=== PATIENT | female | born 1945 | race Caucasian/White ===

== ENCOUNTER → 2018-04-13 10:35 | Outpatient (CLI) | payer MEDICARE, BC, SELFPAY ==
[2018-04-13 11:51] LABS: HCT 37.6 % (36.0-46.0); Mean Corp. HGB Concentration 31.9 g/dL (32.0-36.0); Mean Corpuscular Hemoglobin 30.3 pg (27.0-33.0); Mean Corpuscular Volume 94.9 fL (80-95); Mean Platelet Volume 10.3 fL (8.0-11.0); Platelet Count 284 x1000/uL (130-400); RBC 3.96 m/cumm (4.00-5.20); RBC Distribution Width 14.4 % (11.7-14.6); White Blood Cell Count 8.17 k/cumm (4.4-10.8)
[2018-04-13 12:53] LABS: ALT 66 U/L (12-78); AST 40 U/L (15-37); Albumin 3.6 g/dL (3.4-5.0); Alkaline Phosphatase 97 U/L (46-116); BUN 18 mg/dL (7-18); Bilirubin, Total 0.3 mg/dL (0.2-1.0); CREATININE 1.15 mg/dL (0.55-1.02); Calcium 8.8 mg/dL (8.5-10.1); Chloride 102 mmol/L (98-107); Cholesterol 179 mg/dL (50-200); Estimated GFR 46.52 (mL/min/1.73m2); Glucose 138 mg/dL (70-100); HDL Cholesterol 38 mg/dL (40-60); LDL CHOLESTEROL 120 mg/dL (<100); Potassium 4.9 mmol/L (3.5-5.1); Sodium 139 mmol/L (136-145); TSH (W/Ref FT4) 6.75 uIU/mL (0.358-3.74); Total Protein 7.1 g/dL (6.4-8.2); Triglyceride 159 mg/dL (30-150)
[2018-04-13 12:54] LABS: COMMENT (LAB VIEW ONLY) 124.33 mg/dL
[2018-04-13 13:43] LABS: FREE T4 1.01 ng/dL (0.76-1.46)
[2018-04-13 14:30] LABS: Hemoglobin A1C 9.7 % (4.5-6.2)
== END ==
PROVIDERS: PCP Family Medicine; Visit Provider Family Medicine
DX: E03.9 Hypothyroidism, unspecified (principal); E11.65 Type 2 diabetes mellitus with hyperglycemia; I10 Essential (primary) hypertension
CPT/HCPCS: 36415; 80053; 80061; 83721; 85027; 82043; 82570; 83036; 84439; 84443

== ENCOUNTER → 2018-04-20 01:28 | Outpatient (CLI) | payer MEDICARE, BC, SELFPAY ==
--- NOTE | 2018-04-20 10:58 | DI.REPORT_ITS ---
SYMPTOM/DIAGNOSIS: SCREENING, BREAST CANCER SCREENING Z12.31 BILATERAL SCREENING MAMMOGRAM: Mammograms were interpreted according to the usual protocol including computer analysis with CAD system, tomosynthesis and C view imaging. Comparison is made with exams from 2011 through 2016. A pacemaker overlies the left pectoral muscle on the MLO view. The breasts are composed of scattered fibroglandular densities, breast density category B. No suspicious masses or suspicious microcalcifications are seen. There has been no significant change. IMPRESSION: Category 1-B, negative mammogram. Yearly screening mammography is recommended,. SA ASSESSMENT OF FINDINGS: Negative. Category 1. Patient will receive a letter notifying them of these results. BI-RADS category B. There are scattered areas of fibroglandular density.
== END ==
PROVIDERS: PCP Family Medicine; Visit Provider Family Medicine
DX: Z12.31 Encounter for screening mammogram for malignant neoplasm of breast (principal)
CPT/HCPCS: 77063; 77067

== ENCOUNTER 2018-07-20 10:57 | Outpatient (CLI) | payer MEDICARE, BC, SELFPAY ==
[2018-07-20 12:34] LABS: Hemoglobin A1C 7.5 % (4.5-6.2)
== END 2018-07-20 11:17 ==
PROVIDERS: PCP Family Medicine; Visit Provider Family Medicine
DX: E11.65 Type 2 diabetes mellitus with hyperglycemia (principal)
CPT/HCPCS: 36415; 83036

== ENCOUNTER 2018-10-21 09:32 | Outpatient (CLI) | payer MEDICARE, BC, SELFPAY ==
[2018-10-21 10:56] LABS: Hemoglobin A1C 7.7 % (4.5-6.2)
== END 2018-10-21 09:52 ==
PROVIDERS: PCP Family Medicine; Visit Provider Family Medicine
DX: E11.65 Type 2 diabetes mellitus with hyperglycemia (principal)
CPT/HCPCS: 36415; 83036

== ENCOUNTER 2019-02-17 08:45 | Outpatient (CLI) | payer MEDICARE, BC, SELFPAY ==
[2019-02-17 13:30] LABS: Hemoglobin A1C 7.9 % (4.5-6.2)
== END 2019-02-17 09:05 ==
PROVIDERS: PCP Family Medicine; Visit Provider Family Medicine
DX: E11.9 Type 2 diabetes mellitus without complications (principal)
CPT/HCPCS: 36415; 83036

== ENCOUNTER 2019-05-05 00:32 | Outpatient (CLI) | payer MEDICARE, BC, SELFPAY ==
--- NOTE | 2019-05-05 12:30 | DI.MAMMO_ITS ---
SYMPTOMS/DIAGNOSIS: SCREENING, Z12.31 BILATERAL SCREENING MAMMOGRAM: Mammograms were interpreted according to the usual protocol including computer analysis with CAD system, tomosynthesis and C view imaging. Comparison is made with exams from 2013 through 2018. The breasts are composed of scattered fibroglandular densities, breast density category B. A pacemaker is again noted over the left pectoral muscle. No suspicious masses or suspicious microcalcifications are seen. There has been no significant change. IMPRESSION: Category 1, negative mammogram. Yearly screening mammography is recommended. SA ASSESSMENT OF FINDINGS: Negative. Category 1. Patient will receive a letter notifying them of these results. BI-RADS category B. There are scattered areas of fibroglandular density.
[2019-05-05 12:40] LABS: Hemoglobin A1C 7.9 % (4.5-6.2)
[2019-05-05 13:03] LABS: ALT 68 U/L (14-59); AST 41 U/L (15-37); Albumin 3.7 g/dL (3.4-5.0); Alkaline Phosphatase 102 U/L (46-116); Anion Gap 5.6 mmol/L (3-11); BUN 20 mg/dL (7-18); Bilirubin, Total 0.3 mg/dL (0.2-1.0); CO2 29.4 mmol/L (21.0-32.0); CREATININE 1.11 mg/dL (0.55-1.02); Calcium 9.5 mg/dL (8.5-10.1); Calculated LDL 127 mg/dL; Chloride 102 mmol/L (98-107); Cholesterol 194 mg/dL (50-200); Estimated GFR 48.32 (mL/min/1.73m2); Glucose 125 mg/dL (70-100); HDL Cholesterol 38 mg/dL (40-60); Potassium 4.8 mmol/L (3.5-5.1); Sodium 137 mmol/L (136-145); TSH (W/Ref FT4) 4.82 uIU/mL (0.36-3.74); Total Protein 7.5 g/dL (6.4-8.2); Triglyceride 149 mg/dL (30-150)
[2019-05-05 13:24] LABS: FREE T4 1.19 ng/dL (0.76-1.46)
[2019-05-05 16:54] LABS: NT-proBNP 62 pg/mL
== END 2019-05-05 00:52 ==
PROVIDERS: Nurse Practitioner Adult Health; PCP Family Medicine; Visit Provider Family Medicine
DX: E03.9 Hypothyroidism, unspecified (principal); E11.9 Type 2 diabetes mellitus without complications; I10 Essential (primary) hypertension; I42.8 Other cardiomyopathies; E11.65 Type 2 diabetes mellitus with hyperglycemia; Z12.31 Encounter for screening mammogram for malignant neoplasm of breast
CPT/HCPCS: 77063; 77067; 80053; 80061; 83036; 83880; 84439; 84443

== ENCOUNTER 2019-08-09 07:42 | Outpatient (CLI) | payer MEDICARE, BC, SELFPAY ==
[2019-08-09 11:40] LABS: Hemoglobin A1C 8.9 % (4.5-6.2)
== END 2019-08-09 08:02 ==
PROVIDERS: PCP Family Medicine; Visit Provider Family Medicine
DX: E11.9 Type 2 diabetes mellitus without complications (principal)
CPT/HCPCS: 36415; 83036

== ENCOUNTER 2019-11-01 07:59 | Outpatient (CLI) | payer MEDICARE, BC, SELFPAY ==
[2019-11-01 10:35] LABS: Hemoglobin A1C 8.2 % (3.8-5.6)
== END 2019-11-01 08:19 ==
PROVIDERS: PCP Family Medicine; Visit Provider Family Medicine
DX: E11.9 Type 2 diabetes mellitus without complications (principal)
CPT/HCPCS: 36415; 83036

== ENCOUNTER 2020-05-23 00:56 | Outpatient (CLI) | payer MEDICARE, BC, SELFPAY ==
--- NOTE | 2020-05-23 07:30 | DI.MAMMO_ITS ---
EXAM: MG MAMMO SCREENING CLINICAL HISTORY: screening,Z12.39 TECHNIQUE: Bilateral full field digital CC and MLO mammographic images were obtained with 3D tomosyn thesis and utilizing computer aided detection (CAD). COMPARISON: Available for comparison. FINDINGS: Masses/Architectural Distortion: Stable scattered glandular nodules are seen throughout both breasts. No suspicious masses or areas of architectural distortion are identified. Microcalcifications: No suspicious pleomorphic-type are seen. Skin Thickening/Nipple Retraction: None. The patient has a pacemaker over the left pectoral muscle. IMPRESSION: 1. No significant interval change with no specific features of malignancy noted. 2. Unless there is more urgent need, screening mammography is recommended, as per [employer] guidelines. BI-RADS Category 1 - Negative Breast Density - Category B - Scattered areas of fibroglandular density A negative radiographic report should not delay biopsy if a dominant or clinically suspicious mass is present. Up to ten percent of cancers are not identified on mammography. A negative report may reinforce clinical impression. Adenosis and dense breasts may obscure an underlying neoplasm. False positive reports average 6 to 10%. Patient will receive a letter notifying them of these results.
== END 2020-05-23 01:16 ==
PROVIDERS: PCP Family Medicine; Visit Provider Family Medicine
DX: Z12.31 Encounter for screening mammogram for malignant neoplasm of breast (principal)
CPT/HCPCS: 77063; 77067

== ENCOUNTER 2020-05-23 02:34 | Outpatient (CLI) | payer MEDICARE, BC, SELFPAY ==
[2020-05-23 12:28] LABS: Hemoglobin A1C 7.1 % (<5.7)
[2020-05-23 12:51] LABS: COMMENT (LAB VIEW ONLY) 93.27 mg/dL; Microalb ug/mg Crea 6.9 ug/mg Cr
[2020-05-23 13:01] LABS: ALT 41 U/L (14-59); AST 27 U/L (15-37); Albumin 3.9 g/dL (3.4-5.0); Alkaline Phosphatase 97 U/L (46-116); BUN 20 mg/dL (7-18); Bilirubin, Total 0.4 mg/dL (0.2-1.0); CREATININE 1.04 mg/dL (0.55-1.02); Calcium 9.2 mg/dL (8.5-10.1); Chloride 103 mmol/L (98-107); Estimated GFR 51.94 (mL/min/1.73m2); Glucose 85 mg/dL (74-106); Potassium 4.3 mmol/L (3.5-5.1); Sodium 141 mmol/L (136-145); TSH (W/Ref FT4) 3.01 uIU/mL (0.36-3.74); Total Protein 7.3 g/dL (6.4-8.2)
== END 2020-05-23 02:54 ==
PROVIDERS: PCP Family Medicine; Visit Provider Family Medicine
DX: E11.9 Type 2 diabetes mellitus without complications (principal); E03.9 Hypothyroidism, unspecified; I10 Essential (primary) hypertension; G47.33 Obstructive sleep apnea (adult) (pediatric)
CPT/HCPCS: 36415; 80053; 82043; 82570; 83036; 84443

== ENCOUNTER 2021-02-28 11:31 | Emergency (ER) | payer MEDICARE, BC, SELFPAY ==
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
[2021-02-28 11:32] VITALS: BP 115/37; PULSE 84; RESP 18; TEMP 36; O2SAT 94
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
[2021-02-28 13:17] VITALS: BP 124/44; PULSE 82; RESP 16; TEMP 36.7; O2SAT 94
== END 2021-02-28 14:03 | disposition home or self-care (01) ==
LOC: ER 14:01
PROVIDERS: Emergency Provider Registered Nurse Emergency; PCP Family Medicine
DX: S29.011A Strain of muscle and tendon of front wall of thorax, initial encounter (principal); V89.2XXA Person injured in unspecified motor-vehicle accident, traffic, initial encounter
CPT/HCPCS: 73562; 99284; 71046; 71100; 99283

== ENCOUNTER 2021-04-17 03:32 | Outpatient (CLI) | payer MEDICARE, BC, SELFPAY ==
[2021-04-17 11:28] LABS: COMMENT (LAB VIEW ONLY) 63.68 mg/dL; Microalb ug/mg Crea 8.6 ug/mg Cr
[2021-04-17 11:38] LABS: Hemoglobin A1C 7.4 % (<5.7)
[2021-04-17 11:54] LABS: TSH (W/Ref FT4) 7.15 uIU/mL (0.36-3.74)
[2021-04-17 12:10] LABS: FREE T4 1.13 ng/dL (0.76-1.46)
== END 2021-04-17 03:33 | disposition home or self-care (01) ==
LOC: LBO 03:32
PROVIDERS: PCP Family Medicine; Visit Provider Family Medicine
DX: E11.9 Type 2 diabetes mellitus without complications (principal); E03.9 Hypothyroidism, unspecified
CPT/HCPCS: 36415; 82043; 82570; 83036; 84439; 84443

== ENCOUNTER 2021-07-12 01:24 | Outpatient (CLI) | payer MEDICARE, BC, SELFPAY ==
--- NOTE | 2021-07-12 07:00 | DI.US_ITS ---
Exam(s) US LOWER EXTREMITY VENOUS LT EXAM: US LOWER EXTREMITY VENOUS LT CLINICAL HISTORY: new edema and pain left leg, remote DVT hx, ? DVT,R60.0. TECHNIQUE: Lower extremity venous ultrasound performed using grayscale, color-flow, and spectral Do ppler analysis. COMPARISON: No exams were available for comparison FINDINGS: The common femoral vein shows echogenic non occlusive thrombus measuring 2 cm in length. Which is li matias old. The femoral and popliteal veins demonstrate normal compressibility, augmentation, and colo r Doppler. The posterior tibial veins are patent. No saphenous vein thrombosis or other superficial venous thrombosis is seen. No hematoma or Avila's cyst is seen. 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 DATA REPOSITORY:
--- NOTE | 2021-07-12 07:00 | DI.RAD_ITS ---
Exam(s) XR KNEE LT 3V AP,LAT,UZIEL EXAM: XR KNEE LT 3V AP,LAT,UZIEL CLINICAL HISTORY: new pain, no trauma, pos. efusion, ?OA signs,M25.562. TECHNIQUE: 2D digital imaging was performed. COMPARISON: No exams were available for comparison FINDINGS: BONES: No acute fracture is present. No bony destructive lesion is seen. JOINTS: The knee is normally aligned. No joint effusion is seen. Joint spaces are well maintained. M inimal periarticular spurring. SOFT TISSUE: Normal. IMPRESSION: Minimal degenerative changes. DATA REPOSITORY: RADIATION DOSE DELIVERED:
== END 2021-07-12 01:44 ==
PROVIDERS: PCP Family Medicine; Visit Provider Family Medicine
DX: M25.562 Pain in left knee (principal); R60.0 Localized edema; M79.662 Pain in left lower leg; I82.512 Chronic embolism and thrombosis of left femoral vein
CPT/HCPCS: 73562; 93971

== ENCOUNTER 2021-09-14 02:36 | Outpatient (CLI) | payer MEDICARE, BC, SELFPAY ==
--- NOTE | 2021-09-14 08:00 | DI.DEXA_ITS ---
Exam(s) XR DEXA BONE DENSITY W/WO LEBRON EXAM: XR DEXA BONE DENSITY W/WO LBERON CLINICAL HISTORY: osteoporosis,m81.0 TECHNIQUE: Routine DEXA evaluation of the lumbar spine, hip, or forearm. COMPARISON: No exams were available for comparison FINDINGS: Performed on a Hologic unit. Lateral image: No compression fracture evident. Lumbar Spine total T-score: 1.4 Hip total T-score:2.3 Independent reading at the level of the femoral neck yields at T-score of 1.4. Forearm total T-score: 0.7 IMPRESSION: Bone mineral density measures in the normal range. Fracture risk is low. Note: Any spine fracture indicates 5x risk for subsequent spine fracture and 2x risk for subsequent h ip fracture. World Health Organization criteria for BMD interpretation classify patients: Normal...... T- Score at or above -1.0 Osteopenic... T- Score between -1.0 and -2.5 Osteoporosis... T-Score at or below -2.5
--- NOTE | 2021-09-14 15:23 | DI.MAMMO_ITS ---
Exam(s) MAMMO SCREENING EXAM: MAMMO SCREENING CLINICAL HISTORY: screening,z12.39. TECHNIQUE: Bilateral full field digital CC and MLO mammographic images were obtained with 3D tomosyn thesis and utilizing computer aided detection (CAD). COMPARISON: Prior mammograms dating back to 2012, the most recent being May 2020. FINDINGS: Been no significant change in the appearance and distribution of the fibroglandular tissue. Benign-appearing nodules in the right breast are unchanged from prior studies There are no new spiculated masses nor malignant appearing microcalcification groups. There is no significant architectural distortion nor skin thickening-retraction. IMPRESSION: Stable benign findings. No radiographic evidence of malignancy BI-RADS Category 2 - Benign Findings Breast Density - Category B - Scattered areas of fibroglandular density Breast density Category C or D implies that the patient has dense breast tissue. Dense breast tissue can make it harder to find cancer on a mammogram. Dense breast tissue is also associated with an incr eased risk of breast cancer. This information about the result of the mammogram report was provided to the patient to raise their awareness. Use this report when you speak with the patient about their risks for breast cancer, which includes their family history. At that time, you may recommend additional screening tests (Ultrasoun d or MRI) as these tests may add significant information. A negative radiographic report should not delay biopsy if a dominant or clinically suspicious mass is present. Up to ten percent of cancers are not identified on mammography. A negative report may reinforce clinical impression. Adenosis and dense breasts may obscure an underlying neoplasm. False positive reports average 6 to 10%. Patient will receive a letter notifying them of these results.
== END 2021-09-14 02:56 ==
PROVIDERS: PCP Family Medicine; Visit Provider Family Medicine
DX: Z13.820 Encounter for screening for osteoporosis (principal); Z12.31 Encounter for screening mammogram for malignant neoplasm of breast
CPT/HCPCS: 77063; 77067; 77080

== ENCOUNTER 2022-03-18 02:32 | Outpatient (CLI) | payer MEDICARE, BC, SELFPAY ==
--- OUTSIDE RECORDS SUMMARY | 2022-03-18 02:34 | XMS_ITS | Encounter Summary ---
:1945 [place] [address] Care Team Providers Name Role Phone Nicole Pickens MD Primary Care Provider Encounter Details Date Type Department Care Team Description 05/11/2021 Laboratory Appointment Lab 3L [facility] systolic [facility] [place] [id number] Social History Tobacco Use Types Packs/Day Years Used Date Never Smoker Smokeless Tobacco: Never Used Alcohol Use Standard Drinks/Week Comments No 0 (1 standard drink = 0.6 oz pure alcoho l) Sex Assigned at Date Recorded Not on file documented as of this encounter Plan of Treatment Upcoming Encounters Date Type Specialty Care Team Description 04/16/2022 Appointment Cardiology Vivi Lorenz APRN [facility] CARDIOLOGY DEPT. [place], [place] [address] (Wo rk) 04/16/2022 Laboratory Appointment Lab 04/16/2022 Office Visit Cardiology Vivi Lorenz APRN [facility] CARDIOLOGY DEPT. [place], [place] [address] (Wo rk) documented as of this encounter Procedures Procedure Name Priority Date/Time Associated Comments Diagnosis HC VENIPUNCTURE STAT 05/11/2021 1:37 PM Chronic systolic Re sults for this EDT heart failure procedure are in the results section. BASIC METABOLIC PANEL STAT 05/11/2021 1:37 PM Chronic systo lic Results for this (NON-FASTING) EDT heart failure procedure are in the results section. documented in this encounter Results (ABNORMAL) Basic Metabolic Panel (non-fasting) (05/11/2021 1:37 PM EDT) P athologist Signature Glucose Lvl 76 65 - 199 [facility] mg/dL [facility] Comment: Diabetes: >=200 mg/dL plus symp toms BUN 17 8 - 18 mg/dL [facility] Creatinine 1.03 0.70 - 1.20 mg/dL [facility] Sodium 137 135 - 145 mmol/L [facility] Potassium 4.8 3.5 - 5.0 mmol/L [facility] Comment: Please note: ??Patients with WBC >100,00 0 may have falsely elevated Potassium levels. ??For accurate Potassium quantif ication in these patients send serum separator tube (gold top) for subsequent determinations. ??Contact the Clinical Chemistry Laboratory if there are any qu estions. Chloride 102 98 - 107 mmol/L [facility] CO2 26 22 - 31 mmol/L [facility] Anion Gap 9 5 - 15 mmol/L [facility] Calcium 9.4 8.5 - 10.5 mg/dL [facility] Estimated GFR 54 (L) >=60 mL/min/1.73 m?? [facility] Comment: This patient? s estimated glomerular filtration rate (eGFR) is between 54 mL/min/1.73 m2 (patients with less muscl e mass) and 62 mL/min/1.73 m2 (patients with more muscle mass) as determined by the CKD-EPI equation. Assessment of eGFR is not appropriate when creatinine concentrations are rapidly changing. For clinical decisions where creatinine clearance will affect therapy, a 24-hour urine creatinine clearance may b e advised. Assignment of CKD stage 1 - 5 for patien ts with an eGFR near the transition point between stages may be based on cli nical assessment of muscle mass and symptoms in addition to eGFR. Specimen Anatomical Collection Method Collection Time Receive d Time (Source) Location / / Volume Laterality Blood 05/11/2021 1:37 PM 1 1:45 EDT PM EDT Resulting Agency Comment Spec In Lab Vivi Lorenz APRN CHEMISTRY ORDERABLES Performing Organization Address City/State/[place] [address] (ABNORMAL) pro-Brain Natriuretic Peptide (05/11/2021 1:37 PM EDT) athologist Signature ProBNP 221 (H) <=124 pg/mL [facility] Specimen Anatomical Collection Method Collection Time Receive d Time (Source) Location / / Volume Laterality Blood 05/11/2021 1:37 PM 1 1:45 EDT PM EDT Resulting Agency Comment Spec In Lab Vivi Lorenz APRN CHEMISTRY ORDERABLES Performing Organization Address City/State/[place] [address] documented in this encounter Visit Diagnoses Diagnosis Chronic systolic heart failure documented in this encounter Care Teams Venetian Blind Assembler Relationship Specialty Start Date End Date Nicole Pickens MD PCP - General 08/17/[address] [place] [address] documented as of this encounter
--- OUTSIDE RECORDS SUMMARY | 2022-03-18 02:34 | XMS_ITS | Encounter Summary ---
:1945 Author Organization [facility] [place] [address] Care Team Providers Name Role Phone Nicole Pickens MD Primary Care Provider Encounter Details Date Type Department Care Team Description 05/11/2021 Office Visit Cardiology at [facility] Vivi Damon, ICD (implantable cardioverte r-defibrillator) in place; [facility] MASON APPRENTICE Cardiac resynchronization therapy defibr illator (MICROBIOLOGY LAB MANAGER-D) in place Drive [facility] [phone] CARDIOLOGY [phone] [place] [address] Social History Tobacco Use Types Packs/Day Years Used Date Never Smoker Smokeless Tobacco: Never Used Alcohol Use Standard Drinks/Week Comments No 0 (1 standard drink = 0.6 oz pure alcoho l) Sex Assigned at Date Recorded Not on file documented as of this encounter Last Filed Vital Signs Vital Sign Reading Time Taken Comments Blood Pressure 133/59 05/11/2021 1:47 PM EDT Pulse 81 05/11/2021 1:47 PM EDT Temperature - - Respiratory Rate - - Oxygen Saturation 99% 05/11/2021 1:47 PM EDT Inhaled Oxygen Concentration - - Weight 116.2 kg (256 lb 3.2 oz) 05/11/2021 1:47 PM EDT Height 165.1 cm (5' 5) 05/11/2021 1:47 PM EDT Body Mass Index 42.63 05/11/2021 1:47 PM EDT documented in this encounter Progress Notes Vivi Damon, JEREMÍAS - 05/11/2021 1:45 PM EDT Cardiac Device Interrogation Ana Victoria [id number] 05/11/21 History: 75 yo female with history of NICM, LBBB s/p Medtronic MICROBIOLOGY LAB MANAGER-D upgrade 04/26/2011 with generator changed in 11/04/2016. The original ICD was implanted 03/2005. From Dalila Woodard's note, 09/19/20: She has a history in 07/19/2011 related to LV Tip->Ring impedance of just over 1,500 ohms. LV vector was reprogrammed Ring->Coil at that encounter.?? Right ventricular lead subject to Vladimir Shaikh advisory from 2006. She follows with Tayler Lorenz with Heart Failure. She is feeling well, although has occasional lightheadedness,especially when turning over in bed. She admits to probably not enough water intake, 20-40 oz daily. Encouraged increased intake, if ok with Tayler Tamez. She plans to discuss with Tayler. Device Interrogation: Data Generator: Kleo Viva XT model number [id number] Serial #[id number] - left-sided implant 11/04/2016 Atrial electrode: [employer], CaptureFix Model # 5076-52 cm Serial # [id number] (Implanted 04/26/11) Ventricular electrode: Medtronic SprintFidelis Model# 6949-58 cm Serial #[id number] (Implanted 03/08/2005) Alerts none Diagnostics Pacing Mode: DDD 40-130 Presenting EGMs: /BV 85 bpm Underlying Rhythm: sinus rhythm 83 bpm Atrial Episodes: 1 episode 3 secs. Duration. Ventricular Episodes: 1 NSVT Oct 21, 2020, 1 sec, 176 bpm. Atrial Pacing: <0.1% Ventricular Pacin.9% MICROBIOLOGY LAB MANAGER Thoracic impedance: steady stable trend, Optivol fluid index below threshold. HR Histogram: left shifted graphs, predominate rates 70s bpm Battery and Leads Voltage: 2.95 V Status: ~2.3 years Magnet Rate: ---bpm Charge Time: 3.9 sec Impedances (ohms) Sensing (mV) Thresholds HV RA RV LV RA RV LV RA RV LV 64 RV 89 SVC [phone] 4.9 >20 --- 0.5 V @ 0.4ms 1.25 V @ 0.4 ms 1.00 V @ 0.8 ms Comments: - Pocket incision is well healed without signs or symptoms of infection - Device is functioning appropriately - Programming changes ?? Iterative changes made for testing purposes only - Follow up: every 6 months in clinic, every 3 months remotely. Vivi Damon APRN 05/11/21 Pager: [phone] documented in this encounter Plan of Treatment Upcoming Encounters Date Type Specialty Care Team Description 04/16/2022 Appointment Cardiology Vivi Lorenz APRN [facility] CARDIOLOGY DEPT. [place], [place] [address] (Wo rk) 04/16/2022 Laboratory Appointment Lab 04/16/2022 Office Visit Cardiology Vivi Lorenz APRN [facility] CARDIOLOGY DEPT. [place], [place] [address] (Wo rk) documented as of this encounter Visit Diagnoses Diagnosis ICD (implantable cardioverter-defibrilla tor) in place Cardiac resynchronization therapy defibr illator (MICROBIOLOGY LAB MANAGER-D) in place documented in this encounter Care Teams Footwear Machinery Instructor Relationship Specialty Start Date End Date Nicole Pickens MD PCP - General 08/17/[address] [place] [address] documented as of this encounter
--- OUTSIDE RECORDS SUMMARY | 2022-03-18 02:34 | XMS_ITS | Encounter Summary ---
:1945 [place] [address] Care Team Providers Name Role Phone Nicole Pickens MD Primary Care Provider Encounter Details Date Type Department Care Team Description 02/13/2022 Hospital Encounter Non-Invasive Alfonso Xie, Cardiopasquale gresham, primary; Cardiology Lab [place] URIASBB (left bundle branch block) [address] [phone] (Work) [phone] Social History Tobacco Use Types Packs/Day Years Used Date Never Smoker Smokeless Tobacco: Never Used Alcohol Use Standard Drinks/Week Comments No 0 (1 standard drink = 0.6 oz pure alcoho l) Sex Assigned at Date Recorded Not on file documented as of this encounter Medications at Time of Discharge Medication Sig Dispensed Refills Start Date End Date atorvastatin (LIPITOR) 40 Take 1 tablet by 90 tablet 3 05/02 mg Tablet mouth daily. NOVOLOG FLEXPEN U-100 10 Units 3 times 0 12/29/19 18 INSULIN Insulin Pen daily. LEVEMIR FLEXTOUCH U-100 30 Units 2 times 0 2017 INSULN Insulin Pen daily. FREESTYLE LANCETS 28 gauge 0 8 Misc VICTOZA 2-FELIBERTO 0.6 mg/0.1 mL 1.8 mg daily. 0 03/10 (18 mg/3 mL) Pen Injector BD ULTRA-FINE MICRO PEN 0 02/10/2018 NEEDLE 32 gauge x 1/4 Needle GLUCOSAMINE HCL ORAL Take 2 capsules by 0 mouth daily. carvedilol (COREG) 25 mg Take 25 mg by mouth 0 Tablet 2 times daily (with meals). metFORMIN (GLUCOPHAGE) Take by mouth. 0 1,000 mg Tablet 1000mg in AM 1500mg in PM spironolactone (ALDACTONE) Take 50 mg by mouth 0 50 mg Tablet daily. levothyroxine (SYNTHROID) Take 150 mcg by 0 150 mcg tablet mouth daily. aspirin 81 mg chewable Take 81 mg by mouth 0 tablet daily. CALCIUM CARBONATE/VITAMIN Take 2 tablets by 0 D3 (CALCIUM 600 + D,3, mouth daily. ORAL) losartan (COZAAR) 50 mg Take 50 mg by mouth 0 tablet daily. documented as of this encounter Plan of Treatment Upcoming Encounters Date Type Specialty Care Team Description 04/16/2022 Appointment Cardiology Vivi Lorenz APRN [facility] CARDIOLOGY DEPT. [place], [place] [address] (Wo rk) 04/16/2022 Laboratory Appointment Lab 04/16/2022 Office Visit Cardiology Vivi Lorenz APRN [facility] CARDIOLOGY DEPT. [place], [place] [address] (Wo rk) documented as of this encounter Procedures Procedure Name Priority Date/Time Associated Comments Diagnosis ICD INTERROGATION 3 Routine 02/14/2022 1:12 PM Cardiomyopathy, Results for this MONTH EDT primary procedure are in LBBB (left bundle the result s branch block) section. documented in this encounter Results ICD INTERROGATION 3 MONTH (02/14/2022 1:12 PM EDT) Specimen (Source) Anatomical Location Collection Method / Collectio n Time Received Time / Laterality Volume Narrative Alfonso Xie MD - 03/11/2022 12:07 PM EDT MDT PRESS OPERATOR ASSISTANT-D remote reviewed. Normal device function. Alfonso Xie MD [facility] Cardiac Electrophysiology 03/11/2022 12:06 PM Alfonso Xie MD IMPLANTABLE CARDIAC DEVICE documented in this encounter Visit Diagnoses Diagnosis Cardiomyopathy, primary Other primary cardiomyopathies LBBB (left bundle branch block) Other left bundle branch block documented in this encounter Care Teams Credit Card Interviewer Relationship Specialty Start Date End Date Nicole Pickens MD PCP - General 08/17/[address] [place] [address] documented as of this encounter
--- OUTSIDE RECORDS SUMMARY | 2022-03-18 02:34 | XMS_ITS | Encounter Summary ---
:1945 [place] [address] Care Team Providers Name Role Phone Nicole Pickens MD Primary Care Provider Encounter Details Date Type Department Care Team Description 08/14/2021 Hospital Encounter Non-Invasive Alfonso Xie, Cardiopasquale gresham, primary; Cardiology Lab [place] URIASBB (left bundle branch block) [address] [phone] (Work) [phone] Social History Tobacco Use Types Packs/Day Years [...] Description 04/16/2022 Appointment Cardiology Vivi Lorenz APRN [facility] CARDIOLOGY DEPT. [place], [place] [address] (Wo rk) 04/16/2022 Laboratory Appointment Lab 04/16/2022 Office Visit Cardiology Vivi Lorenz APRN [facility] CARDIOLOGY DEPT. [place], [place] [address] (Wo rk) documented as of this encounter Procedures Procedure Name Priority Date/Time Associated Comments Diagnosis ICD INTERROGATION 3 Routine 08/14/2021 1:10 PM Cardiomyopathy, Results for this MONTH EST primary procedure are in LBBB (left bundle the result s branch block) section. documented in this encounter Results ICD INTERROGATION 3 MONTH (08/14/2021 1:10 PM EST) Specimen (Source) Anatomical Location Collection Method / Collectio n Time Received Time / Laterality Volume Narrative Alfonso Xie MD - 08/14/2021 1:[address] MDT biventricular ICD remote reviewed. Normal device function. Alfonso Xie MD S Cardiac Electrophysiology 08/14/2021 1:41 PM Alfonso Xie MD IMPLANTABLE CARDIAC DEVICE documented in this encounter Visit Diagnoses Diagnosis Cardiomyopathy, primary Other primary cardiomyopathies LBBB (left bundle branch block) Other left bundle branch block documented in this encounter Care Teams Booster Pump Oiler Relationship Specialty Start Date End Date Nicole Pickens MD PCP - General 08/17/[address] [place] [address] documented as of this encounter
--- OUTSIDE RECORDS SUMMARY | 2022-03-18 02:34 | XMS_ITS | Encounter Summary ---
:1945 [place] [address] Care Team Providers Name Role Phone Nicole Pickens MD Primary Care Provider Encounter Details Date Type Department Care Team Description 11/13/2021 Hospital Encounter Non-Invasive Massimo Ponce Cardiopasquale gresham, Cardiology Lab [place] Olmedo MD primary [facility] CARDIOLOGY DE PT. [place] [id number] [phone] Social History Tobacco Use Types Packs/Day Years [...] Description 04/16/2022 Appointment Cardiology Vivi Lorenz APRN [facility] CARDIOLOGY DEPT. [place], [place] [address] (Wo rk) 04/16/2022 Laboratory Appointment Lab 04/16/2022 Office Visit Cardiology Vivi Lorenz APRN [facility] CARDIOLOGY DEPT. [place], [place] [address] (Wo rk) documented as of this encounter Procedures Procedure Name Priority Date/Time Associated Comments Diagnosis ICD INTERROGATION 3 Routine 11/13/2021 7:35 AM Cardiomyopathy, Results for this MONTH EDT primary procedure are i n the results section. documented in this encounter Results ICD INTERROGATION 3 MONTH (11/13/2021 7:35 AM EDT) Specimen (Source) Anatomical Location Collection Method / Collectio n Time Received Time / Laterality Volume Narrative Massimo Ponce MD - 11/13/2021 8:26 A M EDT Cardiac Device Remote Monitoring Report Summary Medtronic Carelink Device: SMOKING PIPE REPAIRER-D Model: VIVA Battery: 2.94 v, estimated longevity 2 y ears, 1 month Pacing percentage: 99% SMOKING PIPE REPAIRER paced Events: Presenting rhythm: Atrial sensed/biventr icular paced Impression Normal device function Follow Up As per schedule - in-clinic and remote MASSIMO PONCE MD 11/13/21 Massimo Ponce MD IMPLANTABLE CARDIAC DEVICE documented in this encounter Visit Diagnoses Diagnosis Cardiomyopathy, primary Other primary cardiomyopathies documented in this encounter Care Teams Hvac Lead Relationship Specialty Start Date End Date Nicole Pickens MD PCP - General 08/17/[address] [place] [address] documented as of this encounter
--- OUTSIDE RECORDS SUMMARY | 2022-03-18 02:34 | XMS_ITS | Clinical Summary ---
:1945 Author Organization [facility] [place] [address] Care Team Providers Name Role Phone Nicole Pickens MD Primary Care Provider Allergies No known active allergies Medications Medication Sig Dispensed Refills Start Date End Date Status losartan (COZAAR) 50 mg Take 50 mg by 0 Active tablet mouth daily. CALCIUM Take 2 tablets by 0 Ac tive CARBONATE/VITAMIN D3 mouth daily. (CALCIUM 600 + D,3, ORAL) levothyroxine Take 150 mcg by 0 Active (SYNTHROID) 150 mcg mouth daily. tablet aspirin 81 mg chewable Take 81 mg by 0 Active tablet mouth daily. carvedilol (COREG) 25 Take 25 mg by 0 Active mg Tablet mouth 2 times daily (with meals). metFORMIN (GLUCOPHAGE) Take by mouth. 0 Active 1,000 mg Tablet 1000mg in AM 1500mg in PM spironolactone Take 50 mg by 0 A ctive (ALDACTONE) 50 mg mouth daily. Tablet GLUCOSAMINE HCL ORAL Take 2 capsules 0 Active by mouth daily. NOVOLOG FLEXPEN U-100 10 Units 3 times 0 12/28/2017 Active INSULIN Insulin Pen daily. LEVEMIR FLEXTOUCH U-100 30 Units 2 times 0 8 Active INSULN Insulin Pen daily. FREESTYLE LANCETS 28 0 02/10/2018 Active gauge Misc VICTOZA 2-FELIBERTO 0.6 1.8 mg daily. 0 03/10/2018 Active mg/0.1 mL (18 mg/3 mL) Pen Injector BD ULTRA-FINE MICRO PEN 0 02/10/2018 Active NEEDLE 32 gauge x 1/4 Needle atorvastatin (LIPITOR) Take 1 tablet by 90 tablet 3 05/13/2019 Active 40 mg Tablet mouth daily. Active Problems Problem Noted Date Diabetes mellitus 11/04/2016 Medtronic DESIZING MACHINE BACK TENDER-D, not MRI compatible 11/04/2016 Overview: --[place] lead. Heart failure- chronic systolic dysfunction 02/04/2013 Overview: Formatting of this note is dif ferent from the original. Well compensated and euvolemic NSR with LBBB, s/p DESIZING MACHINE BACK TENDER-D 04/11/11 AHA./ACC Stage C, NYHA FTC II Heart Failure Management: Yes/No No?/Discontinued/Why Beta tone Yes MILADYS/ARB Yes Spironolactone yes AFIB? no Anticoagulated n/a Device yes DESIZING MACHINE BACK TENDER-D 04/11/11 Last Assessment & Plan: Appears well compensated and euvolemic o n appropriate medical therapy No device issues, no Optivol alert, norm al BNP and metabolic panel Obesity 02/07/2009 Overview: BMI=43 Last Assessment & Plan: Counseled LBBB (left bundle branch block) 02/07/2009 Overview: Chronic Widened QRS S/p DESIZING MACHINE BACK TENDER-D Last Assessment & Plan: S/p DESIZING MACHINE BACK TENDER, 99% SQUAD LEADER rhythm Depression 02/07/2009 History of DVT (deep vein thrombosis) 02/07/2009 Overview: a. #1 peripartum 1979, short-term antico agulation. b. #2 postop ORIF left ankle in 1997, lo ng-term anticoagulation begun. c. Unknown if prior coagulopathy work-up . 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 Severe d iffuse global HK, LV apex dyskinetic with sessile mural thrombus. 3-4+ MR. LA E. RV normal. Mildly elevated PAP (44mmHg). Echo EF= 20-25% 11/15/04 Echo EF= 25% 08/26/05 Echo EF= 40% 07/17/06 Echo EF= 30% 01/26/08 .br Echo EF= 30% 07/21/08 Echo EF= 30% 02/10 Echo EF= 50-55% 02/02/13 (s/p DESIZING MACHINE BACK TENDER) Echo EF= 60-65% 02/15/14 Last Assessment & Plan: Improved LVEF s/p Medical and Device DESIZING MACHINE BACK TENDER LV (left ventricular) mural thrombus 02/07/2009 Last Assessment & Plan: Formatting of th is note might be different from the original. stable Obstructive sleep apnea 02/07/2009 Overview: uses CPAP Last Assessment & Plan: Compliant with CPAP, symptomatic improve ment Osteoarthritis 02/07/2009 Encounters Date Type Specialty Care Team Description 02/13/2022 Hospital Encounter Cardiology Alfonso Xie MD Card iomyopathy, primary; LBBB (left bund le branch block) from Last 3 Months Immunizations Name Administration Dates Next Due Influenza Vaccine (Novel) [id number], 06/01/2009 Injectable Influenza Vaccine, Whole 05/02/2009, 06/01/2007, 09/01/2004 Pneumococcal Polyvalent 23 09/01/2005 Social History Tobacco Use Types Packs/Day Years Used Date Never Smoker Smokeless Tobacco: Never Used Alcohol Use Standard Drinks/Week Comments No 0 (1 standard drink = 0.6 oz pure alcoho l) Sex Assigned at Date Recorded Not on file Last Filed Vital Signs Vital Sign Reading Time Taken Comments Blood Pressure 133/59 05/11/2021 1:54 PM EDT Pulse 81 05/11/2021 1:54 PM EDT Temperature 36.1 ??C (97 ??F) 11/04/2016 11:45 AM EST Respiratory Rate 19 09/19/2020 10:05 AM EST Oxygen Saturation 99% 05/11/2021 1:54 PM EDT Inhaled Oxygen Concentration - - Weight 116.2 kg (256 lb 3.2 oz) 05/11/2021 1:47 PM EDT Height 165 cm (5' 4.96) 05/11/2021 1:54 PM EDT Body Mass Index 42.63 05/11/2021 1:47 PM EDT Plan of Treatment Upcoming Encounters Date Type Specialty Care Team Description 04/16/2022 Appointment Cardiology Vivi Lorenz, [facility] CARDIOLOG[facility] DEPT. [place], [place] [address] (Wo rk) 04/16/2022 Laboratory Appointment Lab 04/16/2022 Office Visit Cardiology Vivi Lorenz APRN [facility] CARDIOLOG[facility] DEPT. [place], [place] [address] (Wo rk) Health Maintenance Due Date Last Done Comments Covid-19 Vaccine (#1) 11/08/1950 DM Opthalmology Exam 1956 DM Urine Microalbumin yearly 1956 Hepatitis C Screening 1964 Tdap adult 1965 Tetanus vaccine 1965 Colonoscopy 11/08/1991 Zoster vaccine (1 of 2) 1996 Pneumoccocal Vaccine: 65+ (2 - 09/01/2006 09/01/2005 PCV) Bone Density Scan 11/08/2011 DM Hemoglobin A1c 6 month 03/19/2021 09/19/2020, 05/05/2019 Influenza (Flu) vaccine (1 of 1 - 05/02/2022 06/01/2009, , Influenza standard series) 06/01/2007, Additiona l history exists DM Creatinine yearly 05/11/2022 05/11/2021, 09/19/2020, 05/05/2019, Additional history exists Medical Devices Implanted Type Area As400 Programmer Analyst Device Shelf Model / Identifier Expiration Serial / Date Lot Mdt : Viva Xt Portfolio Mgr-D [id number] : [id number] Cardiac Medtronic [employer]. VIVA XT DESIZING MACHINE BACK TENDER-D [id number] / Implanted: 11/04/2016 (Quantity not on file) Resynchronization [id number] / Therapy - Defibrillator Explanted Type Area As400 Programmer Analyst Device Shelf Model / Identifier Expiration Serial / Date Lot Mdt : [id number] Protecta Xt Portfolio Mgr-D : [id number] Cardiac Medtr [employer] Inc. PROTECTA XT DESIZING MACHINE BACK TENDER-D [id number] / Implanted: 04/26/2011 (Quantity not on file) Resynchronization [id number] / Explanted: 11/04/2016 (Quantity not on file) Therapy - Defibrillator Description: Medtronic : [id number] Protect a XT DESIZING MACHINE BACK TENDER-D : [id number] Procedures Procedure Name Priority Date/Time Associated Comments Diagnosis ICD INTERROGATION 3 Routine 02/14/2022 1:12 PM Cardiomyopathy, Results for this MONTH EDT primary procedure are in LBBB (left bundle the result s branch block) section. from Last 3 Months Results ICD INTERROGATION 3 MONTH (02/14/2022 1:12 PM EDT) Specimen (Source) Anatomical Location Collection Method / Collectio n Time Received Time / Laterality Volume Narrative Alfonso Xie MD - 03/11/2022 12:07 PM EDT MDT DESIZING MACHINE BACK TENDER-D remote reviewed. Normal device function. Alfonso Xie MD [facility] Cardiac Electrophysiology 03/11/2022 12:06 PM Alfonso Xie MD IMPLANTABLE CARDIAC DEVICE from Last 3 Months Insurance Payer Benefit Plan / Subscriber ID Effective Phone Address T ype Group Dates MEDICARE MEDICARE PART [id number] 2016-Prese [id number] [place] [phone] [employer] BCBS [id number] 2018-Prese [address] [place] [phone] (Work) Advance Directives Documents on File Type Date Recorded Patient Bag End Sewer Explanati on Advance Directives and Living 10/30/2010 4:32 PM Will Latest Code Status on File Code Status Date Activated Date Inactivated Comments Full Code 11/04/2016 8:23 AM 11/04/2016 2:46 PM Does patient have capacity to make decision: Yes Full Code 04/27/2011 11:54 AM 11/04/2016 8:23 AM Does patient have decision making capacity? Yes, Order is based on Patients wishes. Full Code 04/26/2011 5:45 PM 04/27/2011 11:54 AM Order Status: Initial Order Does patient have decision making capacity? Yes, Order is based on Patients wishes. Care Teams Occupational Rehabilitation Aide Relationship Specialty Start Date End Date Nicole Pickens MD PCP - General 08/17/[address] [place] [address]
--- OUTSIDE RECORDS SUMMARY | 2022-03-18 02:35 | XMS_ITS | Encounter Summary ---
:1945 [place] [address] Care Team Providers Name Role Phone Nicole Pickens MD Primary Care Provider Encounter Details Date Type Department Care Team Description 03/20/2021 Hospital Encounter Non-Invasive Tiara Horn Cardiopasquale gresham, primary; Cardiology Lab Mali Cee MD LBBB (left bundle branch block) [address] [phone] (Work) [phone] Social History Tobacco Use Types Packs/Day Years [...] Description 04/16/2022 Appointment Cardiology Vivi Lorenz APRN [facility] CARDIOLOGY DEPT. [place], [place] [address] (Wo rk) 04/16/2022 Laboratory Appointment Lab 04/16/2022 Office Visit Cardiology Vivi Lorenz APRN [facility] CARDIOLOGY DEPT. [place], [place] [address] (Wo rk) documented as of this encounter Procedures Procedure Name Priority Date/Time Associated Comments Diagnosis ICD INTERROGATION 3 Routine 03/20/2021 12:36 Cardiomyopathy, R esults for this MONTH PM EDT primary procedure are in LBBB (left bundle the result s branch block) section. documented in this encounter Results ICD INTERROGATION 3 MONTH (03/20/2021 12:36 PM EDT) Specimen (Source) Anatomical Location Collection Method / Collectio n Time Received Time / Laterality Volume Narrative Tiara Horn MD - 04/02/2021 1:45 P M EDT Outpatient remote interrogation report: See full report as a linked pdf document Date of transmission: 03/20/2021 Device manager facility: [facility] Device type: [id number] 6949 lead in situ (k nown) Presenting rhythm: -BiVP AP <1% PRESIDENT/[employer]IVE EXPERIENCES 100% BiVP 100% Battery: 2.73V, 2.5 years Episodes: no tachy no AF Stable lead trends. Activity 1 hr/day Tiara Horn MD 04/02/2021 1:44 PM Tiara Horn MD IMPLANTABLE CARDIAC DEVICE documented in this encounter Visit Diagnoses Diagnosis Cardiomyopathy, primary Other primary cardiomyopathies LBBB (left bundle branch block) Other left bundle branch block documented in this encounter Care Teams Awning Finisher Relationship Specialty Start Date End Date Nicole Pickens MD PCP - General 08/17/[address] [place] [address] documented as of this encounter
--- OUTSIDE RECORDS SUMMARY | 2022-03-18 02:35 | XMS_ITS | Encounter Summary ---
:1945 Author Organization [facility] [place] [address] Care Team Providers Name Role Phone Nicole Pickens MD Primary Care Provider Encounter Details Date Type Department Care Team Description 05/06/2019 External Results Cardiology at [facility] Dora Maldonado, [place] [address] Social History Tobacco Use Types Packs/Day Years Used Date Never Smoker Smokeless Tobacco: Never Used Alcohol Use Standard Drinks/Week Comments No 0 (1 standard drink = 0.6 oz pure alcoho l) Sex Assigned at Date Recorded Not on file documented as of this encounter Plan of Treatment Upcoming Encounters Date Type Specialty Care Team Description 04/16/2022 Appointment Cardiology Vivi Lorenz APRN [facility] CARDIOLOGY DEPT. [place], [place] [address] (Wo rk) 04/16/2022 Laboratory Appointment Lab 04/16/2022 Office Visit Cardiology Vivi Lorenz APRN [facility] CARDIOLOGY DEPT. [place], [place] [address] (Wo rk) documented as of this encounter Procedures Procedure Name Priority Date/Time Associated Comments Diagnosis TSH Routine 05/05/2019 11:53 Results for this AM EDT procedure are i n the results section. T4, FREE Routine 05/05/2019 11:53 Results for this AM EDT procedure are i n the results section. PRO-BRAIN NATRIURETIC Routine 05/05/2019 11:53 Re sults for this PEPTIDE AM EDT procedure are i n the results section. HEMOGLOBIN A1C Routine 05/05/2019 11:53 Results f or this AM EDT procedure are i n the results section. LIPID PANEL (REFLEX Routine 05/05/2019 11:53 Resu lts for this DIRECT LDL) AM EDT procedure are i n the results section. COMPREHENSIVE Routine 05/05/2019 11:53 Results fo r this METABOLIC PANEL AM EDT procedure ar e in (NON-FASTING) the results section. documented in this encounter Results (ABNORMAL) Comprehensive metabolic panel (non-fasting) (05/05/2019 11:53 AM EDT) athologist Signature Glucose Lvl 125 EXTERNAL LAB BUN 20 EXTERNAL LAB Creatinine 1.11 EXTERNAL LAB Estimated GFR 48.32 EXTERNAL LAB Sodium 137 EXTERNAL LAB Potassium 4.8 EXTERNAL LAB Chloride 102 EXTERNAL LAB CO2 29 EXTERNAL LAB Calcium 9.5 EXTERNAL LAB Total Protein 7.5 EXTERNAL LAB Albumin 3.7 EXTERNAL LAB Total Bilirubin 0.3 EXTERNAL LAB Alk Phos 102 EXTERNAL LAB AST 41 EXTERNAL LAB ALT 68 EXTERNAL LAB Anion Gap 6 EXTERNAL LAB Specimen (Source) Anatomical Collection Method Collection Time Re ceived Time Location / / Volume Laterality Blood specimen 05/05/2019 11:53 (specimen) AM EDT Historical Provider CHEMISTRY ORDERABLES Performing Organization Address City/[facility]/ZIP Code Phon e Number EXTERNAL LAB (ABNORMAL) Lipid Panel (05/05/2019 11:53 AM EDT) athologist [facility] Chol, Total 194 EXTERNAL LAB Triglycerides 149 EXTERNAL LAB HDL 38 EXTERNAL LAB LDL Cholesterol 127 EXTERNAL LAB Specimen (Source) Anatomical Collection Method Collection Time Re ceived Time Location / / Volume Laterality Blood specimen 05/05/2019 11:53 (specimen) AM EDT Historical Provider CHEMISTRY ORDERABLES Performing Organization Address City/State/ZIP Code Phon e Number EXTERNAL LAB (ABNORMAL) TSH (05/05/2019 11:53 AM EDT) athologist [facility] TSH 4.82 (A) 0.36 - 3.74 EXTERNAL LAB Specimen (Source) Anatomical Collection Method Collection Time Re ceived Time Location / / Volume Laterality Blood specimen 05/05/2019 11:53 (specimen) AM EDT Historical Provider MD CHEMISTRY ORDERABLES Performing Organization Address City/State/ZIP Code Phon e Number EXTERNAL LAB T4, free (05/05/2019 11:53 AM EDT) P athologist Signature Free T4 1.19 0.76 - 1.46 EXTERNAL LAB Specimen (Source) Anatomical Collection Method Collection Time Re ceived Time Location / / Volume Laterality Blood specimen 05/05/2019 11:53 (specimen) AM EDT Historical Provider CHEMISTRY ORDERABLES Performing Organization Address City/State/ZIP Code Phon e Number EXTERNAL LAB (ABNORMAL) Hemoglobin A1c (05/05/2019 11:53 AM EDT) athologist Signature Hemoglobin A1C 7.9 (A) 4.5 - 6.2 EXTERNAL LAB Specimen (Source) Anatomical Collection Method Collection Time Re ceived Time Location / / Volume Laterality Blood specimen 05/05/2019 11:53 (specimen) AM EDT Historical Provider CHEMISTRY ORDERABLES Performing Organization Address City/State/ZIP Code Phon e Number EXTERNAL LAB pro-Brain Natriuretic Peptide (05/05/2019 11:53 AM EDT) P athologist Signature ProBNP 62 EXTERNAL LAB Specimen (Source) Anatomical Collection Method Collection Time Re ceived Time Location / / Volume Laterality Blood specimen 05/05/2019 11:53 (specimen) AM EDT Historical Provider CHEMISTRY ORDERABLES Performing Organization Address City/[facility]/ZIP Code Phon e Number EXTERNAL LAB documented in this encounter Visit Diagnoses Not on filedocumented in this encounter Care Teams Ux Ui Designer Relationship Specialty Start Date End Date Nicole Pickens MD PCP - General 08/17/[address] [place] [address] documented as of this encounter
--- OUTSIDE RECORDS SUMMARY | 2022-03-18 02:35 | XMS_ITS | Encounter Summary ---
:1945 Author Organization [facility] Address [facility] [place] [address] Care Team Providers Name Role Phone Nicole Pickens MD Primary Care Provider Encounter Details Date Type Department Care Team Description 04/02/2018 Office Visit Cardiology at [facility] Vivi Lorenz, Chronic systolic heart failu re; [facility] MICROBIOLOGICAL LABORATORY TECHNICIAN Essential hypertension; Drive [facility] Other cardiomyopathy [place], [place] CENTER [address] CARDIOLOGY DEPT. [phone] [place] [id number] Social History Tobacco Use Types Packs/Day Years Used Date Never Smoker Smokeless Tobacco: Never Used Alcohol Use Standard Drinks/Week Comments No 0 (1 standard drink = 0.6 oz pure alcoho l) Sex Assigned at Date Recorded Not on file documented as of this encounter Last Filed Vital Signs Vital Sign Reading Time Taken Comments Blood Pressure 120/70 04/02/2018 9:54 AM EDT Pulse 80 04/02/2018 9:54 AM EDT Temperature - - Respiratory Rate - - Oxygen Saturation 95% 04/02/2018 9:54 AM EDT Inhaled Oxygen Concentration - - Weight 114.3 kg (251 lb 14.4 oz) 04/02/2018 9:54 AM EDT Height 165.1 cm (5' 5) 04/02/2018 9:54 AM EDT Body Mass Index 41.92 04/02/2018 9:54 AM EDT documented in this encounter Progress Notes Vivi Lorenz, MICROBIOLOGICAL LABORATORY TECHNICIAN - 04/02/2018 10:40 AM EDT Cardiomyopathy/Heart failure Clinic Follow up Visit. ID and CC: Ana Victoria is a 72 y.o. female presenting for f/u regarding nonischemic cardiomyopathy and HF. Last visit: 05/2017 HPI: Nonischemic cardiomyopathy dxd in 2003 with LVEF as low as 18% and LBBB. LV recovery following CRTd placement in 2010. No HF hospitalizations Here for routine follow up and device check Interim events: No interim illnesses or hospitalizations. Her major trouble over the last year is related to blood sugar management. She is working with her PCP on this and has had multiple medication changes. Insulinwas recently started. She does not like to exercise. She has been walking 2 days a week for about 20minutes. She reports no activity limiting symptoms. Enjoying alf and working just a couple of days a week at [employer]. Weight is stable. Good energy. Sleeping well with CPAP. No medication issues. No CP, SOB at rest or with exertion. No orthopnea, PND, syncope.presyncope. . Patient Active Problem List Diagnosis ??? Medtronic OIL FIELD TESTER-D, not MRI compatible --[place] lead. ??? Heart failure- chronic systolic dysfunction Well compensated and euvolemic NSR with LBBB, s/p OIL FIELD TESTER-D 04/11/11 AHA./ACC Stage C, NYHA FTC II Heart Failure Management: Yes/No No?/Discontinued/Why Beta tone Yes MILADYS/ARB Yes Spironolactone yes AFIB? no Anticoagulated n/a Device yes OIL FIELD TESTER-D 04/11/11 ??? Idiopathic cardiomyopathy severe LV systolic dysfunction Echo 07/03/04 ([facility]): LVEF 18%. Severe diffuse global HK, LV apex dyskinetic with sessile mural thrombus. 3-4+ MR. LAE. RV normal. Mildly elevated PAP (44mmHg). Echo EF= 20-25% 11/15/04 Echo EF= 25% 08/26/05 Echo EF= 40% 07/17/06 Echo EF= 30% 01/26/08 .br Echo EF= 30% 07/21/08 Echo EF= 30% 02/10 Echo EF= 50-55% 02/02/13 (s/p OIL FIELD TESTER) Echo EF= 60-65% 02/15/14 ??? Diabetes mellitus ??? Obesity BMI=43 ??? Depression ??? Hypertension Well controlled ??? Obstructive sleep apnea uses CPAP ??? LBBB (left bundle branch block) Chronic Widened QRS S/p OIL FIELD TESTER-D ??? History of DVT (deep vein thrombosis) a. #1 peripartum 1979, short-term anticoagulation. b. #2 postop ORIF left ankle in 1997, long-term anticoagulation begun. c. Unknown if prior coagulopathy work-up. ??? Hypothyroidism On synthroid replacement ??? LV (left ventricular) mural thrombus ??? Osteoarthritis Current Outpatient Prescriptions Medication Sig Dispense Refill ??? NOVOLOG FLEXPEN U-100 INSULIN Insulin Pen 5 Units 3 times daily. ??? LEVEMIR FLEXTOUCH U-100 INSULN Insulin Pen 40 Units every evening. ??? FREESTYLE LANCETS 28 gauge Misc ??? VICTOZA 2-FELIBERTO 0.6 mg/0.1 mL (18 mg/3 mL) Pen Injector daily. ??? BD ULTRA-FINE MICRO PEN NEEDLE 32 gauge x 1/4 Needle ??? VENTOLIN HFA 90 mcg/actuation HFA Aerosol Inhaler as needed. ??? GLUCOSAMINE HCL ORAL Take 2 capsules by mouth daily. ??? carvedilol (COREG) 25 mg Tablet Take 25 mg by mouth 2 times daily (with meals). ??? metFORMIN (GLUCOPHAGE) 1,000 mg Tablet Take by mouth. 1000mg in AM 1500mg in PM ??? spironolactone (ALDACTONE) 50 mg Tablet Take 50 mg by mouth daily. ??? levothyroxine (SYNTHROID) 150 mcg tablet Take 150 mcg by mouth daily. ??? aspirin 81 mg chewable tablet Take 81 mg by mouth daily. ??? CALCIUM CARBONATE/VITAMIN D3 (CALCIUM 600 + D,3, ORAL) Take 2 tablets by mouth daily. ??? losartan (COZAAR) 50 mg tablet Take 50 mg by mouth daily. Allergies: Review of patient's allergies indicates no known allergies. Interval ROS: See HPI above for pertinent positives and negatives. All other ROS negative by system (including general, HEENT, pulmonary, gastrointestinal, genitourinary, musculoskeletal, endocrine, hematologic, extremity, skin, neurology, and psychiatric) with exceptions below. Physical Exam: Blood pressure 120/70, pulse 80, height 165.1 cm (5' 5), weight 114.3 kg (251 lb 14.4 oz), SpO2 95 %. Body mass index is 41.92 kg/(m^2). General: WD, WN, NAD HEENT: JVP 6-7 - alopecia Lungs: Clear to A+P Cor: RR, normal S1, S2. PMI not displaced. No murmur or gallop Abd: soft, no L/S/K enlargement or bruits Ext: Pulses preserved, no edema, cyanosis or clubbing Lab data: Recent Labs 04/02/18 0826 NA 139 K 4.8 CL 98 CO2 27 BUN 20* CREATININE 1.16 GLUCOSE 247* ProBNP Date Value Ref Range Status 04/02/2018 73 <=125 pg/mL Final 05/07/2017 64 <=125 pg/mL Final 09/18/2016 61 <=125 pg/mL Final Echo today: SUMMARY: ?? 1. Technically limited 2. Global left ventricular systolic function is mildly reduced. Ejection fraction is estimated to be 45%-50% .GLS -14.8% The quantitative left ventricular ejection fraction by biplane Todd's method is 59% which may be overestimating the EF. There are left ventricular segmental wall motion abnormalities present, as shown in the diagram below, that may be related to a bundle branch block or paced rhythm. 3. Right ventricular chamber size, wall thickness, and systolic function are within normal limits. 4. The left ventricle is moderately dilated. Left ventricular wall thickness is normal. The left atrium is normal in size. 28 ml/m2 The right atrium appears normal. 5. No significant valvulard disease. The aortic valve is probably tricuspid. There is no evidence of aortic valve stenosis. Mild (1+/4+) aortic valve regurgitation is present. There is posterior mitral annular calcification. There is mild (1+/4+) mitral regurgitation present. 6. The pericardium appears normal and there is no evidence of a pericardial effusion. A pacemaker wire is visualized in the right atrium and right ventricle. When compared to the images of the prior 02/15/14 study, global LV function appears to be slightly worse, and the septal wall motion more prominent. Assessment: 1. H/o cardiomyopathy. LVEF improved with meds and OIL FIELD TESTER - stable at 45-50% (believe that that prior 60-65% likely over estimate) 2. HFrEF. ACC/AHA stage C. NYHA FC I-II Euvolemic. Tolerating target dose carvedilol, martin - mod dose losartan. 3. Obesity - stable but needs to lose 4. 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 A review of the active management and working diagnosis(es) was conducted. 2. The patient's medication list was updated and new Rxs given as needed. No changes 3. Question were answered regarding: lab results, follow up plan 4. The following labs or other testing advised: none today 5. Heart Failure Clinic follow up scheduled for: October 2018 with device check and labs VIVI LORENZ APRN documented in this encounter Plan of Treatment Upcoming Encounters Date Type Specialty Care Team Description 04/16/2022 Appointment Cardiology Vivi Lorenz APRN [facility] [address] CARDIOLOGY DEPT. [place], [place] [address] (Wo rk) 04/16/2022 Laboratory Appointment Lab 04/16/2022 Office Visit Cardiology Vivi Lorenz APRN [facility] [address] CARDIOLOGY DEPT. [place], [place] [address] (Wo rk) documented as of this encounter Results pro-Brain Natriuretic Peptide (04/02/2018 8:26 AM EDT) P athologist Signature ProBNP 73 <=125 pg/mL [facility] Specimen Anatomical Collection Method Collection Time Receive d Time (Source) Location / / Volume Laterality Blood specimen 04/02/2018 8:26 AM 018 8:34 (specimen) EDT AM EDT Resulting Agency Comment Spec In Lab Vivi Lorenz APRN CHEMISTRY ORDERABLES Performing Organization Address City/State/[place] [address] (ABNORMAL) Basic Metabolic Panel (non-fasting) (04/02/2018 8:26 AM EDT) P athologist Signature Glucose Lvl 247 (H) 65 - 199 [facility] mg/dL [facility] Comment: Diabetes: >=200 mg/dL plus symp toms BUN 20 (H) 8 - 18 mg/dL [facility] Creatinine 1.16 0.70 - 1.20 mg/dL [facility] Sodium 139 135 - 145 mmol/L [facility] Potassium 4.8 3.5 - 5.0 mmol/L [facility] Comment: Please note: ??Patients with WBC >100,00 0 may have falsely elevated Potassium levels. ??For accurate Potassium quantif ication in these patients send serum separator tube (gold top) for subsequent determinations. ??Contact the Clinical Chemistry Laboratory if there are any qu estions. Chloride 98 98 - 107 mmol/L [facility] CO2 27 22 - 31 mmol/L [facility] Anion Gap 14 5 - 15 mmol/L [facility] Calcium 9.3 8.5 - 10.5 mg/dL [facility] Estimated GFR 47 (L) >=60 mL/min/1.73 m?? [facility] Comment: The eGFR was calculated using the CKD-EP I equation. As with all creatinine based estimates of kidney function, eGFR values calculated with the CKD-EPI equation are not accurate in patients wi th acute kidney failure, extremes of body mass or the acutely ill. [email or web address] eGFR 55 (L) >=60 mL/min/1.73 m?? [facility] Comment: The eGFR was calculated using the CKD-EP I equation. As with all creatinine based estimates of kidney function, eGFR values calculated with the CKD-EPI equation are not accurate in patients wi th acute kidney failure, extremes of body mass or the acutely ill. [email or web address] Specimen Anatomical Collection Method Collection Time Receive d Time (Source) Location / / Volume Laterality Blood specimen 04/02/2018 8:26 AM 018 8:34 (specimen) EDT AM EDT Resulting Agency Comment Spec In Lab Vivi Lorenz APRN CHEMISTRY ORDERABLES Performing Organization Address City/State/ZIP Code Phon e Number [place] [phone] [address] documented in this encounter Visit Diagnoses Diagnosis Chronic systolic heart failure Essential hypertension Unspecified essential hypertension Other cardiomyopathy documented in this encounter Care Teams Soup Person Relationship Specialty Start Date End Date Nicole Pickens MD PCP - General 08/17/[address] [place] [address] documented as of this encounter
--- OUTSIDE RECORDS SUMMARY | 2022-03-18 02:35 | XMS_ITS | Encounter Summary ---
:1945 Author Organization [facility] [place] [address] Care Team Providers Name Role Phone Nicole Pickens MD Primary Care Provider Encounter Details Date Type Department Care Team Description 10/13/2018 [place] [address] Social History Tobacco Use Types Packs/Day Years Used Date Never Smoker Smokeless Tobacco: Never Used Alcohol Use Standard Drinks/Week Comments No 0 (1 standard drink = 0.6 oz pure alcoho l) Sex Assigned at Date Recorded Not on file documented as of this encounter Plan of Treatment Upcoming Encounters Date Type Specialty Care Team Description 04/16/2022 Appointment Cardiology Vivi Lorenz APRN [facility] CARDIOLOGY DEPT. [place], [place] [address] (Luz pollard) 04/16/2022 Laboratory Appointment Lab 04/16/2022 Office Visit Cardiology Vivi Lorenz APRN [facility] CARDIOLOGY DEPT. [place], [place] [address] (Luz pollard) documented as of this encounter Procedures Procedure Name Priority Date/Time Associated Diagnosis Comme nts CARDIAC DEVICE Routine 10/13/2018 5:17 AM Results for this CHECK - REMOTE EST procedure are in the results section. documented in this encounter Results Cardiac Device Check - Remote (10/13/2018 5:17 AM EST) Component Value Ref Test Analysis Performed Pathologis t Range Method Time At Signature Date Time [id number] IDCO Interrogation Session Implantable Medtronic IDCO Pulse Generator Enrichment Director Implantable Viva XT OPERATION MANAGER-D IDCO Pulse Generator [id number] Model Implantable [id number] IDCO Pulse Generator Serial Number Type Remote IDCO Interrogation Session Implantable Cardiac IDCO Pulse Generator Resynchronization Type Therapy - Defibrillator Implantable [id number] IDCO Pulse Generator Implant Date Victor Manuel Setting DDD IDCO Mode (NBG Code) Victor Manuel Setting 40 {beats} IDCO Lower Rate Limit /min Victor Manuel Setting 130 {beats} IDCO Maximum Tracking /min Rate Victor Manuel Setting 120 {beats} IDCO Maximum Sensor /min Rate Victor Manuel Setting 100 ms IDCO DAVID Delay High Victor Manuel Setting 130 ms IDCO PAV Delay High Victor Manuel Setting 100 ms IDCO PAV Delay Low Victor Manuel Setting 70 ms IDCO DAVID Delay Low Lead Channel Bipolar IDCO Setting Sensing Polarity Lead Channel Right Atrium IDCO Setting Sensing Anode Location Lead Channel Ring IDCO Setting Sensing Anode Terminal Lead Channel Right Atrium IDCO Setting Sensing Cathode Location Lead Channel Tip IDCO Setting Sensing Cathode Terminal Lead Channel 0.3 mV IDCO Setting Sensing Sensitivity Lead Channel Bipolar IDCO Setting Sensing Polarity Lead Channel Right Ventricle IDCO Setting Sensing Anode Location Lead Channel Ring IDCO Setting Sensing Anode Terminal Lead Channel Right Ventricle IDCO Setting Sensing Cathode Location Lead Channel Tip IDCO Setting Sensing Cathode Terminal Lead Channel 0.3 mV IDCO Setting Sensing Sensitivity Ventricular BiV IDCO chambers paced during OPERATION MANAGER pacing. OPERATION MANAGER LV-RV Delay 20 ms IDCO Lead Channel Bipolar IDCO Setting Pacing Polarity Lead Channel Right Atrium IDCO Setting Pacing Anode Location Lead Channel Ring IDCO Setting Pacing Anode Terminal Lead Channel Right Atrium IDCO Setting Sensing Cathode Location Lead Channel Tip IDCO Setting Sensing Cathode Terminal Lead Channel 0.4 ms IDCO Setting Pacing Pulse Width Lead Channel 1.5 V IDCO Setting Pacing Amplitude Lead Channel Adaptive IDCO Setting Pacing Capture Mode Lead Channel Bipolar IDCO Setting Pacing Polarity Lead Channel Right Ventricle IDCO Setting Pacing Anode Location Lead Channel Ring IDCO Setting Pacing Anode Terminal Lead Channel Right Ventricle IDCO Setting Sensing Cathode Location Lead Channel Tip IDCO Setting Sensing Cathode Terminal Lead Channel 0.4 ms IDCO Setting Pacing Pulse Width Lead Channel 2.5 V IDCO Setting Pacing Amplitude Lead Channel Adaptive IDCO Setting Pacing Capture Mode Lead Channel Bipolar IDCO Setting Pacing Polarity Lead Channel Right Ventricle IDCO Setting Pacing Anode Location Lead Channel Coil IDCO Setting Pacing Anode Terminal Lead Channel Left Ventricle IDCO Setting Sensing Cathode Location Lead Channel Ring IDCO Setting Sensing Cathode Terminal Lead Channel 0.8 ms IDCO Setting Pacing Pulse Width Lead Channel 1.75 V IDCO Setting Pacing Amplitude Lead Channel Adaptive IDCO Setting Pacing Capture Mode Zone Setting AT/AF IDCO Type Category Zone Setting 350 ms IDCO Detection Interval Zone Setting VF IDCO Type Category Zone Setting 320 ms IDCO Detection Interval Zone Setting 30 {beats} IDCO Detection Beats Numerator Zone Setting 40 {beats} IDCO Detection Beats Denominator Zone Setting VT IDCO Type Category Zone Setting 240 ms IDCO Detection Interval Zone Setting 360 ms IDCO Detection Interval Zone Setting 400 ms IDCO Detection Interval Battery Date [id number] IDCO Time of Measurements Battery Status OK IDCO Battery CORRECTIONAL CORPORAL 2.727 IDCO Trigger Battery 79 mo IDCO Remaining Longevity Battery Voltage 2.97 V IDCO Capacitor Charge Reformation IDCO Type Capacitor Last [id number] IDCO Charge Date Time Capacitor Charge 3.583 s IDCO Time Capacitor Charge 18 J IDCO Energy Episode 54 IDCO Identifier Episode Type VSE IDCO Category Episode Date [id number] IDCO Time Episode Duration 6 s IDCO Episode 53 IDCO Identifier Episode Type VSE IDCO Category Episode Date [id number] IDCO Time Episode Duration 5 s IDCO Episode 52 IDCO Identifier Episode Type VSE IDCO Category Episode Date [id number] IDCO Time Episode Duration 5 s IDCO Victor Manuel Statistic [id number] IDCO Date Time Start Victor Manuel Statistic [id number] IDCO Date Time End Victor Manuel Statistic 0.03 % IDCO RA Percent Paced Victor Manuel Statistic 99.33 % IDCO RV Percent Paced OPERATION MANAGER Statistic LV 99.29 % IDCO Percent Paced Victor Manuel Statistic 0.02 % IDCO AP MUSIC CATALOGUER Percent Victor Manuel Statistic 99.95 % IDCO MUSIC CATALOGUER Percent Victor Manuel Statistic 0.01 % IDCO AP VS Percent Victor Manuel Statistic 0.02 % IDCO VS Percent OPERATION MANAGER Statistic [id number] IDCO Date Time Start OPERATION MANAGER Statistic [id number] IDCO Date Time End OPERATION MANAGER Statistic 99.29 % IDCO OPERATION MANAGER Percent Paced Atrial Tachy [id number] IDCO Statistic Date Time Start Atrial Tachy [id number] IDCO Statistic Date Time End Atrial Tachy 0 % IDCO Statistic AT/AF [place] Percent Therapy 0 IDCO Statistic Recent Shocks Delivered Therapy 0 IDCO Statistic Recent Shocks Aborted Therapy 0 IDCO Statistic Recent ATP Delivered Therapy [id number] IDCO Statistic Recent Date Time Start Therapy [id number] IDCO Statistic Recent Date Time End Therapy 0 IDCO Statistic Total Shocks Delivered Therapy 0 IDCO Statistic Total Shocks Aborted Therapy 0 IDCO Statistic Total ATP Delivered Therapy [id number] IDCO Statistic Total Date Time Start Therapy [id number] IDCO Statistic Total Date Time End Episode 0 IDCO Statistic Recent Count Episode VF IDCO Statistic Type Category Episode 0 IDCO Statistic Recent Count Episode [place] IDCO Statistic Type Category Episode 0 IDCO Statistic Recent Count Episode 0 IDCO Statistic Recent Count Episode 0 IDCO Statistic Recent Count Episode 0 IDCO Statistic Recent Count Episode AT/AF IDCO Statistic Type Category Episode 0 IDCO Statistic Recent Count Episode SVT IDCO Statistic Type Category Episode [id number] IDCO Statistic Recent Date Time Start Episode [id number] IDCO Statistic Recent Date Time End Episode [id number] IDCO Statistic Recent Date Time Start Episode [id number] IDCO Statistic Recent Date Time End Episode [id number] IDCO Statistic Recent Date Time Start Episode [id number] IDCO Statistic Recent Date Time End Episode [id number] IDCO Statistic Recent Date Time Start Episode [id number] IDCO Statistic Recent Date Time End Episode [id number] IDCO Statistic Recent Date Time Start Episode [id number] IDCO Statistic Recent Date Time End Episode [id number] IDCO Statistic Recent Date Time Start Episode [id number] IDCO Statistic Recent Date Time End Episode [id number] IDCO Statistic Recent Date Time Start Episode [id number] IDCO Statistic Recent Date Time End Episode 0 IDCO Statistic Total Count Episode VF IDCO Statistic Type Category Episode 0 IDCO Statistic Total Count Episode [place] IDCO Statistic Type Category Episode 0 IDCO Statistic Total Count Episode 0 IDCO Statistic Total Count Episode 0 IDCO Statistic Total Count Episode 0 IDCO Statistic Total Count Episode AT/AF IDCO Statistic Type Category Episode 0 IDCO Statistic Total Count Episode SVT IDCO Statistic Type Category Episode [id number] IDCO Statistic Total Date Time Start Episode [id number] IDCO Statistic Total Date Time End Episode [id number] IDCO Statistic Total Date Time Start Episode [id number] IDCO Statistic Total Date Time End Episode [id number] IDCO Statistic Total Date Time Start Episode [id number] IDCO Statistic Total Date Time End Episode [id number] IDCO Statistic Total Date Time Start Episode [id number] IDCO Statistic Total Date Time End Episode [id number] IDCO Statistic Total Date Time Start Episode [id number] IDCO Statistic Total Date Time End Episode [id number] IDCO Statistic Total Date Time Start Episode [id number] IDCO Statistic Total Date Time End Episode [id number] IDCO Statistic Total Date Time Start Episode [id number] IDCO Statistic Total Date Time End Specimen (Source) Anatomical Collection Method Collection Time Re ceived Time Location / / Volume Laterality 10/13/2018 5:17 AM EST Physician Cardiology IMPLANTABLE CARDIAC DEVICE Performing Organization Address City/State/ZIP Code Phon e Number IDCO documented in this encounter Visit Diagnoses Not on filedocumented in this encounter Care Teams Fly Finisher Relationship Specialty Start Date End Date Nicole Pickens MD PCP - General 08/17/[address] [place] [address] documented as of this encounter
--- OUTSIDE RECORDS SUMMARY | 2022-03-18 02:35 | XMS_ITS | Encounter Summary ---
:1945 Author Organization [facility] [address] Care Team Providers Name Role Phone Nicole Pickens MD Primary Care Provider Reason for Visit Reason Comments Follow-up Encounter Details Date Type Department Care Team Description 09/19/2020 Office Visit Cardiology at [facility] Vivi Lorenz, Chronic systolic heart failu re; [facility] BREAKFAST ATTENDANT Idiopathic cardiomyopathy; [facility] Essential hypertension; [place], [place] DR RG (left bundle branch block) [id number] CARDIOLOGY DEPT. [phone] [place], [place] [address] Social History Tobacco Use Types Packs/Day Years Used Date Never Smoker Smokeless Tobacco: Never Used Alcohol Use Standard Drinks/Week Comments No 0 (1 standard drink = 0.6 oz pure alcoho l) Sex Assigned at Date Recorded Not on file documented as of this encounter Last Filed Vital Signs Vital Sign Reading Time Taken Comments Blood Pressure 134/60 09/19/2020 10:05 AM EST Pulse 82 09/19/2020 10:05 AM EST Temperature - - Respiratory Rate 09/19/2020 10:05 AM EST Oxygen Saturation 98% 09/19/2020 10:05 AM EST Inhaled Oxygen Concentration - - Weight 116.1 kg (256 lb) 09/19/2020 10:05 AM EST Height 165.1 cm (5' 5) 09/19/2020 10:05 AM EST Body Mass Index 42.6 09/19/2020 10:05 AM EST documented in this encounter Progress Notes Vivi Lorenz APRN - 09/19/2020 10:40 AM EST Cardiomyopathy/Heart failure Telehealth Follow up Visit. ID and CC: Ana Victoria is a 74 y.o. female presenting for f/u regarding nonischemic cardiomyopathy and HF. Last visit: Tele health 12/2019 HPI: Nonischemic cardiomyopathy dxd in 2003 with LVEF as low as 18% and LBBB. LV recovery following CRTd placement in 2010. LVEF 45-50% in 2018. No HF hospitalizations Interim events: No interim illnesses or hospitalizations. She reports no activity limiting symptoms. Weight is stable. Good energy. Sleeping well with CPAP. No medication issues. No CP, SOB at rest or with exertion. No orthopnea, PND, syncope.presyncope. No device issues Has been isolated Patient Active Problem List Diagnosis ??? Medtronic BODY TRIMMER UPHOLSTERER-D, not MRI compatible --Neel lead. ??? Heart failure- chronic systolic dysfunction Well compensated and euvolemic NSR with LBBB, s/p BODY TRIMMER UPHOLSTERER-D 04/11/11 AHA./ACC Stage C, NYHA FTC II Heart Failure Management: Yes/No No?/Discontinued/Why Beta tone Yes MILADYS/ARB Yes Spironolactone yes AFIB? no Anticoagulated n/a Device yes BODY TRIMMER UPHOLSTERER-D 04/11/11 ??? Idiopathic cardiomyopathy severe LV systolic dysfunction Echo 07/03/04 ([facility]): LVEF 18%. Severe diffuse global HK, LV apex dyskinetic with sessile mural thrombus. 3-4+ MR. LAE. RV normal. Mildly elevated PAP (44mmHg). Echo EF= 20-25% 11/15/04 Echo EF= 25% 08/26/05 Echo EF= 40% 07/17/06 Echo EF= 30% 01/26/08 .br Echo EF= 30% 07/21/08 Echo EF= 30% 02/10 Echo EF= 50-55% 02/02/13 (s/p BODY TRIMMER UPHOLSTERER) Echo EF= 60-65% 02/15/14 ??? Diabetes mellitus ??? Obesity BMI=43 ??? Depression ??? Hypertension Well controlled ??? Obstructive sleep apnea uses CPAP ??? LBBB (left bundle branch block) Chronic Widened QRS S/p BODY TRIMMER UPHOLSTERER-D ??? History of DVT (deep vein thrombosis) a. #1 peripartum 1979, short-term anticoagulation. b. #2 postop ORIF left ankle in 1997, long-term anticoagulation begun. c. Unknown if prior coagulopathy work-up. ??? Hypothyroidism On synthroid replacement ??? LV (left ventricular) mural thrombus ??? Osteoarthritis Current Outpatient Medications Medication Sig Dispense Refill ??? atorvastatin (LIPITOR) 40 mg Tablet Take 1 tablet by mouth daily. 90 tablet 3 ??? NOVOLOG FLEXPEN U-100 INSULIN Insulin Pen 10 Units 3 times daily. ??? LEVEMIR FLEXTOUCH U-100 INSULN Insulin Pen 30 Units 2 times daily. ??? FREESTYLE LANCETS 28 gauge Misc ??? VICTOZA 2-FELIBERTO 0.6 mg/0.1 mL (18 mg/3 mL) Pen Injector 1.8 mg daily. ??? BD ULTRA-FINE MICRO PEN NEEDLE 32 gauge x 1/4 Needle ??? GLUCOSAMINE HCL ORAL Take 2 capsules [...] Take 50 mg by mouth daily. Allergies: Patient has no known allergies. Physical Exam: Blood pressure 134/60, pulse 82, resp. rate 19, height 165.1 cm (5' 5), weight 116.1 kg (256 lb), SpO2 98 %. Body mass index is 42.6 kg/m??. ?? General: WD, WN, NAD HEENT: JVP 6-7 - alopecia Lungs: Clear to A+P Cor: RR, normal S1, S2. PMI not displaced. No murmur or gallop Abd: soft, no L/S/K enlargement or bruits Ext: Pulses preserved, no edema, cyanosis or clubbing Lab data Chemistry Component Value Date/Time NA 141 09/19/2020 0829 K 5.0 09/19/2020 0829 CL 102 09/19/2020 0829 CO2 31 09/19/2020 0829 BUN 17 09/19/2020 0829 CREATININE 1.14 09/19/2020 0829 Component Value Date/Time CALCIUM 9.9 09/19/2020 0829 ALKPHOS 109 (H) 09/19/2020 0829 AST 18 09/19/2020 0829 ALT 20 09/19/2020 0829 BILITOT 0.2 09/19/2020 0829 ProBNP Date Value Ref Range Status 09/19/2020 139 (H) <=125 pg/mL Final 05/05/2019 62 Final 10/28/2018 57 <=125 pg/mL Final Lipid Panel Lab Results Component Value Date CHLPL 109 09/19/2020 HDL 39 09/19/2020 CHOLHDL 2.8 09/19/2020 TRIG 117 09/19/2020 LDLCHOL 47 09/19/2020 ICD eval today: Underlying rhythm: SR 76 bpm ?? OptiVol: under threshold ?? Histograms are well distributed. ?? Mode switch: <0.1% no episodes to review 29 sec ?? PVC's: PVC Runs 28.9 per hour and PVC Singles 5.2 ?? Pacing percentages: AP <0.1 %; RETAIL CUSTODIAL ASSOCIATE 99.2 % Bi-V 100 % VSR <0.1% VS 0.8% Echo 09/2020 SUMMARY: ?? 1. The left ventricular chamber size is normal. Basal septal hypertrophy is observed. Global left ventricular systolic function is mildly reduced. The quantitative left ventricular ejection fraction by 3-D rendering is 45%. There is diffuse hypokinesis present. There is a left ventricular septal wall motion abnormality observed, possibly due to the presence of a left bundle branch block or paced rhythm. 2. The right ventricle is mildly dilated. Right ventricular global systolic function is normal. Pulmonary artery hypertension could not be assessed due to inadequate tricuspid regurgitation jet. 3. Mild (1+/4+) aortic valve regurgitation is present. 4. See remainder of report for additional findings. Compared to the TTE performed 04/02/18, LV now measures normal in size; global LV systolic function is similar. Assessment: 1. H/o cardiomyopathy. LVEF improved with meds and BODY TRIMMER UPHOLSTERER - stable at 45-50% ( prior 60-65% likely overestimate) 2. HFrEF. ACC/AHA stage C. NYHA FC I-II Euvolemic. Tolerating target dose carvedilol, martin - mod dose losartan. Entresto not indicated with LVEF > 40% 3. Obesity - stable but needs to lose 4. AI/MR - mild-mod 5. Excessive 10-year ASCVD risk (35%) - on mod intensity statin with good response Plan: 1. A review of the active management and working diagnosis(es) was conducted. 2. The patient's medication list was updated and new Rxs given as needed. No med changes 3. Question were answered regarding: lab results, follow up plan 4. The following labs or other testing advised: none today 5. Heart Failure Clinic follow up scheduled for: 6 months with labs and device check VIVI LORNEZ APRN documented in this encounter Plan of Treatment Upcoming Encounters Date Type Specialty Care Team Description 04/16/2022 Appointment Cardiology Vivi Lorenz APRN [facility] CARDIOLOGY DEPT. [place], [place] [address] (Luz pollard) 04/16/2022 Laboratory Appointment Lab 04/16/2022 Office Visit Cardiology Vivi Lorenz APRN [facility] CARDIOLOGY DEPT. [place], [place] [address] (Luz pollard) documented as of this encounter Results (ABNORMAL) pro-Brain Natriuretic Peptide (09/19/2020 8:29 AM EST) P athologist Signature ProBNP 139 (H) <=125 pg/mL [facility] Specimen Anatomical Collection Method Collection Time Receive d Time (Source) Location / / Volume Laterality Blood specimen 09/19/2020 8:29 AM 021 8:36 (specimen) EST AM EST Resulting Agency Comment Spec In Lab Vivi Lorenz APRN CHEMISTRY ORDERABLES Performing Organization Address City/State/[place] [address] (ABNORMAL) Comprehensive metabolic panel (non-fasting) (09/19/2020 8:29 AM EST) athologist Signature Glucose Lvl 109 65 - 199 [facility] mg/dL [facility] Comment: Diabetes: >=200 mg/dL plus symp toms BUN 17 8 - 18 mg/dL [facility] Creatinine 1.14 0.70 - 1.20 mg/dL [facility] Sodium 141 135 - 145 mmol/L [facility] Potassium 5.0 3.5 - 5.0 mmol/L [facility] Comment: Please note: ??Patients with WBC >100,00 0 may have falsely elevated Potassium levels. ??For accurate Potassium quantif ication in these patients send serum separator tube (gold top) for subsequent determinations. ??Contact the Clinical Chemistry Laboratory if there are any qu estions. Chloride 102 98 - 107 mmol/L [facility] CO2 31 22 - 31 mmol/L [facility] Anion Gap 8 5 - 15 mmol/L [facility] Calcium 9.9 8.5 - 10.5 mg/dL [facility] Total Protein 7.4 6.1 - 8.0 gm/dL [facility] Albumin 4.5 3.2 - 5.2 gm/dL [facility] AST 18 0 - 30 unit/L [facility] ALT 20 0 - 30 unit/L [facility] Alk Phos 109 (H) 35 - 105 unit/L [facility] Total Bilirubin 0.2 0.2 - 1.3 mg/dL [facility] Estimated GFR 48 (L) >=60 mL/min/1.73 m?? [facility] Comment: This patient? s estimated glomerular filtration rate (eGFR) is between 48 mL/min/1.73 m2 (patients with less muscl e mass) and 55 mL/min/1.73 m2 (patients with more muscle mass) as determined by the CKD-EPI equation. Assessment of eGFR is not appropriate when creatinine concentrations are rapidly changing. For clinical decisions where creatinine clearance will affect therapy, a 24-hour urine creatinine clearance may b e advised. Assignment of CKD stage 1 ? 5 for patients with an eGFR near the transition point between stages may be based on cli nical assessment of muscle mass and symptoms in addition to eGFR. Specimen Anatomical Collection Method Collection Time Receive d Time (Source) Location / / Volume Laterality Blood specimen 09/19/2020 8:29 AM 021 8:36 (specimen) EST AM EST Resulting Agency Comment Spec In Lab Vivi Lorenz APRN CHEMISTRY ORDERABLES Performing Organization Address City/State/[place] [address] documented in this encounter Visit Diagnoses Diagnosis Chronic systolic heart failure Idiopathic cardiomyopathy Other primary cardiomyopathies Essential hypertension Unspecified essential hypertension LBBB (left bundle branch block) Other left bundle branch block documented in this encounter Care Teams Siding Coreboard Inspector Relationship Specialty Start Date End Date Nicole Pickens MD PCP - General 08/17/[address] [place] [address] documented as of this encounter
--- OUTSIDE RECORDS SUMMARY | 2022-03-18 02:35 | XMS_ITS | Encounter Summary ---
:1945 Author Organization [facility] [place] [address] Care Team Providers Name Role Phone Nicole Pickens MD Primary Care Provider Encounter Details Date Type Department Care Team Description 01/11/2020 Notes Only Cardiology [place] [facility] Alfonso Xie MD [facility] [place] [address] [place] [address] [phone] (Wo rk) Social History Tobacco Use Types Packs/Day Years Used Date Never Smoker Smokeless Tobacco: Never Used Alcohol Use Standard Drinks/Week Comments No 0 (1 standard drink = 0.6 oz pure alcoho l) Sex Assigned at Date Recorded Not on file documented as of this encounter Progress Notes Alfonso Xie MD - 01/11/2020 4:50 PM EDT MDT LOCOMOTIVE SUPERVISOR-D remote reviewed. Normal device function. documented in this encounter Plan of Treatment Upcoming Encounters Date Type Specialty Care Team Description 04/16/2022 Appointment Cardiology Vivi Lorenz APRN [facility] CARDIOLOGY DEPT. [place], [place] [address] (Wo rk) 04/16/2022 Laboratory Appointment Lab 04/16/2022 Office Visit Cardiology Vivi Lorenz, [facility] CARDIOLOGY DEPT. [place], [place] [address] (Wo rk) documented as of this encounter Visit Diagnoses Not on filedocumented in this encounter Care Teams Reshipping Clerk Relationship Specialty Start Date End Date Nicole Pickens MD PCP - General 08/17/[address] [place] [address] documented as of this encounter
--- OUTSIDE RECORDS SUMMARY | 2022-03-18 02:35 | XMS_ITS | Encounter Summary ---
:1945 [place] [address] Care Team Providers Name Role Phone Nicole Pickens MD Primary Care Provider Encounter Details Date Type Department Care Team Description 09/19/2020 Laboratory Appointment Lab [address] [place] [address] Social History Tobacco Use Types Packs/Day Years Used Date Never Smoker Smokeless Tobacco: Never Used Alcohol Use Standard Drinks/Week Comments No 0 (1 standard drink = 0.6 oz pure alcoho l) Sex Assigned at Date Recorded Not on file documented as of this encounter Plan of Treatment Upcoming Encounters Date Type Specialty Care Team Description 04/16/2022 Appointment Cardiology Vivi Lorenz APRN [facility] CARDIOLOGY DEPT. [place], [place] [address] (Wo rk) 04/16/2022 Laboratory Appointment Lab 04/16/2022 Office Visit Cardiology Vivi Lorenz APRN [facility] CARDIOLOGY DEPT. [place], [place] [address] (Wo rk) documented as of this encounter Procedures Procedure Name Priority Date/Time Associated Diagnosis Comme nts HEMOGLOBIN A1C Routine 09/19/2020 8:29 AM Results for this EST procedure are i n the results section . documented in this encounter Results (ABNORMAL) Hemoglobin A1c (09/19/2020 8:29 AM EST) Analysis Performed At Patho logist Time Signature Hemoglobin A1C 7.3 (H) 4.3 - 5.6 [facility] Comment: Reference Range: 4.3 - 5.6% 5.7 - 6.4% - Increased Risk of Developin g Diabetes Mellitus >= 6.5% - Consistent with diagnosis of D iabetes Mellitus In the absence of hyperglycemia (i.e. pl asma glucose > 200 mg/dL) or classic symptoms of hyperglycemia a repeat measu rement of HbA1c should be performed on a separate sample to confirm the diagnos is. Diagnosis and Classification of Diabetes Mellitus, Diabetes Care 2013; 36: Suppl. 1, S67-74 Est Avg Gluc See note mg/dL [facility] Comment: Estimated Average Glucose not appropriat e for patients over 70 years of age. eAG equivalents for HbA1c percentages: HbA1c(%) ?eAG(mg/dL) 6.0 ?126 6.5 ?140 7.0 ?154 7.5 ?169 8.0 ?183 8.5 ?197 9.0 ?212 9.5 ?226 10.0 ? 240 Limitations: The eAG calculation has not been validated on women, individuals below 18 years old and above 70 years old, and individuals with hemoglobinopathies. Additional resources are available on [facility] ADA website. Jose JAMESON, Kylah J, Charu R, et al. ??Tr anslating the A1C assay into estimated average glucose values. ??Diabetes Care 2008:31(8):4741-1910. Specimen Anatomical Collection Method Collection Time Receive d Time (Source) Location / / Volume Laterality Blood specimen Venous Draw / 09/19/2020 8:29 AM 2020 8:36 (specimen) Unknown EST AM EST Resulting Agency Comment Spec In Lab Nicole Pickens MD CHEMISTRY ORDERABLES Performing Organization Address City/State/[place] [address] documented in this encounter Visit Diagnoses Not on filedocumented in this encounter Care Teams Design Drafter Chief Relationship Specialty Start Date End Date Nicole Pickens MD PCP - General 08/17/[address] [place] [address] documented as of this encounter
--- OUTSIDE RECORDS SUMMARY | 2022-03-18 02:35 | XMS_ITS | Encounter Summary ---
:1945 [place] [address] Care Team Providers Name Role Phone Nicole Pickens MD Primary Care Provider Encounter Details Date Type Department Care Team Description 12/19/2020 Hospital Encounter Non-Invasive Massimo Ponce Cardiopas[facility]ale [place], Cardiology Lab Mali Olmedo MD primary [facility] CARDIOLOGY DE PT. [place] [id number] [phone] Social History Tobacco Use Types Packs/Day Years [...] Appointment Cardiology Vivi Lorenz APRN [facility] CARDIOLOGY DEPT. [place], [place] [address] (Wo rk) 04/16/2022 Laboratory Appointment Lab 04/16/2022 Office Visit Cardiology Vivi Lorenz APRN [facility] CARDIOLOGY DEPT. [place], [place] [address] (Wo rk) documented as of this encounter Procedures Procedure Name Priority Date/Time Associated Comments Diagnosis ICD INTERROGATION 3 Routine 12/19/2020 7:54 AM Cardiomyopathy, Results for this MONTH EDT primary procedure are i n the results section. documented in this encounter Results ICD INTERROGATION 3 MONTH (12/19/2020 7:54 AM EDT) Specimen (Source) Anatomical Location Collection Method / Collectio n Time Received Time / Laterality Volume Narrative Massimo Ponce MD - 12/20/2020 9:05 A M EDT Cardiac Device Remote Monitoring Report Summary Medtronic Carelink 12/20/20 Device: ASSEMBLER MOLDED FRAMES-D Model: VIVA XT ASSEMBLER MOLDED FRAMES-D Battery: 2.95 v, estimated longevity 2 y ears 8 months Pacing percentage: minimal atrial paced, 100% ventricular paced Events: The presenting rhythm is atrial sensed b i-ventricular paced Impression Normal device function Follow Up As per schedule - in-clinic and remote MASSIMO PONCE MD Massimo Ponce MD IMPLANTABLE CARDIAC DEVICE documented in this encounter Visit Diagnoses Diagnosis Cardiomyopathy, primary Other primary cardiomyopathies documented in this encounter Care Teams Business Advisor Relationship Specialty Start Date End Date Nicole Pickens MD PCP - General 08/17/[address] [place] [address] documented as of this encounter
--- OUTSIDE RECORDS SUMMARY | 2022-03-18 02:35 | XMS_ITS | Encounter Summary ---
:1945 Author Organization [facility] [place] [address] Care Team Providers Name Role Phone Nicole Pickens MD Primary Care Provider Encounter Details Date Type Department Care Team Description 04/30/2019 Orders Only Cardiology [place] [facility] Vivi Lorenz, Chronic systolic heart failu re; [facility] EMERGENCY DEPARTMENT PHYSICIAN Other cardiomyopathy [facility] [address] CARDIOLOGY DEPT. [phone] [place], [place] [address] Social History Tobacco Use Types Packs/Day Years Used Date Never Smoker Smokeless Tobacco: Never Used Alcohol Use Standard Drinks/Week Comments No 0 (1 standard drink = 0.6 oz pure alcoho l) Sex Assigned at Date Recorded Not on file documented as of this encounter Plan of Treatment Upcoming Encounters Date Type Specialty Care Team Description 04/16/2022 Appointment Cardiology Vivi Lorenz APRN [facility] CARDIOLOGY DEPT. [place], [place] [address] (Wo rk) 04/16/2022 Laboratory Appointment Lab 04/16/2022 Office Visit Cardiology Vivi Lorenz APRN [facility] CARDIOLOGY DEPT. [place], [place] [address] (Wo rk) documented as of this encounter Visit Diagnoses Diagnosis Chronic systolic heart failure Other cardiomyopathy documented in this encounter Care Teams Actuarial Trainee Relationship Specialty Start Date End Date Nicole Pickens MD PCP - General 08/17/[address] [place] [address] documented as of this encounter
--- OUTSIDE RECORDS SUMMARY | 2022-03-18 02:35 | XMS_ITS | Encounter Summary ---
:1945 Author Organization [facility] [place] [address] Care Team Providers Name Role Phone Nicole Pickens MD Primary Care Provider Encounter Details Date Type Department Care Team Description 09/19/2020 Office Visit Cardiology at [facility] Sarahi Woodard [facility] [place] [phone] Social History Tobacco Use Types Packs/Day Years Used Date Never Smoker Smokeless Tobacco: Never Used Alcohol Use Standard Drinks/Week Comments No 0 (1 standard drink = 0.6 oz pure alcoho l) Sex Assigned at Date Recorded Not on file documented as of this encounter Last Filed Vital Signs Vital Sign Reading Time Taken Comments Blood Pressure 134/60 09/19/2020 9:30 AM EST Pulse 82 09/19/2020 9:30 AM EST Temperature - - Respiratory Rate - - Oxygen Saturation 98% 09/19/2020 9:30 AM EST Inhaled Oxygen Concentration - - Weight 116.2 kg (256 lb 3.2 oz) 09/19/2020 9:30 AM EST Height 165.1 cm (5' 5) 09/19/2020 9:30 AM EST Body Mass Index 42.63 09/19/2020 9:30 AM EST documented in this encounter Progress Notes Sarahi Woodard RN - 09/19/2020 9:30 AM EST Images from the original note were not included. Clinical Electrophysiology Device Service Note Ms. Victoria is a 74 yo woman presents for a TELECOMMUNICATIONS SALES REPRESENTATIVE-D programming evaluation.She is seeing Tayler Lorenz APRN to follow.She had a generator change done 11/04/16 due to battery SKYLAR. She has been feeling well. Device implanted 03/2005 for idiopathic CM, with upgrade to TELECOMMUNICATIONS SALES REPRESENTATIVE-D on 04/26/2011. She has a history in 07/19/2011 related to LV Tip->Ring impedance of just over 1,500 ohms. LV vector was reprogrammed Ring->Coil at that encounter. Right ventricular lead subject to Vladimir Shaikh advisory from 2006. Gunstock Spray Unit Adjuster: Roly Aguilar MD Primary Care: Nicole Pickens MD DEVICE AND LEAD INFORMATION Final Parameters: Ventricular electrode: Medtronic SprintFidelis Model# 6949 58 cm Serial #[id number] (Implanted 03/08/2005) Bipolar, steroid-tipped, active-fixation IS-1, DF-1 lead Access: Axillary vein Location: Right ventricular apex R wave, ICD: 15.9 mV Pacing threshold, ICD: 1.25V at 0.8 ms Impedance, ICD: 646 ohms HVB Impedance 44 ohms SVC Impedance 52 ohms Pace the diaphragm at 10 V: No Atrial electrode: Medtronic, CaptureFix Model # 5076-52 cm Serial # [id number] Bipolar, steroid-tipped, active-fixation IS-1 lead Access: Axillary vein Location Right atrial appendage P wave, ICD: 3.0 mV Pacing threshold, ICD: 0.75 V at 0.4 ms Impedance, ICD: 437 ohms Pace the diaphragm at 10 V: No Coronary sinus electrode: Medtronic, Attain OTW Model# 4196-88cm, Serial# [id number] Bipolar passive fixation lead Access: Axillary vein Location: Coronary sinus, anterior R wave, ICD: 13.8 Pacing threshold, ICD: 0.75 0.4 ms (LV ring to RV coil) Impedance, device: 494s Pace the diaphragm/chest wall at 10 V: No Pulse generator: Pulse generator: Medtronic Viva XT model number [id number] Serial #[id number] 11/04/16 ?? TELECOMMUNICATIONS SALES REPRESENTATIVE-D Location: Subcutaneous Parameters: VF detection rate: >188 bpm VF therapy: ATP during charging, 35j x 6 FVT detection rate: Via VF 250 bpm FVT therapy: Burst(2), 35j x 5 VT detection rate: OFF VT therapy: OFF Enhancements: VT Monitor, AF/Afl, 1:1 SVT, Wavelet, Onset(monitor), TWave, Noise Victor Manuel pacing: Bi-V DDD 40/130, PAV 130 ms, DAVID 100 ms, mode switch 171 bpm, LV- >RV Adaptive TELECOMMUNICATIONS SALES REPRESENTATIVE Follow-up: Battery status: 2.95 V (HEALTH SCIENCES PROGRAM COORDINATOR: 2.73 V) Charge time: N/A Est 3.2 years to SKYLAR Sensing Integrity Counter: 0 Pace/sensing leads: Atrial: P wave: 4.6 mV Impedance: 399 ohms Threshold: 0.5 V at 0.2 ms Stable trend EGM: Clean Right Ventricular R wave: >20 mV Impedance: 779 Ohms Threshold: 1.0 V at 0.4 ms auto. Stable EGM quality: clean Left Ventricular: Threshold: 1.00 V at 0.8 ms Ring->Coil. The auto trend is stable. Impedance: 817 ohms LV ring to RV coil Shocking Leads RV: 60 Ohms stable SVC: 82 Ohms stable EGM quality: clean Wound/generator site: Healed scar to left chest Therapy Administered: none Events: 1 NSVT For 6 beats at 188 bpm Underlying rhythm: SR 76 bpm OptiVol: under threshold Histograms are well distributed. Mode switch: <0.1% no episodes to review 29 sec PVC's: PVC Runs 28.9 per hour and PVC Singles 5.2 Pacing percentages: AP <0.1 %; FILL PLANT OPERATOR 99.2 % Bi-V 100 % VSR <0.1% VS 0.8% Changes made this session: Iterative to assess device function Plan: Carelink every 3 months. RTC in 6 months. Provider: SARAHI WOODARD RN Attending: Tiara Horn MD documented in this encounter Plan of Treatment Upcoming Encounters Date Type Specialty Care Team Description 04/16/2022 Appointment Cardiology Vivi Lorenz, PHARMACY DISTRICT MANAGER [facility] CARDIOLOGY DEPT. [place], [place] [address] (Wo rk) 04/16/2022 Laboratory Appointment Lab 04/16/2022 Office Visit Cardiology Vivi Lorenz, PHARMACY DISTRICT MANAGER [facility] CARDIOLOGY DEPT. [place], [place] [address] (Wo rk) documented as of this encounter Visit Diagnoses Diagnosis Idiopathic cardiomyopathy Other primary cardiomyopathies documented in this encounter Care Teams Mark Up Designer Relationship Specialty Start Date End Date Nicole Pickens MD PCP - General 08/17/[address] [place] [address] [address] [place] [address] documented as of this encounter
--- OUTSIDE RECORDS SUMMARY | 2022-03-18 02:35 | XMS_ITS | Encounter Summary ---
:1945 Author Organization [facility] [place] [address] Care Team Providers Name Role Phone Nicole Pickens MD Primary Care Provider Encounter Details Date Type Department Care Team Description 10/18/2019 External Results Cardiology [place] [facility] [place] Pickens MD [address] [phone] [place], [place] [id number] (Wo rk) Social History Tobacco Use Types Packs/Day Years Used Date Never Smoker Smokeless Tobacco: Never Used Alcohol Use Standard Drinks/Week Comments No 0 (1 standard drink = 0.6 oz pure alcoho l) Sex Assigned at Date Recorded Not on file documented as of this encounter Plan of Treatment Upcoming Encounters Date Type Specialty Care Team Description 04/16/2022 Appointment Cardiology Vivi Lorenz APRN [facility] CARDIOLOGY DEPT. [place], [place] [address] (Wo rk) 04/16/2022 Laboratory Appointment Lab 04/16/2022 Office Visit Cardiology Vivi Lorenz APRN [facility] CARDIOLOGY DEPT. [place], [place] [address] (Wo rk) documented as of this encounter Procedures Procedure Name Priority Date/Time Associated Diagnosis Comme nts EP DEVICE SCAN Routine 10/12/2019 documented in this encounter Results Scan Doc: EP Device (10/12/2019) Narrative This result has an attachment that is no t available. Nicole Pickens MD MEDIA MGR SCAN EXT ORDR/RSLT documented in this encounter Visit Diagnoses Not on filedocumented in this encounter Care Teams Lip Cutter And Scorer Relationship Specialty Start Date End Date Nicole Pickens MD PCP - General 08/17/[address] [place] [address] documented as of this encounter
--- OUTSIDE RECORDS SUMMARY | 2022-03-18 02:35 | XMS_ITS | Encounter Summary ---
:1945 [place] [address] Care Team Providers Name Role Phone Nicole Pickens MD Primary Care Provider Encounter Details Date Type Department Care Team Description 04/02/2018 Laboratory Appointment Lab 3L [facility] systolic [facility] [place] [phone] Social History Tobacco Use Types Packs/Day Years Used Date Never Smoker Smokeless Tobacco: Never Used Alcohol Use Standard Drinks/Week Comments No 0 (1 standard drink = 0.6 oz pure alcoho l) Sex Assigned at Date Recorded Not on file documented as of this encounter Plan of Treatment Upcoming Encounters Date Type Specialty Care Team Description 04/16/2022 Appointment Cardiology Vivi Lorenz APRN [facility] CARDIOLOGY DEPT. [place], [place] [address] (Wo rk) 04/16/2022 Laboratory Appointment Lab 04/16/2022 Office Visit Cardiology Vivi Lorenz APRN [facility] CARDIOLOGY DEPT. [place], [place] [address] (Wo rk) documented as of this encounter Procedures Procedure Name Priority Date/Time Associated Comments Diagnosis PRO-BRAIN NATRIURETIC STAT 04/02/2018 8:26 AM Chronic systo lic Results for this PEPTIDE EDT heart failure procedure are in the results section. BASIC METABOLIC PANEL STAT 04/02/2018 8:26 AM Chronic systo lic Results for this (NON-FASTING) EDT heart failure procedure are in the results section. documented in this encounter Results pro-Brain Natriuretic Peptide (04/02/2018 8:26 AM EDT) P athologist Signature ProBNP 73 <=125 pg/mL [facility] Specimen Anatomical Collection Method Collection Time Receive d Time (Source) Location / / Volume Laterality Blood specimen 04/02/2018 8:26 AM 018 8:34 (specimen) EDT AM EDT Resulting Agency Comment Spec In Lab Vivi Lorenz APRN CHEMISTRY ORDERABLES Performing Organization Address City/State/[place] [address] (ABNORMAL) Basic Metabolic Panel (non-fasting) (04/02/2018 8:26 AM EDT) P athologist Signature Glucose Lvl 247 (H) 65 - 199 [facility] mg/dL [facility] Comment: Diabetes: >=200 mg/dL plus symp toms BUN 20 (H) 8 - 18 mg/dL [facility] Creatinine 1.16 0.70 - 1.20 mg/dL [facility] Sodium 139 135 - 145 mmol/L [facility] Potassium 4.8 3.5 - 5.0 mmol/L [facility] Comment: Please note: ??Patients with WBC >100,00 0 may have falsely elevated Potassium levels. ??For accurate Potassium quantif ication in these patients send serum separator tube (gold top) for subsequent determinations. ??Contact the Clinical Chemistry Laboratory if there are any qu estions. Chloride 98 98 - 107 mmol/L [facility] CO2 27 22 - 31 mmol/L [facility] Anion Gap 14 5 - 15 mmol/L [facility] Calcium 9.3 8.5 - 10.5 mg/dL [facility] Estimated GFR 47 (L) >=60 mL/min/1.73 m?? [facility] Comment: The eGFR was calculated using the CKD-EP I equation. As with all creatinine based estimates of kidney function, eGFR values calculated with the CKD-EPI equation are not accurate in patients wi th acute kidney failure, extremes of body mass or the acutely ill. [email or web address]/[facility] eGFR 55 (L) >=60 mL/min/1.73 m?? [facility] Comment: The eGFR was calculated using the CKD-EP I equation. As with all creatinine based estimates of kidney function, eGFR values calculated with the CKD-EPI equation are not accurate in patients wi th acute kidney failure, extremes of body mass or the acutely ill. [email or web address]/[facility] Specimen Anatomical Collection Method Collection Time Receive d Time (Source) Location / / Volume Laterality Blood specimen 04/02/2018 8:26 AM 018 8:34 (specimen) EDT AM EDT Resulting Agency Comment Spec In Lab Vivi Lorenz APRN CHEMISTRY ORDERABLES Performing Organization Address City/State/[place] [address] documented in this encounter Visit Diagnoses Diagnosis Chronic systolic heart failure documented in this encounter Care Teams Upset Operator Relationship Specialty Start Date End Date Nicole Pickens MD PCP - General 08/17/[address] [place] [address] documented as of this encounter
--- OUTSIDE RECORDS SUMMARY | 2022-03-18 02:35 | XMS_ITS | Encounter Summary ---
:1945 [place] [address] Care Team Providers Name Role Phone Nicole Pickens MD Primary Care Provider Encounter Details Date Type Department Care Team Description 05/13/2019 Office Visit Cardiology at [facility] [place] Vivi Lorenz, Chronic systolic heart [facility] HEATING FIXTURE [place] [address] CARDIOLOGY DEPT. [phone] [place], [place] [address] Social History Tobacco Use Types Packs/Day Years Used Date Never Smoker Smokeless Tobacco: Never Used Alcohol Use Standard Drinks/Week Comments No 0 (1 standard drink = 0.6 oz pure alcoho l) Sex Assigned at Date Recorded Not on file documented as of this encounter Last Filed Vital Signs Vital Sign Reading Time Taken Comments Blood Pressure 148/86 05/13/2019 9:39 AM EDT Pulse 78 05/13/2019 9:39 AM EDT Temperature - - Respiratory Rate - - Oxygen Saturation 98% 05/13/2019 9:39 AM EDT Inhaled Oxygen Concentration - - Weight 114.6 kg (252 lb 9.6 oz) 05/13/2019 9:39 AM EDT Height 165.1 cm (5' 5) 05/13/2019 9:39 AM EDT Body Mass Index 42.03 05/13/2019 9:39 AM EDT documented in this encounter Progress Notes Vivi Lorenz, HEATING FIXTURE TENDER - 05/13/2019 9:40 AM EDT Cardiomyopathy/Heart failure Clinic Follow up Visit. ID and CC: Ana Victoria is a 73 y.o. female presenting for f/u regarding nonischemic cardiomyopathy and HF. Last visit: 10/2018 HPI: Nonischemic cardiomyopathy dxd in 2003 with LVEF as low as 18% and LBBB. LV recovery following CRTd placement in 2010. No HF hospitalizations Here for routine follow up and device check Interim events: No interim illnesses or hospitalizations. She reports no activity limiting symptoms. Enjoying senior care and continues to work at [employer] a few days per month Weight is stable. Good energy. Sleeping well with CPAP. No medication issues. No CP, SOB at rest or with exertion. No orthopnea, PND, syncope.presyncope. No device issues Patient Active Problem List Diagnosis ??? 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 ??? Heart failure- chronic systolic dysfunction Well compensated and euvolemic NSR with LBBB, s/p LGSW-D 04/11/11 AHA./ACC Stage C, NYHA FTC II Heart Failure Management: Yes/No No?/Discontinued/Why Beta tone Yes MILADYS/ARB Yes Spironolactone yes AFIB? no Anticoagulated n/a Device yes LGSW-D 04/11/11 ??? Idiopathic cardiomyopathy severe LV systolic dysfunction Echo 07/03/04 ([facility]): LVEF 18%. Severe diffuse global HK, LV apex dyskinetic with sessile mural thrombus. 3-4+ MR. LAE. RV normal. Mildly elevated PAP (44mmHg). Echo EF= 20-25% 11/15/04 Echo EF= 25% 08/26/05 Echo EF= 40% 07/17/06 Echo EF= 30% 01/26/08 .br Echo EF= 30% 07/21/08 Echo EF= 30% 02/10 Echo EF= 50-55% 02/02/13 (s/p LGSW) Echo EF= 60-65% 02/15/14 ??? Diabetes mellitus ??? Obesity BMI=43 ??? Depression ??? Hypertension Well controlled ??? Obstructive sleep apnea uses CPAP ??? LBBB (left bundle branch block) Chronic Widened QRS S/p LGSW-D ??? History of DVT (deep vein thrombosis) a. #1 peripartum 1979, short-term anticoagulation. b. #2 postop ORIF left ankle in 1997, long-term anticoagulation begun. c. Unknown if prior coagulopathy work-up. ??? Hypothyroidism On synthroid replacement ??? LV (left ventricular) mural thrombus ??? Osteoarthritis Current Outpatient Medications Medication Sig Dispense Refill ??? NOVOLOG FLEXPEN U-100 INSULIN Insulin Pen 10 Units 3 times daily. ??? LEVEMIR FLEXTOUCH U-100 INSULN Insulin Pen 45 Units every evening. ??? FREESTYLE LANCETS 28 [...] daily. Allergies: Patient has no known allergies. Interval ROS: See HPI above for pertinent positives and negatives. All other ROS negative by system (including general, HEENT, pulmonary, gastrointestinal, genitourinary, musculoskeletal, endocrine, hematologic, extremity, skin, neurology, and psychiatric) with exceptions below. Physical Exam: Blood pressure 148/86, pulse 78, height 165.1 cm (5' 5), weight 114.6 kg (252 lb 9.6 oz), SpO2 98 %. Body mass index is 42.03 kg/m??. General: WD, WN, NAD HEENT: JVP 6-7 - alopecia Lungs: Clear to A+P Cor: RR, normal S1, S2. PMI not displaced. No murmur or gallop Abd: soft, no L/S/K enlargement or bruits Ext: Pulses preserved, no edema, cyanosis or clubbing Lab data Chemistry Component Value Date/Time NA 137 05/05/2019 1153 K 4.8 05/05/2019 1153 CL 102 05/05/2019 1153 CO2 29 05/05/2019 1153 BUN 20 05/05/2019 1153 CREATININE 1.11 05/05/2019 1153 Component Value Date/Time CALCIUM 9.5 05/05/2019 1153 ALKPHOS 102 05/05/2019 1153 AST 41 05/05/2019 1153 ALT 68 05/05/2019 1153 BILITOT 0.3 05/05/2019 1153 ProBNP Date Value Ref Range Status 05/05/2019 62 Final 10/28/2018 57 <=125 pg/mL Final 04/02/2018 73 <=125 pg/mL Final Lipid Panel Lab Results Component Value Date CHLPL 194 05/05/2019 HDL 38 05/05/2019 TRIG 149 05/05/2019 LDLCHOL 127 05/05/2019 Remote ICD download: 04/2019 99% BVP's No events Echo 04/2018 SUMMARY: ?? 1. Technically limited 2. Global [...] H/o cardiomyopathy. LVEF improved with meds and LGSW - stable at 45-50% (believe that that prior 60-65% likely over estimate) 2. HFrEF. ACC/AHA stage C. NYHA FC I-II Euvolemic. Tolerating target dose carvedilol, martin - mod dose losartan. Entresto not indicated with LVEF > 40% 3. Obesity - stable but needs to lose 4. AI/MR - mild-mod 5. Excessive 10-year ASCVD risk (35%)-recommended initiation moderate intensity statin therapy Plan: 1. A review of the active management and working diagnosis(es) was conducted. 2. The patient's medication list was updated and new Rxs given as needed. Begin atorvastatin 40 mg daily 3. Question were answered regarding: lab results, follow up plan 4. The following labs or other testing advised: none today 5. Heart Failure Clinic follow up scheduled for: October with device check and labs We will plan to update echo next fall. VIVI LORENZ APRN documented in this encounter Plan of Treatment Upcoming Encounters Date Type Specialty Care Team Description 04/16/2022 Appointment Cardiology Vivi Lorenz APRN [facility] CARDIOLOGY DEPT. [place], [place] [address] (Luz pollard) 04/16/2022 Laboratory Appointment Lab 04/16/2022 Office Visit Cardiology Vivi Lorenz APRN [facility] CARDIOLOGY DEPT. [place], [place] [address] (Luz pollard) documented as of this encounter Visit Diagnoses Diagnosis Chronic systolic heart failure documented in this encounter Care Teams Cuff Matcher Relationship Specialty Start Date End Date Nicole Pickens MD PCP - General 08/17/[address] [place] [address] [address] [place] [address] documented as of this encounter
--- OUTSIDE RECORDS SUMMARY | 2022-03-18 02:35 | XMS_ITS | Encounter Summary ---
:1945 [place] [address] Care Team Providers Name Role Phone Nicole Pickens MD Primary Care Provider Encounter Details Date Type Department Care Team Description 10/28/2018 Laboratory Appointment Lab 3L [facility] systolic [facility] [place] [phone] Social History Tobacco Use Types Packs/Day Years Used Date Never Smoker Smokeless Tobacco: Never Used Alcohol Use Standard Drinks/Week Comments No 0 (1 standard drink = 0.6 oz pure alcoho l) Sex Assigned at Date Recorded Not on file documented as of this encounter Plan of Treatment Upcoming Encounters Date Type Specialty Care Team Description 04/16/2022 Appointment Cardiology Vivi Lorenz APRN [facility] CARDIOLOGY DEPT. [place], [place] [address] (Wo rk) 04/16/2022 Laboratory Appointment Lab 04/16/2022 Office Visit Cardiology Vivi Lorenz APRN [facility] CARDIOLOGY DEPT. [place], [place] [address] (Wo rk) documented as of this encounter Procedures Procedure Name Priority Date/Time Associated Comments Diagnosis PRO-BRAIN NATRIURETIC STAT 10/28/2018 10:41 Chronic systoli c Results for this PEPTIDE AM EST heart failure procedure are in the results section. BASIC METABOLIC PANEL STAT 10/28/2018 10:41 Chronic systoli c Results for this (NON-FASTING) AM EST heart failure procedure are in the results section. documented in this encounter Results (ABNORMAL) Basic Metabolic Panel (non-fasting) (10/28/2018 10:41 AM EST) P athologist Signature Glucose Lvl 122 65 - 199 [facility] mg/dL [facility] Comment: Diabetes: >=200 mg/dL plus symp toms BUN 20 (H) 8 - 18 mg/dL [facility] Creatinine 1.11 0.70 - 1.20 mg/dL [facility] Sodium 141 135 - 145 mmol/L [facility] Potassium 4.9 3.5 - 5.0 mmol/L [facility] Comment: Please note: ??Patients with WBC >100,00 0 may have falsely elevated Potassium levels. ??For accurate Potassium quantif ication in these patients send serum separator tube (gold top) for subsequent determinations. ??Contact the Clinical Chemistry Laboratory if there are any qu estions. Chloride 100 98 - 107 mmol/L [facility] CO2 28 22 - 31 mmol/L [facility] Anion Gap 13 5 - 15 mmol/L [facility] Calcium 9.9 8.5 - 10.5 mg/dL [facility] Estimated GFR 50 (L) >=60 mL/min/1.73 m?? [facility] Comment: The eGFR was calculated using the CKD-EP I equation. As with all creatinine based estimates of kidney function, eGFR values calculated with the CKD-EPI equation are not accurate in patients wi th acute kidney failure, extremes of body mass or the acutely ill. http://path intelligence/DHnkf eGFR 58 (L) >=60 mL/min/1.73 m?? [facility] Comment: The eGFR was calculated using the CKD-EP I equation. As with all creatinine based estimates of kidney function, eGFR values calculated with the CKD-EPI equation are not accurate in patients wi th acute kidney failure, extremes of body mass or the acutely ill. http://BCNX.[employer]ak/DHMCnkf Specimen Anatomical Collection Method Collection Time Receive d Time (Source) Location / / Volume Laterality Blood specimen 10/28/2018 10:41 9 (specimen) AM EST 10:48 AM EST Resulting Agency Comment Spec In Lab Vivi Lorenz APRN CHEMISTRY ORDERABLES Performing Organization Address City/[facility]/[place] [address] pro-Brain Natriuretic Peptide (10/28/2018 10:41 AM EST) P athologist Signature ProBNP 57 <=125 pg/mL [facility] Specimen Anatomical Collection Method Collection Time Receive d Time (Source) Location / / Volume Laterality Blood specimen 10/28/2018 10:41 9 (specimen) AM EST 10:48 AM EST Resulting Agency Comment Spec In Lab Vivi Lorenz APRN CHEMISTRY ORDERABLES Performing Organization Address City/[facility]/ZIP [facility] [place] [place] [address] documented in this encounter Visit Diagnoses Diagnosis Chronic systolic heart failure documented in this encounter Care Teams Lawyer Real Estate Relationship Specialty Start Date End Date Nicole Pickens MD PCP - General 08/17/[address] [place] [address] documented as of this encounter
--- OUTSIDE RECORDS SUMMARY | 2022-03-18 02:35 | XMS_ITS | Encounter Summary ---
:1945 Author Organization [facility] [place] [address] Care Team Providers Name Role Phone Nicole Pickens MD Primary Care Provider Reason for Referral Diagnostic Test (Routine) - Closed Specialty Diagnoses / Procedures Referred By Contact Refer red To Contact Cardiology Diagnoses Chronic systolic heart failure Vivi Lorenz APRN [facility] Non-Inv Card Lab Procedures Echocardiogram Transthoracic([facility]) [facility] [place] [address] [place] [address] Referral ID Status Reason Start Date Expiration Date Visits V isits Requested Authorized [id number] Closed Specialty 12/15/2019 12/14/2020 1 1 Service Requested Reason for Visit Diagnostic Test (Routine) - Closed Specialty Diagnoses / Procedures Referred By Contact Refer red To Contact Cardiology Diagnoses Chronic systolic heart failure Vivi Lorenz APRN [facility] Non-Inv Card Lab Procedures Echocardiogram Transthoracic([facility]) [facility] [place] [address] [place] [address] Referral ID Status Reason Start Date Expiration Date Visits V isits Requested Authorized [id number] Closed Specialty 12/15/2019 12/14/2020 1 1 Service Requested Encounter Details Date Type Department Care Team Description 09/19/2020 Hospital Encounter Non-Invasive Chronic s [place]stolic [place] [address] Social History Tobacco Use Types Packs/Day [...] Description 04/16/2022 Appointment Cardiology Vivi Lorenz APRN [facility] CARDIOLOGY DEPT. [place], [place] [address] (Wo rk) 04/16/2022 Laboratory Appointment Lab 04/16/2022 Office Visit Cardiology Vivi Lorenz APRN [facility] CARDIOLOGY DEPT. [place], [place] [address] (Luz pollard) documented as of this encounter Procedures Procedure Name Priority Date/Time Associated Comments Diagnosis ECHOCARDIOGRAM COMPLETE Routine 09/19/2020 9:24 AM Chronic sys tolic Results for this EST heart failure procedure are in the results section. documented in this encounter Results ECHOCARDIOGRAM COMPLETE (09/19/2020 9:24 AM EST) P athologist Signature EF 45 HEARTLAB SYSTEM Specimen (Source) Anatomical Location Collection Method / Collectio n Time Received Time / Laterality Volume 09/19/2020 Narrative HEARTLAB SYSTEM - 09/19/2020 9:43 AM EST Procedure: ?Transthoracic Echocardiogram Patient: ?TD Jose ? (Age): 1945(74y) Med Rec#: ? [id number] ?Sex: ?F ? Site Loc: ? [facility] ?Ht / Wt: ??165.1(cm)/114.3 Pt. Loc: ?Echo Lab ?BSA: ?2.18 Study Date: ?? 09/19/2020 ?Pt. Type: Same-Day Patient Tape: ? Referring: Vivi Lorenz ?? Reading: Mariano Castro ([id number]) Patient Account Representative: Clarita Ryan Diagnosis: *Chronic systolic (congestive) heart fa ilure (I50.22) BP: ? 122/55 SUMMARY: 1. The left ventricular chamber size is normal. ??Basal septal hypertrophy is observed. ??Global left v entricular systolic function is mildly reduced. ??The quantitative left ventricular ejection fraction by 3-D rendering is 45%. ??There is diffuse hypokinesis present. ??There is a left ventricular septal wall motion abno rmality observed, possibly due to the presence of a left bundle branch block or paced rhythm. 2. The right ventricle is mildly dilated . ??Right ventricular global systolic function is normal. ??Pulmonary artery hypertension could not be assessed due to inadequate tricuspid reg urgitation jet. 3. Mild (1+/4+) aortic valve regurgitati on is present. 4. See remainder of report for additiona l findings. ??Compared to the TTE performed 04/02/18, LV now measures normal in size; global LV systolic function is similar. Findings ? : Study Quality: ? Adequate Left Ventricle: ? The left ventricul ar chamber size is normal. ?Basal septal hypertrophy is observ ed. ?There is no evidence of LVOT obstr uction. ?No ventricular septal defect is vi sualized. ?Global left ventricular systolic f unction is mildly reduced. ?The quantitative left ventricular ejection fraction by biplane Todd's method is 47%. ?The quantitative left ventricular ejection fraction by 3-D rendering is 45%. ?There is diffuse hypokinesis prese nt. ?There is a left ventricular septal wall motion abnormality observed, possibly due to the presence of a left b undle branch block.or paced rhythm ?Doppler assessment is consistent w ith normal left sided filling pressure. Left Atrium: ? The left atrium is no rmal in size. ?The patent foramen ovale is demons trated by color Doppler. Right Ventricle: ? The right ventric le is mildly dilated. ?A pacemaker wire is visualized in the right ventricle. ?Right ventricular global systolic function is normal. ?Pulmonary artery hypertension coul d not be assessed due to inadequate tricuspid regurgitation jet. Right Atrium: ? The right atrium is normal in size. ?A pacemaker wire is visualized in the right atrium. Aortic Valve: ? The aortic valve is not well visualized. ?There is no evidence of aortic mahesh ve stenosis. ?Mild (1+/4+) aortic valve regurgit ation is present. Mitral Valve: ? The mitral valve jai flets are mildly thickened. ?There is thickening of both mitral valve leaflets. ?There is mitral annular calcificat ion. ?There is no evidence of mitral rudy nosis. ?There is mild (1+/4+) mitral regur gitation present. Tricuspid Valve: ? The tricuspid mahesh ve leaflets are morphologically normal. ?Doppler evaluation of tricuspid va lve regurgitation is inadequate. Pulmonic Valve: ? The pulmonic valve is not well visualized. ?There is no pulmonic stenosis pres ent. ?There is no evidence of pulmonic r egurgitation. Pericardium: ? A trivial pericardial effusion is visualized. Aorta: ? The aortic root is normal i n size. ?The ascending aorta was not well v isualized. Pulmonary Artery: ? The main pulmona ry artery is not well visualized. Venous: ? The inferior vena cava viktoria ears normal in size. ?There is a greater than 50% respir atory change in the inferior vena cava dimension. Misc: ? See remainder of report for additional findings. ?Two-dimensional echo, spectral Dop pler and color Doppler performed. ?Myocardial Strain Imaging Chambers 2D ?Value ?Units (Range) ? IVSd (2D) ? 1.33 ? cm ? LVPWd (2D) ?0.54 ? cm ? IVS:LVPW ratio (2D) 2.47 ? ratio ? RWT (2D) ?0.34 ? ratio ? RWT PW (2D) ? 0.19 ? ratio ? LVIDd (2D) ?5.54 ? cm ? LVIDs (2D) ?3.61 ? cm ? LVIDd (2D) index ?2.54 ? cm/m2 ? LVIDs (2D) index ?1.65 ? cm/m2 ? LV FS (2D) ?34.84 ?% ? EF Teichholz (2D) ?? 63.45 ?% ? Ao root diameter (2D2.8 ?cm (2.1 - 3.6) ? Volumes/Mass ?Value ?Units (Range) ? LA Area 4 CH ?18 ? cm2 (<21) ? RA AREA 4CH ? 13 ? cm2 ? LA ESV BP (MOD) inde19.84 ? ml/m2 ? LV ESV SP 4CH (MOD) 47.7 ? ml ? LV ESV SP 2CH (MOD) 46.1 ? ml ? LV EDV BP ? 88.9 ? ml ? LV ESV BP ? 47.5 ? ml ? LV EDV BP index ? 40.74 ?ml/m2 ? LV ESV BP index ? 21.77 ?ml/m2 ? BP EF (MOD) ? 46.57 ?% ? LV mass (2D) ?197.37 ? g ? LV mass (2D) index ??90.44 ?g/m2 ? Diastolic/Systolic Function ?Value ?Units (Range) ? MV E-wave Vmax ?0.79 ? m/sec ? MV deceleration [id number] ?msec ? MV A-wave Vmax ?1.17 ? m/sec ? MV E:A ratio ?0.68 ? ratio ? LV septal e' Vmax ?? 0.07 ? m/sec ? LV lateral e' Vmax ??0.07 ? m/sec ? LV average e' Vmax ??0.07 ? m/sec ? LV E:e' septal ratio11.3 ? ratio ? LV E:e' lateral rati11.3 ? ratio ? LV average E:e' rati11.3 ? ratio ? Aortic Valve ?Value ?Units (Range) ? AV Vmax ? 1.76 ? m/sec ? AV peak gradient ?12.39 ?mmHg ? LVOT Vmax ? 1.1 ?m/sec ? DOI (Vmax) ?0.63 ? ratio ? AR PHT ?439 ?msec ? AR peak gradient ?71 ? mmHg ? Mitral Valve ?Value ?Units (Range) ? MV PHT ?47 ? msec ? MVA (PHT) ? 4.68 ? cm2 ? This report has been electronically sign ed by: _ Mariano Castro MD ? 09/19/2020 0 9:42:56 Images reviewed and interpretation shanae ied [facility] Cardiac Ultrasound Laboratory Procedure Note Mariano Castro MD - 09/19/2020Format ting of this note might be different from the original. Procedure: Transthoracic Echocardiogram Patient: TD BRAUN(Age): [birth year](74y) Med Rec#: [id number] Sex: F Site Loc: [facility] Ht / Wt: 165.1(cm)/114.3 Pt. Loc: Echo Lab BSA: 2.18 Study Date: 09/19/2020 Pt. Type: Same-Da y Patient Tape: Referring: Vivi Lorenz Reading: Mariano Castro ([id number]) Patient Account Representative: Clarita Ryan Diagnosis: *Chronic systolic (congestive) heart fa macie (I50.22) BP: 122/55 SUMMARY: 1. The left ventricular chamber size is normal. Basal septal hypertrophy is observed. Global left shorty tricular systolic function is mildly reduced. The quantitative left ve ntricular ejection fraction by 3-D rendering is 45%. There is diffuse h ypokinesis present. There is a left ventricular septal wall motion abno rmality observed, possibly due to the presence of a left bundle branch block or paced rhythm. 2. The right ventricle is mildly dilated . Right ventricular global systolic function is normal. Pulmonary a rtery hypertension could not be assessed due to inadequate tricuspid reg urgitation jet. 3. Mild (1+/4+) aortic valve regurgitati on is present. 4. See remainder of report for additiona l findings. Compared to the TTE performed 04/02/18, LV now measures normal in size; global LV systolic function is similar. Findings : Study Quality: Adequate Left Ventricle: The left ventricular sidney mber size is normal. Basal septal hypertrophy is observed. There is no evidence of LVOT obstructio n. No ventricular septal defect is visuali zed. Global left ventricular systolic functi on is mildly reduced. The quantitative left ventricular eject ion fraction by biplane Todd's method is 47%. The quantitative left ventricular eject ion fraction by 3-D rendering is 45%. There is diffuse hypokinesis present. There is a left ventricular septal wall motion abnormality observed, possibly due to the presence of a left b undle branch block.or paced rhythm Doppler assessment is consistent with n ormal left sided filling pressure. Left Atrium: The left atrium is normal i n size. The patent foramen ovale is demonstrate d by color Doppler. Right Ventricle: The right ventricle is mildly dilated. A pacemaker wire is visualized in the r ight ventricle. Right ventricular global systolic funct ion is normal. Pulmonary artery hypertension could not be assessed due to inadequate tricuspid regurgitation jet. Right Atrium: The right atrium is normal in size. A pacemaker wire is visualized in the r ight atrium. Aortic Valve: The aortic valve is not we ll visualized. There is no evidence of aortic valve st enosis. Mild (1+/4+) aortic valve regurgitation is present. Mitral Valve: The mitral valve leaflets are mildly thickened. There is thickening of both mitral valv e leaflets. There is mitral annular calcification. There is no evidence of mitral stenosis . There is mild (1+/4+) mitral regurgitat ion present. Tricuspid Valve: The tricuspid valve jai flets are morphologically normal. Doppler evaluation of tricuspid valve r egurgitation is inadequate. Pulmonic Valve: The pulmonic valve is no t well visualized. There is no pulmonic stenosis present. There is no evidence of pulmonic regurg itation. Pericardium: A trivial pericardial effus ion is visualized. Aorta: The aortic root is normal in size . The ascending aorta was not well visual ized. Pulmonary Artery: The main pulmonary art von is not well visualized. Venous: The inferior vena cava appears n ormal in size. There is a greater than 50% respiratory change in the inferior vena cava dimension. Misc: See remainder of report for additi onal findings. Two-dimensional echo, spectral Doppler and color Doppler performed. Myocardial Strain Imaging Chambers 2D Value Units (Range) IVSd (2D) 1.33 cm LVPWd (2D) 0.54 cm IVS:LVPW ratio (2D) 2.47 ratio RWT (2D) 0.34 ratio RWT PW (2D) 0.19 ratio LVIDd (2D) 5.54 cm LVIDs (2D) 3.61 cm LVIDd (2D) index 2.54 cm/m2 LVIDs (2D) index 1.65 cm/m2 LV FS (2D) 34.84 % EF Teichholz (2D) 63.45 % Ao root diameter (2D2.8 cm (2.1 - 3.6) Volumes/Mass Value Units (Range) LA Area 4 CH 18 cm2 (<21) RA AREA 4CH 13 cm2 LA ESV BP (MOD) inde19.84 ml/m2 LV ESV SP 4CH (MOD) 47.7 ml LV ESV SP 2CH (MOD) 46.1 ml LV EDV BP 88.9 ml LV ESV BP 47.5 ml LV EDV BP index 40.74 ml/m2 LV ESV BP index 21.77 ml/m2 BP EF (MOD) 46.57 % LV mass (2D) 197.37 g LV mass (2D) index 90.44 g/m2 Diastolic/Systolic Function Value Units (Range) MV E-wave Vmax 0.79 m/sec MV deceleration [id number] msec MV A-wave Vmax 1.17 m/sec MV E:A ratio 0.68 ratio LV septal e' Vmax 0.07 m/sec LV lateral e' Vmax 0.07 m/sec LV average e' Vmax 0.07 m/sec LV E:e' septal ratio11.3 ratio LV E:e' lateral rati11.3 ratio LV average E:e' rati11.3 ratio Aortic Valve Value Units (Range) AV Vmax 1.76 m/sec AV peak gradient 12.39 mmHg LVOT Vmax 1.1 m/sec DOI (Vmax) 0.63 ratio AR PHT 439 msec AR peak gradient 71 mmHg Mitral Valve Value Units (Range) MV PHT 47 msec MVA (PHT) 4.68 cm2 This report has been electronically sign ed by: _ Mariano Castro MD 09/19/2020 09:42:5 6 Images reviewed and interpretation verif ied [facility] Cardiac Ultrasound Laboratory Vivi Lorenz APRN ECHO ORDERABLES Performing Organization Address City/State/ZIP Code Phon e Number HEARTLAB SYSTEM documented in this encounter Visit Diagnoses Diagnosis Chronic systolic heart failure documented in this encounter Care Teams Manager Van Relationship Specialty Start Date End Date Nicole Pickens MD PCP - General 08/17/[address] [place] [address] documented as of this encounter
--- OUTSIDE RECORDS SUMMARY | 2022-03-18 02:35 | XMS_ITS | Encounter Summary ---
:1945 Author Organization [facility] [place] [address] Care Team Providers Name Role Phone Nicole Pickens MD Primary Care Provider Encounter Details Date Type Department Care Team Description 04/13/2019 [place] [address] Social History Tobacco Use Types Packs/Day Years Used Date Never Smoker Smokeless Tobacco: Never Used Alcohol Use Standard Drinks/Week Comments No 0 (1 standard drink = 0.6 oz pure alcoho l) Sex Assigned at Date Recorded Not on file documented as of this encounter Plan of Treatment Upcoming Encounters Date Type Specialty Care Team Description 04/16/2022 Appointment Cardiology Vivi Lorenz APRN [facility] CARDIOLOGY DEPT. [place], [place] [address] (Luz pollard) 04/16/2022 Laboratory Appointment Lab 04/16/2022 Office Visit Cardiology Vivi Lorenz APRN [facility] CARDIOLOGY DEPT. [place], [place] [address] (Luz pollard) documented as of this encounter Procedures Procedure Name Priority Date/Time Associated Diagnosis Comme nts CARDIAC DEVICE Routine 04/13/2019 7:17 AM Results for this CHECK - REMOTE EDT procedure are in the results section. documented in this encounter Results Cardiac Device Check - Remote (04/13/2019 7:17 AM EDT) Component Value Ref Test Analysis Performed Pathologis t Range Method Time At Signature Date Time [id number] IDCO Interrogation Session Implantable Medtronic IDCO Pulse Generator Steel Tier Implantable Viva XT STOCK MANAGER-D IDCO Pulse Generator [id number] Model Implantable [id number] IDCO Pulse Generator Serial Number Type Remote IDCO Interrogation Session Implantable Cardiac IDCO Pulse Generator Resynchronization Type Therapy - Defibrillator Implantable [id number] IDCO Pulse Generator Implant Date Victor Manuel [...] Sensitivity Ventricular BiV IDCO chambers paced during STOCK MANAGER pacing. STOCK MANAGER LV-RV Delay 20 ms IDCO Lead [...] IDCO Setting Pacing Pulse Width Lead Channel 2.75 V IDCO Setting Pacing Amplitude Lead Channel [...] 400 ms IDCO Detection Interval Battery Date [id number] IDCO Time of Measurements Battery Status OK IDCO Battery PROTOTYPE MACHINE OPERATOR 2.727 IDCO Trigger Battery 64 mo IDCO Remaining Longevity Battery Voltage 2.95 V IDCO Capacitor Charge Reformation IDCO Type Capacitor Last [id number] IDCO Charge Date Time Capacitor Charge 3.613 s IDCO Time Capacitor Charge 18 J IDCO Energy Victor Manuel Statistic [id number] IDCO Date Time Start Victor Manuel Statistic [id number] IDCO Date Time End Victor Manuel Statistic 0.03 % IDCO RA Percent Paced Victor Manuel Statistic 98.92 % IDCO RV Percent Paced STOCK MANAGER Statistic LV 98.88 % IDCO Percent Paced Victor Manuel Statistic 0.02 % IDCO AP ACCESS SPEC Percent Victor Manuel Statistic 99.94 % IDCO ACCESS SPEC Percent Victor Manuel Statistic 0.01 % IDCO AP VS Percent Victor Manuel Statistic 0.03 % IDCO VS Percent STOCK MANAGER Statistic [id number] IDCO Date Time Start STOCK MANAGER Statistic [id number] IDCO Date Time End STOCK MANAGER Statistic 98.88 % IDCO STOCK MANAGER Percent Paced Atrial Tachy [id number] IDCO Statistic Date Time Start Atrial Tachy [id number] IDCO Statistic Date Time End Atrial Tachy 0 % IDCO Statistic AT/AF [place] Percent Therapy 0 IDCO Statistic Recent Shocks Delivered Therapy 0 IDCO Statistic Recent Shocks Aborted Therapy 0 IDCO Statistic Recent ATP Delivered Therapy [id number] IDCO Statistic Recent Date Time Start Therapy [id number] IDCO Statistic Recent Date Time End Therapy 0 IDCO Statistic Total Shocks Delivered Therapy 0 IDCO Statistic Total Shocks Aborted Therapy 0 IDCO Statistic Total ATP Delivered Therapy [id number] IDCO Statistic Total Date Time Start Therapy [id number] IDCO Statistic Total Date Time End Episode [...] Episode SVT IDCO Statistic Type Category Episode [id number] IDCO Statistic Recent Date Time Start Episode [id number] IDCO Statistic Recent Date Time End Episode [id number] IDCO Statistic Recent Date Time Start Episode [id number] IDCO Statistic Recent Date Time End Episode [id number] IDCO Statistic Recent Date Time Start Episode [id number] IDCO Statistic Recent Date Time End Episode [id number] IDCO Statistic Recent Date Time Start Episode [id number] IDCO Statistic Recent Date Time End Episode [id number] IDCO Statistic Recent Date Time Start Episode [id number] IDCO Statistic Recent Date Time End Episode [id number] IDCO Statistic Recent Date Time Start Episode [id number] IDCO Statistic Recent Date Time End Episode [id number] IDCO Statistic Recent Date Time Start Episode [id number] IDCO Statistic Recent Date Time End Episode [...] Episode SVT IDCO Statistic Type Category Episode [id number] IDCO Statistic Total Date Time Start Episode [id number] IDCO Statistic Total Date Time End Episode [id number] IDCO Statistic Total Date Time Start Episode [id number] IDCO Statistic Total Date Time End Episode [id number] IDCO Statistic Total Date Time Start Episode [id number] IDCO Statistic Total Date Time End Episode [id number] IDCO Statistic Total Date Time Start Episode [id number] IDCO Statistic Total Date Time End Episode [id number] IDCO Statistic Total Date Time Start Episode [id number] IDCO Statistic Total Date Time End Episode [id number] IDCO Statistic Total Date Time Start Episode [id number] IDCO Statistic Total Date Time End Episode [id number] IDCO Statistic Total Date Time Start Episode [id number] IDCO Statistic Total Date Time End Specimen (Source) Anatomical Collection Method Collection Time Re ceived Time Location / / Volume Laterality 04/13/2019 7:17 AM EDT Physician Cardiology MD IMPLANTABLE CARDIAC DEVICE Performing Organization Address City/State/[facility] Code Phon e Number IDCO documented in this encounter Visit Diagnoses Not on filedocumented in this encounter Care Teams Drawing Tender Relationship Specialty Start Date End Date Nicole Pickens MD PCP - General 08/17/[address] [place] [address] documented as of this encounter
--- OUTSIDE RECORDS SUMMARY | 2022-03-18 02:35 | XMS_ITS | Encounter Summary ---
:1945 Author Organization [facility] [place] [address] Care Team Providers Name Role Phone Nicole Pickens MD Primary Care Provider Reason for Referral Diagnostic Test (Routine) - Closed Specialty Diagnoses / Procedures Referred By Contact Refer red To Contact Cardiology Diagnoses Chronic systolic heart failure Vivi Lorenz APRN [facility] Non-Inv Card Lab Procedures Echocardiogram Transthoracic([facility]) [facility] [place] [address] [place] [address] Referral ID Status Reason Start Date Expiration Date Visits V isits Requested Authorized [id number] Closed Specialty 12/15/2019 12/14/2020 1 1 Service Requested Encounter Details Date Type Department Care Team Description 12/15/2019 TH Visit Cardiology at [facility] Vivi Lorenz, Chronic systolic heart failu re; (TeleHealth) [facility] JEREMÍAS Essential hypertension; [facility] Dilated cardiomyopathy; [place], [place] CENTER ICD (implantable cardioverter-defibrilla tor) in place [id number] CARDIOLOGY DEPT. [phone] [place], [place] [address] Social History Tobacco Use Types Packs/Day Years Used Date Never Smoker Smokeless Tobacco: Never Used Alcohol Use Standard Drinks/Week Comments No 0 (1 standard drink = 0.6 oz pure alcoho l) Sex Assigned at Date Recorded Not on file documented as of this encounter Last Filed Vital Signs Vital Sign Reading Time Taken Comments Blood Pressure - - Pulse - - Temperature - - Respiratory Rate - - Oxygen Saturation - - Inhaled Oxygen Concentration - - Weight 113.9 kg (251 lb) 12/15/2019 10:10 AM EDT Height - - Body Mass Index 41.77 05/13/2019 9:39 AM EDT documented in this encounter Progress Notes Vivi Lorenz, JEREMÍAS - 12/15/2019 10:00 AM EDT Cardiomyopathy/Heart failure Telehealth Follow up Visit. ID and CC: Ana Victoria is a 74 y.o. female presenting for f/u regarding nonischemic cardiomyopathy and HF. Last visit: 05/2019 HPI: Nonischemic cardiomyopathy dxd in 2003 with LVEF as low as 18% and LBBB. LV recovery following CRTd placement in 2010. LVEF 45-50% in 2018. No HF hospitalizations Interim events: Completely retired in September. Not missing work. No interim illnesses or hospitalizations. She reports no activity limiting symptoms. Weight is stable. Good energy. Sleeping well with CPAP. No medication issues. No CP, SOB at rest or with exertion. No orthopnea, PND, syncope.presyncope. No device issues Daughter hospitalized with epidural abcess for 6 weeks - rehabbing well. Patient Active Problem List Diagnosis ??? Medtronic REHEATER HELPER-D, not MRI compatible --[place] lead. ??? Heart failure- chronic systolic dysfunction Well compensated and euvolemic NSR with LBBB, s/p REHEATER HELPER-D 04/11/11 AHA./ACC Stage C, NYHA FTC II Heart Failure Management: Yes/No No?/Discontinued/Why Beta tone Yes MILADYS/ARB Yes Spironolactone yes AFIB? no Anticoagulated n/a Device yes REHEATER HELPER-D 04/11/11 ??? Idiopathic cardiomyopathy severe LV systolic dysfunction Echo 07/03/04 ([facility]): LVEF 18%. Severe diffuse global HK, LV apex dyskinetic with sessile mural thrombus. 3-4+ MR. LAE. RV normal. Mildly elevated PAP (44mmHg). Echo EF= 20-25% 11/15/04 Echo EF= 25% 08/26/05 Echo EF= 40% 07/17/06 Echo EF= 30% 01/26/08 .br Echo EF= 30% 07/21/08 Echo EF= 30% 02/10 Echo EF= 50-55% 02/02/13 (s/p REHEATER HELPER) Echo EF= 60-65% 02/15/14 ??? Diabetes mellitus ??? Obesity BMI=43 ??? Depression ??? Hypertension Well controlled ??? Obstructive sleep apnea uses CPAP ??? LBBB (left bundle branch block) Chronic Widened QRS S/p REHEATER HELPER-D ??? History of DVT (deep vein thrombosis) [...] Patient has no known allergies. Physical Exam: Weight 113.9 kg (251 lb). Body mass index is 41.77 kg/m??. Lab data Chemistry Component Value Date/Time NA [...] 05/05/2019 LDLCHOL 127 05/05/2019 Remote ICD download: 10/2019 99% BVP No events Echo 04/2018 SUMMARY: ?? 1. [...] H/o cardiomyopathy. LVEF improved with meds and REHEATER HELPER - stable at 45-50% ( prior 60-65% [...] Heart Failure Clinic follow up scheduled for: June We will plan to update echo next fall. VIVI LORENZ APRN The patient agreed to a telephone visit and is aware that there will be an attached charge. documented in this encounter Plan of Treatment Upcoming Encounters Date Type Specialty Care Team Description 04/16/2022 Appointment Cardiology Vivi Lorenz APRN [facility] CARDIOLOGY DEPT. [place], [place] [address] (Luz pollard) 04/16/2022 Laboratory Appointment Lab 04/16/2022 Office Visit Cardiology Vivi Lorenz APRN [facility] CARDIOLOGY DEPT. [place], [place] [address] (Luz pollard) documented as of this encounter Results ECHOCARDIOGRAM COMPLETE (09/19/2020 9:24 AM EST) athologist Signature EF 45 HEARTLAB SYSTEM Specimen (Source) Anatomical Location Collection Method / Collectio n Time Received Time / Laterality Volume 09/19/2020 Narrative HEARTLAB SYSTEM - 09/19/2020 9:43 AM EST Procedure: ?Transthoracic Echocardiogram Patient: ?TD Jose ? (Age): 1945(74y) Med Rec#: ? [id number] ?Sex: ?F ? Site Loc: ? [facility] ?Ht / Wt: ??165.1(cm)/114.3 Pt. Loc: ?Echo Lab ?BSA: ?2.18 Study Date: ?? 09/19/2020 ?Pt. Type: Same-Day Patient Tape: ? Referring: Vivi Lorenz ?? Reading: Mariano Castro ([id number]) Correctional Sergeant: Clarita Ryan Diagnosis: *Chronic systolic (congestive) heart [...] Vmax ?0.79 ? m/sec ? MV deceleration [id number] ?msec ? MV A-wave Vmax ?1.17 ? [...] 09/19/2020 0 9:42:56 [facility] Procedure Note Mariano Castro MD - 09/19/2020Format ting of this note might be different from the original. Procedure: Transthoracic Echocardiogram Patient: TD BRAUN(Age): [birth year](74y) Med Rec#: [id number] Sex: F Site Loc: [facility] Ht / Wt: 165.1(cm)/114.3 Pt. Loc: Echo Lab BSA: 2.18 Study Date: 09/19/2020 Pt. Type: Same-Da y Patient Tape: Referring: Vivi Lorenz Reading: Mariano Castro ([id number]) Correctional Sergeant: Clarita Ryan Diagnosis: *Chronic systolic (congestive) heart [...] MV E-wave Vmax 0.79 m/sec MV deceleration [id number] msec MV A-wave Vmax 1.17 m/sec MV [...] 6 Images reviewed and interpretation verif ied [facility] Cardiac Ultrasound Laboratory Vivi Lorenz APRN ECHO ORDERABLES Performing Organization Address City/State/ZIP Code Phon e Number HEARTLAB SYSTEM documented in this encounter Visit Diagnoses Diagnosis Chronic systolic heart failure Essential hypertension Unspecified essential hypertension Dilated cardiomyopathy Other primary cardiomyopathies ICD (implantable cardioverter-defibrilla tor) in place Chronic systolic heart failure documented in this encounter Care Teams Packer Relationship Specialty Start Date End Date Nicole Pickens MD PCP - General 08/17/[address] [place] [address] documented as of this encounter
--- OUTSIDE RECORDS SUMMARY | 2022-03-18 02:35 | XMS_ITS | Encounter Summary ---
:1945 Author Organization [facility] [place] [address] Care Team Providers Name Role Phone Nicole Pickens MD Primary Care Provider Encounter Details Date Type Department Care Team Description 11/05/2019 External [place] [address] Social History Tobacco Use Types Packs/Day Years Used Date Never Smoker Smokeless Tobacco: Never Used Alcohol Use Standard Drinks/Week Comments No 0 (1 standard drink = 0.6 oz pure alcoho l) Sex Assigned at Date Recorded Not on file documented as of this encounter Plan of Treatment Upcoming Encounters Date Type Specialty Care Team Description 04/16/2022 Appointment Cardiology Vivi Lorenz APRN [facility] CARDIOLOGY DEPT. [place], [place] [address] (Luz pollard) 04/16/2022 Laboratory Appointment Lab 04/16/2022 Office Visit Cardiology Vivi Lorenz APRN [facility] CARDIOLOGY DEPT. [place], [place] [address] (Luz pollard) documented as of this encounter Procedures Procedure Name Priority Date/Time Associated Diagnosis Comme nts EP DEVICE SCAN Routine 07/07/2018 documented in this encounter Results Scan Doc: EP Device (07/07/2018) Narrative This result has an attachment that is no t available. Historical Provider MEDIA MGR SCAN EXT ORDR/RSLT documented in this encounter Visit Diagnoses Not on filedocumented in this encounter Care Teams Bulbs Farmworker Relationship Specialty Start Date End Date Nicole Pickens MD PCP - General 08/17/[address] [place] [address] documented as of this encounter
--- OUTSIDE RECORDS SUMMARY | 2022-03-18 02:35 | XMS_ITS | Encounter Summary ---
:1945 Author Organization [facility] [place] [address] Care Team Providers Name Role Phone Nicole Pickens MD Primary Care Provider Encounter Details Date Type Department Care Team Description 10/28/2018 Office Visit Cardiology at [facility] Vivi Lorenz, Chronic systolic heart failu re; [facility] GOODWILL REPRESENTATIVE Other cardiomyopathy; [facility] Essential hypertension; [place], [place] DR RG (left bundle branch block) [id number] CARDIOLOGY DEPT. [phone] [place], [place] [address] Social History Tobacco Use Types Packs/Day Years Used Date Never Smoker Smokeless Tobacco: Never Used Alcohol Use Standard Drinks/Week Comments No 0 (1 standard drink = 0.6 oz pure alcoho l) Sex Assigned at Date Recorded Not on file documented as of this encounter Last Filed Vital Signs Vital Sign Reading Time Taken Comments Blood Pressure 140/67 10/28/2018 11:11 AM EST Pulse 74 10/28/2018 11:11 AM EST Temperature - - Respiratory Rate - - Oxygen Saturation 98% 10/28/2018 11:11 AM EST Inhaled Oxygen Concentration - - Weight 114.5 kg (252 lb 6.4 oz) 10/28/2018 11:11 AM EST Height 165.1 cm (5' 5) 10/28/2018 11:11 AM EST Body Mass Index 42 10/28/2018 11:11 AM EST documented in this encounter Progress Notes Vivi Lorenz, GOODWILL REPRESENTATIVE - 10/28/2018 11:00 AM EST Cardiomyopathy/Heart failure Clinic Follow up Visit. ID and CC: Ana Victoria is a 72 y.o. female presenting for f/u regarding nonischemic cardiomyopathy and HF. Last visit: 04/2018 HPI: Nonischemic cardiomyopathy dxd in 2003 with LVEF as low as 18% and LBBB. LV recovery following CRTd placement in 2010. No HF hospitalizations Here for routine follow up and device check Interim events: No interim illnesses or hospitalizations. She reports no activity limiting symptoms. 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 Good energy. Sleeping well with CPAP. No medication issues. No CP, SOB at rest or with exertion. No orthopnea, PND, syncope.presyncope. Excited about a trip to see Annie Durand in [place] in November. Patient Active Problem List Diagnosis ??? Medtronic CHANGE MANAGEMENT MANAGER-D, not MRI compatible --[place] lead. ??? Heart failure- chronic systolic dysfunction Well compensated and euvolemic NSR with LBBB, s/p CHANGE MANAGEMENT MANAGER-D 04/11/11 AHA./ACC Stage C, NYHA FTC II Heart Failure Management: Yes/No No?/Discontinued/Why Beta tone Yes MILADYS/ARB Yes Spironolactone yes AFIB? no Anticoagulated n/a Device yes CHANGE MANAGEMENT MANAGER-D 04/11/11 ??? Idiopathic cardiomyopathy severe LV systolic dysfunction Echo 07/03/04 ([facility]): LVEF 18%. Severe diffuse global HK, LV apex dyskinetic with sessile mural thrombus. 3-4+ MR. LAE. RV normal. Mildly elevated PAP (44mmHg). Echo EF= 20-25% 11/15/04 Echo EF= 25% 08/26/05 Echo EF= 40% 07/17/06 Echo EF= 30% 01/26/08 .br Echo EF= 30% 07/21/08 Echo EF= 30% 02/10 Echo EF= 50-55% 02/02/13 (s/p CHANGE MANAGEMENT MANAGER) Echo EF= 60-65% 02/15/14 ??? Diabetes mellitus ??? Obesity BMI=43 ??? Depression ??? Hypertension Well controlled ??? Obstructive sleep apnea uses CPAP ??? LBBB (left bundle branch block) Chronic Widened QRS S/p CHANGE MANAGEMENT MANAGER-D ??? History of DVT (deep vein thrombosis) [...] with exceptions below. Physical Exam: Blood pressure 140/67, pulse 74, height 165.1 cm (5' 5), weight 114.5 kg (252 lb 6.4 oz), SpO2 98 %. Body mass index is 42 kg/m??. General: WD, WN, NAD HEENT: JVP 6-7 - alopecia Lungs: Clear to A+P Cor: RR, normal S1, S2. PMI not displaced. No murmur or gallop Abd: soft, no L/S/K enlargement or bruits Ext: Pulses preserved, no edema, cyanosis or clubbing Lab data: Recent Labs 10/28/18 1041 NA 141 K 4.9 CL 100 CO2 28 BUN 20* CREATININE 1.11 GLUCOSE 122 ProBNP Date Value Ref Range Status 10/28/2018 57 <=125 pg/mL Final 04/02/2018 73 <=125 pg/mL Final 05/07/2017 64 <=125 pg/mL Final Remote ICD download: 10/23/2018 99% BVP's No events Echo 04/2018 SUMMARY: [...] H/o cardiomyopathy. LVEF improved with meds and CHANGE MANAGEMENT MANAGER - stable at 45-50% (believe that that [...] Heart Failure Clinic follow up scheduled for: April 2019 with device check and labs VIVI LORENZ APRN documented in this encounter Plan of Treatment Upcoming Encounters Date Type Specialty Care Team Description 04/16/2022 Appointment Cardiology Vivi Lorenz APRN [facility] CARDIOLOGY DEPT. [place], [place] [address] (Luz pollard) 04/16/2022 Laboratory Appointment Lab 04/16/2022 Office Visit Cardiology Vivi Lorenz APRN [facility] CARDIOLOGY DEPT. [place], [place] [address] (Luz rk) documented as of this encounter Results pro-Brain Natriuretic Peptide (10/28/2018 10:41 AM EST) athologist Signature ProBNP 57 <=125 pg/mL [facility] Specimen Anatomical Collection Method Collection Time Receive d Time (Source) Location / / Volume Laterality Blood specimen 10/28/2018 10:41 9 (specimen) AM EST 10:48 AM EST Resulting Agency Comment Spec In Lab Vivi Lorenz APRN CHEMISTRY ORDERABLES Performing Organization Address City/State/[place] [address] (ABNORMAL) Basic Metabolic Panel (non-fasting) (10/28/2018 10:41 AM EST) athologist Signature Glucose Lvl 122 65 - 199 [facility] mg/dL [facility] Comment: Diabetes: >=200 mg/dL plus symp toms BUN 20 (H) 8 - 18 mg/dL [facility] Creatinine 1.11 0.70 - 1.20 mg/dL [facility] Sodium 141 135 - 145 mmol/L [facility] Potassium 4.9 3.5 - 5.0 mmol/L [facility] Comment: Please note: ??Patients with WBC >100,00 0 may have falsely elevated Potassium levels. ??For accurate Potassium quantif ication in these patients send serum separator tube (gold top) for subsequent determinations. ??Contact the Clinical Chemistry Laboratory if there are any qu estions. Chloride 100 98 - 107 mmol/L [facility] CO2 28 22 - 31 mmol/L [facility] Anion Gap 13 5 - 15 mmol/L [facility] Calcium 9.9 8.5 - 10.5 mg/dL [facility] Estimated GFR 50 (L) >=60 mL/min/1.73 m?? [facility] Comment: The eGFR was calculated using the CKD-EP I equation. As with all creatinine based estimates of kidney function, eGFR values calculated with the CKD-EPI equation are not accurate in patients wi th acute kidney failure, extremes of body mass or the acutely ill. [email or web address] eGFR 58 (L) >=60 mL/min/1.73 m?? [facility] Comment: The eGFR was calculated using the CKD-EP I equation. As with all creatinine based estimates of kidney function, eGFR values calculated with the CKD-EPI equation are not accurate in patients wi th acute kidney failure, extremes of body mass or the acutely ill. [email or web address] Specimen Anatomical Collection Method Collection Time Receive d Time (Source) Location / / Volume Laterality Blood specimen 10/28/2018 10:41 9 (specimen) AM EST 10:48 AM EST Resulting Agency Comment Spec In Lab Vivi Lorenz APRN CHEMISTRY ORDERABLES Performing Organization Address City/State/[place] [address] documented in this encounter Visit Diagnoses Diagnosis Chronic systolic heart failure Other cardiomyopathy Essential hypertension Unspecified essential hypertension LBBB (left bundle branch block) Other left bundle branch block documented in this encounter Care Teams Administrative Manager Relationship Specialty Start Date End Date Nicole Pickens MD PCP - General 08/17/[address] [place] [address] documented as of this encounter
--- OUTSIDE RECORDS SUMMARY | 2022-03-18 02:35 | XMS_ITS | Encounter Summary ---
:1945 Author Organization [facility] [place] [address] Care Team Providers Name Role Phone Nicole Pickens MD Primary Care Provider Encounter Details Date Type Department Care Team Description 07/13/2019 Orders [place] [address] Social History Tobacco Use Types Packs/Day [...] Lorenz APRN [facility] CARDIOLOGY DEPT. [place], [place] [address] (Luz pollard) 04/16/2022 Laboratory Appointment Lab 04/16/2022 Office Visit Cardiology Vivi Lorenz APRN [facility] CARDIOLOGY DEPT. [place], [place] [address] (Luz pollard) documented as of this encounter Procedures Procedure Name Priority Date/Time Associated Diagnosis Comme nts CARDIAC DEVICE Routine 07/13/2019 9:36 AM Results for this CHECK - REMOTE EST procedure are in the results section. documented in this encounter Results Cardiac Device Check - Remote (07/13/2019 9:36 AM EST) Component Value Ref Test Analysis Performed Pathologis t Range Method Time At Signature Date Time [id number] IDCO Interrogation Session Implantable Medtronic IDCO Pulse Generator Farm Supervisor Implantable Viva XT JUNIOR HIGH MATH TEACHER-D IDCO Pulse Generator [id number] Model Implantable [id number] IDCO Pulse Generator Serial Number Type Remote IDCO Interrogation Session Implantable Cardiac IDCO Pulse Generator Resynchronization Type Therapy - Defibrillator Implantable [id number] IDCO Pulse Generator Implant Date Victor Manuel [...] Sensitivity Ventricular BiV IDCO chambers paced during JUNIOR HIGH MATH TEACHER pacing. JUNIOR HIGH MATH TEACHER LV-RV Delay 20 ms IDCO Lead Channel [...] 400 ms IDCO Detection Interval Battery Date [id number] IDCO Time of Measurements Battery Status OK IDCO Battery CRYPTOLOGIST 2.727 IDCO Trigger Battery 61 mo IDCO Remaining Longevity Battery Voltage 2.94 V IDCO Capacitor Charge Reformation IDCO Type Capacitor Last [id number] IDCO Charge Date Time Capacitor Charge 3.613 s IDCO Time Capacitor Charge 18 J IDCO Energy Episode 59 IDCO Identifier Episode Type VSE IDCO Category Episode Date [id number] IDCO Time Episode Duration 9 s IDCO Episode 58 IDCO Identifier Episode Type VSE IDCO Category Episode Date [id number] IDCO Time Episode Duration 5 s IDCO Episode 57 IDCO Identifier Episode Type VSE IDCO Category Episode Date [id number] IDCO Time Episode Duration 5 s IDCO Victor Manuel Statistic [id number] IDCO Date Time Start Victor Manuel Statistic [id number] IDCO Date Time End Victor Manuel Statistic 0.03 % IDCO RA Percent Paced Victor Manuel Statistic 98.58 % IDCO RV Percent Paced JUNIOR HIGH MATH TEACHER Statistic LV 98.53 % IDCO Percent Paced Victor Manuel Statistic 0.02 % IDCO AP HOT PATCHER Percent Victor Manuel Statistic 99.94 % IDCO HOT PATCHER Percent Victor Manuel Statistic 0.01 % IDCO AP VS Percent Victor Manuel Statistic 0.03 % IDCO VS Percent JUNIOR HIGH MATH TEACHER Statistic [id number] IDCO Date Time Start JUNIOR HIGH MATH TEACHER Statistic [id number] IDCO Date Time End JUNIOR HIGH MATH TEACHER Statistic 98.53 % IDCO JUNIOR HIGH MATH TEACHER Percent Paced Atrial Tachy [id number] IDCO Statistic Date Time Start Atrial Tachy [id number] IDCO Statistic Date Time End Atrial Tachy 0 % IDCO Statistic AT/AF [place] Percent Therapy 0 IDCO Statistic Recent Shocks Delivered Therapy 0 IDCO Statistic Recent Shocks Aborted Therapy 0 IDCO Statistic Recent ATP Delivered Therapy [id number] IDCO Statistic Recent Date Time Start Therapy [id number] IDCO Statistic Recent Date Time End Therapy 0 IDCO Statistic Total Shocks Delivered Therapy 0 IDCO Statistic Total Shocks Aborted Therapy 0 IDCO Statistic Total ATP Delivered Therapy [id number] IDCO Statistic Total Date Time Start Therapy [id number] IDCO Statistic Total Date Time End Episode [...] Episode SVT IDCO Statistic Type Category Episode [id number] IDCO Statistic Recent Date Time Start Episode [id number] IDCO Statistic Recent Date Time End Episode [id number] IDCO Statistic Recent Date Time Start Episode [id number] IDCO Statistic Recent Date Time End Episode [id number] IDCO Statistic Recent Date Time Start Episode [id number] IDCO Statistic Recent Date Time End Episode [id number] IDCO Statistic Recent Date Time Start Episode [id number] IDCO Statistic Recent Date Time End Episode [id number] IDCO Statistic Recent Date Time Start Episode [id number] IDCO Statistic Recent Date Time End Episode [id number] IDCO Statistic Recent Date Time Start Episode [id number] IDCO Statistic Recent Date Time End Episode [id number] IDCO Statistic Recent Date Time Start Episode [id number] IDCO Statistic Recent Date Time End Episode [...] Episode SVT IDCO Statistic Type Category Episode [id number] IDCO Statistic Total Date Time Start Episode [id number] IDCO Statistic Total Date Time End Episode [id number] IDCO Statistic Total Date Time Start Episode [id number] IDCO Statistic Total Date Time End Episode [id number] IDCO Statistic Total Date Time Start Episode [id number] IDCO Statistic Total Date Time End Episode [id number] IDCO Statistic Total Date Time Start Episode [id number] IDCO Statistic Total Date Time End Episode [id number] IDCO Statistic Total Date Time Start Episode [id number] IDCO Statistic Total Date Time End Episode [id number] IDCO Statistic Total Date Time Start Episode [id number] IDCO Statistic Total Date Time End Episode [id number] IDCO Statistic Total Date Time Start Episode [id number] IDCO Statistic Total Date Time End Specimen (Source) Anatomical Collection Method Collection Time Re ceived Time Location / / Volume Laterality 07/13/2019 9:36 AM EST Physician Cardiology IMPLANTABLE CARDIAC DEVICE Performing Organization Address City/State/ZIP Code Phon e Number IDCO documented in this encounter Visit Diagnoses Not on filedocumented in this encounter Care Teams Desktop Publishing Associate Relationship Specialty Start Date End Date Nicole Pickens MD PCP - General 08/17/[address] [place] [address] documented as of this encounter
--- OUTSIDE RECORDS SUMMARY | 2022-03-18 02:35 | XMS_ITS | Encounter Summary ---
:1945 Author Organization [facility] [place] [address] Care Team Providers Name Role Phone Nicole Pickens MD Primary Care Provider Reason for Referral Diagnostic Test (Routine) - Closed Specialty Diagnoses / Procedures Referred By Contact Refer red To Contact Cardiology Diagnoses Cardiomyopathy, unspecified type Heart failure, unspecified HF chronicity, unspecified heart failure type Vivi Lorenz, MARINE CARGO INSPECTOR [facility] Non-Inv Card Lab Procedures Echocardiogram Transthoracic(Leb) [facility] [place] [address] [place] [address] Fax: Referral ID Status Reason Start Date Expiration Date Visits V isits Requested Authorized [id number] Closed Specialty 01/22/2018 01/22/2019 1 1 Service Requested Encounter Details Date Type Department Care Team Description 01/22/2018 Orders Only Cardiology at [facility] Vivi Lorenz, Cardiomyopathy, unspecified type; [facility] MARINE CARGO INSPECTOR Heart failure, unspecified HF chronicity , [place] [address] CARDI[address]Y DEPT. [place], [place] [address] Social History Tobacco Use Types [...] 04/16/2022 Appointment Cardiology Vivi Lorenz, JEREM[facility]AS ONE [facility] CARDIOLOGY DEPT. [place], [place] [address] (Wo rk) 04/16/2022 Laboratory Appointment Lab 04/16/2022 Office Visit Cardiology Vivi Lorenz, [facility] CARDIOLOGY DEPT. [place], [place] [address] (Wo rk) documented as of this encounter Results ECHOCARDIOGRAM COMPLETE (04/02/2018 9:32 AM EDT) athologist Signature EF 45-50 HEARTLAB SYSTEM Specimen (Source) Anatomical Location Collection Method / Collectio n Time Received Time / Laterality Volume 04/02/2018 Narrative HEARTLAB SYSTEM - 04/02/2018 10:11 AM ED T Procedure: ?Transthoracic Echocardiogram Patient: ?TD PLASENCIAIA Rebeca ? (Age): 1945(72y) Med Rec#: ? [id number] ?Sex: ?F ? Site Loc: ? [facility] ?Ht / Wt: ??165(cm)/118(kg) Pt. Loc: ?Echo Lab ?BSA: ?2.21 Study Date: ?? 04/02/2018 ?Pt. Type: Outpatient Tape: ? Referring: МАРИНА Reading: Roly Aguilar ([id number]) Warehouse Distribution Associate: Waqar Pabon Diagnosis: *Cardiomyopathy, unspecified (I42.9) Rhythm: ? Paced rhythm BP: ? 118/71 SUMMARY: 1. Technically limited 2. Global left ventricular systolic func tion is mildly reduced. Ejection fraction is estimated to be 45% -50% ??.GLS -14.8% ??The quantitative left ventricular ejection f raction by biplane Todd's method is 59% which may be overestimatin g the EF. ??There are left ventricular segmental wall motion abnorm alities present, as shown in the diagram below, that may be related to a bundle branch block or paced rhythm. 3. Right ventricular chamber size, wall thickness, and systolic function are within normal limits. 4. The left ventricle is moderately dila allyson. Left ventricular wall thickness is normal. The left atrium is normal in size. ??28 ml/m2 ?? The right atrium appears normal. 5. No significant valvulard disease. ??T he aortic valve is probably tricuspid. There is no evidence of aorti c valve stenosis. Mild (1+/4+) aortic valve regurgitation is present. T here is posterior mitral annular calcification. There is mild (1+/4+) aldair ral regurgitation present. 6. The pericardium appears normal and th ere is no evidence of a pericardial effusion. A pacemaker wire i s visualized in the right atrium and right ventricle. ??When compared to the images of the prior 02/15/14 study, global LV function appears to be slightly worse, and the septal wall motion more prominent. ?? Findings ? : Study Quality: ? Technically limited Left Ventricle: ? The left ventricle is moderately dilated. ?Left ventricular wall thickness is normal. ?Global left ventricular systolic f unction is mildly reduced. Ejection fraction is estimated to be 45% .GLS -14.8% ?The quantitative left ventricular ejection fraction by biplane Todd's method is 59%. ?There are left ventricular segment al wall motion abnormalities present, as shown in the diagram below. ?The left ventricular diastolic vanessa ling pattern is consistent with impaired LV relaxation. ?Left sided filling pressure could not be assessed by Doppler. ?The ??basal anteroseptal, basal in ferior, basal inferoseptal, mid anteroseptal, mid inferior, mid inferose ptal, apical septal, and ??apical inferior wall segments are hypokinetic ( score 2). ?Overall wallmotion score index is ??1.50 Left Atrium: ? The left atrium is no rmal in size.28 ml/m2 Right Ventricle: ? Right ventricular chamber size, wall thickness, and systolic function are within normal limi ts. ?A pacemaker wire is visualized in the right ventricle. Right Atrium: ? The right atrium viktoria ears normal. ?A pacemaker wire is visualized in the right atrium. Aortic Valve: ? The aortic valve is not well visualized. ?The aortic valve is probably tricu spid. ?The aortic valve leaflets are mild ly thickened. ?There is no evidence of aortic mahesh ve stenosis. ?Mild (1+/4+) aortic valve regurgit ation is present. Mitral Valve: ? The mitral valve jai flets are mildly thickened. ?Mild subvalvular thickening of the mitral valve is visualized. ?There is posterior mitral annular calcification. ?There is mild (1+/4+) mitral regur gitation present. Tricuspid Valve: ? The tricuspid mahesh ve appears normal in structure and function. ?There is trace tricuspid regurgita tion present. Pulmonic Valve: ? The pulmonic valve is not well visualized. Pericardium: ? The pericardium appea rs normal and there is no evidence of a pericardial effusion. Aorta: ? The aortic root is normal i n size. ?The ascending aorta is normal in s ize. Pulmonary Artery: ? The main pulmona ry artery appears normal. Venous: ? The inferior vena cava is poorly visualized. Misc: ? See remainder of report for additional findings. ?Two-dimensional echo, spectral Dop pler and color Doppler performed. Chambers 2D ?Value ?Units (Range) ? IVSd (2D) ? 0.7 ?cm ? LVPWd (2D) ?0.8 ?cm ? IVS:LVPW ratio (2D) 0.9 ?ratio ? RWT (2D) ?0.3 ?ratio ? RWT PW (2D) ? 0.3 ?ratio ? LVIDd (2D) ?6.2 ?cm ? LVIDs (2D) ?5.6 ?cm ? LVIDd (2D) index ?2.8 ?cm/m2 ? LVIDs (2D) index ?2.5 ?cm/m2 ? LV FS (2D) ?9 ?% ? EF Teichholz (2D) ?? 20 ? % ? Ao root diameter (2D3 ?cm (2.1 - 3.6) ? Ascending Ao ?2.7 ?cm (2 - 3.5) ? Volumes/Mass ?Value ?Units (Range) ? LA ESV BP (A/L) inde28.3 ? ml/m2 ? LV ESV SP 4CH (MOD) 42 ? ml ? LV ESV SP 2CH (MOD) 39 ? ml ? LV EDV BP ? 99.3 ? ml ? LV ESV BP ? 40.6 ? ml ? LV EDV BP index ? 44.9 ? ml/m2 ? LV ESV BP index ? 18.4 ? ml/m2 ? BP EF (MOD) ? 59 ? % ? LV mass (2D) ?187.2 ?g ? LV mass (2D) index ??84.7 ? g/m2 ? Diastolic/Systolic Function ?Value ?Units (Range) ? MV E-wave Vmax ?0.8 ?m/sec ? MV deceleration ptib767.2 ? msec ? MV A-wave Vmax ?1.1 ?m/sec ? MV E:A ratio ?0.8 ?ratio ? LV septal e' Vmax ?? 0.1 ?m/sec ? LV lateral e' Vmax ??0.1 ?m/sec ? LV average e' Vmax ??0.1 ?m/sec ? LV E:e' septal ratio14.1 ? ratio ? LV E:e' lateral rati14.1 ? ratio ? LV average E:e' rati14.1 ? ratio ? Aortic Valve ?Value ?Units (Range) ? AR PHT ?555.2 ?msec ? AR peak gradient ?65.4 ? mmHg ? Wall Motion: Segment Name ?Rest ? Base-Anteroseptal ?? Hypokinetic ? Base-Anterior ? Normal ? Base-Anterolateral ??Normal ? Base-Posterolateral Normal ? Base-Inferior ? Hypokinetic ? Base-Inferoseptal ?? Hypokinetic ? Mid-Anteroseptal ?Hypokinetic ? Mid-Anterior ?Normal ? Mid-Anterolateral ?? Normal ? Mid-Posterolateral ??Normal ? Mid-Inferior ?Hypokinetic ? Mid-Inferoseptal ?Hypokinetic ? [place]-Septal ? Hypokinetic ? [place]-Anterior ? Normal ? [place]-Lateral ?Normal ? [place]-Inferior ? Hypokinetic ? [place]-Tip ?Normal ? This report has been electronically sign ed by: _ Roly Alexander. MD Lauren ? 04/02/2018 10:11: 13 Images reviewed and interpretation shanae ied [facility] Cardiac Ultrasound Laboratory Procedure Note Roly Aguilar MD - 04/02/2018 Procedure: Transthoracic Echocardiogram Patient: TD BRAUN(Age): [birth year](72y) Med Rec#: [id number] Sex: F Site Loc: [facility] Ht / Wt: 165(cm)/118(kg) Pt. Loc: Echo Lab BSA: 2.21 Study Date: 04/02/2018 Pt. Type: Outpati ent Tape: Referring: МАРИНА Reading: Roly Aguilar ([id number]) Warehouse Distribution Associate: Waqar Pabon Diagnosis: *Cardiomyopathy, unspecified (I42.9) Rhythm: Paced rhythm BP: 118/71 SUMMARY: 1. Technically limited 2. Global left ventricular systolic func tion is mildly reduced. Ejection fraction is estimated to be 45% -50% .GLS -14.8% The quantitative left ventricular ejection f raction by biplane Todd's method is 59% which may be overestimatin g the EF. There are left ventricular segmental wall motion abnorm alities present, as shown in the diagram below, that may be related to a bundle branch block or paced rhythm. 3. Right ventricular chamber size, wall thickness, and systolic function are within normal limits. 4. The left ventricle is moderately dila allyson. Left ventricular wall thickness is normal. The left atrium is normal in size. 28 ml/m2 The right atrium appears normal. 5. No significant valvulard disease. The aortic valve is probably tricuspid. There is no evidence of aorti c valve stenosis. Mild (1+/4+) aortic valve regurgitation is present. T here is posterior mitral annular calcification. There is mild (1+/4+) aldair ral regurgitation present. 6. The pericardium appears normal and th ere is no evidence of a pericardial effusion. A pacemaker wire i s visualized in the right atrium and right ventricle. When compared to th e images of the prior 02/15/14 study, global LV function appears to be slightly worse, and the septal wall motion more prominent. Findings : Study Quality: Technically limited Left Ventricle: The left ventricle is mo derately dilated. Left ventricular wall thickness is norm al. Global left ventricular systolic functi on is mildly reduced. Ejection fraction is estimated to be 45% .GLS -14.8% The quantitative left ventricular eject ion fraction by biplane Todd's method is 59%. There are left ventricular segmental wa ll motion abnormalities present, as shown in the diagram below. The left ventricular diastolic filling pattern is consistent with impaired LV relaxation. Left sided filling pressure could not b e assessed by Doppler. The basal anteroseptal, basal inferior, basal inferoseptal, mid anteroseptal, mid inferior, mid inferose ptal, apical septal, and apical inferior wall segments are hypokinetic ( score 2). Overall wallmotion score index is 1.50 Left Atrium: The left atrium is normal i n size.28 ml/m2 Right Ventricle: Right ventricular chamb er size, wall thickness, and systolic function are within normal limi ts. A pacemaker wire is visualized in the r ight ventricle. Right Atrium: The right atrium appears n ormal. A pacemaker wire is visualized in the r ight atrium. Aortic Valve: The aortic valve is not we ll visualized. The aortic valve is probably tricuspid. The aortic valve leaflets are mildly th ickened. There is no evidence of aortic valve st enosis. Mild (1+/4+) aortic valve regurgitation is present. Mitral Valve: The mitral valve leaflets are mildly thickened. Mild subvalvular thickening of the mitr al valve is visualized. There is posterior mitral annular calci fication. There is mild (1+/4+) mitral regurgitat ion present. Tricuspid Valve: The tricuspid valve viktoria ears normal in structure and function. There is trace tricuspid regurgitation present. Pulmonic Valve: The pulmonic valve is no t well visualized. Pericardium: The pericardium appears nor mal and there is no evidence of a pericardial effusion. Aorta: The aortic root is normal in size . The ascending aorta is normal in size. Pulmonary Artery: The main pulmonary art von appears normal. Venous: The inferior vena cava is poorly visualized. Misc: See remainder of report for additi onal findings. Two-dimensional echo, spectral Doppler and color Doppler performed. Chambers 2D Value Units (Range) IVSd (2D) 0.7 cm LVPWd (2D) 0.8 cm IVS:LVPW ratio (2D) 0.9 ratio RWT (2D) 0.3 ratio RWT PW (2D) 0.3 ratio LVIDd (2D) 6.2 cm LVIDs (2D) 5.6 cm LVIDd (2D) index 2.8 cm/m2 LVIDs (2D) index 2.5 cm/m2 LV FS (2D) 9 % EF Teichholz (2D) 20 % Ao root diameter (2D3 cm (2.1 - 3.6) Ascending Ao 2.7 cm (2 - 3.5) Volumes/Mass Value Units (Range) LA ESV BP (A/L) inde28.3 ml/m2 LV ESV SP 4CH (MOD) 42 ml LV ESV SP 2CH (MOD) 39 ml LV EDV BP 99.3 ml LV ESV BP 40.6 ml LV EDV BP index 44.9 ml/m2 LV ESV BP index 18.4 ml/m2 BP EF (MOD) 59 % LV mass (2D) 187.2 g LV mass (2D) index 84.7 g/m2 Diastolic/Systolic Function Value Units (Range) MV E-wave Vmax 0.8 m/sec MV deceleration tamf400.2 msec MV A-wave Vmax 1.1 m/sec MV E:A ratio 0.8 ratio LV septal e' Vmax 0.1 m/sec LV lateral e' Vmax 0.1 m/sec LV average e' Vmax 0.1 m/sec LV E:e' septal ratio14.1 ratio LV E:e' lateral rati14.1 ratio LV average E:e' rati14.1 ratio Aortic Valve Value Units (Range) AR PHT 555.2 msec AR peak gradient 65.4 mmHg Wall Motion: Segment Name Rest Base-Anteroseptal Hypokinetic Base-Anterior Normal Base-Anterolateral Normal Base-Posterolateral Normal Base-Inferior Hypokinetic Base-Inferoseptal Hypokinetic Mid-Anteroseptal Hypokinetic Mid-Anterior Normal Mid-Anterolateral Normal Mid-Posterolateral Normal Mid-Inferior Hypokinetic Mid-Inferoseptal Hypokinetic [place]-Septal Hypokinetic [place]-Anterior Normal [place]-Lateral Normal [place]-Inferior Hypokinetic [place]-Tip Normal This report has been electronically sign ed by: _ Roly Aguilar MD 04/02/2018 10:11:13 Images reviewed and interpretation verif ied [facility] Cardiac Ultrasound Laboratory Vivi Lorenz APRN ECHO ORDERABLES Performing Organization Address City/State/ZIP Code Phon e Number HEARTLAB SYSTEM documented in this encounter Visit Diagnoses Diagnosis Cardiomyopathy, unspecified type Heart failure, unspecified HF chronicity , unspecified heart failure type Cardiomyopathy, unspecified type Heart failure, unspecified HF chronicity , unspecified heart failure type documented in this encounter Care Teams Steeping Press Tender Relationship Specialty Start Date End Date Nicole Pickens MD PCP - General 08/17/[address] [place] [address] documented as of this encounter
--- OUTSIDE RECORDS SUMMARY | 2022-03-18 02:35 | XMS_ITS | Encounter Summary ---
:1945 Author Organization [facility] [place] [address] Care Team Providers Name Role Phone Nicole Pickens MD Primary Care Provider Encounter Details Date Type Department Care Team Description 04/23/2019 [place] [address] Social History Tobacco Use Types Packs/Day [...] APRN [facility] CARDIOLOGY DEPT. [place], [place] [address] (Luz pollard) 04/16/2022 Laboratory Appointment Lab 04/16/2022 Office Visit Cardiology Vivi Lorenz APRN [facility] CARDIOLOGY DEPT. [place], [place] [address] (Luz pollard) documented as of this encounter Procedures Procedure Name Priority Date/Time Associated Diagnosis Comme nts EP DEVICE SCAN Routine 01/12/2019 documented in this encounter Results Scan Doc: EP Device (01/12/2019) Narrative This result has an attachment that is no t available. Historical Provider MEDIA MGR SCAN EXT ORDR/RSLT documented in this encounter Visit Diagnoses Not on filedocumented in this encounter Care Teams Grill Cook Relationship Specialty Start Date End Date Nicole Pickens MD PCP - General 08/17/[address] [place] [address] documented as of this encounter
--- OUTSIDE RECORDS SUMMARY | 2022-03-18 02:35 | XMS_ITS | Encounter Summary ---
:1945 Author Organization [place] [address] Care Team Providers Name Role Phone Nicole Pickens MD Primary Care Provider Reason for Referral Diagnostic Test (Routine) - Closed Specialty Diagnoses / Procedures Referred By Contact Refer red To Contact Cardiology Diagnoses Cardiomyopathy, unspecified type Heart failure, unspecified HF chronicity, unspecified heart failure type Vivi Lorenz APRN [facility] Non-Inv Card Lab Procedures Echocardiogram Transthoracic(Leb) [facility] CARDIOLOGY DEPT. [place], [place] [id number] [place] [phone] Fax: Referral ID Status Reason Start Date Expiration Date Visits V isits Requested Authorized [id number] Closed Specialty 01/22/2018 01/22/2019 1 1 Service Requested Reason for Visit Diagnostic Test (Routine) - Closed Specialty Diagnoses / Procedures Referred By Contact Refer red To Contact Cardiology Diagnoses Cardiomyopathy, unspecified type Heart failure, unspecified HF chronicity, unspecified heart failure type Vivi Lorenz APRN [facility] Non-Inv Card Lab Procedures Echocardiogram Transthoracic(Leb) [facility] CARDIOLOGY DEPT. [address] [phone] Fax: Referral ID Status Reason Start Date Expiration Date Visits V isits Requested Authorized [id number] Closed Specialty 01/22/2018 01/22/2019 1 1 Service Requested Encounter Details Date Type Department Care Team Description 04/02/2018 Hospital Encounter Non-Invasive Cardiomyo casie, unspecified type; Cardiology Lab Mali jacinto ilgiovanni, unspecified HF chronicity, [place] [address] Social History Tobacco Use Types Packs/Day Years Used Date Never Smoker Smokeless Tobacco: Never Used Alcohol Use Standard Drinks/Week Comments No 0 (1 standard drink = 0.6 oz pure alcoho l) Sex Assigned at Date Recorded Not on file documented as of this encounter Medications at Time of Discharge Medication Sig Dispensed Refills Start Date End Date NOVOLOG FLEXPEN U-100 10 Units 3 times 0 12/29/19 18 INSULIN Insulin Pen daily. LEVEMIR FLEXTOUCH U-100 30 Units 2 times 0 2017 INSULN Insulin Pen daily. FREESTYLE LANCETS 28 gauge 0 8 Misc VICTOZA 2-FELIBERTO 0.6 mg/0.1 1.8 mg daily. 0 03/10/20 18 mL (18 mg/3 mL) Pen Injector BD [...] 50 mg by mouth 0 tablet daily. VENTOLIN HFA 90 as needed. 0 01/06/2018 0 mcg/actuation HFA Aerosol Inhaler documented as of this encounter Plan of Treatment Upcoming Encounters Date Type Specialty Care Team Description 04/16/2022 Appointment Cardiology Vivi Lorenz, [facility] DR CARDIOLOGY DEPT. [place], [place] [address] (Wo rk) 04/16/2022 Laboratory Appointment Lab 04/16/2022 Office Visit Cardiology Vivi Lorenz, [facility]EM[facility]AS ONE [facility] CARDIOLOGY DEPT. [place], [place] [address] (Wo rk) documented as of this encounter Procedures Procedure Name Priority Date/Time Associated Comments Diagnosis ECHOCARDIOGRAM COMPLETE Routine 04/02/2018 9:32 Cardiomyopathy , Results for this AM EDT unspecified type procedure are in Heart failure, the results unspecified HF section. chronicity, unspecified heart failure type documented in this encounter Results ECHOCARDIOGRAM COMPLETE (04/02/2018 9:32 AM EDT) P athologist Signature EF 45-50 HEARTLAB SYSTEM Specimen (Source) Anatomical Location Collection Method / Collectio n Time Received Time / Laterality Volume 04/02/2018 Narrative HEARTLAB SYSTEM - 04/02/2018 10:11 AM ED T Procedure: ?Transthoracic Echocardiogram Patient: ?TD Jose ? (Age): 1945(72y) Med Rec#: ? [id number] ?Sex: ?F ? Site Loc: ? [facility] [place] [facility] ?Ht / Wt: ??165(cm)/118(kg) Pt. Loc: ?Echo Lab ?BSA: ?2.21 Study Date: ?? 04/02/2018 ?Pt. Type: Outpatient Tape: ? Referring: МАРИНА Reading: Roly Aguilar ([id number]) C Wpf Developer: Waqar Pabon Diagnosis: *Cardiomyopathy, unspecified (I42.9) Rhythm: [...] E-wave Vmax ?0.8 ?m/sec ? MV deceleration idrv094.2 ? msec ? MV A-wave Vmax ?1.1 [...] ? Mid-Inferior ?Hypokinetic ? Mid-Inferoseptal ?Hypokinetic ? [place]-Septal ? Hypokinetic ? [place]-Anterior ? Normal ? [place]-Lateral ?Normal ? [place]-Inferior ? Hypokinetic ? [place]-Tip ?Normal ? This report has been electronically sign ed by: _ Roly Alexander. MD Lauren ? 04/02/2018 10:11: 13 Images reviewed and interpretation verif ied [facility] Cardiac Ultrasound Laboratory Procedure Note Roly Aguilar MD - 04/02/2018 Procedure: Transthoracic Echocardiogram Patient: TD BRAUN(Age): [birth year](72y) Med Rec#: [id number] Sex: F Site Loc: [facility] Ht / Wt: 165(cm)/118(kg) Pt. Loc: Echo Lab BSA: 2.21 Study Date: 04/02/2018 Pt. Type: Outpati ent Tape: Referring: МАРИНА Reading: Roly Aguilar ([id number]) C Wpf Developer: Waqar Pabon Diagnosis: *Cardiomyopathy, unspecified (I42.9) Rhythm: [...] MV E-wave Vmax 0.8 m/sec MV deceleration sjar208.2 msec MV A-wave Vmax 1.1 m/sec MV [...] Normal Mid-Posterolateral Normal Mid-Inferior Hypokinetic Mid-Inferoseptal Hypokinetic [place]-Septal Hypokinetic [place]-Anterior Normal [place]-Lateral Normal [place]-Inferior Hypokinetic [place]-Tip Normal This report has been electronically sign ed by: _ Roly Aguilar MD 04/02/2018 10:11:13 Images reviewed and interpretation shanae morrison [facility] Cardiac Ultrasound Laboratory Vivi Lorenz APRN ECHO ORDERABLES Performing Organization Address City/State/ZIP Code Phon e Number HEARTLAB SYSTEM documented in this encounter Visit Diagnoses Diagnosis Cardiomyopathy, unspecified type Heart failure, unspecified HF chronicity , unspecified heart failure type documented in this encounter Care Teams Tactical/Mobile Watch Officer Relationship Specialty Start Date End Date Nicole Pickens MD PCP - General 08/17/[address] [place] [address] documented as of this encounter
--- OUTSIDE RECORDS SUMMARY | 2022-03-18 02:35 | XMS_ITS | Encounter Summary ---
:1945 Author Organization [facility] [place] [address] Care Team Providers Name Role Phone Nicole Pickens MD Primary Care Provider Encounter Details Date Type Department Care Team Description 05/11/2019 External Results Cardiology at [facility] Nicole Pickens MD [address] [phone] [place], [place] [id number] (Wo rk) Social History Tobacco Use Types [...] 04/16/2022 Appointment Cardiology Vivi Lorenz APRN [facility] CARDIOLOGY DEPT. [place], [place] [address] (Wo rk) 04/16/2022 Laboratory Appointment Lab 04/16/2022 Office Visit Cardiology Vivi Lorenz APRN [facility] CARDIOLOGY DEPT. [place], [place] [address] (Wo rk) documented as of this encounter Procedures Procedure Name Priority Date/Time Associated Diagnosis Comme nts EP DEVICE SCAN Routine 04/13/2019 documented in this encounter Results Scan Doc: EP Device (04/13/2019) Narrative This result has an attachment that is no t available. Nicole Pickens MD MEDIA MGR SCAN EXT ORDR/RSLT documented in this encounter Visit Diagnoses Not on filedocumented in this encounter Care Teams Livestock Laborer Relationship Specialty Start Date End Date Nicole Pickens MD PCP - General 08/17/[address] [place] [address] documented as of this encounter
--- OUTSIDE RECORDS SUMMARY | 2022-03-18 02:35 | XMS_ITS | Encounter Summary ---
:1945 [place] [address] Care Team Providers Name Role Phone Nicole Pickens MD Primary Care Provider Encounter Details Date Type Department Care Team Description 04/02/2018 Office Visit Cardiology at [facility] Sarahi Woodard [facility] [place] [id number] Social History Tobacco Use Types Packs/Day Years Used Date Never Smoker Smokeless Tobacco: Never Used Alcohol Use Standard Drinks/Week Comments No 0 (1 standard drink = 0.6 oz pure alcoho l) Sex Assigned at Date Recorded Not on file documented as of this encounter Last Filed Vital Signs Vital Sign Reading Time Taken Comments Blood Pressure 120/70 04/02/2018 9:49 AM EDT Pulse 80 04/02/2018 9:49 AM EDT Temperature - - Respiratory Rate - - Oxygen Saturation 95% 04/02/2018 9:49 AM EDT Inhaled Oxygen Concentration - - Weight 114.3 kg (251 lb 14.4 oz) 04/02/2018 9:49 AM EDT Height 165.1 cm (5' 5) 04/02/2018 9:49 AM EDT Body Mass Index 41.92 04/02/2018 9:49 AM EDT documented in this encounter Progress Notes Sarahi Woodard RN - 04/02/2018 10:00 AM EDT Images from the original note were not included. Clinical Electrophysiology Device Service Note Ms. Victoria is a 72 yo woman presents for a MUSIC EDUCATION DIRECTOR-D programming evaluation.She is seeing Tayler Lorenz APRN to follow.She had a generator change done 11/04/16 due to battery SKYLAR. 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 She has a history in 07/19/2011 related to LV Tip->Ring impedance of just over 1,500 ohms. LV vector was reprogrammed Ring->Coil at that encounter. Right ventricular lead subject to GREE Neel advisory from 2006. Emergency Response Technician: Roly Aguilar MD Primary Care: Nicole Pickens MD DEVICE AND LEAD INFORMATION Final Parameters: Ventricular electrode: Medtronic SprintFidelis Model# 6949 58 cm Serial #[id number] (Implanted 03/08/2005) Bipolar, steroid-tipped, active-fixation IS-1, DF-1 lead Access: Axillary vein Location: Right ventricular apex R wave, ICD: 15.9 mV Pacing threshold, ICD: 1.25V at 0.8 ms Impedance, ICD: 646 ohms HVB Impedance 44 ohms SVC Impedance 52 ohms Pace the diaphragm at 10 V: No Atrial electrode: Medtronic, CaptureFix Model # 5076-52 cm Serial # [id number] Bipolar, steroid-tipped, active-fixation IS-1 lead Access: Axillary vein Location Right atrial appendage P wave, ICD: 3.0 mV Pacing threshold, ICD: 0.75 V at 0.4 ms Impedance, ICD: 437 ohms Pace the diaphragm at 10 V: No Coronary sinus electrode: Medtronic, Attain OTW Model# 4196-88cm, Serial# [id number] Bipolar passive fixation lead Access: Axillary vein Location: Coronary sinus, anterior R wave, ICD: 13.8 Pacing threshold, ICD: 0.75 0.4 ms (LV ring to RV coil) Impedance, device: 494s Pace the diaphragm/chest wall at 10 V: No Pulse generator: Pulse generator: PrimeRevenue Viva XT model number [id number] Serial #[id number] 11/04/16 ?? MUSIC EDUCATION DIRECTOR-D Location: Subcutaneous Parameters: VF detection rate: >188 [...] mode switch 171 bpm, LV- >RV Adaptive MUSIC EDUCATION DIRECTOR Follow-up: Battery status: 3.08 V (MOLDED FRAMES ASSEMBLER: 2.73 V) Charge time: N/A Est 7.3 years to SKYLAR Sensing Integrity Counter: 0 Pace/sensing leads: Atrial: P wave: 4.4 mV Impedance: 456 ohms Threshold: 0.5 V at 0.2 ms Stable trend EGM: Clean Right Ventricular R wave: 18.1 mV Impedance: 950 Ohms Threshold: 1.0 V at 0.4 ms auto. Stable EGM quality: clean Left Ventricular: Threshold: 1.00 V at 0.4 ms Ring->Coil. The auto trend is stable. Impedance: 855 ohms LV ring to RV coil Shocking Leads RV: 57 Ohms stable SVC: 76 Ohms stable EGM quality: clean Wound/generator site: Healed scar to left chest Therapy Administered: none Events: none Underlying rhythm: SR 76 bpm OptiVol: Last accumulated January 28-March 04, 2018 Histograms are well distributed. Mode switch: <0.1% no episodes to review PVC's: PVC Runs 42.3 per hour and PVC Singles 12.9% Pacing percentages: AP <0.1 %; WAREHOUSE ORDER PULLER 98.7 % Bi-V 100 % VSR <0.1% VS 1.3% Changes made this session: Iterative to assess device function Plan: Carelink every 3 months. RTC in 6 months. Provider: SARAHI WOODARD RN Attending: Massimo Ponce MD documented in this encounter Plan of Treatment Upcoming Encounters Date Type Specialty Care Team Description 04/16/2022 Appointment Cardiology Vivi Lorenz, LODGING MANAGER [facility] CARDIOLOGY DEPT. [place] [address] (Wo rk) 04/16/2022 Laboratory Appointment Lab 04/16/2022 Office Visit Cardiology Vivi Lorenz, JEREMÍAS [facility] CARDIOLOGY DEPT. [place], [place] [address] (Wo rk) documented as of this encounter Visit Diagnoses Diagnosis Idiopathic cardiomyopathy Other primary cardiomyopathies documented in this encounter Care Teams Supervisor Weaving Relationship Specialty Start Date End Date Nicole Pickens MD PCP - General 08/17/[address] [place] [address] documented as of this encounter
--- OUTSIDE RECORDS SUMMARY | 2022-03-18 02:35 | XMS_ITS | Encounter Summary ---
:1945 [place] [address] Care Team Providers Name Role Phone Nicole Pickens MD Primary Care Provider Encounter Details Date Type Department Care Team Description 09/19/2020 Laboratory Appointment Lab 3L [facility] Chronic systolic [facility] [place] [phone] Social History Tobacco Use Types Packs/Day Years Used Date Never Smoker Smokeless Tobacco: Never Used Alcohol Use Standard Drinks/Week Comments No 0 (1 standard drink = 0.6 oz pure alcoho l) Sex Assigned at Date Recorded Not on file documented as of this encounter Plan of Treatment Upcoming Encounters Date Type Specialty Care Team Description 04/16/2022 Appointment Cardiology Vivi Lorenz APRN [facility] CARDIOLOGY DEPT. [place], [place] [address] (Wo rk) 04/16/2022 Laboratory Appointment Lab 04/16/2022 Office Visit Cardiology Vivi Lorenz APRN [facility] CARDIOLOGY DEPT. [place], [place] [address] (Wo rk) documented as of this encounter Procedures Procedure Name Priority Date/Time Associated Comments Diagnosis HC VENIPUNCTURE Routine 09/19/2020 8:29 AM Chronic systolic Re sults for this EST heart failure procedure are in the results section. LIPID PANEL (REFLEX Routine 09/19/2020 8:29 AM Re sults for this DIRECT LDL) EST procedure are i n the results section. COMPREHENSIVE STAT 09/19/2020 8:29 AM Chronic systolic Resu lts for this METABOLIC PANEL EST heart failure procedure a re in (NON-FASTING) the results section. documented in this encounter Results Lipid Panel (Reflex Direct LDL) (09/19/2020 8:29 AM EST) P athologist Signature Chol, Total 109 mg/dL [facility] Comment: Lower Risk: <200 mg/dL Average Risk: 200-239 mg/dL Higher Risk: >ze=138 mg/dL Triglycerides 117 mg/dL [facility] Comment: Average Risk/Lower Risk: <150 mg/dL Borderline High Risk: 150-199 mg/dL High Risk: 200-499 mg/dL Very High Risk: >ef=568 mg/dL HDL 39 mg/dL [facility] Comment: Males: ?? Higher Risk: <40 mg/dL Females: ?? HIgher Risk: <50 mg/dL LDL Cholesterol 47 mg/dL [facility] Comment: Lowest Risk: <100 mg/dL Lower Risk: 100-129 mg/dL Borderline High Risk: 130-159 mg/dL High Risk: 160-189 mg/dL Very High Risk: >rd=523 mg/dL Chol/HDL Ratio 2.8 ratio [facility] Lipid Interpretation See Note [facility] Comment: Lipid management should be guided by a p atient? s ASCVD risk, goals and preferences. ACC/AHA Guidelines recommend high intens ity statin if clinical ASCVD or LDL greater than or equal to 190 mg/dL. http://tinyurl.com/FMV-AFA-Ioezatxrg Adults aged 40-75 with LDL 70-189 mg/dL should have their 10 year ASCVD risk estimated with the ACC/AHA ASCVD risk es timator http://tools.acc.org/TNZVZ-Ynst-Lernojfd r/ Statin should be discussed if risk great er than or equal to 7.5% in non-diabetics. With diabetes, moderate i ntensity statin is recommended if risk less than 7.5%, high intensity if risk g reater than or equal to 7.5%. Annual lipid monitoring on statins is no t necessary. Evaluate secondary causes of Triglycerid es greater than 500 mg/dL or LDL greater than 190 mg/dL: See table 6 of A CC/AHA Guideline. Lifestyle modification is a critical com ponent of ASCVD risk reduction. Specimen Anatomical Collection Method Collection Time Receive d Time (Source) Location / / Volume Laterality Blood specimen Venous Draw / 09/19/2020 8:29 AM 2020 8:40 (specimen) Unknown EST AM EST Resulting Agency Comment Spec In Lab Vivi Lorenz APRN CHEMISTRY ORDERABLES Performing Organization Address City/State/[place] [address] (ABNORMAL) Comprehensive metabolic panel (non-fasting) (09/19/2020 8:29 AM EST) P athologist Signature Glucose Lvl 109 65 - 199 [facility] mg/dL [facility] Comment: Diabetes: >=200 mg/dL plus symp toms BUN 17 8 - 18 mg/dL [facility] Creatinine 1.14 0.70 - 1.20 mg/dL [facility] Sodium 141 135 - 145 mmol/L [facility] Potassium 5.0 3.5 - 5.0 mmol/L [facility] Comment: Please note: ??Patients with WBC >100,00 0 may have falsely elevated Potassium levels. ??For accurate Potassium quantif ication in these patients send serum separator tube (gold top) for subsequent determinations. ??Contact the Clinical Chemistry Laboratory if there are any qu estions. Chloride 102 98 - 107 mmol/L [facility] CO2 31 22 - 31 mmol/L [facility] Anion Gap 8 5 - 15 mmol/L [facility] Calcium 9.9 8.5 - 10.5 mg/dL [facility] Total Protein 7.4 6.1 - 8.0 gm/dL [facility] Albumin 4.5 3.2 - 5.2 gm/dL [facility] AST 18 0 - 30 unit/L [facility] ALT 20 0 - 30 unit/L [facility] Alk Phos 109 (H) 35 - 105 unit/L [facility] Total Bilirubin 0.2 0.2 - 1.3 mg/dL [facility] Estimated GFR 48 (L) >=60 mL/min/1.73 m?? [facility] Lorenz APRN CHEMISTRY ORDERABLES Performing Organization Address City/[facility]/[place] [address] (ABNORMAL) pro-Brain Natriuretic Peptide (09/19/2020 8:29 AM EST) P athologist Signature ProBNP 139 (H) <=125 pg/mL [facility] Specimen Anatomical Collection Method Collection Time Receive d Time (Source) Location / / Volume Laterality Blood specimen 09/19/2020 8:29 AM 021 8:36 (specimen) EST AM EST Resulting Agency Comment Spec In Lab Vivi Lorenz APRN CHEMISTRY ORDERABLES Performing Organization Address City/State/[place] [address] documented in this encounter Visit Diagnoses Diagnosis Chronic systolic heart failure documented in this encounter Care Teams Fabrication And Layout Craftsman Relationship Specialty Start Date End Date Nicole Pickens MD PCP - General 08/17/[address] [place] [address] documented as of this encounter
--- OUTSIDE RECORDS SUMMARY | 2022-03-18 02:35 | XMS_ITS | Encounter Summary ---
:1945 Author Organization [facility] [place] [address] Care Team Providers Name Role Phone Nicole Pickens MD Primary Care Provider Encounter Details Date Type Department Care Team Description 08/19/2018 Hospital [place] [address] Social History Tobacco Use Types Packs/Day [...] Description 04/16/2022 Appointment Cardiology Vivi Lorenz APRN [facility] CARDIOLOGY DEPT. [place], [place] [address] (Wo rk) 04/16/2022 Laboratory Appointment Lab 04/16/2022 Office Visit Cardiology Vivi Lorenz APRN [facility] CARDIOLOGY DEPT. [place], [place] [address] (Wo rk) documented as of this encounter Procedures Procedure Name Priority Date/Time Associated Diagnosis Comme [facility] SURGICAL PATHOLOGY Routine 08/19/2018 11:00 AM Nida coates for this REPORT EST procedure are i n the results section. documented in this encounter Results Surgical Pathology Report (08/19/2018 11:00 AM EST) Component Value Ref Test Analysis Performed At [facility] Method Time Signature Surgical [id number] ? Location: [facility] Pathology DAWN Report The signing pathologist has (i) examined the relevant preparation(s) for the [facility] specimen(s) and (ii) rendered or confirmed the diagnosis(es) . HOSPITAL LABORATORY . ?Surgic al Pathology DIAGNOSIS Hepatic flexure, ??polypectomy: Tubular adenoma. Additional levels examined. CR-PX Electronically signed by: ??Geovanny SCHWARTZ, Jesus Verified: ??08/24/2018 ?Pathologist Performed at: ??-[facility] Dept. of Pathology, [place], [place] CLINICAL INFORMATION Specimen Submitted: A - Hepatic flexure polyp Clinical History and Diagnosis: Screening colonoscopy Referring Identifier: ?(not provided) Report to: Nicole Pickens SPECIMEN PROCESSING A - Labeled/Fixative: Hepatic flexure polyp #1, formalin. Quantity/Size: Single, 0.6 x 0.4 x 0.3 cm. Tissue Description: Polypoid alonso-pink so ft tissue admixed with bowel contents. Sections/Processing: Inked, serially sectioned and entirely submitted in 1 casset te labeled A1. ??pps Specimen (Source) Anatomical Collection Method Collection Time Re ceived Time Location / / Volume Laterality 08/19/2018 11:00 AM EST Duong Cuellar DO PATHOLOGY/CYTOLOGY ORDERABLE S Performing Organization Address City/State/[place] [address] [facility] [address] documented in this encounter Visit Diagnoses Not on filedocumented in this encounter Care Teams Nutritionalist Relationship Specialty Start Date End Date Nicole Pickens MD PCP - General 08/17/[address] [place] [address] [address] [place] [address] documented as of this encounter
--- OUTSIDE RECORDS SUMMARY | 2022-03-18 02:35 | XMS_ITS | Encounter Summary ---
:1945 Author Organization [facility] [place] [address] Care Team Providers Name Role Phone Nicole Pickens MD Primary Care Provider Encounter Details Date Type Department Care Team Description 07/13/2020 Notes Only Cardiology at [facility] Alfonso Xie MD [facility] [place] [address] [place] [address] [phone] (Wo rk) Social History Tobacco Use Types Packs/Day Years Used Date Never Smoker Smokeless Tobacco: Never Used Alcohol Use Standard Drinks/Week Comments No 0 (1 standard drink = 0.6 oz pure alcoho l) Sex Assigned at Date Recorded Not on file documented as of this encounter Progress Notes Alfonso Xie MD - 07/13/2020 9:04 AM EST MDT biventricular ICD remote reviewed. Normal device function. documented in this encounter Plan of Treatment Upcoming Encounters Date Type Specialty Care Team Description 04/16/2022 Appointment Cardiology Vivi Lorenz APRN [facility] CARDIOLOGY DEPT. [place], [place] [address] (Wo rk) 04/16/2022 Laboratory Appointment Lab 04/16/2022 Office Visit Cardiology Vivi Lorenz, ORTHODONTIST SMALL BUSINESS OWNER [facility] CARDIOLOG[facility] DEPT. [place], [place] [address] (Wo rk) documented as of this encounter Visit Diagnoses Not on filedocumented in this encounter Care Teams Controls Operator Molded Goods Relationship Specialty Start Date End Date Nicole Pickens MD PCP - General 08/17/[address] [place] [address] documented as of this encounter
--- OUTSIDE RECORDS SUMMARY | 2022-03-18 02:35 | XMS_ITS | Encounter Summary ---
:1945 Author Organization [facility] [place] [address] Care Team Providers Name Role Phone Nicole Pickens MD Primary Care Provider Reason for Visit Reason Onset Date Comments Results 05/05/2019 CMP & ProBNP Encounter Details Date Type Department Care Team Description 05/05/2019 Telephone Cardiology [place] [facility] Dora Maldonado, Results (CMP & ProBNP) [facility] [place] [address] Social History Tobacco Use Types Packs/Day Years Used Date Never Smoker Smokeless Tobacco: Never Used Alcohol Use Standard Drinks/Week Comments No 0 (1 standard drink = 0.6 oz pure alcoho l) Sex Assigned at Date Recorded Not on file documented as of this encounter Miscellaneous Notes Telephone Encounter - Dora Maldonado RN - 05/05/2019 3:59 PM EDT Pt has gotten labs done locally by another provider and wanted to get the ProBNP added to the sampledone today. Order faxed to Pamela at [facility] ( , ) Awaiting the results to enter into eD-H for her 05/13/19 clinic visit with SENIOR ERP CONSULTANT Kelechi documented in this encounter Plan of Treatment Upcoming Encounters Date Type Specialty Care Team Description 04/16/2022 Appointment Cardiology Vivi Lorenz, ORDNANCE TRUCK INSTALLATION SUPERVISOR [facility] ER CARDIOLOGY DEPT. [place], [place] [address] (Wo rk) 04/16/2022 Laboratory Appointment Lab 04/16/2022 Office Visit Cardiology Vivi Lorenz APRN [facility] CARDIOLOGY DEPT. [place], [place] [address] (Wo rk) documented as of this encounter Visit Diagnoses Not on filedocumented in this encounter Care Teams Grain Oilseed Or Pasture Grower Relationship Specialty Start Date End Date Nicole Pickens MD PCP - General 08/17/[address] [place] [address] documented as of this encounter
--- OUTSIDE RECORDS SUMMARY | 2022-03-18 02:35 | XMS_ITS | Encounter Summary ---
:1945 Author Organization [facility] [place] [address] Care Team Providers Name Role Phone Nicole Pickens MD Primary Care Provider Encounter Details Date Type Department Care Team Description 10/28/2019 External [place] [address] Social History Tobacco Use Types Packs/Day Years Used Date Never Smoker Smokeless Tobacco: Never Used Alcohol Use Standard Drinks/Week Comments No 0 (1 standard drink = 0.6 oz pure alcoho l) Sex Assigned at Date Recorded Not on file documented as of this encounter Plan of Treatment Upcoming Encounters Date Type Specialty Care Team Description 04/16/2022 Appointment Cardiology Vivi Lorenz APRN [facility] CARDIOLOGY DEPT. [place], [place] [address] (Luz pollard) 04/16/2022 Laboratory Appointment Lab 04/16/2022 Office Visit Cardiology Vivi Lorenz APRN [facility] CARDIOLOGY DEPT. [place], [place] [address] (Luz pollard) documented as of this encounter Procedures Procedure Name Priority Date/Time Associated Diagnosis Comme nts EP DEVICE SCAN Routine 07/13/2019 documented in this encounter Results Scan Doc: EP Device (07/13/2019) Narrative This result has an attachment that is no t available. Historical Provider MEDIA MGR SCAN EXT ORDR/RSLT documented in this encounter Visit Diagnoses Not on filedocumented in this encounter Care Teams Edging Machine Feeder Relationship Specialty Start Date End Date Nicole Pickens MD PCP - General 08/17/[address] [place] [address] documented as of this encounter
--- OUTSIDE RECORDS SUMMARY | 2022-03-18 02:35 | XMS_ITS | Encounter Summary ---
:1945 Author Organization [facility] [place] [address] Care Team Providers Name Role Phone Nicole Pickens MD Primary Care Provider Encounter Details Date Type Department Care Team Description 07/07/2018 [place] [address] Social History Tobacco Use Types Packs/Day Years Used Date Never Smoker Smokeless Tobacco: Never Used Alcohol Use Standard Drinks/Week Comments No 0 (1 standard drink = 0.6 oz pure alcoho l) Sex Assigned at Date Recorded Not on file documented as of this encounter Plan of Treatment Upcoming Encounters Date Type Specialty Care Team Description 04/16/2022 Appointment Cardiology Vivi Lorenz APRN [facility] CARDIOLOGY DEPT. [place], [place] [address] (Luz pollard) 04/16/2022 Laboratory Appointment Lab 04/16/2022 Office Visit Cardiology Vivi Lorenz APRN [facility] CARDI[facility]. [place], [place] [address] (Luz pollard) documented as of this encounter Procedures Procedure Name Priority Date/Time Associated Diagnosis Comme nts CARDIAC DEVICE Routine 07/07/2018 9:42 AM Results for this CHECK - REMOTE EST procedure are in the results section. documented in this encounter Results Cardiac Device Check - Remote (07/07/2018 9:42 AM EST) Component Value Ref Test Analysis Performed Pathologis t Range Method Time At Signature Date Time [id number] IDCO Interrogation Session Implantable Medtronic IDCO Pulse Generator Piano Case Maker Implantable Viva XT TEXTILE KNITTER-D IDCO Pulse Generator [id number] Model Implantable [id number] IDCO Pulse Generator Serial Number Type Remote IDCO Interrogation Session Implantable Cardiac IDCO Pulse Generator Resynchronization Type Therapy - Defibrillator Implantable [id number] IDCO Pulse Generator Implant Date Victor Manuel [...] Sensitivity Ventricular BiV IDCO chambers paced during TEXTILE KNITTER pacing. TEXTILE KNITTER LV-RV Delay 20 ms IDCO Lead Channel [...] 400 ms IDCO Detection Interval Battery Date IDCO Time of Measurements Battery Status OK IDCO Battery ANESTHESIOLOGY TECH 2.727 IDCO Trigger Battery 74 mo IDCO Remaining Longevity Battery Voltage 2.98 V IDCO Capacitor Charge Reformation IDCO Type Capacitor Last IDCO Charge Date Time Capacitor Charge 3.593 s IDCO Time Capacitor Charge 18 J IDCO Energy Episode 51 IDCO Identifier Episode Type VSE IDCO Category Episode Date [id number] IDCO Time Episode Duration 7 s IDCO Episode 50 IDCO Identifier Episode Type VSE IDCO Category Episode Date [id number] IDCO Time Episode Duration 6 s IDCO Episode 49 IDCO Identifier Episode Type VSE IDCO Category Episode Date [id number] IDCO Time Episode Duration 18 s IDCO Episode 48 IDCO Identifier Episode Type VSE IDCO Category Episode Date [id number] IDCO Time Episode Duration 10 s IDCO Episode 47 IDCO Identifier Episode Type VSE IDCO Category Episode Date [id number] IDCO Time Episode Duration 5 s IDCO Victor Manuel Statistic [id number] IDCO Date Time Start Victor Manuel Statistic [id number] IDCO Date Time End Victor Manuel Statistic 0.03 % IDCO RA Percent Paced Victor Manuel Statistic 99.60 % IDCO RV Percent Paced TEXTILE KNITTER Statistic LV 99.56 % IDCO Percent Paced Victor Manuel Statistic 0.02 % IDCO AP SMALL ENGINE TRAINER Percent Victor Manuel Statistic 99.94 % IDCO SMALL ENGINE TRAINER Percent Victor Manuel Statistic 0.01 % IDCO AP VS Percent Victor Manuel Statistic 0.03 % IDCO VS Percent TEXTILE KNITTER Statistic [id number] IDCO Date Time Start TEXTILE KNITTER Statistic [id number] IDCO Date Time End TEXTILE KNITTER Statistic 99.56 % IDCO TEXTILE KNITTER Percent Paced Atrial Tachy [id number] IDCO Statistic Date Time Start Atrial Tachy [id number] IDCO Statistic Date Time End Atrial Tachy 0 % IDCO Statistic AT/AF [facility] Percent Therapy 0 IDCO Statistic Recent Shocks Delivered Therapy 0 IDCO Statistic Recent Shocks Aborted Therapy 0 IDCO Statistic Recent ATP Delivered Therapy [id number] IDCO Statistic Recent Date Time Start Therapy [id number] IDCO Statistic Recent Date Time End Therapy 0 IDCO Statistic Total Shocks Delivered Therapy 0 IDCO Statistic Total Shocks Aborted Therapy 0 IDCO Statistic Total ATP Delivered Therapy [id number] IDCO Statistic Total Date Time Start Therapy [id number] IDCO Statistic Total Date Time End Episode [...] Episode SVT IDCO Statistic Type Category Episode [id number] IDCO Statistic Recent Date Time Start Episode [id number] IDCO Statistic Recent Date Time End Episode [id number] IDCO Statistic Recent Date Time Start Episode [id number] IDCO Statistic Recent Date Time End Episode [id number] IDCO Statistic Recent Date Time Start Episode [id number] IDCO Statistic Recent Date Time End Episode [id number] IDCO Statistic Recent Date Time Start Episode [id number] IDCO Statistic Recent Date Time End Episode [id number] IDCO Statistic Recent Date Time Start Episode [id number] IDCO Statistic Recent Date Time End Episode [id number] IDCO Statistic Recent Date Time Start Episode [id number] IDCO Statistic Recent Date Time End Episode [id number] IDCO Statistic Recent Date Time Start Episode [id number] IDCO Statistic Recent Date Time End Episode [...] Episode SVT IDCO Statistic Type Category Episode [id number] IDCO Statistic Total Date Time Start Episode [id number] IDCO Statistic Total Date Time End Episode [id number] IDCO Statistic Total Date Time Start Episode [id number] IDCO Statistic Total Date Time End Episode [id number] IDCO Statistic Total Date Time Start Episode [id number] IDCO Statistic Total Date Time End Episode [id number] IDCO Statistic Total Date Time Start Episode [id number] IDCO Statistic Total Date Time End Episode [id number] IDCO Statistic Total Date Time Start Episode [id number] IDCO Statistic Total Date Time End Episode [id number] IDCO Statistic Total Date Time Start Episode [id number] IDCO Statistic Total Date Time End Episode [id number] IDCO Statistic Total Date Time Start Episode [id number] IDCO Statistic Total Date Time End Specimen (Source) Anatomical Collection Method Collection Time Re ceived Time Location / / Volume Laterality 07/07/2018 9:42 AM EST Physician Cardiology IMPLANTABLE CARDIAC DEVICE Performing Organization Address City/State/[facility] Phon e Number IDCO documented in this encounter Visit Diagnoses Not on filedocumented in this encounter Care Teams Fire Alarm Installer Relationship Specialty Start Date End Date Nicole Pickens MD PCP - General 08/17/[address] [place] [address] documented as of this encounter
--- OUTSIDE RECORDS SUMMARY | 2022-03-18 02:35 | XMS_ITS | Encounter Summary ---
:1945 Author Organization [facility] [place] [address] Care Team Providers Name Role Phone Nicole Pickens MD Primary Care Provider Reason for Referral Diagnostic Test (Routine) - New Request Specialty Diagnoses / Procedures Referred By Contact Refer red To Contact Cardiology Diagnoses Chronic systolic heart failure Vivi Lorenz APRN [facility] Non-Inv Card Lab Procedures Echocardiogram Transthoracic([facility] or [facility]) [facility] [place] [address] [place] [address] Referral ID Status Reason Start Expiration Visits Visits Date Date Requested Authorized [id number] New Request Specialty 05/11/2021 05/11/2022 1 1 Service Requested Encounter Details Date Type Department Care Team Description 05/11/2021 Office Visit Cardiology at [facility] Vivi Lorenz, Chronic systolic heart failu re; [facility] OCCUPATIONAL THERAPY MANAGER Other cardiomyopathy; [facility] [place] [address] CARDIOLOGY DEPT. [phone] [place], [place] [address] Social History Tobacco Use Types Packs/Day Years [...] Pulse 81 05/11/2021 1:54 PM EDT Temperature - - Respiratory Rate - - Oxygen Saturation 99% 05/11/2021 1:54 PM EDT Inhaled Oxygen Concentration - - Weight - - Height 165 cm (5' 4.96) 05/11/2021 1:54 PM EDT Body Mass Index - - documented in this encounter Progress Notes Vivi Lorenz, OCCUPATIONAL THERAPY MANAGER - 05/11/2021 2:20 PM EDT Cardiomyopathy/Heart failure Telehealth Follow up Visit. ID and CC: Ana Victoria is a 75 y.o. female presenting for f/u regarding nonischemic cardiomyopathy and HF. Last visit: Tele health Sep 2020 HPI: Nonischemic cardiomyopathy dxd in 2003 with LVEF as low as 18% and LBBB. LV recovery following CRTd placement in 2010. LVEF 45-50% in 2018. No HF hospitalizations Interim events: No interim illnesses or hospitalizations. Reports dizziness that is more pronounced - most notable when she lays down and when changes position in bed. Has done PT for vertigo in the past and will not do this again. No other limiting symptoms. Activity tolerance is good. No CP, MCCOY. No orthopnea, PND. No syncope, presyncope. Sleeping well. Appetite is good. Weight stable. No edema. Patient Active Problem List Diagnosis ??? Medtronic TRANSFORMATION MANAGER-D, not MRI compatible --Neel lead. ??? Heart failure- chronic systolic dysfunction Well compensated and euvolemic NSR with LBBB, s/p TRANSFORMATION MANAGER-D 04/11/11 AHA./ACC Stage C, NYHA FTC II Heart Failure Management: Yes/No No?/Discontinued/Why Beta tone Yes MILADYS/ARB Yes Spironolactone yes AFIB? no Anticoagulated n/a Device yes TRANSFORMATION MANAGER-D 04/11/11 ??? Idiopathic cardiomyopathy severe LV [...] 30% 02/10 Echo EF= 50-55% 02/02/13 (s/p TRANSFORMATION MANAGER) Echo EF= 60-65% 02/15/14 ??? Diabetes mellitus ??? Obesity BMI=43 ??? Depression ??? Hypertension Well controlled ??? Obstructive sleep apnea uses CPAP ??? LBBB (left bundle branch block) Chronic Widened QRS S/p TRANSFORMATION MANAGER-D ??? History of DVT (deep vein [...] no known allergies. Physical Exam: Blood pressure 133/59, pulse 81, height 165 cm (5' 4.96), SpO2 99 %. Body mass index is 42.69 kg/m??. General: WD, WN, NAD HEENT: JVP 6-7 - alopecia Lungs: Clear to A+P Cor: RR, normal S1, S2. PMI not displaced. No murmur or gallop Abd: soft, no L/S/K enlargement or bruits Ext: Pulses preserved, no edema, cyanosis or clubbing Lab data Chemistry Component Value Date/Time NA 137 05/11/2021 1337 K 4.8 05/11/2021 1337 CL 102 05/11/2021 1337 CO2 26 05/11/2021 1337 BUN 17 05/11/2021 1337 CREATININE 1.03 05/11/2021 1337 Component Value Date/Time CALCIUM 9.4 05/11/2021 1337 ALKPHOS 109 (H) 09/19/2020 0829 AST 18 09/19/2020 0829 ALT 20 09/19/2020 0829 BILITOT 0.2 09/19/2020 0829 ProBNP Date Value Ref Range Status 05/11/2021 221 (H) <=124 pg/mL Final 09/19/2020 139 (H) <=125 pg/mL Final 05/05/2019 62 Final Lipid Panel Lab Results Component Value Date CHLPL 109 09/19/2020 HDL 39 09/19/2020 CHOLHDL 2.8 09/19/2020 TRIG 117 09/19/2020 LDLCHOL 47 09/19/2020 ICD eval today: SOCIAL WELFARE RESEARCH WORKER > 99%. No AT/AF ?? OptiVol: under threshold ?? Echo 09/2020 SUMMARY: ?? 1. The left [...] H/o cardiomyopathy. LVEF improved with meds and TRANSFORMATION MANAGER - stable at 45-50% ( prior 60-65% [...] 6 months with labs and device check and echo VIVI LORENZ APRN documented in this encounter Plan of Treatment Upcoming Encounters Date Type Specialty Care Team Description 04/16/2022 Appointment Cardiology Vivi Lorenz APRN [facility] CARDIOLOGY DEPT. [place], [place] [address] (Luz pollard) 04/16/2022 Laboratory Appointment Lab 04/16/2022 Office Visit Cardiology Vivi Lorenz APRN [facility] CARDIOLOGY DEPT. [place], [place] [address] (Luz pollard) Scheduled Orders Name Type Priority Associated Order Schedule Diagnoses Echocardiogram Echocardiography Routine Chronic systolic Expec allyson: Transthoracic([facility] or heart failure 11/08 NL) (Approximate), Expires: 05/11/2022 documented as of this encounter Results (ABNORMAL) pro-Brain Natriuretic Peptide (05/11/2021 1:37 PM EDT) athologist Signature ProBNP 221 (H) <=124 pg/mL [facility] Specimen Anatomical Collection Method Collection Time Receive d Time (Source) Location / / Volume Laterality Blood 05/11/2021 1:37 PM 1:45 EDT PM EDT Resulting Agency Comment Spec In Lab Vivi Lorenz APRN CHEMISTRY ORDERABLES Performing Organization Address City/State/[place] [address] (ABNORMAL) Basic Metabolic Panel (non-fasting) (05/11/2021 1:37 PM EDT) athologist Signature Glucose Lvl 76 65 - 199 [facility] mg/dL [facility] Comment: Diabetes: >=200 mg/dL plus symp toms BUN 17 8 - 18 mg/dL [facility] Creatinine 1.03 0.70 - 1.20 mg/dL [facility] Sodium 137 135 - 145 mmol/L [facility] Potassium 4.8 3.5 - 5.0 mmol/L [facility] Comment: Please note: ??Patients with WBC >100,00 0 may have falsely elevated Potassium levels. ??For accurate Potassium quantif ication in these patients send serum separator tube (gold top) for subsequent determinations. ??Contact the Clinical Chemistry Laboratory if there are any qu estions. Chloride 102 98 - 107 mmol/L [facility] CO2 26 22 - 31 mmol/L [facility] Anion Gap 9 5 - 15 mmol/L [facility] Calcium 9.4 8.5 - 10.5 mg/dL [facility] Estimated GFR 54 (L) >=60 mL/min/1.73 m?? [facility] Comment: This patient? 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
--- OUTSIDE RECORDS SUMMARY | 2022-03-18 02:35 | XMS_ITS | Encounter Summary ---
:1945 Author Organization [facility] [place] [address] Care Team Providers Name Role Phone Nicole Pickens MD Primary Care Provider Encounter Details Date Type Department Care Team Description 01/12/2019 Orders [place] [address] Social History Tobacco Use Types Packs/Day [...] Cardiology Vivi Lorenz APRN [facility] CARDIOLOGY DEPT. [place], [place] [address] (Luz pollard) 04/16/2022 Laboratory Appointment Lab 04/16/2022 Office Visit Cardiology Vivi Lorenz APRN [facility] CARDIOLOGY DEPT. [place], [place] [address] (Luz pollard) documented as of this encounter Procedures Procedure Name Priority Date/Time Associated Diagnosis Comme nts CARDIAC DEVICE Routine 01/12/2019 6:26 AM Results for this CHECK - REMOTE EDT procedure are in the results section. documented in this encounter Results Cardiac Device Check - Remote (01/12/2019 6:26 AM EDT) Component Value Ref Test Analysis Performed Pathologis t Range Method Time At Signature Date Time [id number] IDCO Interrogation Session Implantable Medtronic IDCO Pulse Generator Computer Systems Manager Implantable Viva XT FARM OPERATIONS TECHNICAL DIRECTOR-D IDCO Pulse Generator [id number] Model Implantable [id number] IDCO Pulse Generator Serial Number Type Remote IDCO Interrogation Session Implantable Cardiac IDCO Pulse Generator Resynchronization Type Therapy - Defibrillator Implantable [id number] IDCO Pulse Generator Implant Date Victor Manuel [...] Sensitivity Ventricular BiV IDCO chambers paced during FARM OPERATIONS TECHNICAL DIRECTOR pacing. FARM OPERATIONS TECHNICAL DIRECTOR LV-RV Delay 20 ms IDCO Lead Channel [...] 400 ms IDCO Detection Interval Battery Date [id number] IDCO Time of Measurements Battery Status OK IDCO Battery MINE SAFETY ENGINEER 2.727 IDCO Trigger Battery 73 mo IDCO Remaining Longevity Battery Voltage 2.96 V IDCO Capacitor Charge Reformation IDCO Type Capacitor Last [id number] IDCO Charge Date Time Capacitor Charge 3.613 s IDCO Time Capacitor Charge 18 J IDCO Energy Episode 56 IDCO Identifier Episode Type VSE IDCO Category Episode Date [id number] IDCO Time Episode Duration 4 s IDCO Episode 55 IDCO Identifier Episode Type VSE IDCO Category Episode Date [id number] IDCO Time Episode Duration 4 s IDCO Victor Manuel Statistic [id number] IDCO Date Time Start Victor Manuel Statistic [id number] IDCO Date Time End Victor Manuel Statistic 0.03 % IDCO RA Percent Paced Victor Manuel Statistic 98.91 % IDCO RV Percent Paced FARM OPERATIONS TECHNICAL DIRECTOR Statistic LV 98.87 % IDCO Percent Paced Victor Manuel Statistic 0.02 % IDCO AP LICENSED MIDWIFE Percent Victor Manuel Statistic 99.95 % IDCO LICENSED MIDWIFE Percent Victor Manuel Statistic 0.01 % IDCO AP VS Percent Victor Manuel Statistic 0.03 % IDCO VS Percent FARM OPERATIONS TECHNICAL DIRECTOR Statistic [id number] IDCO Date Time Start FARM OPERATIONS TECHNICAL DIRECTOR Statistic [id number] IDCO Date Time End FARM OPERATIONS TECHNICAL DIRECTOR Statistic 98.87 % IDCO FARM OPERATIONS TECHNICAL DIRECTOR Percent Paced Atrial Tachy [id number] IDCO Statistic Date Time Start Atrial Tachy [id number] IDCO Statistic Date Time End Atrial Tachy 0 % IDCO Statistic AT/AF [place] Percent Therapy 0 IDCO Statistic Recent Shocks Delivered Therapy 0 IDCO Statistic Recent Shocks Aborted Therapy 0 IDCO Statistic Recent ATP Delivered Therapy [id number] IDCO Statistic Recent Date Time Start Therapy [id number] IDCO Statistic Recent Date Time End Therapy 0 IDCO Statistic Total Shocks Delivered Therapy 0 IDCO Statistic Total Shocks Aborted Therapy 0 IDCO Statistic Total ATP Delivered Therapy [id number] IDCO Statistic Total Date Time Start Therapy [id number] IDCO Statistic Total Date Time End Episode [...] Episode SVT IDCO Statistic Type Category Episode [id number] IDCO Statistic Recent Date Time Start Episode [id number] IDCO Statistic Recent Date Time End Episode [id number] IDCO Statistic Recent Date Time Start Episode [id number] IDCO Statistic Recent Date Time End Episode [id number] IDCO Statistic Recent Date Time Start Episode [id number] IDCO Statistic Recent Date Time End Episode [id number] IDCO Statistic Recent Date Time Start Episode [id number] IDCO Statistic Recent Date Time End Episode [id number] IDCO Statistic Recent Date Time Start Episode [id number] IDCO Statistic Recent Date Time End Episode [id number] IDCO Statistic Recent Date Time Start Episode [id number] IDCO Statistic Recent Date Time End Episode [id number] IDCO Statistic Recent Date Time Start Episode [id number] IDCO Statistic Recent Date Time End Episode [...] Episode SVT IDCO Statistic Type Category Episode [id number] IDCO Statistic Total Date Time Start Episode [id number] IDCO Statistic Total Date Time End Episode [id number] IDCO Statistic Total Date Time Start Episode [id number] IDCO Statistic Total Date Time End Episode [id number] IDCO Statistic Total Date Time Start Episode [id number] IDCO Statistic Total Date Time End Episode [id number] IDCO Statistic Total Date Time Start Episode [id number] IDCO Statistic Total Date Time End Episode [id number] IDCO Statistic Total Date Time Start Episode [id number] IDCO Statistic Total Date Time End Episode [id number] IDCO Statistic Total Date Time Start Episode [id number] IDCO Statistic Total Date Time End Episode [id number] IDCO Statistic Total Date Time Start Episode [id number] IDCO Statistic Total Date Time End Specimen (Source) Anatomical Collection Method Collection Time Re ceived Time Location / / Volume Laterality 01/12/2019 6:26 AM EDT Physician Cardiology IMPLANTABLE CARDIAC DEVICE Performing Organization Address City/State/[facility] Code Phon e Number IDCO documented in this encounter Visit Diagnoses Not on filedocumented in this encounter Care Teams Software Technical Lead Relationship Specialty Start Date End Date Nicole Pickens MD PCP - General 08/17/[address] [place] [address] documented as of this encounter
--- OUTSIDE RECORDS SUMMARY | 2022-03-18 02:36 | XMS_ITS | Encounter Summary ---
:1945 Author Organization [facility] [place] [address] Care Team Providers Name Role Phone Nicole Pickens MD Primary Care Provider Encounter Details Date Type Department Care Team Description 09/18/2016 Laboratory Appointment Lab at [facility] Cardiomyopathy; [facility] Heart kevin lure, [place] [address] Social History Tobacco Use Types Packs/Day Years Used Date Never Smoker Smokeless Tobacco: Never Used Alcohol Use Standard Drinks/Week Comments Not Asked 0 (1 standard drink = 0.6 oz pure alcoho l) Sex Assigned at Date Recorded Not on file documented as of this encounter Plan of Treatment Upcoming Encounters Date Type Specialty Care Team Description 04/16/2022 Appointment Cardiology Vivi Lorenz APRN [facility] CARDIOLOGY DEPT. [place], [place] [address] (Wo rk) 04/16/2022 Laboratory Appointment Lab 04/16/2022 Office Visit Cardiology Vivi Lorenz APRN [facility] CARDIOLOG[facility] DEPT. [place], [place] [address] (Wo rk) documented as of this encounter Procedures Procedure Name Priority Date/Time Associated Diagnosis Comme nts PRO-BRAIN STAT 09/18/2016 9:24 AM Cardiomyopath y Results for this NATRIURETIC PEPTIDE EST Heart failure, proced ure are in unspecified the results section. BASIC METABOLIC STAT 09/18/2016 9:24 AM Cardiomyopath y Results for this PANEL (NON-FASTING) EST Heart failure, proced ure are in unspecified the results section. documented in this encounter Results pro-Brain Natriuretic Peptide (09/18/2016 9:24 AM EST) athologist Signature ProBNP 61 <=125 pg/mL [facility] Specimen Anatomical Collection Method Collection Time Receive d Time (Source) Location / / Volume Laterality Blood specimen 09/18/2016 9:24 AM 017 9:35 (specimen) EST AM EST Resulting Agency Comment Spec In Lab Roly Aguilar MD CHEMISTRY ORDERABLES Performing Organization Address City/State/[place] [address] (ABNORMAL) Basic Metabolic Panel (non-fasting) (09/18/2016 9:24 AM EST) athologist Signature Glucose Lvl 191 65 - 199 [facility] mg/dL [facility] Comment: Diabetes: >=200 mg/dL plus symp toms BUN 16 8 - 18 mg/dL [facility] Creatinine 0.98 0.70 - 1.20 mg/dL [facility] Comment: Please note that the pediatric reference intervals supplied above were not validated at [facility]. Results from pediatri c patients should be interpreted in conjunction to the patient's age, height and muscle mass. Sodium 137 135 - 145 mmol/L [facility] Potassium 5.0 3.5 - 5.0 mmol/L [facility] Comment: Please note: ??Patients with WBC >100,00 0 may have falsely elevated Potassium levels. ??For accurate Potassium quantif ication in these patients send serum separator tube (gold top) for subsequent determinations. ??Contact the Clinical Chemistry Laboratory if there are any qu estions. Chloride 97 (L) 98 - 107 mmol/L [facility] CO2 27 22 - 31 mmol/L [facility] Anion Gap 13 5 - 15 mmol/L [facility] Calcium 9.5 8.5 - 10.5 mg/dL [facility] Estimated GFR 56 (L) >=60 [facility] Comment: This estimated GFR (eGFR) value was calc ulated using the MDRD equation which has been validated on patients between t he ages of 18 and 70. The MDRD should not be used to assess kidney function in patients < 18 years of age or in patients with extremes of body mass, or in patients with acute kidney failure. This value should be multiplied by 1.2 f or patients. For further information please copy and past e the following links into your internet browser. [email or web address] Specimen Anatomical Collection Method Collection Time Receive d Time (Source) Location / / Volume Laterality Blood specimen 09/18/2016 9:24 AM 017 9:35 (specimen) EST AM EST Resulting Agency Comment Spec In Lab Roly Aguilar MD CHEMISTRY ORDERABLES Performing Organization Address City/State/[place] [address] documented in this encounter Visit Diagnoses Diagnosis Cardiomyopathy Other primary cardiomyopathies Heart failure, unspecified documented in this encounter Care Teams Pocketed Spring Assembler Relationship Specialty Start Date End Date Nicole Pickens MD PCP - General 08/17/[address] [place] [address] documented as of this encounter
--- OUTSIDE RECORDS SUMMARY | 2022-03-18 02:36 | XMS_ITS | Encounter Summary ---
:1945 Author Organization [facility] [place] [address] Care Team Providers Name Role Phone Nicole Pickens MD Primary Care Provider Encounter Details Date Type Department Care Team Description 06/18/2016 [place] [address] Social History Tobacco Use Types Packs/Day Years Used Date Never Smoker Smokeless Tobacco: Never Used Alcohol Use Standard Drinks/Week Comments Not Asked 0 (1 standard drink = 0.6 oz pure alcoho l) Sex Assigned at Date Recorded Not on file documented as of this encounter Plan of Treatment Upcoming Encounters Date Type Specialty Care Team Description 04/16/2022 Appointment Cardiology Vivi Lorenz APRN [facility] CARDIOLOG[facility] DEPT. [place], [place] [address] (Luz pollard) 04/16/2022 Laboratory Appointment Lab 04/16/2022 Office Visit Cardiology Vivi Lorenz APRN [facility]ARDI[facility] DEPT. [place], [place] [address] (Luz pollard) documented as of this encounter Procedures Procedure Name Priority Date/Time Associated Diagnosis Comme nts CARDIAC DEVICE Routine 06/18/2016 6:27 AM Results for this CHECK - REMOTE EDT procedure are in the results section. documented in this encounter Results (ABNORMAL) Cardiac device check - Remote (06/18/2016 6:27 AM EDT) Component Value Ref Test Analysis Performed Pathologis t Range Method Time At Signature Date Time [id number] [facility]CO Interrogation Session Implantable Medtronic IDCO Pulse Generator Tablet Making Machine Operator Implantable PROTECTA XT PACKAGE PICK UP-D IDCO Pulse Generator [id number] Model Implantable [id number] IDCO Pulse Generator Serial Number Type Remote IDCO Interrogation Session Implantable Cardiac IDCO Pulse Generator Resynchronization Type Therapy - Defibrillator Implantable [id number] IDCO Pulse Generator Implant Date Victor Manuel [...] IDCO Setting Sensing Cathode Terminal Lead Channel 0.45 mV IDCO Setting Sensing Sensitivity Ventricular BiV IDCO chambers paced during PACKAGE PICK UP pacing. PACKAGE PICK UP LV-RV Delay 20 ms IDCO Lead Channel [...] IDCO Setting Pacing Pulse Width Lead Channel 3.25 V IDCO Setting Pacing Amplitude Lead Channel [...] IDCO Setting Pacing Pulse Width Lead Channel 2.25 V IDCO Setting Pacing Amplitude Lead Channel Adaptive IDCO Setting Pacing Capture Mode Zone Setting AT/AF IDCO Type Category Zone Setting 350 ms IDCO Detection Interval Zone Setting VF IDCO Type Category Zone Setting 320 ms IDCO Detection Interval Zone Setting 18 {beats} IDCO Detection Beats Numerator Zone Setting 24 {beats} IDCO Detection Beats Denominator Zone Setting [place] IDCO Type Category Zone Setting 240 ms IDCO Detection Interval Zone Setting 360 ms IDCO Detection Interval Zone Setting 400 ms IDCO Detection Interval Battery Date [id number] IDCO Time of Measurements Battery Status OK IDCO Battery SHOTBLAST OPERATOR 2.6251 IDCO Trigger Battery Voltage 2.64 V IDCO Capacitor Charge Reformation IDCO Type Capacitor Last [id number] IDCO Charge Date Time Capacitor Charge 12.882 s IDCO Time Capacitor Charge 35 J IDCO Energy Episode 12 IDCO Identifier Episode Type VSE IDCO Category Episode Date [id number] IDCO Time Episode Duration 5 s IDCO Victor Manuel Statistic [id number] IDCO Date Time Start Victor Manuel Statistic [id number] IDCO Date Time End Victor Manuel Statistic 0.03 % IDCO RA Percent Paced Victor Manuel Statistic 99.97 % IDCO RV Percent Paced Victor Manuel Statistic 0.02 % IDCO AP LIGHT OIL OPERATOR Percent Victor Manuel Statistic 99.95 % IDCO LIGHT OIL OPERATOR Percent Victor Manuel Statistic 0.01 % IDCO AP VS Percent Victor Manuel Statistic 0.02 % IDCO VS Percent Atrial Tachy IDCO Statistic Date Time Start Atrial Tachy [id number] IDCO Statistic Date Time End Atrial Tachy 0 % IDCO Statistic AT/AF [place] Percent Therapy 0 IDCO Statistic Recent Shocks Delivered Therapy 0 IDCO Statistic Recent Shocks Aborted Therapy 0 IDCO Statistic Recent ATP Delivered Therapy IDCO Statistic Recent Date Time Start Therapy [id number] IDCO Statistic Recent Date Time End Therapy 0 IDCO Statistic Total Shocks Delivered Therapy 0 IDCO Statistic Total Shocks Aborted Therapy 0 IDCO Statistic Total ATP Delivered Therapy [id number] IDCO Statistic Total Date Time Start Therapy [id number] IDCO Statistic Total Date Time End Episode [...] Episode SVT IDCO Statistic Type Category Episode [id number] IDCO Statistic Recent Date Time Start Episode [id number] IDCO Statistic Recent Date Time End Episode [id number] IDCO Statistic Recent Date Time Start Episode [id number] IDCO Statistic Recent Date Time End Episode [id number] IDCO Statistic Recent Date Time Start Episode [id number] IDCO Statistic Recent Date Time End Episode [id number] IDCO Statistic Recent Date Time Start Episode [id number] IDCO Statistic Recent Date Time End Episode [id number] IDCO Statistic Recent Date Time Start Episode [id number] IDCO Statistic Recent Date Time End Episode [id number] IDCO Statistic Recent Date Time Start Episode [id number] IDCO Statistic Recent Date Time End Episode [id number] IDCO Statistic Recent Date Time Start Episode [id number] IDCO Statistic Recent Date Time End Episode 0 IDCO Statistic Total Count Episode VF IDCO Statistic Type Category Episode 0 IDCO Statistic Total Count Episode VT IDCO Statistic Type Category Episode 0 IDCO Statistic Total Count Episode 0 IDCO Statistic Total Count Episode 1 IDCO Statistic Total Count Episode 0 IDCO Statistic Total Count Episode AT/AF IDCO Statistic Type Category Episode 0 IDCO Statistic Total Count Episode SVT IDCO Statistic Type Category Episode [id number] IDCO Statistic Total Date Time Start Episode [id number] IDCO Statistic Total Date Time End Episode [id number] IDCO Statistic Total Date Time Start Episode [id number] IDCO Statistic Total Date Time End Episode [id number] IDCO Statistic Total Date Time Start Episode [id number] IDCO Statistic Total Date Time End Episode [id number] IDCO Statistic Total Date Time Start Episode [id number] IDCO Statistic Total Date Time End Episode [id number] IDCO Statistic Total Date Time Start Episode [id number] IDCO Statistic Total Date Time End Episode [id number] IDCO Statistic Total Date Time Start Episode [id number] IDCO Statistic Total Date Time End Episode [id number] IDCO Statistic Total Date Time Start Episode [id number] IDCO Statistic Total Date Time End Specimen (Source) Anatomical Collection Method Collection Time Re ceived Time Location / / Volume Laterality 06/18/2016 6:27 AM EDT Physician Cardiology IMPLANTABLE CARDIAC DEVICE Performing Organization Address City/State/ZIP Code Phon e Number IDCO documented in this encounter Visit Diagnoses Not on filedocumented in this encounter Care Teams Shearer Operator Relationship Specialty Start Date End Date Nicole Pickens MD PCP - General 08/17/[address] [place] [address] documented as of this encounter
--- OUTSIDE RECORDS SUMMARY | 2022-03-18 02:36 | XMS_ITS | Encounter Summary ---
:1945 Author Organization [facility] [place] [address] Care Team Providers Name Role Phone Nicole Pcikens MD Primary Care Provider Encounter Details Date Type Department Care Team Description 05/07/2017 Office Visit Cardiology at [facility] Vivi Lorenz, Cardiomyopathy, unspecified; [facility] RADIO OPERATOR GROUND Heart failure, unspecified; Drive [facility] SOB (shortness of breath) [place] [address] CARDIOLOGY DEPT. [phone] [place], [place] [address] Social History Tobacco Use Types Packs/Day Years Used Date Never Smoker Smokeless Tobacco: Never Used Alcohol Use Standard Drinks/Week Comments No 0 (1 standard drink = 0.6 oz pure alcoho l) Sex Assigned at Date Recorded Not on file documented as of this encounter Last Filed Vital Signs Vital Sign Reading Time Taken Comments Blood Pressure 118/80 05/07/2017 10:49 AM EDT Pulse 74 05/07/2017 10:49 AM EDT Temperature - - Respiratory Rate - - Oxygen Saturation 96% 05/07/2017 10:49 AM EDT Inhaled Oxygen Concentration - - Weight 118.2 kg (260 lb 9.6 oz) 05/07/2017 10:49 AM EDT Height 165.1 cm (5' 5) 05/07/2017 10:49 AM EDT Body Mass Index 43.37 05/07/2017 10:49 AM EDT documented in this encounter Progress Notes Vivi Lorenz, RADIO OPERATOR GROUND - 05/07/2017 11:00 AM EDT Cardiomyopathy/Heart failure Clinic Follow up Visit. ID and CC: Ana Victoria is a 71 y.o. female presenting for f/u regarding nonischemic cardiomyopathy and HF. Last visit: 03/16 HPI: Nonischemic cardiomyopathy dxd in 2003 with LVEF as low as 18% and LBBB. LV recovery to 60-65% following CRTd placement in 2010. No HF hospitalizations Here for routine follow up Interim events: Stable from a CV standpoint. Had ICD PG change earlier this year. No complications. Weight is stable. Good energy. Sleeping well with CPAP. No medication issues. No CP, SOB at rest or with exertion. No orthopnea, PND, syncope.presyncope. . Recently started on januvia. Recently diagnosed with BPV - Patient Active Problem List Diagnosis ??? Medtronic FLORAL DESIGN TEACHER-D, not MRI compatible --Neel lead. ??? Heart failure- chronic systolic dysfunction Well compensated and euvolemic NSR with LBBB, s/p FLORAL DESIGN TEACHER-D 04/11/11 AHA./ACC Stage C, NYHA FTC II Heart Failure Management: Yes/No No?/Discontinued/Why Beta tone Yes MILADYS/ARB Yes Spironolactone yes AFIB? no Anticoagulated n/a Device yes FLORAL DESIGN TEACHER-D 04/11/11 ??? Idiopathic cardiomyopathy severe LV systolic dysfunction Echo 07/03/04 ([facility]): LVEF 18%. Severe diffuse global HK, LV apex dyskinetic with sessile mural thrombus. 3-4+ MR. LAE. RV normal. Mildly elevated PAP (44mmHg). Echo EF= 20-25% 11/15/04 Echo EF= 25% 08/26/05 Echo EF= 40% 07/17/06 Echo EF= 30% 01/26/08 .br Echo EF= 30% 07/21/08 Echo EF= 30% 02/10 Echo EF= 50-55% 02/02/13 (s/p FLORAL DESIGN TEACHER) Echo EF= 60-65% 02/15/14 ??? Diabetes mellitus ??? Obesity BMI=43 ??? Depression ??? Hypertension Well controlled ??? Obstructive sleep apnea uses CPAP ??? LBBB (left bundle branch block) Chronic Widened QRS S/p FLORAL DESIGN TEACHER-D ??? History of DVT (deep vein thrombosis) a. #1 peripartum 1979, short-term anticoagulation. b. #2 postop ORIF left ankle in 1997, long-term anticoagulation begun. c. Unknown if prior coagulopathy work-up. ??? Hypothyroidism On synthroid replacement ??? LV (left ventricular) mural thrombus ??? Osteoarthritis Current Outpatient Prescriptions Medication Sig Dispense Refill ??? JANUVIA 100 mg Tablet 100 mg daily. ??? GLUCOSAMINE HCL ORAL Take 2 capsules by mouth daily. ??? glipiZIDE (GLUCOTROL XL) 5 mg Tablet Extended Rel 24 hr Take 5 mg by mouth daily. ??? carvedilol (COREG) 25 [...] with exceptions below. Physical Exam: Blood pressure 118/80, pulse 74, height 165.1 cm (5' 5), weight (!) 118.2 kg (260 lb 9.6 oz), SpO2 96 %. General: WD, WN, NAD HEENT: JVP 6-7 - alopecia Lungs: Clear to A+P Cor: RR, normal S1, S2. PMI not displaced. No murmur or gallop Abd: soft, no L/S/K enlargement or bruits Ext: Pulses preserved, no edema, cyanosis or clubbing Lab data: Recent Labs 05/07/17 1027 NA 137 K 4.9 CL 97* CO2 26 BUN 15 CREATININE 1.08 GLUCOSE 155 ProBNP Date Value Ref Range Status 05/07/2017 64 <=125 pg/mL Final 09/18/2016 61 <=125 pg/mL Final Last echo: 02/29/16 at [facility] LVEF 60-65%. Mild-mod MR/AI Assessment: 1. H/o cardiomyopathy. LVEF improved with meds and FLORAL DESIGN TEACHER to 60--65% 2. HFrEF. ACC/AHA stage C. NYHA FC I-II Euvolemic. On GDMT and would recommend continue - no diuretic requirement 3. Obesity - stable but needs to [...] Heart Failure Clinic follow up scheduled for: in January 2018 with echo and when here for device check VIVI LORENZ APRN documented in this encounter Plan of Treatment Upcoming Encounters Date Type Specialty Care Team Description 04/16/2022 Appointment Cardiology Vivi Lorenz APRN [facility] CARDIOLOGY DEPT. [place], [place] [address] (Luz pollard) 04/16/2022 Laboratory Appointment Lab 04/16/2022 Office Visit Cardiology Vivi Lorenz APRN [facility] CARDIOLOGY DEPT. [place], [place] [address] (Luz pollard) Scheduled Orders Name Type Priority Associated Diagnoses Order S chedule Basic Metabolic Panel Lab STAT Cardiomyopathy, Exp ected: 05/07/2017 (non-fasting) unspecified (Approximate), Heart failure, Expires: 04/03 unspecified pro-Brain Natriuretic Lab STAT Cardiomyopathy, Exp ected: 05/07/2017 Peptide unspecified (Approximate), Heart failure, Expires: 04/2018 unspecified SOB (shortness of breath) documented as of this encounter Visit Diagnoses Diagnosis Cardiomyopathy, unspecified Heart failure, unspecified SOB (shortness of breath) Shortness of breath documented in this encounter Care Teams Dehydration Unit Operator Relationship Specialty Start Date End Date Nicole Pickens MD PCP - General 08/17/[address] [place] [address] documented as of this encounter
--- OUTSIDE RECORDS SUMMARY | 2022-03-18 02:36 | XMS_ITS | Encounter Summary ---
:1945 [place] [address] Care Team Providers Name Role Phone Nicole Pickens MD Primary Care Provider Encounter Details Date Type Department Care Team Description 12/12/2015 Hospital Encounter Non-Invasive Cardiology Kenton Asencio, Lab Mali Lan MD [facility] [address] [place] [address] [place] [address] [phone] (Wo rk) Social History Tobacco Use Types Packs/Day Years Used Date Never Smoker Smokeless Tobacco: Never Used Alcohol Use Standard Drinks/Week Comments Not Asked 0 (1 standard drink = 0.6 oz pure alcoho l) Sex Assigned at Date Recorded Not on file documented as of this encounter Medications at Time of Discharge Medication Sig Dispensed Refills Start Date End Date carvedilol (COREG) 25 mg Take 25 mg [...] 50 mg by mouth 0 tablet daily. glipiZIDE (GLUCOTROL XL) 5 Take 5 mg by mouth 0 04/02/2018 mg Tablet Extended Rel 24 daily. hr GLUCOSAMINE HCL/CHONDRO RODRIGUEZ 0 1 11/21/2016 A (GLUCOSAMINE-CHONDROITIN ORAL) documented as of this encounter Plan of Treatment Upcoming Encounters Date Type Specialty Care Team Description 04/16/2022 Appointment Cardiology Vivi Lorenz, [facility] CARDIOLOGY DEPT. [place], [place] [address] (Wo rk) 04/16/2022 Laboratory Appointment Lab 04/16/2022 Office Visit Cardiology Vivi Lorenz, [facility] CARDIOLOGY DEPT. [place], [place] [address] (Wo rk) documented as of this encounter Visit Diagnoses Not on filedocumented in this encounter Care Teams Sander And Buffer Relationship Specialty Start Date End Date Nicole Pickens MD PCP - General 08/17/[address] [place] [address] documented as of this encounter
--- OUTSIDE RECORDS SUMMARY | 2022-03-18 02:36 | XMS_ITS | Encounter Summary ---
:1945 Author Organization [facility] [place] [address] Care Team Providers Name Role Phone Nicole [place] MD Primary Care Provider Encounter Details Date Type Department Care Team Description 12/09/2017 [place] [address] Social History Tobacco Use Types Packs/Day Years Used Date Never Smoker Smokeless Tobacco: Never Used Alcohol Use Standard Drinks/Week Comments No 0 (1 standard drink = 0.6 oz pure alcoho l) Sex Assigned at Date Recorded Not on file documented as of this encounter Progress Notes Hernandez Cordoba MD - 12/09/2017 5:56 PM EDT Cardiac Electrophysiology Cardiac Rhythm Device Remote Data Transmission Remote transmission of this patient's pacemaker/defibrillator data occurred December 09, 2017. Cell voltage and charge time: Acceptable Estimated longevity ~7.2 years Presenting Rhythm at Remote Transmission: Ventricular paced sinus rhythm Comments (interval data since last reset September 09, 2017): Atrial Lead: Acceptable atrial lead capture threshold, sensing, and impedance Atrial pacing <0.1% Ventricular Leads: Right: Acceptable ventricular lead capture threshold, sensing, and impedances Left: Acceptable ventricular lead capture threshold and impedance Characterization of Ventricular Pacin.1%: Total ventricular pacing 100.0%: Biventricular pacing 0.0%: Left ventricular pacing <0.1%: Ventricular sensed response pacing 1.9%: Ventricular sensed Dysrhythmia Detections: Atrial high rate episodes (trigger rate 171/minute): None. Ventricular high rate episodes detected (trigger rate 150/minute): None. Detected isolated ventricular ectopy 17.7/hour (increased from 8.2/hour since last interrogation), and detected 2-4 ventricular salvos 63.6/hour (increased from 31.0/hour since last interrogation) - odd pattern, instead consider rapidly conducted beats. Physiologic Monitoring: The Optivol fluid index remained within normal limits since his last ICD interrogation. The detected patient physical activity during the previous week was ~2.1 hours/day (average), which has remained relatively stable. Rate Histogram: Unremarkable rate distribution (with programmed ventricular limits). Alerts: None Conclusion: Normal device function. Biventricular pacing >98%. No significant dysrhythmias detected, but consider possibility of nonsustained rapid conduction in range 150-170/minute (versus ventricular ectopicbeats). A low to moderate level of physical activity was detected. __ Hernandez Cordoba MD, [facility] [employer] Cardiac Electrophysiology __ For more detailed defibrillator/pacemaker and lead specifics, and also for detailed interrogation data, please note the Orders Only hyperlink at the bottom of this electronic document, clicking on which exposes a Cardiac rhythm device - Remote Scheduled hyperlink; that secondary hyperlink providesaccess to all associated full disclosure documents (under the 'Linked Documents' section). documented in this encounter Plan of Treatment Upcoming Encounters Date Type Specialty Care Team Description 04/16/2022 Appointment Cardiology Vivi Lorenz APRN [facility] CARDIOLOGY DEPT. [place], [place] [address] (Wo rk) 04/16/2022 Laboratory Appointment Lab 04/16/2022 Office Visit Vivi Rush APRN [facility] CARDIOLOGY DEPT. [place], [place] [address] (Wo rk) documented as of this encounter Procedures Procedure Name Priority Date/Time Associated Diagnosis Comme nts CARDIAC DEVICE Routine 12/09/2017 6:27 AM Results for this CHECK - REMOTE EDT procedure are in the results section. documented in this encounter Results (ABNORMAL) Cardiac device check - Remote (12/09/2017 6:27 AM EDT) Component Value Ref Test Analysis Performed Pathologis t Range Method Time At Signature Date Time [id number] IDCO Interrogation Session Implantable Medtronic IDCO Pulse Generator Stapler Hand Implantable Viva XT COMPUTATIONAL SCIENCES PROFESSOR-D IDCO Pulse Generator [id number] Model Implantable [id number] IDCO Pulse Generator Serial Number Type Remote IDCO Interrogation Session Implantable Cardiac IDCO Pulse Generator Resynchronization Type Therapy - Defibrillator Implantable [id number] IDCO Pulse Generator Implant Date Victor Manuel [...] Sensitivity Ventricular BiV IDCO chambers paced during COMPUTATIONAL SCIENCES PROFESSOR pacing. COMPUTATIONAL SCIENCES PROFESSOR LV-RV Delay 20 ms IDCO Lead Channel [...] 400 ms IDCO Detection Interval Battery Date [id number] IDCO Time of Measurements Battery Status OK IDCO Battery RESIDENT CARE MANAGER RN 2.727 IDCO Trigger Battery 88 mo IDCO Remaining Longevity Battery Voltage 3.00 V IDCO Capacitor Charge Reformation IDCO Type Capacitor Last [id number] IDCO Charge Date Time Capacitor Charge 3.653 s IDCO Time Capacitor Charge 18 J IDCO Energy Episode 46 IDCO Identifier Episode Type VSE IDCO Category Episode Date [id number] IDCO Time Episode Duration 5 s IDCO Episode 45 IDCO Identifier Episode Type VSE IDCO Category Episode Date [id number] IDCO Time Episode Duration 29 s IDCO Episode 44 IDCO Identifier Episode Type VSE IDCO Category Episode Date [id number] IDCO Time Episode Duration 21 s IDCO Episode 43 IDCO Identifier Episode Type VSE IDCO Category Episode Date [id number] IDCO Time Episode Duration 33 s IDCO Episode 42 IDCO Identifier Episode Type VSE IDCO Category Episode Date [id number] IDCO Time Episode Duration 5 s IDCO Episode 41 IDCO Identifier Episode Type VSE IDCO Category Episode Date [id number] IDCO Time Episode Duration 11 s IDCO Episode 40 IDCO Identifier Episode Type VSE IDCO Category Episode Date [id number] IDCO Time Episode Duration 5 s IDCO Victor Manuel Statistic [id number] IDCO Date Time Start Victor Manuel Statistic [id number] IDCO Date Time End Victor Manuel Statistic 0.03 % IDCO RA Percent Paced Victor Manuel Statistic 98.09 % IDCO RV Percent Paced COMPUTATIONAL SCIENCES PROFESSOR Statistic LV 98.05 % IDCO Percent Paced Victor Manuel Statistic 0.02 % IDCO AP CARE PROFESSIONALS Percent Victor Manuel Statistic 99.94 % IDCO CARE PROFESSIONALS Percent Victor Manuel Statistic 0.01 % IDCO AP VS Percent Victor Manuel Statistic 0.03 % IDCO VS Percent COMPUTATIONAL SCIENCES PROFESSOR Statistic [id number] IDCO Date Time Start COMPUTATIONAL SCIENCES PROFESSOR Statistic [id number] IDCO Date Time End COMPUTATIONAL SCIENCES PROFESSOR Statistic 98.05 % IDCO COMPUTATIONAL SCIENCES PROFESSOR Percent Paced Atrial Tachy [id number] IDCO Statistic Date Time Start Atrial Tachy [id number] IDCO Statistic Date Time End Atrial Tachy 0 % IDCO Statistic AT/AF Section Percent Therapy 0 IDCO Statistic Recent Shocks Delivered Therapy 0 IDCO Statistic Recent Shocks Aborted Therapy 0 IDCO Statistic Recent ATP Delivered Therapy [id number] IDCO Statistic Recent Date Time Start Therapy [id number] IDCO Statistic Recent Date Time End Therapy 0 IDCO Statistic Total Shocks Delivered Therapy 0 IDCO Statistic Total Shocks Aborted Therapy 0 IDCO Statistic Total ATP Delivered Therapy [id number] IDCO Statistic Total Date Time Start Therapy [id number] IDCO Statistic Total Date Time End Episode [...] Episode SVT IDCO Statistic Type Category Episode [id number] IDCO Statistic Recent Date Time Start Episode [id number] IDCO Statistic Recent Date Time End Episode [id number] IDCO Statistic Recent Date Time Start Episode [id number] IDCO Statistic Recent Date Time End Episode [id number] IDCO Statistic Recent Date Time Start Episode [id number] IDCO Statistic Recent Date Time End Episode [id number] IDCO Statistic Recent Date Time Start Episode [id number] IDCO Statistic Recent Date Time End Episode [id number] IDCO Statistic Recent Date Time Start Episode [id number] IDCO Statistic Recent Date Time End Episode [id number] IDCO Statistic Recent Date Time Start Episode [id number] IDCO Statistic Recent Date Time End Episode [id number] IDCO Statistic Recent Date Time Start Episode [id number] IDCO Statistic Recent Date Time End Episode [...] Episode SVT IDCO Statistic Type Category Episode [id number] IDCO Statistic Total Date Time Start Episode [id number] IDCO Statistic Total Date Time End Episode [id number] IDCO Statistic Total Date Time Start Episode [id number] IDCO Statistic Total Date Time End Episode [id number] IDCO Statistic Total Date Time Start Episode [id number] IDCO Statistic Total Date Time End Episode [id number] IDCO Statistic Total Date Time Start Episode [id number] IDCO Statistic Total Date Time End Episode [id number] IDCO Statistic Total Date Time Start Episode [id number] IDCO Statistic Total Date Time End Episode [id number] IDCO Statistic Total Date Time Start Episode [id number] IDCO Statistic Total Date Time End Episode [id number] IDCO Statistic Total Date Time Start Episode [id number] IDCO Statistic Total Date Time End Specimen (Source) Anatomical Collection Method Collection Time Re ceived Time Location / / Volume Laterality 12/09/2017 6:27 AM EDT Physician Cardiology MD IMPLANTABLE CARDIAC DEVICE Performing Organization Address City/State/ZIP Code Phon e Number IDCO documented in this encounter Visit Diagnoses Not on filedocumented in this encounter Care Teams Lasting Machine Operator Relationship Specialty Start Date End Date Nicole [place] MD PCP - General 08/17/[address] [place] [address] documented as of this encounter
--- OUTSIDE RECORDS SUMMARY | 2022-03-18 02:36 | XMS_ITS | Encounter Summary ---
:1945 [place] [address] Care Team Providers Name Role Phone Nicole [place] MD Primary Care Provider Encounter Details Date Type Department Care Team Description 11/21/2016 Office Visit Cardiology [place] [facility] [place] [facility] [place] [id number] Social History Tobacco Use Types Packs/Day Years Used Date Never Smoker Smokeless Tobacco: Never Used Alcohol Use Standard Drinks/Week Comments No 0 (1 standard drink = 0.6 oz pure alcoho l) Sex Assigned at Date Recorded Not on file documented as of this encounter Last Filed Vital Signs Vital Sign Reading Time Taken Comments Blood Pressure 115/70 11/21/2016 8:59 AM EDT Pulse 74 11/21/2016 8:59 AM EDT Temperature - - Respiratory Rate - - Oxygen Saturation 96% 11/21/2016 8:59 AM EDT room ai r Inhaled Oxygen Concentration - - Weight 120.2 kg (265 lb) 11/21/2016 8:59 AM EDT Height 165.1 cm (5' 5) 11/21/2016 8:59 AM EDT Body Mass Index 44.1 11/21/2016 8:59 AM EDT documented in this encounter Progress Notes Sarahi [place] RN - 11/21/2016 9:00 AM EDT Images from the original note were not included. Clinical Electrophysiology Device Service Note Ms. Victoria is a 71 yo woman presents for VIRTUAL ASSISTANT-D programming evaluation.She had a generator change done 11/04/16 due to battery SKYLAR. She has been feeling well and is accompanied by her today. 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 She has a history in 07/19/2011 related to LV Tip->Ring impedance of just over 1,500 ohms. LV vector was reprogrammed Ring->Coil at that encounter. Right ventricular lead subject to Vladimir Shaikh advisory from 2006. Pumper Gauger Apprentice: Roly Aguilar MD Primary Care: Nicole [place] MD DEVICE AND LEAD INFORMATION Final Parameters: Ventricular electrode: Xeroxtronic SprintFidelis Model# 6949 58 cm Serial #[id number] (Implanted 03/08/2005) Bipolar, steroid-tipped, active-fixation IS-1, DF-1 lead Access: Axillary vein Location: Right ventricular apex R wave, ICD: 15.9 mV Pacing threshold, ICD: 1.25V at 0.8 ms Impedance, ICD: 646 ohms HVB Impedance 44 ohms SVC Impedance 52 ohms Pace the diaphragm at 10 V: No Atrial electrode: Medtronic, CaptureFix Model # 5076-52 cm Serial # [id number] Bipolar, steroid-tipped, active-fixation IS-1 lead Access: Axillary vein Location Right atrial appendage P wave, ICD: 3.0 mV Pacing threshold, ICD: 0.75 V at 0.4 ms Impedance, ICD: 437 ohms Pace the diaphragm at 10 V: No Coronary sinus electrode: Medtronic, Attain OTW Model# 4196-88cm, Serial# [id number] Bipolar passive fixation lead Access: Axillary vein Location: Coronary sinus, anterior R wave, ICD: 13.8 Pacing threshold, ICD: 0.75 0.4 ms (LV ring to RV coil) Impedance, device: 494s Pace the diaphragm/chest wall at 10 V: No Pulse generator: Pulse generator: MedAmminex Viva XT model number [id number] Serial #[id number] 11/04/16 ?? VIRTUAL ASSISTANT-D Location: Subcutaneous Parameters: VF detection rate: >188 [...] mode switch 171 bpm, LV- >RV Adaptive VIRTUAL ASSISTANT Follow-up: Battery status: 3.15 V (PUBLIC POLICY ASSOCIATE: 2.73 V) Charge time: N/A Est 7.8 years to SKYLAR Sensing Integrity Counter: 0 Pace/sensing leads: Atrial: P wave: 4.8 mV Impedance: 399 ohms Threshold: 0.5 V at 0.4 msStable trend EGM: Clean Right Ventricular R wave: 19.5 mV Impedance: 855 Ohms Threshold: 1.25 V at 0.4 ms auto. Stable EGM quality: clean Left Ventricular: Threshold: 1.00 V at 0.4 ms Ring->Coil. The auto trend is stable. Impedance: 779 ohms LV ring to RV coil Shocking Leads RV: 50 Ohms stable SVC: 62 Ohms stable EGM quality: clean Wound/generator site: Healing well approximated old derma guadarrama peeling no drainage tenderness gone Therapy Administered: none Events: none Underlying rhythm: SR 76 bpm OptiVol: starting trend Histograms are well distributed. Pacing percentages: AP <0.1 %; MANUFACTURER 98.9%Bi-V 100% VSR <0.1% Changes made this session: Iterative to assess device function Plan: Carelink every 3 months. RTC in 3 months for 91 day check. Provider: SARAHI [place] RN Attending: Massimo Ponce MD Addendum I have personally reviewed the device interrogation as performed by Sarahi [place] RN VIRTUAL ASSISTANT-D V Paced - 100% BiV paced Normal device function Summary 1) Normal device function 2) Routine follow up as planned MASSIMO PONCE MD documented in this encounter Plan of Treatment Upcoming Encounters Date Type Specialty Care Team Description 04/16/2022 Appointment Cardiology Vivi Lorenz, KNIFE CHANGER [facility] CARDIOLOGY DEPT. [place] [address] (Wo rk) 04/16/2022 Laboratory Appointment Lab 04/16/2022 Office Visit Cardiology Vivi Lorenz APRN [facility] CARDIOLOGY DEPT. [place], [place] [address] (Wo rk) documented as of this encounter Visit Diagnoses Diagnosis Idiopathic cardiomyopathy Other primary cardiomyopathies documented in this encounter Care Teams Kiln Transfer Operator Relationship Specialty Start Date End Date Nicole [place] MD PCP - General 08/17/[address] [place] [address] documented as of this encounter
--- OUTSIDE RECORDS SUMMARY | 2022-03-18 02:36 | XMS_ITS | Encounter Summary ---
:1945 Author Organization [facility] [place] [address] Care Team Providers Name Role Phone Nicole Pickens MD Primary Care Provider Encounter Details Date Type Department Care Team Description 11/04/2016 Surgery [facility] ELECTROPHYSIOLOGY [facility] MD Margaret PROCEDURE [facility] [place] [address] CENTER [phone] [place] [address] Social History Tobacco Use Types Packs/Day Years Used Date Never Smoker Smokeless Tobacco: Never Used Alcohol Use Standard Drinks/Week Comments No 0 (1 standard drink = 0.6 oz pure alcoho l) Sex Assigned at Date Recorded Not on file documented as of this encounter Last Filed Vital Signs Vital Sign Reading Time Taken Comments Blood Pressure 107/56 11/04/2016 9:30 AM EST Pulse 71 11/04/2016 9:30 AM EST Temperature 36.3 ??C (97.3 ??F) 11/04/2016 6:39 AM EST Respiratory Rate 13 11/04/2016 9:30 AM EST Oxygen Saturation 95% 11/04/2016 9:30 AM EST Inhaled Oxygen Concentration - - Weight 118.4 kg (261 lb) 11/04/2016 6:39 AM EST Height 166.4 cm (5' 5.5) 11/04/2016 6:39 AM EST Body Mass Index 42.77 11/04/2016 6:39 AM EST documented in this encounter Discharge Instructions Discharge InstructionsYeni Grubbs RN - 11/04/2016 11:57 AM EST WOUND CARE FOR PATIENTS WITH PACEMAKERS AND ICD DEVICES Your wound will usually heal in 7-10 days. Your wound may be tender, it may appear slightly red and bumpy and there may be dry, crusty scabbing. These are all normal. Follow the instructions that follow to care for your wound. - Either you or someone with you needs to look at the wound everyday. - Inspect the wound for signs of infection which can be drainage,swelling, warmth or increased pain or redness. - Notify your doctor if your temperature is 99 degrees or higher. - If you are concerned about an infection in your wound or if the edges of the wound separate, call your doctor. - A needle should not be put into the wound area because this can damage the pacemaker lead. You mayneed to remind your health care provider of this concern. - he sutures will dissolve on their own. - If steri-strips are used and do not come off on their own in 7-10 days, you may gently remove themin the shower while they are moist. Do not force the steri-strips off. - Do not scratch or rub the wound - Do not apply any creams, lotions or ointments on the wound until it is completely healed. - If you have a special dressing on the wound (Mepilex or Acticoat), this should stay in place for 1week (if the dressing falls off before then, you should not worry). You may cover the wound with gauze if it rubs on clothing and causes you discomfort, but please change the gauze daily. - Do not shower for 48 hours after implant. - While in the shower, turn your back to the water nozzle so you avoid direct water pressure on the wound. You should continue this for 7-10 days. - You may take a tub bath, but keep the wound above the water level in the tub until the scab is gone. This usually takes 7-10 days. Avoid swimming until the same occurs. - If medical adhesive (glue) was used on the wound, do not wash the wound with soap for 7 days. How to Care for Your Wound After It's Treated With DERMABOND Topical Skin Adhesive DERMABOND Topical skin adhesive (2-octyl cyanoacrylate) is a sterile,liquid skin adhesive that holdswound edges together. The film will usually remain in place for 5-10 days, then naturally sloughs (fall) off your skin. The following will answer some of your questions and provide instructions for proper care for your wound while it is healing: CHECK WOUND APPEARANCE - Some swelling, redness and pain are common with all wounds and normally will go away as the wound heals. If swelling, redness or pain increases or if the wound feels warm to touch, contact a doctor. Also contact a doctor if the wound edges reopen or separate. BANDAGING - If your wound is bandaged , keep the bandage dry. - Replace the dressing daily until the adhesive film has fallen off or if the bandage should become wet, unless otherwise instructed by your physician. - When changing the dressing, do not place tape directly over the DERMABOND adhesive film, because removing the tape later may also remove the film. AVOID TOPICAL MEDICATIONS - Do not apply any liquid or ointment medications or any other product to your wound while the DERMABOND adhesive film is in place. These may loosen the film before your wound is healed. KEEP WOUND DRY AND PROTECTED - You may occasionally and briefly wet your wound in the shower or bath. Do not soak or scrub your wound, do not swim, and avoid periods of heavy perspiration until the DERMABOND adhesive has naturallyfallen off. After showering or bathing gently blot your wound dry with a soft towel. If a protectivedressing is being used, apply a fresh, dry bandage, being sure to keep the tape off the DERMABOND adhesive film. - Apply a clean, dry bandage over the wound if necessary to protect it. - Protect your wound from injury until the skin has had sufficient time to heal. - Do not scratch, rub or pick at the DERMABOND adhesive film. This may loosen the film before your wound is healed. - Protect the wound from prolonged exposure to sunlight or tanning lamps while the DERMABOND adhesive film is in place. If you have any questions or concerns about this product, please consult your doctor. DERMABOND How to care for your wound after it's treated with Dermabond topical skin adhesive Dermabond topical skin adhesive is a sterile, liquid skin adhesive that holds wound edges together. The film will usually remain in place for 5-10 days, then naturally fall off your skin. The following will answer some of your questions and provide instructions for proper care for your wound while it is healing: CHECK WOUND APPEARANCE -Some swelling, redness, and pain are common with all wounds and normally will go away as the wound heals. If swelling, redness, or pain increases or if the wound feels warm to touch, contact a doctor.Also contact a doctor is the wound edges reopen or separate. REPLACE BANDAGES -If your wound is bandaged, keep the bandage dry. -Replace the dressing daily until the adhesive film has fallen off or if the bandage should become wet, unless otherwise instructed by your physician. -When changing the dressing, do not place tape directly over the Dermabond adhesive film, because removing the tape later may also remove the film. AVOID TOPICAL MEDICATIONS -Do not apply liquid or ointment medications or any other products to your wound while the Dermabondadhesive film is in place. These may loosen the film before your wound is healed. KEEP WOUND DRY AND PROTECTED -You may occasionally and briefly wet your wound in the shower or bath. Do not soak or scrub your wound, do not swim, and avoid periods of heavy perspiration until Dermabond adhesive has naturally fallen off. After showering or bathing, gently blot your wound dry with a soft towel. If a protective dressing is being used, apply fresh, dry bandage, being sure to keep the tape off the dermabond adhesivefilm. -Apply a clean, dry bandage over the wound if necessary to protect it. -Protect your wound from injury until the skin has had time to heal. -Do not scratch, rub, or pick at the Dermabond adhesive film. This may loosen the film before your wound is healed. -Protect the wound from prolonged sunlight or tanning lamps while the film is in place. -If you have any questions or concerns about this product, please consult your doctor. 1. You have received medication before and/or during your procedure, which affects judgment and reaction time. 2. Do not drive, operate machinery, drink alchololic beverages, or make important decisions for 24 hours. 3. Be careful on stairs, as you may be unsteady on your feet. 4. You may eat a regular diet as tolerated. 5. Do not smoke if you are alone. 6. IV site- slight redness or tenderness is normal, you can use warm compresses. If tenderness and redness increases or foul drainage occours, please contact your M.D. Patient InstructionsArmani Juares MD - 11/04/2016 11:37 AM EST Mepilex dressing stays on a week. You may shower tomorrow as dressing is waterproof. Do not submerge the incision for 2 weeks (no baths, hot tubs, or swimming for 2 weeks). When Mepilex dressing is removed in a week, wash gently with soap and water daily over the incision.The medical adhesive over the incision will gradually wear away. If there are any concerns about wound infection or appearance, please call [phone] and ask for an appointment the same day. Otherwise, we'll see you back in clinic in 10 days. documented in this encounter Medications at Time of Discharge Medication Sig Dispensed Refills Start Date End Date carvedilol (COREG) 25 Take 25 mg by mouth 2 0 mg Tablet times daily (with meals). metFORMIN (GLUCOPHAGE) Take by mouth. 1000mg 0 1,000 mg Tablet in AM 1500mg in PM spironolactone Take 50 mg by mouth 0 (ALDACTONE) 50 mg daily. Tablet levothyroxine Take 150 mcg by mouth 0 (SYNTHROID) 150 mcg daily. tablet aspirin 81 mg chewable Take 81 mg by mouth 0 tablet daily. CALCIUM Take 2 tablets by 0 CARBONATE/VITAMIN D3 mouth daily. (CALCIUM 600 + D,3, ORAL) losartan (COZAAR) 50 mg Take 50 mg by mouth 0 tablet daily. chlorhexidine Apply topically daily 120 mL 0 10/29/2016 11/21/2016 (HIBICLENS) 4 % as needed. LiquidIndications: Shower/bathe from head Cardiomyopathy, to toe with unspecified type Chlorhexidine the night before the procedure and the morning of the procedure. . glipiZIDE (GLUCOTROL Take 5 mg by mouth 0 04/02/2018 XL) 5 mg Tablet daily. Extended Rel 24 hr GLUCOSAMINE HCL/CHONDRO 0 09/07/2010 0 11/21/2016 RODRIGUEZ A (GLUCOSAMINE-CHONDROITI N ORAL) documented as of this encounter H&P Notes [facility] MD - 11/04/2016 8:22 AM EST Patient Name: Ana Victoria Patient Age: 70 y.o. Birthdate: 1945 Admit date: 11/04/2016 Attending Physician: [facility] MD The patient's history and physical exam have been reviewed and completed. There has been no intervalchange from that of the pre-operative history and physical exam done within the last 30 days. [facility] MD - 11/04/2016 8:14 AM EST Patient Name: Ana Victoria Patient Age: 70 y.o. Birthdate: 1945 Admit date: 11/04/2016 Attending Physician: [facility] MD Patient Active Problem List Diagnosis ??? Diabetes mellitus ??? Heart failure- chronic systolic dysfunction Overview Note: Well compensated and euvolemic NSR with LBBB, s/p FOAM CUTTING SUPERVISOR-D 04/11/11 AHA./ACC Stage C, NYHA FTC II Heart Failure Management: Yes/No No?/Discontinued/Why Beta tone Yes MILADYS/ARB Yes Spironolactone yes AFIB? no Anticoagulated n/a Device yes FOAM CUTTING SUPERVISOR-D 04/11/11 ??? Obesity Overview Note: BMI=43 ??? LBBB (left bundle branch block) Overview Note: Chronic Widened QRS S/p FOAM CUTTING SUPERVISOR-D ??? Depression ??? History of DVT (deep vein thrombosis) Overview Note: a. #1 peripartum 1979, short-term anticoagulation. b. #2 postop ORIF left ankle in 1997, long-term anticoagulation begun. c. Unknown if prior coagulopathy work-up. ??? Hypertension Overview Note: Well controlled ??? Hypothyroidism Overview Note: On synthroid replacement ??? Idiopathic cardiomyopathy Overview Note: severe LV systolic dysfunction Echo 07/03/04 ([facility]): LVEF 18%. Severe diffuse global HK, LV apex dyskinetic with sessile mural thrombus. 3-4+ MR. LAE. RV normal. Mildly elevated PAP (44mmHg). Echo EF= 20-25% 11/15/04 Echo EF= 25% 08/26/05 Echo EF= 40% 07/17/06 Echo EF= 30% 01/26/08 .br Echo EF= 30% 07/21/08 Echo EF= 30% 02/10 Echo EF= 50-55% 02/02/13 (s/p FOAM CUTTING SUPERVISOR) Echo EF= 60-65% 02/15/14 ??? LV (left ventricular) mural thrombus Overview Note: ??? Obstructive sleep apnea Overview Note: uses CPAP ??? Osteoarthritis Overview Note: Ana is a 70 year old woman, seen with her Ulises, for FOAM CUTTING SUPERVISOR-D pulse generator replacement. No complaints this AM. Class II MCCOY (obese). No PND, CP, syncope, ICD shocks. See Dar Simeon's 10/03/16 OPD--no changes. No current facility-administered medications on file prior to encounter. Current Outpatient Prescriptions on File Prior to Encounter Medication Sig Dispense Refill ??? carvedilol (COREG) 25 mg Tablet Take 25 mg by mouth 2 times daily (with meals). ??? levothyroxine (SYNTHROID) 150 mcg tablet Take 150 mcg by mouth daily. ??? aspirin 81 mg chewable tablet Take 81 mg by mouth daily. ??? chlorhexidine (HIBICLENS) 4 % Liquid Apply topically daily as needed. Shower/bathe from head to toe with Chlorhexidine the night before the procedure and the morning of the procedure. . 120 mL 0 ??? glipiZIDE (GLUCOTROL XL) 5 mg Tablet Extended Rel 24 hr Take 5 mg by mouth daily. ??? metFORMIN (GLUCOPHAGE) 1,000 mg Tablet Take 1,000 mg by mouth 2 times daily (with meals). 1000mgin AM 1500mg in PM ??? spironolactone (ALDACTONE) 50 mg Tablet Take 50 mg by mouth daily. ??? CALCIUM CARBONATE/VITAMIN D3 (CALCIUM 600 + D,3, ORAL) Take 2 tablets by mouth daily. ??? losartan (COZAAR) 50 mg tablet Take 50 mg by mouth daily. ??? GLUCOSAMINE HCL/CHONDRO RODRIGUEZ A (GLUCOSAMINE-CHONDROITIN ORAL) (Patient taking differently: 2 tablets daily) Took ASA this AM. No metformin since 11/02/16 PM. Blood pressure 126/67, pulse 75, temperature 36.3 ??C (97.3 ??F), temperature source Temporal, resp.rate 16, height 166.4 cm (5' 5.5), weight (!) 118.4 kg (261 lb), SpO2 97 %. The patient is oriented to person, place, and time, and in no acute distress. The lungs are clear. The neck veins are flat in the upright position. Left ICD pocket is well healed. The cardiac rhythm isregular, with no murmurs or gallops in the upright position. There is no peripheral edema. Recent Results (from the past 24 hour(s)) Prothrombin Time Result Value Ref Range PT 13.4 12.0 - 15.0 sec INR 1.0 0.9 - 1.1 BMP w/fasting Glucose Result Value Ref Range Glucose Fasting 301 (H) 65 - 99 mg/dL BUN 16 8 - 18 mg/dL Creatinine 0.99 0.70 - 1.20 mg/dL Sodium 138 135 - 145 mmol/L Potassium 4.6 3.5 - 5.0 mmol/L Chloride 98 98 - 107 mmol/L CO2 29 22 - 31 mmol/L Anion Gap 11 5 - 15 mmol/L Calcium 9.2 8.5 - 10.5 mg/dL Estimated GFR 56 (L) >=60 Hemogram Result Value Ref Range WBC 8.1 4.0 - 9.5 x10(3)/mcL RBC 4.21 4.00 - 5.21 x10(6)/mcL Hemoglobin 12.5 11.7 - 15.5 gm/dL Hematocrit 37.8 35.7 - 45.8 % MCV 89.8 82.6 - 94.4 fL MCH 29.7 27.1 - 32.0 pg MCHC 33.1 31.7 - 35.0 gm/dL Platelets 243 145 - 357 x10(3)/mcL RDWSD 44.8 37.0 - 46.0 fL RDWCV 13.6 11.5 - 14.1 % MPV 10.1 7.6 - 12.9 fL nRBC % Auto 0.0 % nRBC Abs Auto 0.000 0.000 - 0.000 x10(3)/mcL Differential, Automated Result Value Ref Range Neutrophils % 61.2 % Neutr Abs (ANC) 4.98 1.70 - 6.10 x10(3)/mcL Lymphocytes % 27.6 % Lymphocytes Abs 2.2 0.9 - 3.2 x10(3)/mcL Monocytes % 6.4 % Monocyte Abs 0.5 0.3 - 0.9 x10(3)/mcL Eosinophils % 3.7 % Eosinophils Abs 0.3 0.0 - 0.4 x10(3)/mcL Basophils % 0.7 % Basophils Abs 0.1 0.0 - 0.1 x10(3)/mcL Immature Gran % 0.40 % Zainab Gran Abs 0.03 0.00 - 0.04 x10(3)/mcL POCT Glucose Result Value Ref Range POC Glucose 271 (H) 65 - 199 mg/dL Impression/Plan: FOAM CUTTING SUPERVISOR-D pulse generator replacement. If lead bad, she'd consider lead extraction in [place] or new lead insertion, depending on my discretion and vein patency. documented in this encounter Plan of Treatment Upcoming Encounters Date Type Specialty Care Team Description 04/16/2022 Appointment Cardiology Vivi Lorenz APRN [facility] CARDIOLOGY DEPT. [place], [place] [address] (Wo latrice) 04/16/2022 Laboratory Appointment Lab 04/16/2022 Office Visit Cardiology Vivi Lorenz APRN [facility] CARDIOLOGY DEPT. [place], [place] [address] (Wo latrice) Scheduled Orders Name Type Priority Associated Diagnoses Order S chedule REM & REPL PACING Procedures Routine Cardiomyopathy, One Bart e for 1 CARDIOVERT-DEFIB unspecified type Occurre nces starting GEN; MULTI LEAD SYS 11/05/19 17 until 11/04/2016 documented as of this encounter Procedures Procedure Name Priority Date/Time Associated Diagnosis Comme nts POCT GLUCOSE Routine 11/04/2016 11:49 Results for this AM EST procedure are i n the results section. EKG 12-LEAD Routine 11/04/2016 7:06 AM Cardiomyopathy, Result s for this EST unspecified type procedure a re in the results section. POCT GLUCOSE Routine 11/04/2016 6:47 AM Results f or this EST procedure are i n the results section. BMP W/FASTING STAT 11/04/2016 6:36 AM Cardiomyopathy, Resul ts for this GLUCOSE EST unspecified type procedure a re in the results section. HEMOGRAM STAT 11/04/2016 6:36 AM Cardiomyopathy, Result s for this EST unspecified type procedure a re in the results section. DIFFERENTIAL, STAT 11/04/2016 6:36 AM Cardiomyopathy, Resul ts for this AUTOMATED EST unspecified type procedure a re in the results section. PROTHROMBIN TIME STAT 11/04/2016 6:36 AM Cardiomyopathy, Re sults for this EST unspecified type procedure a re in the results section. CBC (WITH DIFF) STAT 11/04/2016 6:36 AM Cardiomyopathy, EST unspecified type documented in this encounter Results (ABNORMAL) POCT Glucose (11/04/2016 11:49 AM EST) P athologist Signature POC Glucose 213 (H) 65 - 199 [facility] mg/dL [facility] Comment: Supplemental ranges: <140 mg/dL before meals <180 mg/dL all other times of the day Specimen Anatomical Collection Method Collection Time Receive d Time (Source) Location / / Volume Laterality Blood specimen 11/04/2016 11:49 7 (specimen) AM EST 11:49 AM EST [facility] MD POINT OF CARE TEST ORDERABLE S Performing Organization Address City/State/Z[place] [address] EKG 12 Lead (11/04/2016 7:06 AM EST) Component Value Ref Range Test Analysis Performed Pathologis t Method Time At Signature Ventricular rate 71 BPM MUSE SYSTEM Atrial Rate 71 BPM MUSE SYSTEM P-R Interval 84 ms MUSE SYSTEM QRS Duration 196 ms MUSE SYSTEM Q-T Interval 504 ms MUSE SYSTEM QTC Calculated 547 ms MUSE SYSTEM (Bezet) Calculated P [place] 73 degrees MUSE SYSTEM Calculated R [place] 111 degrees MUSE SYSTEM Calculated T [place] 66 degrees MUSE SYSTEM INTERPRETATION Biventricular pacemaker detected MUSE SYSTEM Sinus rhythm Abnormal ECG When compared with ECG of 12-FEB-2005 15:00, Biventricular pacing is new. Confirmed by MD Geovanny, Kosta Akhtar ([id number]) on 11/04/2016 4: 27:17 PM Specimen Anatomical Collection Method Collection Time Receive d Time (Source) Location / / Volume Laterality 11/04/2016 7:06 AM 7 4:27 EST PM EST Massimo Ponce MD ECG ORDERABLES Performing Organization Address City/State/ZIP Code Phon e Number MUSE SYSTEM (ABNORMAL) POCT Glucose (11/04/2016 6:47 AM EST) athologist Signature POC Glucose 271 (H) 65 - 199 [facility] mg/dL [facility] Comment: Supplemental ranges: <140 mg/dL before meals <180 mg/dL all other times of the day Specimen Anatomical Collection Method Collection Time Receive d Time (Source) Location / / Volume Laterality Blood specimen 11/04/2016 6:47 AM 017 6:47 (specimen) EST AM EST [facility] MD POINT OF CARE TEST ORDERABLE S Performing Organization Address City/State/[place] [address] Differential, Automated (11/04/2016 6:36 AM EST) athologist Signature Neutrophils % 61.2 % [facility] Neutr Abs (ANC) 4.98 1.70 - [facility] 6.10 [facility] x10(3)/[facility] LABORATORY Lymphocytes % 27.6 % [facility] Lymphocytes Abs 2.2 0.9 - 3.2 [facility] x10(3)/[facility] LABORATORY Monocytes % 6.4 % [facility] Monocyte Abs 0.5 0.3 - 0.9 [facility] x10(3)/[facility] LABORATORY Eosinophils % 3.7 % [facility] Eosinophils Abs 0.3 0.0 - 0.4 [facility] x10(3)/[facility] LABORATORY Basophils % 0.7 % [facility] Basophils Abs 0.1 0.0 - 0.1 [facility] x10(3)/[facility] LABORATORY Immature Gran % 0.40 % [facility] Comment: Immature granulocytes(IG's)percentage an d absolute count will include metamyelocytes, myelocytes, and promyelo cytes. Blood smears from CBCs yielding IG's will be scanned manually for concor dance. If this scan disagrees with the automated IG or if promyelocytes are not ed, a manual differential will be performed. Zainab Gran Abs 0.03 0.00 - 0.04 x10(3)/[facility]ATORY Specimen Anatomical Collection Method Collection Time Receive d Time (Source) Location / / Volume Laterality Blood specimen 11/04/2016 6:36 AM 017 6:40 (specimen) EST AM EST Resulting Agency Comment Spec In Lab Massimo Ponce MD HEMATOLOGY ORDERABLES Performing Organization Address City/State/Z[place] [address] Hemogram (11/04/2016 6:36 AM EST) P athologist Signature WBC 8.1 4.0 - 9.5 [facility] x10(3)/[facility] LABORATORY RBC 4.21 4.00 - [facility] 5.21 [facility] x10(6)/[facility] Hemoglobin 12.5 11.7 - [facility] 15.5 gm/dL [facility] Hematocrit 37.8 35.7 - [facility] 45.8 % [facility] MCV 89.8 82.6 - [facility] 94.4 [facility] LABORATORY MCH 29.7 27.1 - [facility] J[facility] 32.0 pg [facility] MCHC 33.1 31.7 - [facility] 35.0 gm/dL [facility] Platelets 243 145 - 357 [facility] x10(3)/[facility] RDWSD 44.8 37.0 - [facility] 46.0 [facility] RDWCV 13.6 11.5 - [facility] 14.1 % [facility] MPV 10.1 7.6 - 12.9 [facility] LABORATORY nRBC % Auto 0.0 % [facility] nRBC Abs Auto 0.000 0.000 - [facility] 0.000 [facility] x10(3)/[facility] LABORATORY Specimen Anatomical Collection Method Collection Time Receive d Time (Source) Location / / Volume Laterality Blood specimen 11/04/2016 6:36 AM 017 6:40 (specimen) EST AM EST Resulting Agency Comment Spec In Lab Massimo Ponce MD HEMATOLOGY ORDERABLES Performing Organization Address City/State/Z[place] [address] (ABNORMAL) BMP w/fasting Glucose (11/04/2016 6:36 AM EST) athologist Signature Glucose 301 (H) 65 - 99 [facility] Fasting mg/dL [facility] Comment: ?Fasting* Glucose Interpretive C riteria Normal ?65-99 mg/dL Impaired Fasting glucose ?100-125 mg/dL Consistent with Diabetes Mellitus ? >or= 126 mg/dL *Fasting is defined as no caloric intake for at least 8 hours In the absence of unequivocal hypergly cemia a plasma glucose value of >or= 126 mg/dL should be repeated on a subseq uent day. Diagnosis and Classification of Diabetes Mellitus, Position Statement from the [place] [employer]. ??Diabete s Care, Volume 33, Supplement 1, Sep 2009 BUN 16 8 - 18 mg/dL [facility] Creatinine 0.99 0.70 - 1.20 mg/dL [facility] Comment: Please note that the pediatric reference intervals supplied above were not validated at [employer] [facility]. Results from pediatri c patients should be interpreted in conjunction to the patient's age, height and muscle mass. Sodium 138 135 - 145 mmol/L [facility] Potassium 4.6 3.5 - 5.0 mmol/L [facility] Comment: Please note: ??Patients with WBC >100,00 0 may have falsely elevated Potassium levels. ??For accurate Potassium quantif ication in these patients send serum separator tube (gold top) for subsequent determinations. ??Contact the Clinical Chemistry Laboratory if there are any qu estions. Chloride 98 98 - 107 mmol/L [facility] CO2 29 22 - 31 mmol/L [facility] Anion Gap 11 5 - 15 mmol/L [facility] Calcium 9.2 8.5 - 10.5 mg/dL [facility] Estimated GFR 56 (L) >=60 [facility] Comment: This estimated GFR (eGFR) [...] the following links into your internet browser. [email or web address] Specimen Anatomical Collection Method Collection Time Receive d Time (Source) Location / / Volume Laterality Blood specimen 11/04/2016 6:36 AM 017 6:40 (specimen) EST AM EST Resulting Agency Comment Spec In Lab Massimo Ponce MD CHEMISTRY ORDERABLES Performing Organization Address City/State/[place] [address] Prothrombin Time (11/04/2016 6:36 AM EST) P athologist Signature PT 13.4 12.0 - 15.0 [facility] Comment: An INR <2.0 indicates adequate procoagul ant activity for hemostasis in most patients without underlying bleeding dis orders, though the INR may not adequately reflect hemostatic capacity i n patients with liver disease and synthetic impairment. The recommended ta rget INR range for therapeutic anticoagulation is 2.0 ? 3.0 for most applications, though lower and higher ranges may be appropriate depending on c linical circumstances. INR 1.0 0.9 - 1.1 [facility] Specimen Anatomical Collection Method Collection Time Receive d Time (Source) Location / / Volume Laterality Blood specimen 11/04/2016 6:36 AM 017 6:40 (specimen) EST AM EST Resulting Agency Comment Spec In Lab Massimo Ponce MD HEMATOLOGY ORDERABLES Performing Organization Address City/State/[place] [address] documented in this encounter Visit Diagnoses Diagnosis Cardiomyopathy, unspecified type Diabetes mellitus Type II or unspecified type diabetes vince litus without mention of complication, not stated as uncontrolled Cardiomyopathy, unspecified type documented in this encounter Administered Medications Inactive Administered Medications - up to 3 most recent administrations Medication Order MAR Action Action Date Dose Rate Site BUpivacaine (PF) (MARCAINE) 0.5 % Given 11/04/2016 9:56 AM EST 1 50 mg (5 mg/mL) injection 150 mg 150 mg (30 mL), Subcutaneous, ONCE, 1 dose, On Fri11/04/16 at 0800, EP (Intra-Procedure), Routine ceFAZolin (ANCEF) 2g in dextrose 5% 50 Given 11/04/2016 9:22 AM EST 2 g 100 mL/hr mL 2 g, Intravenous, ONCE, 1 dose, On Fri11/04/16 at 0715, Administer over 30 Minutes, Redose every 3 hours if CrCl is greater than 20. Redose every 8 hours if CrCl is less than 20., Day of Surgery (Day of Procedure), Indication for (Active or Suspected): Prophylaxis dextrose 50% injection 25-50 mL 25-50 mL (12.5-25 g), Intravenous, EVERY 1 HOUR PRN, S tarting on Fri11/04/16 at 0858, Until Fri11/04/16 at 1446, Low bloo d sugar, For BG 50-70: 120 mL Juice or Regular (not diet) soda OR 12.5 gram (25 mL) Dextrose 50% IV OR, if no IV access, 1 mg Glucagon IM. Recheck BG in 30 minut es. May repeat juice, dextrose or glucagon once per episode For BG less than 50: 240 mL Juice or Regular (not diet) soda OR 25 grams (50 mL) Dextrose 50% IV OR, if no IV access, 1 mg Glucagon IM. Recheck BG in 30 minutes. May repeat juice, dext lili, or glucagon once per episode. To avoid extravasation, push Dextrose 50% SLOWLY (3 mL ov er 1 minute) in a patent, running IV, preferably a central line. For persisten t hypoglycemia, consider longer-acting treatment for the duration of the active insulin., Routine fentaNYL 50mcg/mL injection Given 11/04/2016 10:10 AM EST 25 mcg 25-50 mcg, Intravenous, EVERY 5 MIN PRN, Starting on Fri11/04/16 at 0736, Until Fri11/04/16 at 1102, Pain, As needed to induce or maintain moderate sedation per [employer] Moderate Sedation Policy for the duration of the EP procedure., As needed to induce or maintain moderate sedation per [employer] Moderate Sedation Policy for the duration of the EP procedure. For use in the electrophysiology lab (EP lab) only for procedural sedation with direct provider supervision and verbal order. RASS goal (-)2 to (-)3. Start at 25 mcg, Dose not to exceed 50 mcg/dose, 250 mcg/hr, or 20 mcg/kg per case., EP (Intra-Procedure), Routine Given 11/04/2016 10:04 AM EST 25 mcg Given 11/04/2016 9:52 AM EST 25 mcg glucagon (human recombinant) injection S olR 1 mg 1 mg, Intramuscular, EVERY 1 HOUR PRN, S tarting on Fri11/04/16 at 0858, Until Fri11/04/16 at 1446, Low blood sugar, For B G 50-70: 120 mL Juice or Regular (not diet) soda OR 12.5 gram (25 mL) Dextrose 50% I V OR, if no IV access, 1 mg Glucagon IM. Recheck BG in 30 minutes. May repeat j uice, dextrose or glucagon once per episode For BG less than 50: 240 mL Juice or R egular (not diet) soda OR 25 grams (50 mL) Dextrose 50% IV OR, if no IV access, 1 m g Glucagon IM. Recheck BG in 30 minutes. May repeat juice, dextrose, or glucagon once per episode. To avoid extravasation, push Dextrose 50% SLOWLY (3 mL over 1 mi nute) in a patent, running IV, preferably a central line. For persistent hypoglyce steve, consider longer-acting treatment for the duration of the active insulin. , Routine insulin lispro (humaLOG) VIAL injection 5 Given 11/04/2016 9:25 AM EST 5 Units Units 5 Units, Subcutaneous, ONCE, 1 dose, On Fri11/04/16 at 0915, STAT lidocaine (XYLOCAINE) 10 mg/mL (1 %) inj ection 3 mg 3 mg (0.3 mL), Subcutaneous, ONCE PRN, 1 dose, Startin g on Fri11/04/16 at 0647, Until Fri11/04/16 at 1446, for discomfort with PIV insertion, Day of Surgery (Day of Procedure), Routine lidocaine (XYLOCAINE) 20 mg/mL (2 %) Given 11/04/2016 9:56 AM ES T 400 mg injection 400 mg 400 mg (20 mL), Subcutaneous, ONCE, 1 dose, On Fri11/04/16 at 0800, EP (Intra-Procedure), Routine midazolam (PF) (VERSED) 1 mg/mL injection Given 11/04/2016 10:37 AM EST 0.5 mg 0.5-1 mg 0.5-1 mg, Intravenous, EVERY 5 MIN PRN, Starting on Fri11/04/16 at 0736, Until Fri11/04/16 at 1102, Anxiety, As needed to induce or maintain moderate sedation per [employer] Moderate Sedation Policy for the duration of the EP procedure., As needed to induce or maintain moderate sedation per [employer] Moderate Sedation Policy for the duration of the EP procedure. For use in the electrophysiology lab (EP lab) only for procedural sedation with direct provider supervision and verbal order. RASS goal (-)2 to (-)3. Dose not to exceed 1 mg per dose, 5mg/hour, or 0.2mg/kg per case., EP (Intra-Procedure), Routine Given 11/04/2016 10:10 AM EST 0.5 mg Given 11/04/2016 10:05 AM EST 1 mg neomycin-polymyxin B (NEOSPORIN) irrigation Given 11/04/2016 10: 00 AM EST solution Irrigation, ONCE, On Fri11/04/16 at 0800, 1 dose, EP (Intra-Procedure) sodium chloride 0.9 % flush 5 mL Given 11/04/2016 9:30 AM EST 5 mLs 5 mL, Intravenous, EVERY 12 HOURS, First dose on Fri11/04/16 at 0715, Until Discontinued, Day of Surgery (Day of Procedure), Routine sodium chloride 0.9 % flush 5-20 mL 5-20 mL, Intravenous, EVERY 1 MIN PRN, S tarting on Fri11/04/16 at 0647, Until Fri11/04/16 at 1446, flush, Flush pertains to all indwelling lines. Flush per protocol found in the job aid using the link provided on this m edication record., Day of Surgery (Day of Procedure), Routine sodium chloride 0.9% infusion New Bag 11/04/2016 7:37 AM EST 75 mL/hr 75 mL/hr 75 mL/hr, Intravenous, CONTINUOUS, Starting on Fri11/04/16 at 0715, Until Fri11/04/16 at 1446, Day of Surgery (Day of Procedure) documented in this encounter Active and Recently Administered Medications Times are shown in EST. Scheduled Medication Order 11/02/2016 11/03/2016 11/04/2016 BUpivacaine (PF) (MARCAINE) 0.5 % (5 mg/mL) injection 150 mg (CO MPLETED) 09 (Given - Provider: Eve Gonzalez RN) 150 mg (30 mL), Subcutaneous, ONCE, 1 do se, Fri11/04/16 at 0800, EP (Intra- Procedure), Routine ceFAZolin (ANCEF) 2g in dextrose 5% 50 mL (COMPLETED) 921 (Given - Provider: Eve Gonzalez RN) 2 g, Intravenous, ONCE, 1 dose, Fri at 0715, Administer over 30 Minutes, Redose every 3 hours if CrCl is greater than 20. Redose every 8 hours if CrCl is less than 20., Day of Surgery (Day of Pro cedure), Indication for (Active or Suspected): Prophylaxis insulin lispro (humaLOG) VIAL injection 5 Units (COMPLETED) 0925 (Given - Provider: Eve Gonzalez RN) 5 Units, Subcutaneous, ONCE, 1 dose, Fri11/04/16 at 0915, STAT lidocaine (XYLOCAINE) 20 mg/mL (2 %) injection 400 mg (COMPLETED ) 955 (Given - Provider: Eve Gonzalez RN) 400 mg (20 mL), Subcutaneous, ONCE, 1 do se, Fri11/04/16 at 0800, EP (Intra- Procedure), Routine neomycin-polymyxin B (NEOSPORIN) irrigation solution (COMPLETED) 1000 (Given - Provider: Eve Gonzalez RN) Irrigation, ONCE, Fri11/04/16 at 0800, For 1 dose, EP (Intra-Proc edure) sodium chloride 0.9 % flush 5 mL 0930 (Given - Provider: Eve Gonzalez RN) 5 mL, Intravenous, EVERY 12 HOURS, First dose on Fri11/04/16 at 0715, Until Discontinued, Day of Surgery (Day of Procedure), Routine Continuous Medication Order 11/02/2016 11/03/2016 11/04/2016 sodium chloride 0.9% infusion 07 37 (New Bag - Provider: Lucita Chong RN) 75 mL/hr, at 75 mL/hr, Intravenous, CONT INUOUS, Starting Fri11/04/16 at 0715, Until Fri11/04/16 at 1446, Day of Surgery (Day of Procedure) PRN Medication Order 11/02/2016 11/03/2016 11/04/2016 dextrose 50% injection 25-50 mL(Linked Group 1) 25-50 mL (12.5-25 g), Intravenous, EVERY 1 HOUR PRN, Starting Fri11/04/16 at 0858, Until Fri11/04/16 at 1446, Low blood sugar, For BG 50-70: 120 mL Juice or Regular (not diet) soda OR 12.5 gram (25 mL) Dextrose 50% IV OR, if no IV access, 1 m g Glucagon IM. Recheck BG in 30 minutes. May repeat juice, dextrose or glucagon once per episode For BG less than 50: 240 mL Juice or Regular (not diet) soda OR 25 grams (50 mL) Dextrose 50% IV OR, if no IV access, 1 mg Glucagon IM. Recheck BG in 30 minutes. May repeat juice, dextrose, or glucagon once per episode. To avoid extravasation, push Dextrose 5 0% SLOWLY (3 mL over 1 minute) in a luciano nt, running IV, preferably a central line. For persistent hypoglycemia, consider longer-acting treatment for the duration of the active insulin., Routine fentaNYL 50mcg/mL injection (CANCELED) 0936 (Given - Provider: Eve Gonzalez, RN)0952 (Given - Provider: Eve Gonzalez, RN)1004 (Given - Provider: Eve Gonzalez RN)1010 (Given - Provider: Eve Gonzalez RN) 25-50 mcg, Intravenous, EVERY 5 MIN PRN, Starting Fri11/04/16 at 0736, Until Fri11/04/16 at 1102, Pain, As needed to induce or maintain moderate sedation per [employer] [facility] Moderate Sedation Policy for the duration of the EP procedure., As needed to rosana ce or maintain moderate sedation per [employer] [facility] Moderate Sedation Policy for the duration of the EP procedure. For use in the electrophysiology lab (EP lab) only for pr ocedural sedation with direct provider s upervision and verbal order. RASS goal (-)2 to (-)3. Start at 25 mcg, Dose not to exceed 50 mcg/dose, 250 mcg/hr, or 20 mcg/kg per case., EP (Intra-Procedure), Routine glucagon (human recombinant) injection SolR 1 mg(Linked Group 1) 1 mg, Intramuscular, EVERY 1 HOUR PRN, S tarting Fri11/04/16 at 0858, Until Fri11/04/16 at 1446, Low blood sugar, For BG 50-70: 120 mL Juice or Regular (not diet) soda OR 12.5 gram (25 mL) Dextrose 50% I V OR, if no IV access, 1 mg Glucagon IM. Recheck BG in 30 minutes. May repeat juice, dextrose or glucagon once per episode For BG less than 50: 240 mL Juice or Regular (not diet) soda OR 25 grams (5 0 mL) Dextrose 50% IV OR, if no IV acces s, 1 mg Glucagon IM. Recheck BG in 30 minutes. May repeat juice, dextrose, or glucagon once per episode. To avoid extravasation, push Dextrose 50% SLOWLY (3 m L over 1 minute) in a patent, running IV , preferably a central line. For persistent hypoglycemia, consider longer-acting treatment for the duration of the active insulin. , Routine lidocaine (XYLOCAINE) 10 mg/mL (1 %) injection 3 mg 3 mg (0.3 mL), Subcutaneous, ONCE PRN, 1 dose, Starting Fri11/04/16 at 0647, Until 11/04/16 at 1446, for discomfort with PIV insertion, Day of Surgery (Day of Procedure), Routine midazolam (PF) (VERSED) 1 mg/mL injection 0.5-1 mg (CANCELED) 0936 (Given - Provider: Eev Gonzalez, CHANCE)0950 (Given - Provider: Eve Gonzalez, RN)0956 (Given - Provider: Eve Gonazlez, RN)1005 (Given - Provider: Eve Gonzalez, RN)1010 (Given - Provider: vEe Gonzalez, RN) 0.5-1 mg, Intravenous, EVERY 5 MIN PRN, Starting Fri11/04/16 at 0736, Until 11/04/16 at 1102, Anxiety, As needed to induce or maintain moderate sedation per [employer] Moderate Sedation Policy for the durati 1037 (Given - Provider: Eve Gonzalez, CHANCE) on of the EP procedure., As needed to in duce or maintain moderate sedation per [employer] Moderate Sedation Policy for the duration of the EP procedure. For use in the electrophysiology lab (EP lab) only for procedural sedation with direct provider supervision and verbal order. RASS goal (-)2 to (-)3. Dose not to exceed 1 mg per dose, 5mg/hour, or 0.2mg/kg per case., EP (Intra-Procedure), Routine sodium chloride 0.9 % flush 5-20 mL 5-20 mL, Intravenous, EVERY 1 MIN PRN, S tarting Fri11/04/16 at 0647, Until Fri11/04/16 at 1446, flush, Flush pertains to all indwelling lines. Flush per protocol found in the job aid using the link provid ed on this medication record., Day of Surgery (Day of Procedure) , Routine Linked Groups Order Group 1: dextrose 50% injection 25-50 mLJump to med 25-50 mL (12.5-25 g), Intravenous, EVERY 1 HOUR PRN, Starting Fri11/04/16 at 0858, Until Fri11/04/16 at 1446, Low blood sugar
For BG 50- 70: 120 mL Juice or Regular (not diet) soda OR 12.5 gram (25 mL) Dextrose 50% IV OR, if no IV access, 1 mg Glucagon IM. Recheck BG in 30 minutes. May repeat juice, dextrose or glucagon once per episod e For BG less than 50: 240 mL Jui ce or Regular (not diet) soda OR 25 grams (50 mL) Dextrose 50% IV OR, if no IV access, 1 mg Glucagon IM. Recheck BG in 30 minutes. &nb sp;May repeat juice, dextrose, or glucag on once per episode. To avoid extravasation, push Dextrose 50% SLOWLY (3 mL over 1 minute) in a patent, running IV, preferably a central line.&nbsp ;For persistent hypoglycemia, consider longer-acting treatment for the duration of the active insulin.
Routine Or glucagon (human recombinant) injection SolR 1 mgJump to med 1 mg, Intramuscular, EVERY 1 HOUR PRN, S tarting Fri11/04/16 at 0858, Until Fri11/04/16 at 1446, Low blood sugar
For BG 50-70: 120 mL Juice or Regular (not diet) soda OR 12.5 gram (25 mL) Dextrose 50% IV OR, if no I V access, 1 mg Glucagon IM. Recheck BG in 30 minutes. May repeat juice, dextrose or glucagon once per episode F or BG less than 50: 240 mL Juice or Regu lar (not diet) soda OR 25 grams (50 mL) Dextrose 50% IV OR, if no IV access, 1 mg Glucagon IM. Recheck BG in 30 minutes. May repeat juice, dextrose, or glucagon once per ep isode. To avoid extravasation, push Dextrose 50% SLOWLY (3 mL over 1 minute) in a patent, running IV, preferably a central line. For persist ent hypoglycemia, consider longer-acting treatment for the duration of the active insulin.
Routine documented in this encounter Care Teams Medical Writer Relationship Specialty Start Date End Date Nicole Pickens MD PCP - General 08/17/[address] [place] [address] documented as of this encounter
--- OUTSIDE RECORDS SUMMARY | 2022-03-18 02:36 | XMS_ITS | Encounter Summary ---
:1945 Author Organization [facility] [place] [address] Care Team Providers Name Role Phone Nicole Pickens MD Primary Care Provider Encounter Details Date Type Department Care Team Description 09/18/2016 Office Visit Cardiology at [facility] Vivi Lorenz, Cardiomyopathy; [facility] WORKERS COMPENSATION ATTORNEY Heart failure, [place] [address] CARDIOLOGY DEPT. [phone] [place], [place] [address] Social History Tobacco Use Types Packs/Day Years Used Date Never Smoker Smokeless Tobacco: Never Used Alcohol Use Standard Drinks/Week Comments Not Asked 0 (1 standard drink = 0.6 oz pure alcoho l) Sex Assigned at Date Recorded Not on file documented as of this encounter Last Filed Vital Signs Vital Sign Reading Time Taken Comments Blood Pressure 122/66 09/18/2016 9:35 AM EST Pulse 66 09/18/2016 9:35 AM EST Temperature - - Respiratory Rate - - Oxygen Saturation 94% 09/18/2016 9:35 AM EST Inhaled Oxygen Concentration - - Weight 119.7 kg (264 lb) 09/18/2016 9:35 AM EST Height - - Body Mass Index 43.93 03/20/2016 9:42 AM EDT documented in this encounter Progress Notes Vivi Lorenz, WORKERS COMPENSATION ATTORNEY - 09/18/2016 9:30 AM EST Cardiomyopathy/Heart failure Clinic Follow up Visit. ID and CC: Ana Victoria is a 70 y.o. female presenting for f/u regarding nonischemic cardiomyopathy and HF. Last visit: 03/16 HPI: Nonischemic cardiomyopathy dxd in 2003 with LVEF as low as 18% and LBBB. LV recovery to 60-65% following CRTd placement in 2010. No HF hospitalizations Here for routine follow up Interim events: Stable from a CV standpoint. No interim illnesses or hospitalizations Weight is up a couple of pounds. Good energy. Sleeping well with CPAP. No medication issues. No CP, SOB at rest or with exertion. No orthopnea, PND, syncope.presyncope. She retired in August and hopes to be more active - she skiied for the first time in years earlierthis winter. Legs felt deconditioned, but otherwise felt great and had no limiting symptoms. No device issues. Seeing PCP in the next month - hgb A1c will be checked at that time. Patient Active Problem List Diagnosis ??? Heart failure- chronic systolic dysfunction Well compensated and euvolemic NSR with LBBB, s/p ELECTRONIC TRAIN CONTROL TECHNICIAN-D 04/11/11 AHA./ACC Stage C, NYHA FTC II Heart Failure Management: Yes/No No?/Discontinued/Why Beta tone Yes MILADYS/ARB Yes Spironolactone yes AFIB? no Anticoagulated n/a Device yes ELECTRONIC TRAIN CONTROL TECHNICIAN-D 04/11/11 ??? Obesity BMI=43 ??? LBBB (left bundle branch block) Chronic Widened QRS S/p ELECTRONIC TRAIN CONTROL TECHNICIAN-D ??? Depression ??? History of DVT (deep vein thrombosis) a. #1 peripartum 1979, short-term anticoagulation. b. #2 postop ORIF left ankle in 1997, long-term anticoagulation begun. c. Unknown if prior coagulopathy work-up. ??? Hypertension Well controlled ??? Hypothyroidism On synthroid replacement ??? Idiopathic cardiomyopathy severe LV systolic dysfunction Echo 07/03/04 ([facility]): LVEF 18%. Severe diffuse global HK, LV apex dyskinetic with sessile mural thrombus. 3-4+ MR. LAE. RV normal. Mildly elevated PAP (44mmHg). Echo EF= 20-25% 11/15/04 Echo EF= 25% 08/26/05 Echo EF= 40% 07/17/06 Echo EF= 30% 01/26/08 .br Echo EF= 30% 07/21/08 Echo EF= 30% 02/10 Echo EF= 50-55% 02/02/13 (s/p ELECTRONIC TRAIN CONTROL TECHNICIAN) Echo EF= 60-65% 02/15/14 ??? LV (left ventricular) mural thrombus ??? Obstructive sleep apnea uses CPAP ??? Osteoarthritis Current Outpatient Prescriptions Medication Sig Dispense Refill ??? glipiZIDE (GLUCOTROL XL) 5 mg Tablet [...] ORAL) (Patient taking differently: 2 tablets daily) Allergies: Review of patient's allergies indicates no known allergies. Interval ROS: See HPI above for pertinent positives and negatives. All other ROS negative by system (including general, HEENT, pulmonary, gastrointestinal, genitourinary, musculoskeletal, endocrine, hematologic, extremity, skin, neurology, and psychiatric) with exceptions below. Physical Exam: Blood pressure 122/66, pulse 66, weight (!) 119.7 kg (264 lb), SpO2 94 %. General: WD, WN, NAD HEENT: JVP 6-7 - alopecia Lungs: Clear to A+P Cor: RR, normal S1, S2. PMI not displaced. No murmur or gallop Abd: soft, no L/S/K enlargement or bruits Ext: Pulses preserved, no edema, cyanosis or clubbing Device report reviewed - optivol flat - no events Device at [facility] Lab data: Recent Labs 09/18/16 0924 NA 137 K 5.0 CL 97* CO2 27 BUN 16 CREATININE 0.98 GLUCOSE 191 ProBNP Date Value Ref Range Status 09/18/2016 61 <=125 pg/mL Final Last echo: 02/29/16 at [facility] LVEF 60-65%. Mild-mod MR/AI Assessment: 1. H/o cardiomyopathy. LVEF improved with meds and ELECTRONIC TRAIN CONTROL TECHNICIAN to 60--65% 2. HFrEF. ACC/AHA stage C. NYHA FC I-II Euvolemic. On GDMT and would recommend continue 3. Obesity - discussed increased exercise 4. 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 A review of the active management and working diagnosis(es) was conducted. 2. The patient's medication list was updated and new Rxs given as needed. No changes 3. Question were answered regarding: lab 4. The following labs or other testing advised: none today 5. Heart Failure Clinic follow up scheduled for: 6 months with device check VIVI LORENZ APRN documented in this encounter Plan of Treatment Upcoming Encounters Date Type Specialty Care Team Description 04/16/2022 Appointment Cardiology Vivi Lorenz APRN [facility] CARDIOLOGY DEPT. [place], [place] [address] (Luz pollard) 04/16/2022 Laboratory Appointment Lab 04/16/2022 Office Visit Cardiology Vivi Lorenz APRN [facility] CARDIOLOGY DEPT. [place], [place] [address] (Luz pollard) documented as of this encounter Results pro-Brain Natriuretic Peptide (09/18/2016 9:24 AM EST) athologist Signature ProBNP 61 <=125 pg/mL [facility] Specimen Anatomical Collection Method Collection Time Receive d Time (Source) Location / / Volume Laterality Blood specimen 09/18/2016 9:24 AM 017 9:35 (specimen) EST AM EST Resulting Agency Comment Spec In Lab Roly Aguilar MD CHEMISTRY ORDERABLES Performing Organization Address City/State/[place] [address] (ABNORMAL) Basic Metabolic Panel (non-fasting) (09/18/2016 9:24 AM EST) athologist Signature Glucose Lvl 191 65 - 199 [facility] mg/dL [facility] Comment: Diabetes: >=200 mg/dL plus symp toms BUN 16 8 - 18 mg/dL [facility] Creatinine 0.98 0.70 - 1.20 mg/dL [facility] Comment: Please note that the pediatric reference intervals supplied above were not validated at [facility]. Results from pediatri c patients should be interpreted in conjunction to the patient's age, height and muscle mass. Sodium 137 135 - 145 mmol/L [facility] Potassium 5.0 3.5 - 5.0 mmol/L [facility] Comment: Please note: ??Patients with WBC >100,00 0 may have falsely elevated Potassium levels. ??For accurate Potassium quantif ication in these patients send serum separator tube (gold top) for subsequent determinations. ??Contact the Clinical Chemistry Laboratory if there are any qu estions. Chloride 97 (L) 98 - 107 mmol/L [facility] CO2 27 22 - 31 mmol/L [facility] Anion Gap 13 5 - 15 mmol/L [facility] Calcium 9.5 8.5 - 10.5 mg/dL [facility] Estimated GFR 56 (L) >=60 [facility] Comment: This estimated GFR (eGFR) [...] the following links into your internet browser. [email or web address] Specimen Anatomical Collection Method Collection Time Receive d Time (Source) Location / / Volume Laterality Blood specimen 09/18/2016 9:24 AM 017 9:35 (specimen) EST AM EST Resulting Agency Comment Spec In Lab Roly Aguilar MD CHEMISTRY ORDERABLES Performing Organization Address City/State/[place] [address] documented in this encounter Visit Diagnoses Diagnosis Cardiomyopathy Other primary cardiomyopathies Heart failure, unspecified documented in this encounter Care Teams Passenger Solicitor Relationship Specialty Start Date End Date Nicole Pickens MD PCP - General 08/17/[address] [place] [address] documented as of this encounter
--- OUTSIDE RECORDS SUMMARY | 2022-03-18 02:36 | XMS_ITS | Encounter Summary ---
:1945 Author Organization [facility] [place] [address] Care Team Providers Name Role Phone Nicole Pickens MD Primary Care Provider Encounter Details Date Type Department Care Team Description 07/02/2016 External Results Cardiology at [facility] Nicole Pickens MD [address] [address] [place], [place] [id number] (Wo rk) Social History Tobacco Use Types [...] Description 04/16/2022 Appointment Cardiology Vivi Lorenz APRN [facility] CARDIOLOGY DEPT. [place], [place] [address] (Wo rk) 04/16/2022 Laboratory Appointment Lab 04/16/2022 Office Visit Cardiology Vivi Lorenz APRN [facility] CARDIOLOGY DEPT. [place], [place] [address] (Wo rk) documented as of this encounter Procedures Procedure Name Priority Date/Time Associated Diagnosis Comme nts EP DEVICE SCAN Routine 06/18/2016 documented in this encounter Results Scan Doc: EP Device (06/18/2016) Narrative This result has an attachment that is no t available. Nicole Pickens MD MEDIA MGR SCAN EXT ORDR/RSLT documented in this encounter Visit Diagnoses Not on filedocumented in this encounter Care Teams Reo Asset Manager Relationship Specialty Start Date End Date Nicole Pickens MD PCP - General 08/17/[address] [place] [address] documented as of this encounter
--- OUTSIDE RECORDS SUMMARY | 2022-03-18 02:36 | XMS_ITS | Encounter Summary ---
:1945 Author Organization [facility] [place] [address] Care Team Providers Name Role Phone Nicole Pickens MD Primary Care Provider Encounter Details Date Type Department Care Team Description 07/22/2016 Orders [place] [address] Social History Tobacco Use Types Packs/Day [...] APRN [facility] CARDIOLOGY DEPT. [place], [place] [address] (Luz pollard) 04/16/2022 Laboratory Appointment Lab 04/16/2022 Office Visit Cardiology Vivi Lorenz APRN [facility] CARDIOLOGY DEPT. [place], [place] [address] (Luz pollard) documented as of this encounter Procedures Procedure Name Priority Date/Time Associated Diagnosis Comme nts CARDIAC DEVICE Routine 07/22/2016 8:35 AM Results for this CHECK - REMOTE EST procedure are in the results section. documented in this encounter Results (ABNORMAL) Cardiac device check - Remote (07/22/2016 8:35 AM EST) Component Value Ref Test Analysis Performed Pathologis t Range Method Time At Signature Date Time [id number] [facility] Interrogation Session Implantable Medtronic IDCO Pulse Generator Electrician Journeyman Wireman Implantable Protecta XT INSTRUCTOR OF SOCIOLOGY-D IDCO Pulse Generator [id number] Model Implantable [id number] IDCO Pulse Generator Serial Number Type Remote IDCO Interrogation Session Implantable Cardiac IDCO Pulse Generator Resynchronization Type Therapy - Defibrillator Implantable [id number] IDCO Pulse Generator Implant Date Victor Manuel [...] Sensitivity Ventricular BiV IDCO chambers paced during INSTRUCTOR OF SOCIOLOGY pacing. INSTRUCTOR OF SOCIOLOGY LV-RV Delay 20 ms IDCO Lead Channel [...] IDCO Setting Pacing Pulse Width Lead Channel 3 V IDCO Setting Pacing Amplitude Lead Channel [...] IDCO Setting Pacing Pulse Width Lead Channel 2 V IDCO Setting Pacing Amplitude Lead Channel [...] of Measurements Battery Status OK IDCO Battery DIRECTOR OF CASINO 2.6251 IDCO Trigger Battery Voltage 2.63 V IDCO Capacitor Charge Reformation IDCO Type Capacitor Last [id number] IDCO Charge Date Time Capacitor Charge 12.882 s IDCO Time Capacitor Charge 35 J IDCO Energy Victor Manuel Statistic [id number] IDCO Date Time Start Victor Manuel Statistic [id number] IDCO Date Time End Victor Manuel Statistic 0.03 % IDCO RA Percent Paced Victor Manuel Statistic 99.97 % IDCO RV Percent Paced Victor Manuel Statistic 0.02 % IDCO AP ORDER BUILDER LOADER Percent Victor Manuel Statistic 99.95 % IDCO ORDER BUILDER LOADER Percent Victor Manuel Statistic 0.01 % IDCO AP VS Percent Victor Manuel Statistic 0.02 % IDCO VS Percent Atrial Tachy [id number] IDCO Statistic Date Time Start Atrial Tachy [id number] IDCO Statistic Date Time End Atrial Tachy 0 % IDCO Statistic AT/AF Babbitt Percent Therapy 0 IDCO Statistic Recent Shocks Delivered Therapy 0 IDCO Statistic Recent Shocks Aborted Therapy 0 IDCO Statistic Recent ATP Delivered Therapy [id number] IDCO Statistic Recent Date Time Start Therapy [id number] IDCO Statistic Recent Date Time End Therapy 0 IDCO Statistic Total Shocks Delivered Therapy 0 IDCO Statistic Total Shocks Aborted Therapy 0 IDCO Statistic Total ATP Delivered Therapy [id number] IDCO Statistic Total Date Time Start Therapy [id number] IDCO Statistic Total Date Time End Episode [...] Episode SVT IDCO Statistic Type Category Episode [id number] IDCO Statistic Recent Date Time Start Episode [id number] IDCO Statistic Recent Date Time End Episode [id number] IDCO Statistic Recent Date Time Start Episode [id number] IDCO Statistic Recent Date Time End Episode [id number] IDCO Statistic Recent Date Time Start Episode [id number] IDCO Statistic Recent Date Time End Episode [id number] IDCO Statistic Recent Date Time Start Episode [id number] IDCO Statistic Recent Date Time End Episode [id number] IDCO Statistic Recent Date Time Start Episode [id number] IDCO Statistic Recent Date Time End Episode [id number] IDCO Statistic Recent Date Time Start Episode [id number] IDCO Statistic Recent Date Time End Episode [id number] IDCO Statistic Recent Date Time Start Episode [id number] IDCO Statistic Recent Date Time End Episode [...] Episode SVT IDCO Statistic Type Category Episode [id number] IDCO Statistic Total Date Time Start Episode [id number] IDCO Statistic Total Date Time End Episode [id number] IDCO Statistic Total Date Time Start Episode [id number] IDCO Statistic Total Date Time End Episode [id number] IDCO Statistic Total Date Time Start Episode [id number] IDCO Statistic Total Date Time End Episode [id number] IDCO Statistic Total Date Time Start Episode [id number] IDCO Statistic Total Date Time End Episode [id number] IDCO Statistic Total Date Time Start Episode [id number] IDCO Statistic Total Date Time End Episode [id number] IDCO Statistic Total Date Time Start Episode [id number] IDCO Statistic Total Date Time End Episode [id number] IDCO Statistic Total Date Time Start Episode [id number] IDCO Statistic Total Date Time End Specimen (Source) Anatomical Collection Method Collection Time Re ceived Time Location / / Volume Laterality 07/22/2016 8:35 AM EST Physician Cardiology IMPLANTABLE CARDIAC DEVICE Performing Organization Address City/State/ZIP Code Phon e Number [facility] documented in this encounter Visit Diagnoses Not on filedocumented in this encounter Care Teams Principal Military Analyst Relationship Specialty Start Date End Date Nicole Pickens MD PCP - General 08/17/[address] [place] [address] documented as of this encounter
--- OUTSIDE RECORDS SUMMARY | 2022-03-18 02:36 | XMS_ITS | Encounter Summary ---
:1945 [place] [address] Care Team Providers Name Role Phone Nicole Pickens MD Primary Care Provider Encounter Details Date Type Department Care Team Description 11/04/2016 [facility] [place] Robles MD unspecified type [facility] [address] [place] [address] [phone] Social History Tobacco Use Types Packs/Day Years Used Date Never Smoker Smokeless Tobacco: Never Used Alcohol Use Standard Drinks/Week Comments No 0 (1 standard drink = 0.6 oz pure alcoho l) Sex Assigned at Date Recorded Not on file documented as of this encounter Last Filed Vital Signs Vital Sign [place] Time Taken Comments Blood Pressure 116/57 11/04/2016 12:15 PM EST Pulse 70 11/04/2016 11:15 AM EST Temperature 36.1 ??C (97 ??F) 11/04/2016 11:45 AM EST Respiratory Rate 11 11/04/2016 11:15 AM EST Oxygen Saturation 95% 11/04/2016 12:15 PM EST Inhaled Oxygen Concentration - - Weight 118.4 kg (261 lb) 11/04/2016 6:39 AM EST Height 166.4 cm (5' 5.5) 11/04/2016 6:39 AM EST Body Mass Index 42.77 11/04/2016 6:39 AM EST documented in this encounter Discharge Instructions Discharge InstructionsYein Grubbs RN - 11/04/2016 11:57 AM EST [...] about wound infection or appearance, please call [phone] and ask for an appointment the same [...] compensated and euvolemic NSR with LBBB, s/p WINCH DRIVER-D 04/11/11 AHA./ACC Stage C, NYHA FTC II Heart Failure Management: Yes/No No?/Discontinued/Why Beta tone Yes MILADYS/ARB Yes Spironolactone yes AFIB? no Anticoagulated n/a Device yes WINCH DRIVER-D 04/11/11 ??? Obesity Overview Note: BMI=43 ??? LBBB (left bundle branch block) Overview Note: Chronic Widened QRS S/p WINCH DRIVER-D ??? Depression ??? History of DVT (deep [...] 30% 02/10 Echo EF= 50-55% 02/02/13 (s/p WINCH DRIVER) Echo EF= 60-65% 02/15/14 ??? LV (left ventricular) mural thrombus Overview Note: ??? Obstructive sleep apnea Overview Note: uses CPAP ??? Osteoarthritis Overview Note: Ana is a 70 year old woman, seen with her Ulises, for WINCH DRIVER-D pulse generator replacement. No complaints this AM. [...] 271 (H) 65 - 199 mg/dL Impression/Plan: WINCH DRIVER-D pulse generator replacement. If lead bad, she'd consider lead extraction in [place] or new lead insertion, depending on my discretion and vein patency. documented in this encounter Plan of Treatment Upcoming Encounters Date Type Specialty Care Team Description 04/16/2022 Appointment Cardiology Vivi Lorenz APRN [facility] CARDIOLOGY DEPT. [place], [place] [address] (Wo latrice) 04/16/2022 Laboratory Appointment Lab 04/16/2022 Office Visit Cardiology Vivi Lorenz APRN [facility] CARDIOLOGY DEPT. [place], [place] [address] (Wo latrice) Scheduled Orders Name [...] POC Glucose 213 (H) 65 - 199 [facility] mg/dL [facility] Comment: Supplemental ranges: <140 mg/dL before meals <180 mg/dL all other times of the day Specimen Anatomical Collection Method Collection Time Receive d Time (Source) Location / / Volume Laterality Blood specimen 11/04/2016 11:49 7 (specimen) AM EST 11:49 AM EST Dar Bradford MD POINT OF CARE TEST ORDERABLE S Performing Organization Address City/State/[place] [address] EKG 12 Lead (11/04/2016 7:06 AM EST) Component Value Ref Range Test Analysis Performed Pathologis t Method Time At Signature Ventricular rate 71 BPM MUSE SYSTEM Atrial Rate 71 BPM MUSE SYSTEM P-R Interval 84 ms MUSE SYSTEM QRS Duration 196 ms MUSE SYSTEM Q-T Interval 504 ms MUSE SYSTEM QTC Calculated 547 ms MUSE SYSTEM (Bezet) Calculated P Gaston 73 degrees MUSE SYSTEM Calculated R Gaston 111 degrees MUSE SYSTEM Calculated T Gaston 66 degrees MUSE SYSTEM INTERPRETATION Biventricular pacemaker detected MUSE SYSTEM Sinus rhythm Abnormal ECG When compared with ECG of 12-FEB-2005 15:00, Biventricular pacing is new. Confirmed by MD Geovanny, Kosta Akhtar ([id number]) on 11/04/2016 4: 27:17 PM Specimen Anatomical Collection Method Collection Time Receive d Time (Source) Location / / Volume Laterality 11/04/2016 7:06 AM 7 4:27 EST PM EST Massimo Ponce MD ECG ORDERABLES Performing Organization Address City/State/ZIP Code Phon e Number MUSE SYSTEM (ABNORMAL) POCT Glucose (11/04/2016 6:47 AM EST) athologist Signature POC Glucose 271 (H) 65 - 199 [facility] mg/dL [facility] Comment: Supplemental ranges: <140 mg/dL before meals <180 mg/dL all other times of the day Specimen Anatomical Collection Method Collection Time Receive d Time (Source) Location / / Volume Laterality Blood specimen 11/04/2016 6:47 AM 017 6:47 (specimen) EST AM EST Dar Bradford MD POINT OF CARE TEST ORDERABLE S Performing Organization Address City/State/[place] [address] Differential, Automated (11/04/2016 6:36 AM EST) athologist Signature Neutrophils % 61.2 % [facility] Neutr Abs (ANC) 4.98 1.70 - [facility] 6.10 [facility] x10(3)/[facility] LABORATORY Lymphocytes % 27.6 % [facility] Lymphocytes Abs 2.2 0.9 - 3.2 [facility] x10(3)/[facility] LABORATORY Monocytes % 6.4 % [facility] Monocyte Abs 0.5 0.3 - 0.9 [facility] x10(3)/[facility] LABORATORY Eosinophils % 3.7 % [facility] Eosinophils Abs 0.3 0.0 - 0.4 [facility] x10(3)/[facility] LABORATORY Basophils % 0.7 % [facility] Basophils Abs 0.1 0.0 - 0.1 [facility] x10(3)/[facility] LABORATORY Immature Gran % 0.40 % [facility] Comment: Immature granulocytes(IG's)percentage an d absolute count will include metamyelocytes, myelocytes, and promyelo cytes. Blood smears from CBCs yielding IG's will be scanned manually for concor dance. If this scan disagrees with the automated IG or if promyelocytes are not ed, a manual differential will be performed. Zainab Gran Abs 0.03 0.00 - 0.04 x10(3)/[facility] LABORATORY Specimen Anatomical Collection Method Collection Time Receive d Time (Source) Location / / Volume Laterality Blood specimen 11/04/2016 6:36 AM 017 6:40 (specimen) EST AM EST Resulting Agency Comment Spec In Lab Massimo Ponce MD HEMATOLOGY ORDERABLES Performing Organization Address City/State/[place] [address] Hemogram (11/04/2016 6:36 AM EST) P athologist Signature WBC 8.1 4.0 - 9.5 [facility] x10(3)/[facility] LABORATORY RBC 4.21 4.00 - MALI JOB 5.21 [facility] x10(6)/[facility] LABORATORY Hemoglobin 12.5 11.7 - [facility] 15.5 gm/dL [facility] Hematocrit 37.8 35.7 - [facility] JOB 45.8 % [facility] MCV 89.8 82.6 - [facility] JOB 94.4 [facility] LABORATORY MCH 29.7 27.1 - [facility] 32.0 pg [facility] MCHC 33.1 31.7 - [facility] 35.0 gm/dL [facility] Platelets 243 145 - 357 [facility] x10(3)/[facility] LABORATORY RDWSD 44.8 37.0 - [facility] JOB 46.0 [facility] LABORATORY RDWCV 13.6 11.5 - [facility] JOB 14.1 % [facility] MPV 10.1 7.6 - 12.9 [facility] LABORATORY nRBC % Auto 0.0 % [facility] nRBC Abs Auto 0.000 0.000 - [facility] 0.000 [facility] x10(3)/[facility] LABORATORY Specimen Anatomical Collection Method Collection Time Receive d Time (Source) Location / / Volume Laterality Blood specimen 11/04/2016 6:36 AM 017 6:40 (specimen) EST AM EST Resulting Agency Comment Spec In Lab Massimo Ponce MD HEMATOLOGY ORDERABLES Performing Organization Address City/State/[place] [address] (ABNORMAL) BMP w/fasting Glucose (11/04/2016 6:36 AM EST) athologist Signature Glucose 301 (H) 65 - 99 [facility] Fasting mg/dL [facility] Comment: ?Fasting* Glucose Interpretive C riteria Normal ?65-99 mg/dL Impaired Fasting glucose ?100-125 mg/dL Consistent with Diabetes Mellitus ? >or= 126 mg/dL *Fasting is defined as no caloric intake for at least 8 hours In the absence of unequivocal hypergly cemia a plasma glucose value of >or= 126 mg/dL should be repeated on a subseq u day. Diagnosis and Classification of Diabetes Mellitus, Position Statement from the [place] [employer]. ??Diabete s Care, Volume 33, Supplement 1, Sep 2009 BUN 16 8 - 18 mg/dL [facility] Creatinine 0.99 0.70 - 1.20 mg/dL [facility] Comment: Please note that the pediatric reference intervals supplied above were not validated at [facility]. Results from pediatri c patients should be interpreted in conjunction to the patient's age, height and muscle mass. Sodium 138 135 - 145 mmol/L [facility] Potassium 4.6 3.5 - 5.0 mmol/L [facility] Comment: Please note: ??Patients with WBC >100,00 0 may have falsely elevated Potassium levels. ??For accurate Potassium quantif ication in these patients send serum separator tube (gold top) for subsequent determinations. ??Contact the Clinical Chemistry Laboratory if there are any qu estions. Chloride 98 98 - 107 mmol/L [facility] CO2 29 22 - 31 mmol/L [facility] Anion Gap 11 5 - 15 mmol/L [facility] Calcium 9.2 8.5 - 10.5 mg/dL [facility] Estimated GFR 56 (L) >=60 [facility] Comment: This estimated GFR [...] the following links into your internet browser. [email or web address] Specimen Anatomical Collection Method Collection Time Receive d Time (Source) Location / / Volume Laterality Blood specimen 11/04/2016 6:36 AM 017 6:40 (specimen) EST AM EST Resulting Agency Comment Spec In Lab Massimo Ponce MD CHEMISTRY ORDERABLES Performing Organization Address City/State/[place] [address] Prothrombin Time (11/04/2016 6:36 AM EST) P athologist Signature PT 13.4 12.0 - 15.0 [facility] LABORATORY Comment: An INR <2.0 indicates [...] linical circumstances. INR 1.0 0.9 - 1.1 [facility] Specimen Anatomical Collection Method Collection Time Receive d Time (Source) Location / / Volume Laterality Blood specimen 11/04/2016 6:36 AM 017 6:40 (specimen) EST AM EST Resulting Agency Comment Spec In Lab Massimo Ponce MD HEMATOLOGY ORDERABLES Performing Organization Address City/State/[place] [address] documented in this encounter Visit Diagnoses Diagnosis Cardiomyopathy, unspecified type Diabetes mellitus Type II or unspecified type diabetes vince litus without mention of complication, not stated as uncontrolled documented in this encounter Administered Medications Inactive [...] to induce or maintain moderate sedation per [facility] Moderate Sedation Policy for the duration of the EP procedure., As needed to induce or maintain moderate sedation per [facility] Moderate Sedation Policy for the duration of [...] to induce or maintain moderate sedation per [facility] Moderate Sedation Policy for the duration of the EP procedure., As needed to induce or maintain moderate sedation per [facility] Moderate Sedation Policy for the duration of [...] (CO MPLETED) 09 (Given - Provider: Eve Gonzaelz RN) 150 mg (30 mL), Subcutaneous, ONCE, [...] to induce or maintain moderate sedation per [facility] Moderate Sedation Policy for the duration of the EP procedure., As needed to rosana ce or maintain moderate sedation per [facility] Moderate Sedation Policy for the duration of [...] 0.5-1 mg (CANCELED) 0936 (Given - Provider: Eve Gonzalez, CHANCE)0950 (Given - Provider: Eve Gonzalez, RN)0956 (Given - Provider: Eve Gonzalez, RN)1005 (Given - Provider: Eve Gonzalez, RN)1010 (Given - Provider: Eve Gonzalez, RN) 0.5-1 mg, Intravenous, EVERY 5 MIN PRN, Starting Fri11/04/16 at 0736, Until 11/04/16 at 1102, Anxiety, As needed to induce or maintain moderate sedation per [facility] Moderate Sedation Policy for the durati 1037 (Given - Provider: Eve Gonzalez, CHANEC) on of the EP procedure., As needed to in duce or maintain moderate sedation per [facility] Moderate Sedation Policy for the duration of [...]
Routine documented in this encounter Care Teams Manager Assisted Living Relationship Specialty Start Date End Date Nicole Pickens MD PCP - General 08/17/[address] [place] [address] documented as of this encounter
--- OUTSIDE RECORDS SUMMARY | 2022-03-18 02:36 | XMS_ITS | Encounter Summary ---
:1945 Author Organization [facility] [address] Care Team Providers Name Role Phone Nicole Pickens MD Primary Care Provider Encounter Details Date Type Department Care Team Description 09/09/2017 [place] [address] Social History Tobacco Use Types Packs/Day Years Used Date Never Smoker Smokeless Tobacco: Never Used Alcohol Use Standard Drinks/Week Comments No 0 (1 standard drink = 0.6 oz pure alcoho l) Sex Assigned at Date Recorded Not on file documented as of this encounter Plan of Treatment Upcoming Encounters Date Type Specialty Care Team Description 04/16/2022 Appointment Cardiology Vivi Lorenz APRN [facility] CARDIOLOGY DEPT. [place], [place] [address] (Luz pollard) 04/16/2022 Laboratory Appointment Lab 04/16/2022 Office Visit Cardiology Vivi Lorenz APRN [facility] CARDIOLOGY DEPT. [place], [place] [address] (Luz pollard) documented as of this encounter Procedures Procedure Name Priority Date/Time Associated Diagnosis Comme nts CARDIAC DEVICE Routine 09/09/2017 8:33 AM Results for this CHECK - REMOTE EST procedure are in the results section. documented in this encounter Results (ABNORMAL) Cardiac device check - Remote (09/09/2017 8:33 AM EST) Component Value Ref Test Analysis Performed Pathologis t Range Method Time At Signature Date Time [id number] [facility] Interrogation Session Implantable Medtronic IDCO Pulse Generator Swimming Pool Attendant Implantable Viva XT CARPENTER APPRENTICE-D IDCO Pulse Generator [id number] Model Implantable [id number] IDCO Pulse Generator Serial Number Type Remote IDCO Interrogation Session Implantable Cardiac IDCO Pulse Generator Resynchronization Type Therapy - Defibrillator Implantable [id number] IDCO Pulse Generator Implant Date Victor Manuel [...] Sensitivity Ventricular BiV IDCO chambers paced during CARPENTER APPRENTICE pacing. CARPENTER APPRENTICE LV-RV Delay 20 ms IDCO Lead Channel [...] of Measurements Battery Status OK IDCO Battery BELT CUTTER 2.727 IDCO Trigger Battery 93 mo IDCO Remaining Longevity Battery Voltage 3.01 V IDCO Capacitor Charge Reformation IDCO Type Capacitor Last [id number] IDCO Charge Date Time Capacitor Charge 3.663 s IDCO Time Capacitor Charge 18 J IDCO Energy Episode 18 IDCO Identifier Episode Type VSE IDCO Category Episode Date [id number] IDCO Time Episode Duration 9 s IDCO Episode 17 IDCO Identifier Episode Type VSE IDCO Category Episode Date [id number] IDCO Time Episode Duration 6 s IDCO Episode 16 IDCO Identifier Episode Type VSE IDCO Category Episode Date [id number] IDCO Time Episode Duration 5 s IDCO Episode 15 IDCO Identifier Episode Type VSE IDCO Category Episode Date [id number] IDCO Time Episode Duration 5 s IDCO Episode 14 IDCO Identifier Episode Type VSE IDCO Category Episode Date [id number] IDCO Time Episode Duration 6 s IDCO Episode 13 IDCO Identifier Episode Type VSE IDCO Category Episode Date [id number] IDCO Time Episode Duration 4 s IDCO Episode 12 IDCO Identifier Episode Type VSE IDCO Category Episode Date [id number] IDCO Time Episode Duration 5 s IDCO Episode 6 IDCO Identifier Episode Type VSE IDCO Category Episode Date [id number] IDCO Time Episode Duration 26 s IDCO Victor Manuel Statistic [id number] IDCO Date Time Start Victor Manuel Statistic [id number] IDCO Date Time End Victor Manuel Statistic 0.03 % IDCO RA Percent Paced Victor Manuel Statistic 99.04 % IDCO RV Percent Paced CARPENTER APPRENTICE Statistic LV 99.00 % IDCO Percent Paced Victor Manuel Statistic 0.02 % IDCO AP INTER FOLD ROLL CUTTER Percent Victor Manuel Statistic 99.93 % IDCO INTER FOLD ROLL CUTTER Percent Victor Manuel Statistic 0.01 % IDCO AP VS Percent Victor Manuel Statistic 0.05 % IDCO VS Percent CARPENTER APPRENTICE Statistic [id number] IDCO Date Time Start CARPENTER APPRENTICE Statistic [id number] IDCO Date Time End CARPENTER APPRENTICE Statistic 99.00 % IDCO CARPENTER APPRENTICE Percent Paced Atrial Tachy [id number] IDCO Statistic Date Time Start Atrial Tachy [id number] IDCO Statistic Date Time End Atrial Tachy 0 % IDCO Statistic AT/AF [place] Percent Therapy 0 IDCO Statistic Recent Shocks Delivered Therapy 0 IDCO Statistic Recent Shocks Aborted Therapy 0 IDCO Statistic Recent ATP Delivered Therapy [id number] IDCO Statistic Recent Date Time Start Therapy [id number] IDCO Statistic Recent Date Time End Therapy 0 IDCO Statistic Total Shocks Delivered Therapy 0 IDCO Statistic Total Shocks Aborted Therapy 0 IDCO Statistic Total ATP Delivered Therapy [id number] IDCO Statistic Total Date Time Start Therapy [id number] IDCO Statistic Total Date Time End Episode [...] Episode SVT IDCO Statistic Type Category Episode [id number] IDCO Statistic Recent Date Time Start Episode [id number] IDCO Statistic Recent Date Time End Episode [id number] IDCO Statistic Recent Date Time Start Episode [id number] IDCO Statistic Recent Date Time End Episode [id number] IDCO Statistic Recent Date Time Start Episode [id number] IDCO Statistic Recent Date Time End Episode [id number] IDCO Statistic Recent Date Time Start Episode [id number] IDCO Statistic Recent Date Time End Episode [id number] IDCO Statistic Recent Date Time Start Episode [id number] IDCO Statistic Recent Date Time End Episode [id number] IDCO Statistic Recent Date Time Start Episode [id number] IDCO Statistic Recent Date Time End Episode [id number] IDCO Statistic Recent Date Time Start Episode [id number] IDCO Statistic Recent Date Time End Episode [...] Episode SVT IDCO Statistic Type Category Episode [id number] IDCO Statistic Total Date Time Start Episode [id number] IDCO Statistic Total Date Time End Episode [id number] IDCO Statistic Total Date Time Start Episode [id number] IDCO Statistic Total Date Time End Episode [id number] IDCO Statistic Total Date Time Start Episode [id number] IDCO Statistic Total Date Time End Episode [id number] IDCO Statistic Total Date Time Start Episode [id number] IDCO Statistic Total Date Time End Episode [id number] IDCO Statistic Total Date Time Start Episode [id number] IDCO Statistic Total Date Time End Episode [id number] IDCO Statistic Total Date Time Start Episode [id number] IDCO Statistic Total Date Time End Episode [id number] IDCO Statistic Total Date Time Start Episode [id number] IDCO Statistic Total Date Time End Specimen (Source) Anatomical Collection Method Collection Time Re ceived Time Location / / Volume Laterality 09/09/2017 8:33 AM EST Physician Cardiology MD IMPLANTABLE CARDIAC DEVICE Performing Organization Address City/State/ZIP Code Phon e Number IDCO documented in this encounter Visit Diagnoses Not on filedocumented in this encounter Care Teams Shipping Agent Relationship Specialty Start Date End Date Nicole Pickens MD PCP - General 08/17/[address] [place] [address] documented as of this encounter
--- OUTSIDE RECORDS SUMMARY | 2022-03-18 02:36 | XMS_ITS | Encounter Summary ---
:1945 Author Organization [facility] [place] [address] Care Team Providers Name Role Phone Nicole Pickens MD Primary Care Provider Encounter Details Date Type Department Care Team Description 12/12/2015 [place] [address] Social History Tobacco Use Types Packs/Day Years Used Date Never Smoker Smokeless Tobacco: Never Used Alcohol Use Standard Drinks/Week Comments Not Asked 0 (1 standard drink = 0.6 oz pure alcoho l) Sex Assigned at Date Recorded Not on file documented as of this encounter Plan of Treatment Upcoming Encounters Date Type Specialty Care Team Description 04/16/2022 Appointment Cardiology Vivi Lorenz APRN [facility] CARDIOLOGY DEPT. [place], [place] [address] (Luz pollard) 04/16/2022 Laboratory Appointment Lab 04/16/2022 Office Visit Cardiology Vivi Lorenz APRN [facility] CARDIOLOGY DEPT. [place], [place] [address] (Luz pollard) documented as of this encounter Procedures Procedure Name Priority Date/Time Associated Diagnosis Comme nts CARDIAC DEVICE Routine 12/12/2015 6:26 AM Results for this CHECK - REMOTE EDT procedure are in the results section. documented in this encounter Results (ABNORMAL) Cardiac device check - Remote (12/12/2015 6:26 AM EDT) Component Value Ref Test Analysis Performed Pathologis t Range Method Time At Signature Date Time [id number] IDCO Interrogation Session Implantable Medtronic IDCO Pulse Generator Sap Solutions Architect Implantable Protecta XT STACK ATTENDANT-D IDCO Pulse Generator [id number] Model Implantable [id number] IDCO Pulse Generator Serial Number Type Remote IDCO Interrogation Session Implantable Cardiac IDCO Pulse Generator Resynchronization Type Therapy - Defibrillator Implantable [id number] IDCO Pulse Generator Implant Date Victor Manuel [...] Sensitivity Ventricular BiV IDCO chambers paced during STACK ATTENDANT pacing. STACK ATTENDANT LV-RV Delay 20 ms IDCO Lead Channel [...] IDCO Setting Pacing Pulse Width Lead Channel 3.75 V IDCO Setting Pacing Amplitude Lead Channel [...] 400 ms IDCO Detection Interval Battery Date [id number] IDCO Time of Measurements Battery Status OK IDCO Battery ASSISTANT CHIEF TRAIN DISPATCHER 2.6251 IDCO Trigger Battery Voltage 2.78 V IDCO Capacitor Charge Reformation IDCO Type Capacitor Last [id number] IDCO Charge Date Time Capacitor Charge 11.931 s IDCO Time Capacitor Charge 35 J IDCO Energy Victor Manuel Statistic [id number] IDCO Date Time Start Victor Manuel Statistic [id number] IDCO Date Time End Victor Manuel Statistic 0.03 % IDCO RA Percent Paced Victor Manuel Statistic 99.97 % IDCO RV Percent Paced Victor Manuel Statistic 0.02 % IDCO AP MENTAL HEALTH PROFESSIONAL Percent Victor Manuel Statistic 99.95 % IDCO MENTAL HEALTH PROFESSIONAL Percent Victor Manuel Statistic 0.01 % IDCO AP VS Percent Victor Manuel Statistic 0.02 % IDCO VS Percent Atrial Tachy [id number] IDCO Statistic Date Time Start Atrial Tachy [id number] IDCO Statistic Date Time End Atrial Tachy 0 % IDCO Statistic AT/AF [place] Percent Therapy 0 IDCO Statistic Recent Shocks Delivered Therapy 0 IDCO Statistic Recent Shocks Aborted Therapy 0 IDCO Statistic Recent ATP Delivered Therapy [id number] IDCO Statistic Recent Date Time Start Therapy [id number] IDCO Statistic Recent Date Time End Therapy 0 IDCO Statistic Total Shocks Delivered Therapy 0 IDCO Statistic Total Shocks Aborted Therapy 0 IDCO Statistic Total ATP Delivered Therapy [id number] IDCO Statistic Total Date Time Start Therapy [id number] IDCO Statistic Total Date Time End Episode [...] Episode SVT IDCO Statistic Type Category Episode [id number] IDCO Statistic Recent Date Time Start Episode [id number] IDCO Statistic Recent Date Time End Episode [id number] IDCO Statistic Recent Date Time Start Episode [id number] IDCO Statistic Recent Date Time End Episode [id number] IDCO Statistic Recent Date Time Start Episode [id number] IDCO Statistic Recent Date Time End Episode [id number] IDCO Statistic Recent Date Time Start Episode [id number] IDCO Statistic Recent Date Time End Episode [id number] IDCO Statistic Recent Date Time Start Episode [id number] IDCO Statistic Recent Date Time End Episode [id number] IDCO Statistic Recent Date Time Start Episode [id number] IDCO Statistic Recent Date Time End Episode [id number] IDCO Statistic Recent Date Time Start Episode [id number] IDCO Statistic Recent Date Time End Episode [...] Episode SVT IDCO Statistic Type Category Episode [id number] IDCO Statistic Total Date Time Start Episode [id number] IDCO Statistic Total Date Time End Episode [id number] IDCO Statistic Total Date Time Start Episode [id number] IDCO Statistic Total Date Time End Episode [id number] IDCO Statistic Total Date Time Start Episode [id number] IDCO Statistic Total Date Time End Episode [id number] IDCO Statistic Total Date Time Start Episode [id number] IDCO Statistic Total Date Time End Episode [id number] IDCO Statistic Total Date Time Start Episode [id number] IDCO Statistic Total Date Time End Episode [id number] IDCO Statistic Total Date Time Start Episode [id number] IDCO Statistic Total Date Time End Episode [id number] IDCO Statistic Total Date Time Start Episode [id number] IDCO Statistic Total Date Time End Specimen (Source) Anatomical Collection Method Collection Time Re ceived Time Location / / Volume Laterality 12/12/2015 6:26 AM EDT Physician Cardiology IMPLANTABLE CARDIAC DEVICE Performing Organization Address City/State/ZIP Code Phon e Number IDCO documented in this encounter Visit Diagnoses Not on filedocumented in this encounter Care Teams Starchmaker Relationship Specialty Start Date End Date Nicole Pickens MD PCP - General 08/17/[address] [place] [address] documented as of this encounter
--- OUTSIDE RECORDS SUMMARY | 2022-03-18 02:36 | XMS_ITS | Encounter Summary ---
:1945 Author Organization [facility] Address [facility] [place] [address] Care Team Providers Name Role Phone Nicole Pickens MD Primary Care Provider Encounter Details Date Type Department Care Team Description 05/07/2017 Laboratory Appointment Cardiology at [facility] C Cardiomyopathy, unspecified; [facility] Heart kevin lure, unspecified; Drive SOB (shortness of breath) [place] [address] Social History Tobacco Use Types Packs/Day Years Used Date Never Smoker Smokeless Tobacco: Never Used Alcohol Use Standard Drinks/Week Comments No 0 (1 standard drink = 0.6 oz pure alcoho l) Sex Assigned at Date Recorded Not on file documented as of this encounter Plan of Treatment Upcoming Encounters Date Type Specialty Care Team Description 04/16/2022 Appointment Cardiology Vivi Lorenz APRN [facility] CARDIOLOGY DEPT. [place], [place] [address] (Wo rk) 04/16/2022 Laboratory Appointment Lab 04/16/2022 Office Visit Cardiology Vivi Lorenz APRN [facility] CARDIOLOGY DEPT. [place], [place] [address] (Wo rk) documented as of this encounter Procedures Procedure Name Priority Date/Time Associated Diagnosis Comme nts PRO-BRAIN STAT 05/07/2017 10:27 Cardiomyopathy, Results for this NATRIURETIC PEPTIDE AM EDT unspecified procedure are in Heart failure, the results unspecified section. SOB (shortness of breath) BASIC METABOLIC STAT 05/07/2017 10:27 Cardiomyopathy, Resul ts for this PANEL (NON-FASTING) AM EDT unspecified procedure are in Heart failure, the results unspecified section. documented in this encounter Results pro-Brain Natriuretic Peptide (05/07/2017 10:27 AM EDT) athologist Signature ProBNP 64 <=125 pg/mL [facility] Specimen Anatomical Collection Method Collection Time Receive d Time (Source) Location / / Volume Laterality Blood specimen 05/07/2017 10:27 7 (specimen) AM EDT 10:38 AM EDT Resulting Agency Comment Spec In Lab Vivi Lorenz APRN CHEMISTRY ORDERABLES Performing Organization Address City/State/ZIP [place] [address] (ABNORMAL) Basic Metabolic Panel (non-fasting) (05/07/2017 10:27 AM EDT) P athologist Signature Glucose Lvl 155 65 - 199 [facility] mg/dL [facility] Comment: Diabetes: >=200 mg/dL plus symp toms BUN 15 8 - 18 mg/dL [facility] Creatinine 1.08 0.70 - 1.20 mg/dL [facility] Comment: Please note that the pediatric reference intervals supplied above were not validated at [facility]. Results from pediatri c patients should be interpreted in conjunction to the patient's age, height and muscle mass. Sodium 137 135 - 145 mmol/L [facility] Potassium 4.9 3.5 - 5.0 mmol/L [facility] Comment: Please note: ??Patients with WBC >100,00 0 may have falsely elevated Potassium levels. ??For accurate Potassium quantif ication in these patients send serum separator tube (gold top) for subsequent determinations. ??Contact the Clinical Chemistry Laboratory if there are any qu estions. Chloride 97 (L) 98 - 107 mmol/L [facility] CO2 26 22 - 31 mmol/L [facility] Anion Gap 14 5 - 15 mmol/L [facility] Calcium 9.7 8.5 - 10.5 mg/dL [facility] Estimated GFR 50 (L) >=60 [facility] Comment: This estimated GFR (eGFR) [...] the following links into your internet browser. [email or web address] Specimen Anatomical Collection Method Collection Time Receive d Time (Source) Location / / Volume Laterality Blood specimen 05/07/2017 10:27 7 (specimen) AM EDT 10:38 AM EDT Resulting Agency Comment Spec In Lab Vivi Lorenz APRN CHEMISTRY ORDERABLES Performing Organization Address City/State/Z[place] [address] documented in this encounter Visit Diagnoses Diagnosis Cardiomyopathy, unspecified Heart failure, unspecified SOB (shortness of breath) Shortness of breath documented in this encounter Care Teams Kiln Hand Relationship Specialty Start Date End Date Nicole Pickens MD PCP - General 08/17/[address] [place] [address] documented as of this encounter
--- OUTSIDE RECORDS SUMMARY | 2022-03-18 02:36 | XMS_ITS | Encounter Summary ---
:1945 Author Organization [facility] [place] [address] Care Team Providers Name Role Phone Nicole Pickens MD Primary Care Provider Encounter Details Date Type Department Care Team Description 12/18/2015 External Results Card[facility] [place] [facility] Nicole Pickens MD [address] [address] [place], [place] [id number] (Wo rk) Social History Tobacco Use Types [...] APRN [facility] CARDIOLOGY DEPT. [place], [place] [address] (Wo rk) 04/16/2022 Laboratory Appointment Lab 04/16/2022 Office Visit Cardiology Vivi Lorenz APRN [facility] CARDIOLOGY DEPT. [place], [place] [address] (Wo rk) documented as of this encounter Procedures Procedure Name Priority Date/Time Associated Diagnosis Comme nts EP DEVICE SCAN Routine 12/12/2015 documented in this encounter Results Scan Doc: EP Device (12/12/2015) Narrative This result has an attachment that is no t available. Nicole Pickens MD MEDIA MGR SCAN EXT ORDR/RSLT documented in this encounter Visit Diagnoses Not on filedocumented in this encounter Care Teams Biofuels Technology Development Manager Relationship Specialty Start Date End Date Nicole Pickens MD PCP - General 08/17/[address] [place] [address] documented as of this encounter
--- OUTSIDE RECORDS SUMMARY | 2022-03-18 02:36 | XMS_ITS | Encounter Summary ---
:1945 Author Organization [facility] [place] [address] Care Team Providers Name Role Phone Nicole Pickens MD Primary Care Provider Encounter Details Date Type Department Care Team Description 10/29/2016 Orders Only Cardiology at [facility] Dar Simeon, Cardiomyopathy, [facility] [place] [address] CARDIOLOGY DEPT. [place], [place] [address] Social History Tobacco Use Types [...] Appointment Cardiology Vivi Lorenz APRN [facility] CARDIOLOGY DEPT. [place], [place] [address] (Wo latrice) 04/16/2022 Laboratory Appointment Lab 04/16/2022 Office Visit Cardiology Vivi Lorenz APRN [facility] CARDIOLOGY DEPT. [place], [place] [address] (Wo latrice) documented as of this encounter Procedures Procedure Name Priority Date/Time Associated Comments Diagnosis ELECTROPHYSIOLOGY Routine 11/04/2016 11:26 Cardiomyopathy, Res ults for this PROCEDURE AM EST unspecified type procedure a re in the results section. documented in this encounter Results ELECTROPHYSIOLOGY PROCEDURE (11/04/2016 11:26 AM EST) Specimen (Source) Anatomical Location Collection Method / Collectio n Time Received Time / Laterality Volume Narrative Dar Bradford MD - 11/04/2016 1:30 PM EST Cardiac Resynchronization Therapy ICD Pulse Generator Replacement ?? Indication: Cell depletion; original ind ication: cardiomopathy with congestive heart failure and ventricular dyssynchrony ?? Operators: Dar Bradford MD ??Armani Juares MD ?? Procedure: The patient was [facility] to [facility] Electrophysiology Lab in the fasting state and continuous electrocard iographic monitoring was instituted. Conscious sedation was admin istered with ??incremental doses of Versed and fentanyl, up to 4 mg and 125 ??g IV respectively.. ?? The left subclavicular fossa was prepped and draped in the usual sterile fashion and 2% lidocaine with 0.5% bupiv icaine in a 2:3 mixture was instilled for local anesthesia and post operative analgesia. An incision was made caudal to the old scar, and the dissection was carried down to the level of the old pocket using sharp and blunt dissection carefully avoiding the old leads. The old pulse ge nerator was removed, and the electrodes disconnected. The previously implanted electrodes were physically intact (where visible). ?? The leads were attached to a DDDR bivent ricular ICD pulse generator, which was wrapped in an Aigis pouch and placed in the previously formed pocket with electrodes situated beneath it afte r it had been flushed with neosporin antibiotic solution. ? Final Parameters: ?? Ventricular electrode: ?? Medtronic SprintFidelis Model# 6949-58 c m Serial #[id number] (Implanted 03/08/2005) ? Bipolar, steroid-tipped, active-fixat ion IS-1, DF-1 lead ?? Access: ?Lext axillary vein ?? Location: ?? Right ventricular apex ?? R wave, ICD: ?19.1 mV ?? Pacing threshold, ICD: 1.5V at 0.4 ms ?? Impedance, ICD: ??912 ohms ?? HVB Impedance ?? 54 ohms ?? SVC Impedance ?? 67 ohms Atrial electrode: ?? Medtronic, CaptureFix Model # 5076-52 cm Serial # [id number] (Implanted 04/26/11) ? Bipolar, steroid-tipped, active-fixat ion IS-1 lead ?? Access: ?Lext axillary vein ?? Location ?Right atrial appendage ?? P wave, ICD: ?? 4.9 mV ?? Pacing threshold, ICD: 0.25 V at 0.4 ms ?? Impedance, ICD: ??399 ohms Coronary sinus electrode: Medtronic, Attain OTW Model# 4196-88cm, Serial# [id number] (Implanted 04/26/11)? Bipolar passive fixation lead ?? Access: ?Left axillary vein ?? Location: ?? Coronary sinus, anterior ?? Pacing threshold, ICD: 1.0 V ay 0.8 m s (LV ring to RV coil) ?? Impedance,ICD: ??722 ohms ?? Pace the diaphragm/chest wall at 10 V : No Pulse generator: ?? Medtronic Viva XT model number [id number] S erial #[id number] ?? HR ADMINISTRATIVE ASSISTANT-D Location: ?? Subcutaneous ?? The wound was closed with a running stit ch of 2-O Monocryl and the skin was closed with a subcuticular stitch of ??4-0 MonocrylPlus. ??Medical adhesive (Dermabond) was applied to the incision, which was covered with a Mepilex dressing. The patient tolerated the procedure well. Dr. Bradford was present for the critic al portions of the procedure. EBL: 3 cc Sedation time: 99 minutes Fluoro time: 0 minutes, DAP 9 cGy X cm2 ? Massimo Ponce MD EP PROCEDURE ORDERABLES documented in this encounter Visit Diagnoses Diagnosis Cardiomyopathy, unspecified type Cardiomyopathy, unspecified type documented in this encounter Care Teams Oncology Nurse Navigator Relationship Specialty Start Date End Date Nicole Pickens MD PCP - General 08/17/[address] [place] [address] [address] [place] [address] documented as of this encounter
--- OUTSIDE RECORDS SUMMARY | 2022-03-18 02:36 | XMS_ITS | Encounter Summary ---
:1945 Author Organization [facility] [place] [address] Care Team Providers Name Role Phone Nicole Pickens MD Primary Care Provider Encounter Details Date Type Department Care Team Description 11/05/2016 [place] [address] Social History Tobacco Use Types Packs/Day Years Used Date Never Smoker Smokeless Tobacco: Never Used Alcohol Use Standard Drinks/Week Comments No 0 (1 standard drink = 0.6 oz pure alcoho l) Sex Assigned at Date Recorded Not on file documented as of this encounter Plan of Treatment Upcoming Encounters Date Type Specialty Care Team Description 04/16/2022 Appointment Cardiology Vivi Lorenz APRN [facility] CARDIOLOGY DEPT. [place], [place] [address] (Luz pollard) 04/16/2022 Laboratory Appointment Lab 04/16/2022 Office Visit Cardiology Vivi Lorenz APRN [facility] CARDIOLOGY DEPT. [place], [place] [address] (Luz pollard) documented as of this encounter Procedures Procedure Name Priority Date/Time Associated Diagnosis Comme nts CARDIAC DEVICE Routine 11/05/2016 4:01 AM Results for this CHECK - REMOTE EST procedure are in the results section. documented in this encounter Results (ABNORMAL) Cardiac device check - Remote (11/05/2016 4:01 AM EST) Component Value Ref Test Analysis Performed Pathologis t Range Method Time At Signature Date Time [id number] IDCO Interrogation Session Implantable Medtronic IDCO Pulse Generator Electrical Prospecting Supervisor Implantable Viva XT COMPUTER LAB AIDE-D IDCO Pulse Generator [id number] Model Implantable [id number] IDCO Pulse Generator Serial Number Type Remote IDCO Interrogation Session Implantable Cardiac IDCO Pulse Generator Resynchronization Type Therapy - Defibrillator Implantable [id number] IDCO Pulse Generator Implant Date Victor Manuel [...] Sensitivity Ventricular BiV IDCO chambers paced during COMPUTER LAB AIDE pacing. COMPUTER LAB AIDE LV-RV Delay 20 ms IDCO Lead Channel [...] of Measurements Battery Status OK IDCO Battery CREPE BOX TENDER 2.727 IDCO Trigger Battery Voltage 3.06 V IDCO Victor Manuel Statistic [id number] IDCO Date Time Start Victor Manuel Statistic IDCO Date Time End Victor Manuel Statistic 0 % IDCO RA Percent Paced Victor Manuel Statistic 99.96 % IDCO RV Percent Paced COMPUTER LAB AIDE Statistic LV 99.96 % IDCO Percent Paced Victor Manuel Statistic 0 % IDCO AP INSPECTOR POISING Percent Victor Manuel Statistic 99.97 % IDCO INSPECTOR POISING Percent Victor Manuel Statistic 0 % IDCO AP VS Percent Victor Manuel Statistic 0.03 % IDCO VS Percent COMPUTER LAB AIDE Statistic [id number] IDCO Date Time Start COMPUTER LAB AIDE Statistic IDCO Date Time End COMPUTER LAB AIDE Statistic 99.96 % IDCO COMPUTER LAB AIDE Percent Paced Atrial Tachy [id number] IDCO Statistic Date Time Start Atrial Tachy IDCO Statistic Date Time End Atrial Tachy 0 % IDCO Statistic AT/AF [place] Percent Therapy 0 IDCO Statistic Recent Shocks Delivered Therapy 0 IDCO Statistic Recent Shocks Aborted Therapy 0 IDCO Statistic Recent ATP Delivered Therapy [id number] IDCO Statistic Recent Date Time Start Therapy IDCO Statistic Recent Date Time End Therapy 0 IDCO Statistic Total Shocks Delivered Therapy 0 IDCO Statistic Total Shocks Aborted Therapy 0 IDCO Statistic Total ATP Delivered Therapy [id number] IDCO Statistic Total Date Time Start Therapy IDCO Statistic Total Date Time End Episode [...] Episode SVT IDCO Statistic Type Category Episode [id number] IDCO Statistic Recent Date Time Start Episode [id number] IDCO Statistic Recent Date Time End Episode [id number] IDCO Statistic Recent Date Time Start Episode [id number] IDCO Statistic Recent Date Time End Episode [id number] IDCO Statistic Recent Date Time Start Episode [id number] IDCO Statistic Recent Date Time End Episode [id number] IDCO Statistic Recent Date Time Start Episode [id number] IDCO Statistic Recent Date Time End Episode [id number] IDCO Statistic Recent Date Time Start Episode [id number] IDCO Statistic Recent Date Time End Episode [id number] IDCO Statistic Recent Date Time Start Episode [id number] IDCO Statistic Recent Date Time End Episode [id number] IDCO Statistic Recent Date Time Start Episode [id number] IDCO Statistic Recent Date Time End Episode [...] Episode SVT IDCO Statistic Type Category Episode [id number] IDCO Statistic Total Date Time Start Episode [id number] IDCO Statistic Total Date Time End Episode [id number] IDCO Statistic Total Date Time Start Episode [id number] IDCO Statistic Total Date Time End Episode [id number] IDCO Statistic Total Date Time Start Episode [id number] IDCO Statistic Total Date Time End Episode [id number] IDCO Statistic Total Date Time Start Episode [id number] IDCO Statistic Total Date Time End Episode [id number] IDCO Statistic Total Date Time Start Episode [id number] IDCO Statistic Total Date Time End Episode [id number] IDCO Statistic Total Date Time Start Episode [id number] IDCO Statistic Total Date Time End Episode [id number] IDCO Statistic Total Date Time Start Episode [id number] IDCO Statistic Total Date Time End Specimen (Source) Anatomical Collection Method Collection Time Re ceived Time Location / / Volume Laterality 11/05/2016 4:01 AM EST Physician Cardiology MD IMPLANTABLE CARDIAC DEVICE Performing Organization Address City/State/ZIP Code Phon e Number IDCO documented in this encounter Visit Diagnoses Not on filedocumented in this encounter Care Teams Braider Tender Relationship Specialty Start Date End Date Nicole Pickens MD PCP - General 08/17/[address] [place] [address] documented as of this encounter
--- OUTSIDE RECORDS SUMMARY | 2022-03-18 02:36 | XMS_ITS | Encounter Summary ---
:1945 Author Organization [facility] [place] [address] Care Team Providers Name Role Phone Nicole Pickens MD Primary Care Provider Encounter Details Date Type Department Care Team Description 02/07/2017 Office Visit Cardiology at [facility] [place] Dalila Woodard Heart failure, [facility] Amelia RN unspecifi [place] [address] unspecified heart [phone] failure type Social History Tobacco Use Types Packs/Day Years Used Date Never Smoker Smokeless Tobacco: Never Used Alcohol Use Standard Drinks/Week Comments No 0 (1 standard drink = 0.6 oz pure alcoho l) Sex Assigned at Date Recorded Not on file documented as of this encounter Last Filed Vital Signs Vital Sign Reading Time Taken Comments Blood Pressure 124/76 02/07/2017 12:49 PM EDT Pulse 69 02/07/2017 12:49 PM EDT Temperature - - Respiratory Rate - - Oxygen Saturation 95% 02/07/2017 12:49 PM EDT Inhaled Oxygen Concentration - - Weight 117.9 kg (260 lb) 02/07/2017 12:49 PM EDT Height - - Body Mass Index 43.27 11/21/2016 8:59 AM EDT documented in this encounter Progress Notes Dalila Woodard RN - 02/07/2017 1:00 PM EDT Images from the original note were not included. Clinical Electrophysiology Device Service Note Ms. Victoria is a 71 yo woman presents for a 91 day CASEY SAW OPERATOR-D programming evaluation.She had a generator change done 11/04/16 due to battery SKYLAR. She has been feeling well and is accompanied by her today. 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 She has a history in 07/19/2011 related to LV Tip->Ring impedance of just over 1,500 ohms. LV vector was reprogrammed Ring->Coil at that encounter. Right ventricular lead subject to Vladimir Shaikh advisory from 2006. Fiberglass Grinder: Roly Aguilar MD Primary Care: Nicole Pickens MD DEVICE AND LEAD INFORMATION Final Parameters: Ventricular electrode: Medtronic SprintFidelis Model# 6949 58 cm Serial #[id number] (Implanted 03/08/2005) Bipolar, steroid-tipped, active-fixation IS-1, DF-1 lead Access: Axillary vein Location: Right ventricular apex R wave, ICD: 15.9 mV Pacing threshold, ICD: 1.25V at 0.8 ms Impedance, ICD: 646 ohms HVB Impedance 44 ohms SVC Impedance 52 ohms Pace the diaphragm at 10 V: No Atrial electrode: Medtronic, CaptureFix Model # 5076-52 cm Serial # [id number] Bipolar, steroid-tipped, active-fixation IS-1 lead Access: Axillary vein Location Right atrial appendage P wave, ICD: 3.0 mV Pacing threshold, ICD: 0.75 V at 0.4 ms Impedance, ICD: 437 ohms Pace the diaphragm at 10 V: No Coronary sinus electrode: Medtronic, Attain OTW Model# 4196-88cm, Serial# [id number] Bipolar passive fixation lead Access: Axillary vein Location: Coronary sinus, anterior R wave, ICD: 13.8 Pacing threshold, ICD: 0.75 0.4 ms (LV ring to RV coil) Impedance, device: 494s Pace the diaphragm/chest wall at 10 V: No Pulse generator: Pulse generator: MedVendavo Viva XT model number [id number] Serial #[id number] 11/04/16 ?? CASEY SAW OPERATOR-D Location: Subcutaneous Parameters: VF detection rate: >188 [...] mode switch 171 bpm, LV- >RV Adaptive CASEY SAW OPERATOR Follow-up: Battery status: 3.08 V (ASSISTANT PRODUCTION MANAGER: 2.73 V) Charge time: N/A Est 7.8 years to SKYLAR Sensing Integrity Counter: 0 Pace/sensing leads: Atrial: P wave: 5.1 mV Impedance: 437 ohms Threshold: 0.75 V at 0.2 ms Stable trend EGM: Clean Right Ventricular R wave: >20.0 mV Impedance: 969 Ohms Threshold: 1.25 V at 0.4 ms auto. Stable EGM quality: clean Left Ventricular: Threshold: 1.00 V at 0.4 ms Ring->Coil. The auto trend is stable. Impedance: 817 ohms LV ring to RV coil Shocking Leads RV: 57 Ohms stable SVC: 78 Ohms stable EGM quality: clean Wound/generator site: Healed scar to left chest Therapy Administered: none Events: none Underlying rhythm: SR 76 bpm OptiVol: starting trend Histograms are well distributed. Pacing percentages: AP <0.1 %; OPTICIAN 98.0 % Bi-V 100 % VSR <0.1% Changes made this session: Iterative to assess device function Plan: Carelink every 3 months. RTC in 6 months. She has an appointment 03/07/17 with Tayler Lorenz I requested a remote for 03/06/17 so she can review it. Provider: DALILA WOODARD RN Attending: Natasha Ponce MD Addendum I have personally reviewed the device interrogation as performed by Dalila Woodard RN CRT_D Reasonable rate histogram(s) 98% V paced; of this, 100% is BiV paced Reasonable rate histograms Normal device function Summary 1) Normal device function 2) Routine follow up as planned NATASHA PONCE MD documented in this encounter Plan of Treatment Upcoming Encounters Date Type Specialty Care Team Description 04/16/2022 Appointment Cardiology Vivi Lorenz LACE SEWER [facility] CARDIOLOGY DEPT. [place], [place] [address] (Wo rk) 04/16/2022 Laboratory Appointment Lab 04/16/2022 Office Visit Cardiology Vivi Lorenz, JEREMÍAS [facility] CARDIOLOGY DEPT. [place], [place] [address] (Wo rk) documented as of this encounter Visit Diagnoses Diagnosis Heart failure, unspecified heart failure chronicity, unspecified heart failure type documented in this encounter Care Teams Critical Care Specialist Relationship Specialty Start Date End Date Nicole Pickens MD PCP - General 08/17/[address] [place] [address] [address] [place] [address] documented as of this encounter
--- OUTSIDE RECORDS SUMMARY | 2022-03-18 02:36 | XMS_ITS | Encounter Summary ---
:1945 Author Organization [facility] [place] [address] Care Team Providers Name Role Phone Nicole Pickens MD Primary Care Provider Encounter Details Date Type Department Care Team Description 03/06/2017 Orders [place] [address] Social History Tobacco Use Types Packs/Day Years Used Date Never Smoker Smokeless Tobacco: Never Used Alcohol Use Standard Drinks/Week Comments No 0 (1 standard drink = 0.6 oz pure alcoho l) Sex Assigned at Date Recorded Not on file documented as of this encounter Plan of Treatment Upcoming Encounters Date Type Specialty Care Team Description 04/16/2022 Appointment Cardiology Vivi Lorenz APRN [facility] CARDIOLOGY DEPT. [place], [place] [address] (Luz pollard) 04/16/2022 Laboratory Appointment Lab 04/16/2022 Office Visit Cardiology Vivi Lorenz APRN [facility] CARDIOLOGY DEPT. [place], [place] [address] (Luz pollard) documented as of this encounter Procedures Procedure Name Priority Date/Time Associated Diagnosis Comme nts CARDIAC DEVICE Routine 03/06/2017 6:27 AM Results for this CHECK - REMOTE EDT procedure are in the results section. documented in this encounter Results (ABNORMAL) Cardiac device check - Remote (03/06/2017 6:27 AM EDT) Component Value Ref Test Analysis Performed Pathologis t Range Method Time At Signature Date Time [id number] IDCO Interrogation Session Implantable Medtronic IDCO Pulse Generator Daycare Worker Implantable Viva XT OCCUPATIONAL HEALTH NURSE-D IDCO Pulse Generator [id number] Model Implantable [id number] IDCO Pulse Generator Serial Number Type Remote IDCO Interrogation Session Implantable Cardiac IDCO Pulse Generator Resynchronization Type Therapy - Defibrillator Implantable [id number] IDCO Pulse Generator Implant Date Victor Manuel [...] Sensitivity Ventricular BiV IDCO chambers paced during OCCUPATIONAL HEALTH NURSE pacing. OCCUPATIONAL HEALTH NURSE LV-RV Delay 20 ms IDCO Lead Channel [...] of Measurements Battery Status OK IDCO Battery TIME LOCK EXPERT 2.727 IDCO Trigger Battery 94 mo IDCO Remaining Longevity Battery Voltage 3.06 V IDCO Capacitor Charge Reformation IDCO Type Capacitor Last [id number] IDCO Charge Date Time Capacitor Charge 3.653 s IDCO Time Capacitor Charge 18 J IDCO Energy Victor Manuel Statistic [id number] IDCO Date Time Start Victor Manuel Statistic IDCO Date Time End Victor Manuel Statistic 0.03 % IDCO RA Percent Paced Victor Manuel Statistic 95.46 % IDCO RV Percent Paced OCCUPATIONAL HEALTH NURSE Statistic LV 95.42 % IDCO Percent Paced Victor Manuel Statistic 0.02 % IDCO AP DEODORIZER OPERATOR Percent Victor Manuel Statistic 99.94 % IDCO DEODORIZER OPERATOR Percent Victor Manuel Statistic 0.01 % IDCO AP VS Percent Victor Manuel Statistic 0.03 % IDCO VS Percent OCCUPATIONAL HEALTH NURSE Statistic [id number] IDCO Date Time Start OCCUPATIONAL HEALTH NURSE Statistic IDCO Date Time End OCCUPATIONAL HEALTH NURSE Statistic 95.42 % IDCO OCCUPATIONAL HEALTH NURSE Percent Paced Atrial Tachy [id number] IDCO Statistic Date Time Start Atrial Tachy IDCO Statistic Date Time End Atrial Tachy 0 % IDCO Statistic AT/AF [place] Percent Therapy 0 IDCO Statistic Recent Shocks Delivered Therapy 0 IDCO Statistic Recent Shocks Aborted Therapy 0 IDCO Statistic Recent ATP Delivered Therapy [id number] IDCO Statistic Recent Date Time Start Therapy IDCO Statistic Recent Date Time End Therapy 0 IDCO Statistic Total Shocks Delivered Therapy 0 IDCO Statistic Total Shocks Aborted Therapy 0 IDCO Statistic Total ATP Delivered Therapy [id number] IDCO Statistic Total Date Time Start Therapy [id number] IDCO Statistic Total Date Time End Episode [...] Episode SVT IDCO Statistic Type Category Episode [id number] IDCO Statistic Recent Date Time Start Episode [id number] IDCO Statistic Recent Date Time End Episode [id number] IDCO Statistic Recent Date Time Start Episode [id number] IDCO Statistic Recent Date Time End Episode [id number] IDCO Statistic Recent Date Time Start Episode [id number] IDCO Statistic Recent Date Time End Episode [id number] IDCO Statistic Recent Date Time Start Episode [id number] IDCO Statistic Recent Date Time End Episode [id number] IDCO Statistic Recent Date Time Start Episode [id number] IDCO Statistic Recent Date Time End Episode [id number] IDCO Statistic Recent Date Time Start Episode [id number] IDCO Statistic Recent Date Time End Episode [id number] IDCO Statistic Recent Date Time Start Episode [id number] IDCO Statistic Recent Date Time End Episode [...] Episode SVT IDCO Statistic Type Category Episode [id number] IDCO Statistic Total Date Time Start Episode [id number] IDCO Statistic Total Date Time End Episode [id number] IDCO Statistic Total Date Time Start Episode [id number] IDCO Statistic Total Date Time End Episode [id number] IDCO Statistic Total Date Time Start Episode [id number] IDCO Statistic Total Date Time End Episode [id number] IDCO Statistic Total Date Time Start Episode [id number] IDCO Statistic Total Date Time End Episode [id number] IDCO Statistic Total Date Time Start Episode [id number] IDCO Statistic Total Date Time End Episode [id number] IDCO Statistic Total Date Time Start Episode [id number] IDCO Statistic Total Date Time End Episode [id number] IDCO Statistic Total Date Time Start Episode [id number] IDCO Statistic Total Date Time End Specimen (Source) Anatomical Collection Method Collection Time Re ceived Time Location / / Volume Laterality 03/06/2017 6:27 AM EDT Physician Cardiology MD IMPLANTABLE CARDIAC DEVICE Performing Organization Address City/State/[facility] Code Phon e Number IDCO documented in this encounter Visit Diagnoses Not on filedocumented in this encounter Care Teams Sculpture Conservator Relationship Specialty Start Date End Date Nicole Pickens MD PCP - General 08/17/[address] [place] [address] documented as of this encounter
--- OUTSIDE RECORDS SUMMARY | 2022-03-18 02:36 | XMS_ITS | Encounter Summary ---
:1945 Author Organization [facility] [place] [address] Care Team Providers Name Role Phone Nicole Pickens MD Primary Care Provider Encounter Details Date Type Department Care Team Description 03/20/2016 Office Visit Cardiology at [facility] [place] Vivi Lorenz, Cardiomyopathy; [facility] VALIDATION ARCHITECT Obesity, unspecified obesity severity, u nspecified obesity type; [facility] [place] [address] CARDIOLOGY DEPT. [phone] [place], [place] [address] Social History Tobacco Use Types Packs/Day Years Used Date Never Smoker Smokeless Tobacco: Never Used Alcohol Use Standard Drinks/Week Comments Not Asked 0 (1 standard drink = 0.6 oz pure alcoho l) Sex Assigned at Date Recorded Not on file documented as of this encounter Last Filed Vital Signs Vital Sign Reading Time Taken Comments Blood Pressure 130/85 03/20/2016 9:42 AM EDT Pulse 61 03/20/2016 9:42 AM EDT Temperature - - Respiratory Rate - - Oxygen Saturation 95% 03/20/2016 9:42 AM EDT room ai r Inhaled Oxygen Concentration - - Weight 119.1 kg (262 lb 8 oz) 03/20/2016 9:42 AM EDT Height 165.1 cm (5' 5) 03/20/2016 9:42 AM EDT Body Mass Index 43.68 03/20/2016 9:42 AM EDT documented in this encounter Progress Notes Vivi Lorenz, VALIDATION ARCHITECT - 03/20/2016 10:00 AM EDT Cardiomyopathy/Heart failure Clinic Follow up Visit. ID and CC: Ana Victoria is a 70 y.o. female presenting for f/u regarding nonischemic cardiomyopathy and HF. Last visit: 09/16 Interim events: Stable from a CV standpoint. Her dog bit her and she had an overnight hospital stay earlier this week and she remains on oral abx. Weight has been stable. Good energy. Sleeping well with CPAP. No medication issues. No CP, SOB at rest or with exertion. No orthopnea, PND, syncope.presyncope. She is pondering fpc and thinks may be this fall. Her current schedule has interfered with her ability to be more active. No device issues Patient Active Problem List Diagnosis ??? Heart failure- chronic systolic dysfunction Well compensated and euvolemic NSR with LBBB, s/p METAL ORGAN PIPE MAKER-D 04/11/11 AHA./ACC Stage C, NYHA FTC II Heart Failure Management: Yes/No No?/Discontinued/Why Beta tone Yes MILADYS/ARB Yes Spironolactone yes AFIB? no Anticoagulated n/a Device yes METAL ORGAN PIPE MAKER-D 04/11/11 ??? Obesity BMI=43 ??? LBBB (left bundle branch block) Chronic Widened QRS S/p METAL ORGAN PIPE MAKER-D ??? Depression ??? History of DVT (deep [...] 30% 02/10 Echo EF= 50-55% 02/02/13 (s/p METAL ORGAN PIPE MAKER) Echo EF= 60-65% 02/15/14 ??? LV (left ventricular) mural thrombus ??? Obstructive sleep apnea uses CPAP ??? Osteoarthritis Current Outpatient Prescriptions Medication Sig Dispense Refill ??? amoxicillin-clavulanate (AUGMENTIN) 875-125 mg Tablet Take 1 tablet by mouth 2 times daily. ??? glipiZIDE (GLUCOTROL XL) 5 mg [...] ORAL) (Patient taking differently: 2 tablets daily) ??? oxyCODONE-acetaminophen (PERCOCET) 5-325 mg Tablet Take 1 tablet by mouth every 6 hours as needed for Pain. Allergies: Review of patient's allergies indicates no known allergies. Interval ROS: See HPI above for pertinent positives and negatives. All other ROS negative by system (including general, HEENT, pulmonary, gastrointestinal, genitourinary, musculoskeletal, endocrine, hematologic, extremity, skin, neurology, and psychiatric) with exceptions below. Physical Exam: Blood pressure 130/85, pulse 61, height 165.1 cm (5' 5), weight (!) 119.1 kg (262 lb 8 oz), SpO2 95%. General: WD, WN, NAD HEENT: JVP 6-7 - alopecia Lungs: Clear to A+P Cor: RR, normal S1, S2. PMI not displaced. No murmur or gallop Abd: soft, no L/S/K enlargement or bruits Ext: Pulses preserved, no edema, cyanosis or clubbing Device report reviewed - optivol flat - no events Lab data: Labs from ED visit yesterday reviewed Available in scanned docs Last echo: 02/29/16 at [facility] LVEF 60-65%. Mild-mod MR/AI Assessment: 1. H/o cardiomyopathy. LVEF improved with meds and METAL ORGAN PIPE MAKER to 60--65% 2. HFrEF. ACC/AHA stage C. NYHA FC I-II Euvolemic. On GDMT and would recommend continue 3. Obesity - discussed increased exercise 4. 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 A review of the active management and working diagnosis(es) was conducted. 2. The patient's medication list was updated and new Rxs given as needed. No changes 3. Question were answered regarding: lab and echo results 4. The following labs or other testing advised: none today 5. Heart Failure Clinic follow up scheduled for: 6 months with device check VIVI LORENZ APRN documented in this encounter Plan of Treatment Upcoming Encounters Date Type Specialty Care Team Description 04/16/2022 Appointment Cardiology Vivi Lorenz APRN [facility] CARDIOLOGY DEPT. [place], [place] [address] (Luz pollard) 04/16/2022 Laboratory Appointment Lab 04/16/2022 Office Visit Cardiology Vivi Lorenz APRN [facility] CARDIOLOGY DEPT. [place], [place] [address] (Wo rk) documented as of this encounter Visit Diagnoses Diagnosis Cardiomyopathy Other primary cardiomyopathies Obesity, unspecified obesity severity, u nspecified obesity type H/O heart failure Personal history of other diseases of ci rculatory system documented in this encounter Care Teams Recreation Attendant Relationship Specialty Start Date End Date Nicole Pickens MD PCP - General 08/17/[address] [place] [address] [address] documented as of this encounter
--- OUTSIDE RECORDS SUMMARY | 2022-03-18 02:36 | XMS_ITS | Encounter Summary ---
:1945 [place] [address] Care Team Providers Name Role Phone Nicole Pickens MD Primary Care Provider Reason for Visit Reason Comments Cardiomyopathy Encounter Details Date Type Department Care Team Description 03/20/2016 Office Visit Cardiology [place] [facility] Idiopathic [facility] [place] [id number] Social History Tobacco Use Types Packs/Day Years Used Date Never Smoker Smokeless Tobacco: Never Used Alcohol Use Standard Drinks/Week Comments Not Asked 0 (1 standard drink = 0.6 oz pure alcoho l) Sex Assigned at Date Recorded Not on file documented as of this encounter Last Filed Vital Signs Vital Sign Reading Time Taken Comments Blood Pressure 130/85 03/20/2016 9:25 AM EDT Pulse 61 03/20/2016 9:25 AM EDT Temperature - - Respiratory Rate - - Oxygen Saturation 95% 03/20/2016 9:25 AM EDT Room ai r Inhaled Oxygen Concentration - - Weight 119.1 kg (262 lb 8 oz) 03/20/2016 9:25 AM EDT Height 165.1 cm (5' 5) 03/20/2016 9:25 AM EDT Body Mass Index 43.68 03/20/2016 9:25 AM EDT documented in this encounter Progress Notes Nu Ruiz RN - 03/20/2016 9:30 AM EDT Images from the original note were not included. Clinical Electrophysiology Device Service Note Ms. Victoria is a 69 yo woman presents for CLIENT DEVELOPMENT MANAGER-D interrogation. She has been feeling well and is accompanied by her today. She is also seeing Tayler Lorenz with the heart failure team today. She has a history in 07/19/2011 related to LV Tip->Ring impedance of just over 1,500 ohms. LV vector was reprogrammed Ring->Coil at that encounter. 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 Right ventricular lead subject to Nova Lignum Neel advisory from 2006. Gyn: Roly Aguilar MD Primary Care: NICOLE PICKENS MD DEVICE AND LEAD INFORMATION Final Parameters: Ventricular electrode: Medtronic SprintFidelis Model# 6949 58 cm Serial #[id number] (Implanted 03/08/2005) Bipolar, steroid-tipped, active-fixation IS-1, DF-1 lead Access: Axillary vein Location: Right ventricular apex R wave, ICD: 15.9 mV Pacing threshold, ICD: 1.25V at 0.8 ms Impedance, ICD: 646 ohms HVB Impedance 44 ohms SVC Impedance 52 ohms Pace the diaphragm at 10 V: No Atrial electrode: Medtronic, CaptureFix Model # 5076-52 cm Serial # [id number] Bipolar, steroid-tipped, active-fixation IS-1 lead Access: Axillary vein Location Right atrial appendage P wave, ICD: 3.0 mV Pacing threshold, ICD: 0.75 V at 0.4 ms Impedance, ICD: 437 ohms Pace the diaphragm at 10 V: No Coronary sinus electrode: Medtronic, Attain OTW Model# 4196-88cm, Serial# [id number] Bipolar passive fixation lead Access: Axillary vein Location: Coronary sinus, anterior R wave, ICD: 13.8 Pacing threshold, ICD: 0.75 0.4 ms (LV ring to RV coil) Impedance, device: 494s Pace the diaphragm/chest wall at 10 V: No Pulse generator: Medtronic Protecta XT CLIENT DEVELOPMENT MANAGER Serial #[id number] CLIENT DEVELOPMENT MANAGER ICD Location: Subcutaneous Parameters: VF detection rate: >188 bpm VF therapy: ATP during charging, 35j x 6 FVT detection rate: Via VF 250 bpm FVT therapy: Burst(2), 35j x 5 VT detection rate: OFF VT therapy: OFF Enhancements: VT Monitor, AF/Afl, ST, Wavelet, Onset(monitor), TWave, Noise Victor Manuel pacing: Bi-V DDD 40/130, PAV 130 ms, DAVID 100 ms, mode switch 171 bpm, LV- >RV 20 ms Follow-up: Battery status: 2.70 V (MANAGER ENERGY: 2.63 V) Charge time: 11.9 seconds 10/27/2015 Sensing Integrity Counter: 0 Pace/sensing leads: Atrial: P wave: 3.9 mV Threshold: 0.5 V at 0.4 ms auto. Stable trend Impedance: 437 ohms EGM: Clean Right Ventricular R wave: >20 mV Threshold: 1.875 V at 0.4 ms auto. Stable Impedance: 931 Ohms EGM quality: clean Left Ventricular: Threshold: 1.625 V at 0.4 ms Ring->Coil. The auto trend is stable. Impedance: 760 ohms LV ring to RV coil, 779 ohms (LVTip to RV Coil), 1311 (LVtip to LV ring) Shocking Leads RV: 49 Ohms stable SVC: 64 Ohms stable EGM quality: clean Wound/generator site: well healed Therapy Administered: none Events: none Underlying rhythm: SR 70 bpm OptiVol: never above threshold Histograms are well distributed. Pacing percentages: AP 0%; Bi-DIRECTOR DIGITAL SALES 100% Changes made this session: None. Plan: Care Link 3 mos. RTC 6 mos, coordinate with heart failure . Provider: Nu Ruiz RN Attending: Dr. White Electrophysiology Attending Note I have personally reviewed and analyzed the device evaluation. Impression/Plan: ?? Normal device function. Follow up: As above. William Bill MD documented in this encounter Plan of Treatment Upcoming Encounters Date Type Specialty Care Team Description 04/16/2022 Appointment Cardiology Vivi Lorenz, PAPER AND PULP MILL WORKER [facility] CARDIOLOGY DEPT. [place], [place] [address] (Wo rk) 04/16/2022 Laboratory Appointment Lab 04/16/2022 Office Visit Cardiology Vivi Lorenz, PAPER AND PULP MILL WORKER [facility] CARDIOLOGY DEPT. [place], [place] [address] (Wo rk) documented as of this encounter Visit Diagnoses Diagnosis Idiopathic cardiomyopathy Other primary cardiomyopathies documented in this encounter Care Teams Centura Technical Lead Senior Developer Relationship Specialty Start Date End Date Nicole Pickens MD PCP - General 08/17/[address] [place] [address] documented as of this encounter
--- OUTSIDE RECORDS SUMMARY | 2022-03-18 02:36 | XMS_ITS | Encounter Summary ---
:1945 Author Organization [facility] [place] [address] Care Team Providers Name Role Phone Nicole Pickens MD Primary Care Provider Encounter Details Date Type Department Care Team Description 08/10/2015 External Results Cardiology at [facility] [place] Nicole Pickens MD [address] [address] [place], [place] [id number] (Wo rk) Social History Tobacco Use Types [...] Appointment Cardiology Vivi Lorenz APRN [facility] CARDIOLOGY DEPT. [place], [place] [address] (Wo rk) 04/16/2022 Laboratory Appointment Lab 04/16/2022 Office Visit Cardiology Vivi Lorenz APRN [facility] CARDIOLOGY DEPT. [place], [place] [address] (Wo rk) documented as of this encounter Procedures Procedure Name Priority Date/Time Associated Diagnosis Comme nts EP DEVICE SCAN Routine 05/17/2015 documented in this encounter Results Scan Doc: EP Device (05/17/2015) Narrative This result has an attachment that is no t available. Nicole Pickens MD MEDIA MGR SCAN EXT ORDR/RSLT documented in this encounter Visit Diagnoses Not on filedocumented in this encounter Care Teams Piano And Organ Refinisher Relationship Specialty Start Date End Date Nicole Pickens MD PCP - General 08/17/[address] [place] [address] documented as of this encounter
--- OUTSIDE RECORDS SUMMARY | 2022-03-18 02:36 | XMS_ITS | Encounter Summary ---
:1945 Author Organization [place] [address] Care Team Providers Name Role Phone Nicole Pickens MD Primary Care Provider Encounter Details Date Type Department Care Team Description 02/05/2016 Orders Only Cardiology [place] [facility] [place]z, Cardiomyopathy; [facility] UPHOLSTERY PARTS SORTER Heart failure, [place] [address] CARDIOLOGY DEPT. [place], [place] [address] Social History Tobacco Use Types [...] Cardiology Vivi Lorenz APRN [facility] CARDIOLOGY DEPT. [place], [place] [address] (Wo rk) 04/16/2022 Laboratory Appointment Lab 04/16/2022 Office Visit Cardiology Vivi Lorenz APRN [facility] ER CARDIOLOGY DEPT. [place], [place] [address] (Wo rk) documented as of this encounter Visit Diagnoses Diagnosis Cardiomyopathy Other primary cardiomyopathies Heart failure, unspecified documented in this encounter Care Teams Harness Mender Relationship Specialty Start Date End Date Nicole Pickens MD PCP - General 08/17/[address] [place] [address] documented as of this encounter
--- OUTSIDE RECORDS SUMMARY | 2022-03-18 02:36 | XMS_ITS | Encounter Summary ---
:1945 [place] [address] Care Team Providers Name Role Phone Nicole Pickens MD Primary Care Provider Encounter Details Date Type Department Care Team Description 03/05/2017 Orders Only Cardiology at [facility] [place] Vivi Lorenz APRN [facility] [place] [address] CARDIOLOGY DEPT. [phone] [place], [place] [address] (Wo rk) Social History Tobacco Use Types [...] Cardiology Vivi Lorenz APRN [facility] ER CARDIOLOGY DEPT. [place], [place] [address] (Wo rk) 04/16/2022 Laboratory Appointment Lab 04/16/2022 Office Visit Cardiology Vivi Lorenz APRN [facility] ER CARDIOLOGY DEPT. [place], [place] [address] (Wo rk) documented as of this encounter Visit Diagnoses Not on filedocumented in this encounter Care Teams Sprinkler Worker Relationship Specialty Start Date End Date Nicole Pickens MD PCP - General 08/17/[address] [place] [address] documented as of this encounter
--- OUTSIDE RECORDS SUMMARY | 2022-03-18 02:36 | XMS_ITS | Encounter Summary ---
:1945 Author Organization [facility] [place] [address] Care Team Providers Name Role Phone Nicole Pickens MD Primary Care Provider Reason for Visit Reason Comments Cardiomyopathy Encounter Details Date Type Department Care Team Description 09/08/2015 Office Visit Cardiology [place] [facility] [place] Linares LBBB (left bundle branch blo ck); [facility] [place] [address] Social History Tobacco Use Types Packs/Day Years Used Date Never Smoker Smokeless Tobacco: Never Used Alcohol Use Standard Drinks/Week Comments Not Asked 0 (1 standard drink = 0.6 oz pure alcoho l) Sex Assigned at Date Recorded Not on file documented as of this encounter Last Filed Vital Signs Vital Sign Reading Time Taken Comments Blood Pressure 114/87 09/08/2015 7:58 AM EST Pulse 74 09/08/2015 7:58 AM EST Temperature - - Respiratory Rate - - Oxygen Saturation 95% 09/08/2015 7:58 AM EST Inhaled Oxygen Concentration - - Weight 115.3 kg (254 lb 3.2 oz) 09/08/2015 7:58 AM EST Height 165.1 cm (5' 5) 09/08/2015 7:58 AM EST Body Mass Index 42.3 09/08/2015 7:58 AM EST documented in this encounter Progress Notes David Linares RN - 09/08/2015 7:52 AM EST ICD Clinic Follow-up Ms. Victoria is a 69 yo woman presents for POTATO SORTER-D interrogation. Of note, she was seen on 07/19/2011 related to LV Tip->Ring impedance of just over 1,500 ohms. LVvector was reprogrammed Ring->Coil at that encounter. 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 Right ventricular lead subject to [employer] Neel advisory from 2006. Bead Forming Machine Operator: Roly Aguilar MD Primary Care: NICOLE PICKENS MD DEVICE AND LEAD INFORMATION Final Parameters: Ventricular electrode: Medtronic SprintFidelis Model# 6949 58 cm Serial #[id number] (Implanted 03/08/2005) Bipolar, steroid-tipped, active-fixation IS-1, DF-1 lead Access: Axillary vein Location: Right ventricular apex R wave, ICD: 15.9 mV Pacing threshold, ICD: 1.25V at 0.8 ms Impedance, ICD: 646 ohms HVB Impedance 44 ohms SVC Impedance 52 ohms Pace the diaphragm at 10 V: No Atrial electrode: Medtronic, CaptureFix Model # 5076-52 cm Serial # [id number] Bipolar, steroid-tipped, active-fixation IS-1 lead Access: Axillary vein Location Right atrial appendage P wave, ICD: 3.0 mV Pacing threshold, ICD: 0.75 V at 0.4 ms Impedance, ICD: 437 ohms Pace the diaphragm at 10 V: No Coronary sinus electrode: Medtronic, Attain OTW Model# 4196-88cm, Serial# [id number] Bipolar passive fixation lead Access: Axillary vein Location: Coronary sinus, anterior R wave, ICD: 13.8 Pacing threshold, ICD: 0.75 0.4 ms (LV ring to RV coil) Impedance, device: 494s Pace the diaphragm/chest wall at 10 V: No Pulse generator: Medtronic Protecta XT POTATO SORTER Serial #[id number] POTATO SORTER ICD Location: Subcutaneous Parameters: VF detection rate: [...] LV- >RV 20 ms Follow-up: Battery status: 2.88 V (PASTE UP WORKER: 2.63 V) Charge time: 11.3 seconds 04/27/2015 Sensing Integrity Counter: 0 Pace/sensing leads: Right Ventricular R wave: >20 mV Threshold: 1.625 V at 0.4 ms auto. Stable Impedance: 988 Ohms EGM quality: clean Left Ventricular: Threshold: 1.125 V at 0.4 ms Ring->Coil. The auto trend is stable Impedance: 779 ohms Atrial: P wave: 4 mV Threshold: 0.5 V at 0.4 ms auto. Stable trend Impedance: 437 ohms EGM: Clean Shocking Leads RV: 58 Ohms stable SVC: 75 Ohms stable EGM quality: clean Xrays of lead system: ok day after upgrade Wound/generator site: well healed Therapy Administered: none Events: none Underlying rhythm: SR 70 bpm OptiVol: never above threshold Histograms are well distributed. Pacing percentages: AP 0%; Bi-NEW CAR DRIVER 100% Changes made this session: None. Excellent device function Plan: Care Link 3 mos. RTC 6 mos I have personally analyzed and reviewed the device printout, and noted that the device is functioning normally. Errol Naqvi MD documented in this encounter Plan of Treatment Upcoming Encounters Date Type Specialty Care Team Description 04/16/2022 Appointment Cardiology Vivi Lorenz APRN [facility] CARDIOLOGY DEPT. [place], [place] [address] (Wo rk) 04/16/2022 Laboratory Appointment Lab 04/16/2022 Office Visit Cardiology Vivi Lorenz APRN [facility] CARDIOLOGY DEPT. [place], [place] [address] (Wo rk) documented as of this encounter Visit Diagnoses Diagnosis LBBB (left bundle branch block) Other left bundle branch block Idiopathic cardiomyopathy Other primary cardiomyopathies documented in this encounter Care Teams Train Starter Relationship Specialty Start Date End Date Nicole Pickens MD PCP - General 08/17/[address] [place] [address] documented as of this encounter
--- OUTSIDE RECORDS SUMMARY | 2022-03-18 02:36 | XMS_ITS | Encounter Summary ---
:1945 Author Organization [facility] [address] Care Team Providers Name Role Phone Nicole Pickens MD Primary Care Provider Encounter Details Date Type Department Care Team Description 10/03/2016 Office Visit Cardiology at [facility] [place] Dar Simeon, ICD (implantable [facility] cardioverter-defibrill [facility]) battery [place], [place] [address] [address] CARDIOLOGY DEPT. [phone] [place], [place] [address] Social History Tobacco Use Types Packs/Day Years Used Date Never Smoker Smokeless Tobacco: Never Used Alcohol Use Standard Drinks/Week Comments Not Asked 0 (1 standard drink = 0.6 oz pure alcoho l) Sex Assigned at Date Recorded Not on file documented as of this encounter Last Filed Vital Signs Vital Sign Reading Time Taken Comments Blood Pressure 132/70 10/03/2016 9:44 AM EST Pulse 67 10/03/2016 9:44 AM EST Temperature - - Respiratory Rate - - Oxygen Saturation 96% 10/03/2016 9:44 AM EST room ai r Inhaled Oxygen Concentration - - Weight 119.3 kg (263 lb) 10/03/2016 9:44 AM EST Height 165.1 cm (5' 5) 10/03/2016 9:44 AM EST Body Mass Index 43.77 10/03/2016 9:44 AM EST documented in this encounter Patient Instructions Patient InstructionsDar Simeon PA - 10/03/2016 10:00 AM EST [facility] Same Day Surgery/Procedure Program Please follow these instructions exactly: DO NOT SMOKE AFTER MIDNIGHT prior to your procedure; no smoking is allowed in the hospital ALL patients must have a ride home after having anesthesia or sedation. We encourage you to have an adult with you for the remainder of the evening and night. Leave all valuables(money and jewelry) at home. Bring your eyeglasses and case if you need them to read. If you are hearing impaired please wear your hearing aid. Contact lenses cannot be worn in the operating room. You will also be asked to remove your underwear. REMOVE all make-up including lipstick, rouge, eye shadow, fingernail samoan and toe nail samoan. NOTIFY YOUR HEALTH CARE PROVIDER if you develop any medical problems or a change in your condition prior to your procedure/surgery. Please bathe or shower before coming to the hospital to reduce the chance of infection. You will be called the day or Friday before your surgery/procedure between 3PM and 6PM with the correct time to report to the Same Day Department. If you do not have a phone or we will be unable to reach you, please call us after 4PM at Same Day Program SPECIAL INSTRUCTIONS: No solid food after midnight on the night prior to the procedure. ___take usual medications the morning of the procedure/surgery with just a sip of WATER(only) ___DO NOT TAKE THE FOLLOWING MEDICINES ON THE MORNING OF THE PROCEDURE/SURGERY ___Hibiclens antibacterial soap shower per information sheet DATE OF PROCEDURE: Arrive at: If you must cancel or reshedule the procedure please call: EP Scheduling documented in this encounter Progress Notes Dar Simeon PA - 10/03/2016 10:00 AM EST Images from the original note were not included. Subjective: Patient ID: Ana Victoria is a 70 y.o. female. HPI Ms. Victoria is a 70 yo woman presents for presumed GROUP DIRECTOR EXPERIENCE-D cell depletion. She has been feeling well and is accompanied by her today. 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 She has a history in 07/19/2011 related to LV Tip->Ring impedance of just over 1,500 ohms. LV vector was reprogrammed Ring->Coil at that encounter. Right ventricular lead subject to [employer] advisory from 2006. ?? Patient Active Problem List Diagnosis ??? Heart failure- chronic systolic dysfunction Overview Note: Well compensated and euvolemic NSR with LBBB, s/p GROUP DIRECTOR EXPERIENCE-D 04/11/11 AHA./ACC Stage C, NYHA FTC II Heart Failure Management: Yes/No No?/Discontinued/Why Beta tone Yes MILADYS/ARB Yes Spironolactone yes AFIB? no Anticoagulated n/a Device yes GROUP DIRECTOR EXPERIENCE-D 04/11/11 ??? Obesity Overview Note: BMI=43 ??? LBBB (left bundle branch block) Overview Note: Chronic Widened QRS S/p GROUP DIRECTOR EXPERIENCE-D ??? Depression ??? History of DVT (deep [...] 30% 02/10 Echo EF= 50-55% 02/02/13 (s/p GROUP DIRECTOR EXPERIENCE) Echo EF= 60-65% 02/15/14 ??? LV (left ventricular) mural thrombus Overview Note: ??? Obstructive sleep apnea Overview Note: uses CPAP ??? Osteoarthritis Overview Note: Review of Systems Constitutional: Negative for diaphoresis, fatigue and fever. Respiratory: Negative for chest tightness and shortness of breath. Cardiovascular: Negative for chest pain, palpitations and leg swelling. Gastrointestinal: Negative for diarrhea, nausea and vomiting. Genitourinary: Negative for dysuria, frequency and hematuria. Neurological: Negative for syncope and light-headedness. Social History Substance Use Topics ??? Smoking status: Never Smoker ??? Smokeless tobacco: Never Used ??? Alcohol use None Current Outpatient Prescriptions Medication Sig Dispense Refill [...] ORAL) (Patient taking differently: 2 tablets daily) Objective: Physical Exam Constitutional: She is oriented to person, place, and time. No distress. Neck: No JVD present. Cardiovascular: Normal rate, regular rhythm, normal heart sounds and intact distal pulses. Pulmonary/Chest: Effort normal and breath sounds normal. Well healed left prepectoral implant site Musculoskeletal: Normal range of motion. She exhibits no edema. Neurological: She is alert and oriented to person, place, and time. Skin: Skin is warm and dry. She is not diaphoretic. Nursing note and vitals reviewed. Device Data: Ventricular electrode: Medtronic SprintFidelis Model# 6949 58 cm Serial #[id number] (Implanted 03/08/2005) Bipolar, steroid-tipped, active-fixation IS-1, DF-1 lead Access: Axillary vein Location: Right ventricular apex Atrial electrode: Medtronic, CaptureFix Model # 5076-52 cm Serial # [id number] Bipolar, steroid- tipped, active-fixation IS-1 lead Access: Axillary vein Location Right atrial appendage Coronary sinus electrode: Medtronic, Attain OTW Model# 4196-88cm, Serial# [id number] Bipolar passive fixation lead Access: Axillary vein Location: Coronary sinus, anterior Pulse generator: Medtronic Protecta XT GROUP DIRECTOR EXPERIENCE Serial #[id number] GROUP DIRECTOR EXPERIENCE ICD 04/26/2011 Location: Subcutaneous Parameters: VF detection rate: >188 bpm VF therapy: ATP during charging, 35j x 6 FVT detection rate: Via VF 250 bpm FVT therapy: Burst(2), 35j x 5 VT detection rate: OFF VT therapy: OFF Enhancements: VT Monitor, AF/Afl, ST, Wavelet, Onset(monitor), TWave, Noise ?? Victor Manuel pacing: Bi-V DDD 40/130, PAV 130 ms, DAVID 100 ms, mode switch 171 bpm, LV- >RV 20 ms ?? Battery status: 2.62 V (BASIC ACOUSTIC ANALYST: 2.63 V) Charge time: 12.9 seconds 04/27/2016 Sensing Integrity Counter: 0 ?? Atrial: P wave: 4.9mV Impedance: 456 ohms Threshold: 0.5V at 0.4ms Stable trend EGM: Clean ?? Right Ventricular R wave: 18.9mV Impedance: 1007 Ohms Threshold: 1.0V at 0.4 ms auto. Stable EGM quality: clean ?? Left Ventricular: Threshold: 1.25 V at 0.4 ms LV Ring->RV Coil. The auto trend is stable. Impedance: 836 ohms LV ring to RV coil ?? Shocking Leads RV: 59 Ohms stable SVC: 71 Ohms stable EGM quality: clean ?? Wound/generator site: well healed ?? Therapy Administered: none Events: none Underlying rhythm: SR 72 bpm OptiVol: never above threshold Histograms are well distributed. Pacing percentages: AP <0.1 %; Bi-WAREHOUSE SHIPPING SUPERVISOR 100% Assessment and Plan: 70yo woman with Medtronic GROUP DIRECTOR EXPERIENCE-D device with cell depletion. Her original ICD was implanted in March, for idiopathic cardiomyopathy and subsequently upgraded on 04/26/2011 to a GROUP DIRECTOR EXPERIENCE-D device. Her 2004 RV lead is a Sprint [place](under advisory since 2006). We discussed possible treatment strategies including Sprint Neel extraction([facility]), new RV lead implant without explant or pulse generator replacement alone. We discussed these options at some length. She favors pulse generator replacement alone at this timeacknowledging that her RV lead is aging and has been identified at increased risk. Plan left sided Medtronic GROUP DIRECTOR EXPERIENCE-D pulse generator replacement using moderate sedation strategy. Written consent was obtained and scanned to the record. Sedation evaluation: Mallampati Class: II ASA Classification: III Mallampati Class: The Mallampati scoring system is used to evaluate the airway and determine the anticipated difficulties that may occur with endotracheal intubation. In class I patients, the soft palate, fauces, tonsillar pillars (anterior and posterior) and uvula can be seen. In class II, the same structures can be seen except that the tonsillar pillars are blocked by the tongue. In class III, onlythe base of the uvula can be seen. In class IV, none of the structures can be seen. Class III and IVpatients may pose significant problems during endotracheal intubation. ASA Physical Status Classification: Class I: Normally healthy patient Class II: Patient with mild systemic disease ClassIII: Patient with severe systemic disease Class IV: Patient with severe systemic disease that is a constant threat to life Class V: Moribund patient who is not expected to survive without the operation Provider: LESTER Franco Provider#: [id number] Consult attending physician: Perez Ponce MD documented in this encounter H&P Notes Dar Simeon PA - 10/03/2016 10:00 AM EST See progress note. documented in this encounter Plan of Treatment Upcoming Encounters Date Type Specialty Care Team Description 04/16/2022 Appointment Cardiology Vivi Lorenz, JEREMÍAS [facility] ER CARDIOLOGY DEPT. [place], [place] [address] (Wo rk) 04/16/2022 Laboratory Appointment Lab 04/16/2022 Office Visit Cardiology Vivi Lorenz APRN [facility] ER CARDIOLOGY DEPT. [place], [place] [address] (Wo rk) documented as of this encounter Visit Diagnoses Diagnosis ICD (implantable cardioverter-defibrilla tor) battery depletion documented in this encounter Care Teams Cotton Picker Operator Relationship Specialty Start Date End Date Nicole Pickens MD PCP - General 08/17/[address] [place] [address] documented as of this encounter
--- OUTSIDE RECORDS SUMMARY | 2022-03-18 02:36 | XMS_ITS | Encounter Summary ---
:1945 Author Organization [facility] [place] [address] Care Team Providers Name Role Phone Nicole Pickens MD Primary Care Provider Encounter Details Date Type Department Care Team Description 10/22/2016 [place] [address] Social History Tobacco Use Types Packs/Day [...] APRN [facility] CARDIOLOGY DEPT. [place], [place] [address] (Luz pollard) 04/16/2022 Laboratory Appointment Lab 04/16/2022 Office Visit Cardiology Vivi Lorenz APRN [facility] CARDIOLOGY DEPT. [place], [place] [address] (Luz pollard) documented as of this encounter Procedures Procedure Name Priority Date/Time Associated Diagnosis Comme nts CARDIAC DEVICE Routine 10/22/2016 7:25 AM Results for this CHECK - REMOTE EST procedure are in the results section. documented in this encounter Results (ABNORMAL) Cardiac device check - Remote (10/22/2016 7:25 AM EST) Component Value Ref Test Analysis Performed Pathologis t Range Method Time At Signature Date Time [id number] IDCO Interrogation Session Implantable Medtronic IDCO Pulse Generator Fruit Preserver Implantable Protecta XT PIANO MAKER-D IDCO Pulse Generator [id number] Model Implantable [id number] IDCO Pulse Generator Serial Number Type Remote IDCO Interrogation Session Implantable Cardiac IDCO Pulse Generator Resynchronization Type Therapy - Defibrillator Implantable [id number] IDCO Pulse Generator Implant Date Victor Manuel [...] Sensitivity Ventricular BiV IDCO chambers paced during PIANO MAKER pacing. PIANO MAKER LV-RV Delay 20 ms IDCO Lead Channel [...] of Measurements Battery Status OK IDCO Battery MANAGEMENT DEPARTMENT CHAIR 2.6251 IDCO Trigger Battery Voltage 2.62 V IDCO Capacitor Charge Reformation IDCO Type Capacitor Last [id number] IDCO Charge Date Time Capacitor Charge 12.882 s IDCO Time Capacitor Charge 35 J IDCO Energy Victor Manuel Statistic [id number] IDCO Date Time Start Victor Manuel Statistic IDCO Date Time End Victor Manuel Statistic 0.03 % IDCO RA Percent Paced Victor Manuel Statistic 99.97 % IDCO RV Percent Paced Victor Manuel Statistic 0.02 % IDCO AP HEAT TREATER Percent Victor Manuel Statistic 99.95 % IDCO HEAT TREATER Percent Victor Manuel Statistic 0.01 % IDCO AP VS Percent Victor Manuel Statistic 0.02 % IDCO VS Percent Atrial Tachy [id number] IDCO Statistic Date Time Start Atrial Tachy IDCO Statistic Date Time End Atrial Tachy 0 % IDCO Statistic AT/AF [place] Percent Therapy 0 IDCO Statistic Recent Shocks Delivered Therapy 0 IDCO Statistic Recent Shocks Aborted Therapy 0 IDCO Statistic Recent ATP Delivered Therapy IDCO Statistic Recent Date Time Start Therapy IDCO Statistic Recent Date Time End Therapy 0 IDCO Statistic Total Shocks Delivered Therapy 0 IDCO Statistic Total Shocks Aborted Therapy 0 IDCO Statistic Total ATP Delivered Therapy IDCO Statistic Total Date Time Start Therapy [...] Episode SVT IDCO Statistic Type Category Episode [id number] IDCO Statistic Recent Date Time Start Episode [id number] IDCO Statistic Recent Date Time End Episode [id number] IDCO Statistic Recent Date Time Start Episode [id number] IDCO Statistic Recent Date Time End Episode [id number] IDCO Statistic Recent Date Time Start Episode [id number] IDCO Statistic Recent Date Time End Episode [id number] IDCO Statistic Recent Date Time Start Episode [id number] IDCO Statistic Recent Date Time End Episode [id number] IDCO Statistic Recent Date Time Start Episode [id number] IDCO Statistic Recent Date Time End Episode [id number] IDCO Statistic Recent Date Time Start Episode [id number] IDCO Statistic Recent Date Time End Episode [id number] IDCO Statistic Recent Date Time Start Episode [id number] IDCO Statistic Recent Date Time End Episode [...] Episode SVT IDCO Statistic Type Category Episode [id number] IDCO Statistic Total Date Time Start Episode [id number] IDCO Statistic Total Date Time End Episode [id number] IDCO Statistic Total Date Time Start Episode [id number] IDCO Statistic Total Date Time End Episode [id number] IDCO Statistic Total Date Time Start Episode [id number] IDCO Statistic Total Date Time End Episode [id number] IDCO Statistic Total Date Time Start Episode [id number] IDCO Statistic Total Date Time End Episode [id number] IDCO Statistic Total Date Time Start Episode [id number] IDCO Statistic Total Date Time End Episode [id number] IDCO Statistic Total Date Time Start Episode [id number] IDCO Statistic Total Date Time End Episode [id number] IDCO Statistic Total Date Time Start Episode [id number] IDCO Statistic Total Date Time End Specimen (Source) Anatomical Collection Method Collection Time Re ceived Time Location / / Volume Laterality 10/22/2016 7:25 AM EST Physician Cardiology IMPLANTABLE CARDIAC DEVICE Performing Organization Address City/State/ZIP Code Phon e Number IDCO documented in this encounter Visit Diagnoses Not on filedocumented in this encounter Care Teams Teacher Aide Relationship Specialty Start Date End Date Nicole Pickens MD PCP - General 08/17/[address] [place] [address] documented as of this encounter
--- OUTSIDE RECORDS SUMMARY | 2022-03-18 02:36 | XMS_ITS | Encounter Summary ---
:1945 [place] [address] Care Team Providers Name Role Phone Nicole Pickens MD Primary Care Provider Reason for Visit Reason Comments Cardiomyopathy Encounter Details Date Type Department Care Team Description 09/18/2016 Office Visit Cardiology at [facility] [place] Nu Ruiz Idiopathic [facility] [place] [id number] Social History Tobacco Use Types Packs/Day Years Used Date Never Smoker Smokeless Tobacco: Never Used Alcohol Use Standard Drinks/Week Comments Not Asked 0 (1 standard drink = 0.6 oz pure alcoho l) Sex Assigned at Date Recorded Not on file documented as of this encounter Last Filed Vital Signs Vital Sign Reading Time Taken Comments Blood Pressure 122/66 09/18/2016 10:02 AM EST Pulse 66 09/18/2016 10:02 AM EST Temperature - - Respiratory Rate - - Oxygen Saturation 94% 09/18/2016 10:02 AM EST Inhaled Oxygen Concentration - - Weight 119.7 kg (264 lb) 09/18/2016 10:02 AM EST Height - - Body Mass Index 43.93 03/20/2016 9:42 AM EDT documented in this encounter Progress Notes Nu Ruiz RN - 09/18/2016 10:00 AM EST Images from the original note were not included. Clinical Electrophysiology Device Service Note Ms. Victoria is a 69 yo woman presents for TELEVISION STATION MANAGER-D interrogation. She has been feeling well and is accompanied by her today. She was also seeing Tayler Lorenz with the heart failure team today. 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 She has a history in 07/19/2011 related to LV Tip->Ring impedance of just over 1,500 ohms. LV vector was reprogrammed Ring->Coil at that encounter. Right ventricular lead subject to Vladimir Shaikh advisory from 2006. [employer] Solutions Consultant: Roly Aguilar MD Primary Care: Nicole Pickens MD DEVICE AND LEAD INFORMATION Final Parameters: Ventricular electrode: Medtronic SprintFidelis Model# 6949 58 cm Serial #[id number] (Implanted 03/08/2005) Bipolar, steroid-tipped, active-fixation IS-1, DF-1 lead Access: Axillary vein Location: Right ventricular apex R wave, ICD: 15.9 mV Pacing threshold, ICD: 1.25V at 0.8 ms Impedance, ICD: 646 ohms HVB Impedance 44 ohms SVC Impedance 52 ohms Pace the diaphragm at 10 V: No Atrial electrode: Medtronic, CaptureFix Model # 5076-52 cm Serial # [id number] Bipolar, steroid-tipped, active-fixation IS-1 lead Access: Axillary vein Location Right atrial appendage P wave, ICD: 3.0 mV Pacing threshold, ICD: 0.75 V at 0.4 ms Impedance, ICD: 437 ohms Pace the diaphragm at 10 V: No Coronary sinus electrode: Medtronic, Attain OTW Model# 4196-88cm, Serial# [id number] Bipolar passive fixation lead Access: Axillary vein Location: Coronary sinus, anterior R wave, ICD: 13.8 Pacing threshold, ICD: 0.75 0.4 ms (LV ring to RV coil) Impedance, device: 494s Pace the diaphragm/chest wall at 10 V: No Pulse generator: Medtronic Protecta XT TELEVISION STATION MANAGER Serial #[id number] TELEVISION STATION MANAGER ICD Location: Subcutaneous Parameters: VF detection [...] LV- >RV 20 ms Follow-up: Battery status: 2.63 V (STUDIO OPERATIONS MANAGER: 2.63 V) Charge time: 12.9 seconds 04/27/2016 Sensing Integrity Counter: 0 Pace/sensing leads: Atrial: P wave: 4.0 mV Impedance: 437 ohms Threshold: 0.5 V at 0.4 msStable trend EGM: Clean Right Ventricular R wave: >20 mV Impedance: 950 Ohms Threshold: 1.25 V at 0.4 ms auto. Stable EGM quality: clean Left Ventricular: Threshold: 1.25 V at 0.4 ms Ring->Coil. The auto trend is stable. Impedance: 817 ohms LV ring to RV coil Shocking Leads RV: 57 Ohms stable SVC: 70 Ohms stable EGM quality: clean Wound/generator site: well healed Therapy Administered: none Events: none Underlying rhythm: SR 72 bpm OptiVol: never above threshold Histograms are well distributed. Pacing percentages: AP <0.1 %; Bi-SEAM CHECKER 100% Changes made this session: None. Plan: Carelink monthly. Being scheduled for device change work up. Provider: Nu Ruiz RN Attending: Dr. Ponce Addendum I have personally reviewed the device interrogation as performed by Nu Ruiz RN TELEVISION STATION MANAGER-D 99% V paced Reasonable rate histogram(s) Minimal atrial arrhythmia burden Battery at STUDIO OPERATIONS MANAGER Normal device function Summary 1) Normal device function 2) Routine follow up as planned - needs elective pulse generator replacement workup MASSIMO PONCE MD documented in this encounter Plan of Treatment Upcoming Encounters Date Type Specialty Care Team Description 04/16/2022 Appointment Cardiology Vivi Lorenz APRN [facility] CARDIOLOGY DEPT. [place], [place] [address] (Wo rk) 04/16/2022 Laboratory Appointment Lab 04/16/2022 Office Visit Cardiology Vivi Lorenz APRN [facility] CARDIOLOGY DEPT. [place], [place] [address] (Wo rk) documented as of this encounter Visit Diagnoses Diagnosis Idiopathic cardiomyopathy Other primary cardiomyopathies documented in this encounter Care Teams Cooling Room Attendant Relationship Specialty Start Date End Date Nicole Pickens MD PCP - General 08/17/[address] [place] [address] documented as of this encounter
--- OUTSIDE RECORDS SUMMARY | 2022-03-18 02:36 | XMS_ITS | Encounter Summary ---
:1945 Author Organization [facility] [place] [address] Care Team Providers Name Role Phone Nicole Pickens MD Primary Care Provider Encounter Details Date Type Department Care Team Description 03/19/2017 External Results Cardiology at [facility] [place] Nicole Pickens MD [address] [phone] [place], [place] [id number] (Wo rk) Social History Tobacco Use Types Packs/Day Years Used Date Never Smoker Smokeless Tobacco: Never Used Alcohol Use Standard Drinks/Week Comments No 0 (1 standard drink = 0.6 oz pure alcoho l) Sex Assigned at Date Recorded Not on file documented as of this encounter Plan of Treatment Upcoming Encounters Date Type Specialty Care Team Description 04/16/2022 Appointment Cardiology Vivi Lorenz APRN [facility] CARDIOLOGY DEPT. [place], [place] [address] (Wo rk) 04/16/2022 Laboratory Appointment Lab 04/16/2022 Office Visit Cardiology Vivi Lorenz APRN [facility] CARDIOLOGY DEPT. [place], [place] [address] (Wo rk) documented as of this encounter Procedures Procedure Name Priority Date/Time Associated Diagnosis Comme nts EP DEVICE SCAN Routine 03/06/2017 documented in this encounter Results Scan Doc: EP Device (03/06/2017) Narrative This result has an attachment that is no t available. Nicoel Pickens MD MEDIA MGR SCAN EXT ORDR/RSLT documented in this encounter Visit Diagnoses Not on filedocumented in this encounter Care Teams Stock Hanger Relationship Specialty Start Date End Date Nicole Pickens MD PCP - General 08/17/[address] [place] [address] documented as of this encounter
--- OUTSIDE RECORDS SUMMARY | 2022-03-18 02:36 | XMS_ITS | Encounter Summary ---
:1945 Author Organization [facility] [place] [address] Care Team Providers Name Role Phone Nicole Pickens MD Primary Care Provider Encounter Details Date Type Department Care Team Description 09/08/2015 Office Visit Cardiology at [facility] [place] Deja Ahumada, Cardiomyopathy; [facility] PHOTO MACHINE OPERATOR Heart failure, unspecified heart failure chronicity, unspecified heart failure type [address] [place] [address] PRIMARY CARE [phone] [place], [place] [address] (Wo rk) Social History Tobacco Use Types Packs/Day Years Used Date Never Smoker Smokeless Tobacco: Never Used Alcohol Use Standard Drinks/Week Comments Not Asked 0 (1 standard drink = 0.6 oz pure alcoho l) Sex Assigned at Date Recorded Not on file documented as of this encounter Last Filed Vital Signs Vital Sign Reading Time Taken Comments Blood Pressure 114/87 09/08/2015 8:07 AM EST Pulse 74 09/08/2015 8:07 AM EST Temperature - - Respiratory Rate - - Oxygen Saturation 95% 09/08/2015 8:07 AM EST Inhaled Oxygen Concentration - - Weight 115.3 kg (254 lb 3.2 oz) 09/08/2015 8:07 AM EST Height 165.1 cm (5' 5) 09/08/2015 8:07 AM EST Body Mass Index 42.3 09/08/2015 8:07 AM EST documented in this encounter Progress Notes Deja Ahumada, PHOTO MACHINE OPERATOR - 09/08/2015 8:35 AM EST Images from the original note were not included. Former[facility] [place] [address] [address] CARDIOMYOPATHY/HEART FAILURE SERVICE OUTPATIENT CLINIC NOTE Ana Victoria 09/08/2015 Primary Care Provider: NICOLE PICKENS MD Referring Provider: Nicole Pickens CHIEF COMPLAINT: Cardiomyopathy follow up HISTORY OF PRESENT ILLNESS: Ana Victoria is a 69 y.o. patient seen in scheduled follow up in the [facility] Heart Failure Clinic, and in the interim, Ana continues to do well, Now working full-time, 5 8 hour days. She has no limitation in her exercise tolerance and denies any dyspnea or dyspnea on exertion, orthopnea, or lower ext remity edema. She does not regularly exercise, but continues to measure her steps every day with a fitbit. Her weight still remained high and she admits to dietary indiscretion with calories but she iscareful with a low sodium diet. She is able to do her ADLs and IADLs. She uses CPAP religiously and notes significant symptomatic improvement. She otherwise has not had any device issues. Recent laboratory performed locally, demonstrates normal blood counts, electrolytes, kidney function with cr sl elevated at 1.1, and pro BNP normal. Her glucose is elevated, Her most recent echocardiogram 01/2014 demonstrates an EF of 60-65%. We had elected to skip a year before re evaluating in 2015 She is planning on retiring in 2015- mid year. Healthy year other than a URI over the holidays PAST MEDICAL HISTORY: Reviewed and updated as appropriate in the medical record. Patient Active Problem List Diagnosis Code ??? Obesity E66.9 ??? LBBB (left bundle branch block) I44.7 ??? Depression F32.9 ??? History of DVT (deep vein thrombosis) Z86.718 ??? Hypertension I10 ??? Hypothyroidism E03.9 ??? Idiopathic cardiomyopathy I42.8 ??? LV (left ventricular) mural thrombus I21.3 ??? Obstructive sleep apnea G47.33 ??? Osteoarthritis M19.90 ??? Heart failure- chronic systolic dysfunction I50.9 Patient Active Problem List Diagnosis ??? Heart failure- chronic systolic dysfunction Well compensated and euvolemic NSR with LBBB, s/p BURNT LIME DRAWER-D 04/11/11 AHA./ACC Stage C, NYHA FTC II Heart Failure Management: Yes/No No?/Discontinued/Why Beta tone Yes MILADYS/ARB Yes Spironolactone yes AFIB? no Anticoagulated n/a Device yes BURNT LIME DRAWER-D 04/11/11 ??? Obesity BMI=43 ??? LBBB (left bundle branch block) Chronic Widened QRS S/p BURNT LIME DRAWER-D ??? Depression ??? History of DVT (deep [...] 30% 02/10 Echo EF= 50-55% 02/02/13 (s/p BURNT LIME DRAWER) Echo EF= 60-65% 02/15/14 ??? LV (left ventricular) mural thrombus ??? Obstructive sleep apnea uses CPAP ??? Osteoarthritis SOCIAL HISTORY: Reviewed and updated as appropriate in the medical record. The patient reports that she has never smoked. She has never used smokeless tobacco. 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 No family history on file. ALLERGIES: Reviewed and updated as appropriate in the medical record. No Known Allergies MEDICATIONS: Outpatient Prescriptions Marked as Taking for the 09/08/15 encounter (Office Visit) with Deja Ahumada APRN Medication Sig Dispense Refill ??? glipiZIDE (GLUCOTROL [...] ORAL) (Patient taking differently: 2 tablets daily) REVIEW OF SYSTEMS: PHYSICAL EXAMINATION: Vital Signs: Wt Readings from Last 3 Encounters: 09/08/15 115.304 kg (254 lb 3.2 oz) 02/07/15 116.121 kg (256 lb) Temp Readings from Last 3 Encounters: 04/27/11 37.5 ??C (99.5 ??F) Oral 03/14/11 36.6 ??C (97.9 ??F) Oral BP Readings from Last 3 Encounters: 09/08/15 114/87 02/07/15 108/64 Pulse Readings from Last 3 Encounters: 09/08/15 74 09/08/15 74 02/07/15 68 SpO2: [95 %] General -Alert, oriented, NAD. Affect pleasant, good spirits, accompanied by her . HEENT -unremarkable, no xanthelasma, icterus. Moist mucous membranes. Small posterior oropharynx Neck -without lymphadenopathy, mass, thyromegaly Chest -no deformity, device site well healed, no induration or erythema Lungs -clear without rales or rhonchi Cardiac -Regular with normal S1, normally split S2, no systolic murmur, no S3/S4 gallop is noted. PMI not displaced. No RV lift. JVP~5 cm H20, No AJR. Abdomen -soft, non-tender, truncal obesity, with no obvious organomegaly, masses or bruits Extremities -no pretibial or ankle edema, warm to feet. Neuro -intact CN, motor nonfocal CARDIAC STUDIES Echo - Estimated EF ~ 60-65%%, Significant improvement compared to pre-BURNT LIME DRAWER echocardiogram checked 01/2014 Local labs reviewed, please see scanned documents- normal CBC, electrolytes, liver function, -Elevated blood glucose (234) and creatinine mildly elevated at outside lab at 1.1- stable for her- drawn 08/29/15 ASSESSMENT: Doing very well from a cardiovascular standpoint with normalized LVEF with medical and device therapy. She appears to be well compensated and euvolemic with no device issues. Device was checked today. Stable and doing quite well clinically with dramatic improvement after her BURNT LIME DRAWER-D device that resulted in an improved EF from 30-->50-55% on the most recent echocardiogram. I would still continue hercardioprotective therapies. We also discussed device issues, and functional status. I encouraged herto continue working towards getting some form of exercise, I also challenged her to continue to loose weight and to increase her exercise as possible. I reviewed the patient's current clinical status, the pertinent laboratory studies, and the active management plan. RECOMMENDATIONS: 1. MEDICATIONS: The patient's medication list was updated. The medication list was reviewed with thepatient, rationale for therapy and potential side effects to be aware of discussed. - no changes in cardiac medications 2. The following labs, referrals or other testing advised: - labs as clinically indicated,bmp,probnp next visit- she has drawn locally. - device interrogation-done - Echocardiogram- will sched for next January unless sx change 3. COUNSELING: Specific issues or questions addressed on this visit: - reviewed lab results, clinical status - wt reduction program, exercise, portion control - again reviewed weight reduction, lifestyle changes, secondary prevention 4. Cardiology follow-up scheduled for: - 6 months, coordinate with EP cardiology- echo done locally documented in this encounter Plan of Treatment Upcoming Encounters Date Type Specialty Care Team Description 04/16/2022 Appointment Cardiology Vivi Lorenz APRN [facility] CARDIOLOGY DEPT. [place], [place] [address] (Wo rk) 04/16/2022 Laboratory Appointment Lab 04/16/2022 Office Visit Cardiology Vivi Lorenz, PHOTO MACHINE OPERATOR [facility] CARDIOLOGY DEPT. [place], [place] [address] (Wo rk) documented as of this encounter Visit Diagnoses Diagnosis Cardiomyopathy Other primary cardiomyopathies Heart failure, unspecified heart failure chronicity, unspecified heart failure type documented in this encounter Care Teams Licensed Prosthetist Relationship Specialty Start Date End Date Nicole Pickens MD PCP - General 08/17/[address] [place] [address] documented as of this encounter
--- OUTSIDE RECORDS SUMMARY | 2022-03-18 02:37 | XMS_ITS | Encounter Summary ---
:1945 [place] [address] Care Team Providers Name Role Phone Vivi Kim MD Primary Care Provider Encounter Details Date Type Department Care Team Description 02/25/2014 Follow-Up Cardiology at [facility] Deja Ahumada, Cardiomyopathy ([facility] ACETONE BUTTON PASTER Dx) [address] [place] [address] PRIMARY CARE [phone] [place], [place] [address] (Wo rk) Social History Tobacco Use Types Packs/Day Years Used Date Never Smoker Smokeless Tobacco: Never Used Alcohol Use Standard Drinks/Week Comments Not Asked 0 (1 standard drink = 0.6 oz pure alcoho l) Sex Assigned at Date Recorded Not on file documented as of this encounter Last Filed Vital Signs Vital Sign Reading Time Taken Comments Blood Pressure 126/64 02/25/2014 1:48 PM EDT Pulse 67 02/25/2014 1:48 PM EDT Temperature - - Respiratory Rate - - Oxygen Saturation 97% 02/25/2014 1:48 PM EDT Inhaled Oxygen Concentration - - Weight 118.6 kg (261 lb 8 oz) 02/25/2014 1:48 PM EDT Height 165.1 cm (5' 5) 02/25/2014 1:48 PM EDT Body Mass Index 43.52 02/25/2014 1:48 PM EDT documented in this encounter Progress Notes Deja Ahumada, ACETONE BUTTON PASTER - 02/25/2014 5:26 PM EDT Images from the original note were not included. [facility] [place] [address] [address] CARDIOMYOPATHY/HEART FAILURE SERVICE OUTPATIENT CLINIC NOTE Ana Victoria 02/25/2014 Primary Care Provider: VIVI KIM MD Referring Provider: Vivi Kim HISTORY OF PRESENT ILLNESS: Ana Victoria is a 68 y.o. patient seen in 6 month follow up in the [facility] Heart Failure Clinic, andin the interim, the patient has been stable from a cardiovascular standpoint. Specifically, she denies any recent emergency room visits or hospitalizations for cardiac related problems, and denies any dyspnea, dyspnea on exertion, PND, orthopnea, or lower extremity edema. She does wear support stockings. 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 She can do her ADL's and IADL's with no problem. Stairs can make her SOB, but she recovers quickly. Her recent echocardiogram performed locally, history significant improvement of her LVEF to 55%. Her appetite has been good, she usually sleeps well and swears by her CPAP. She is on metformin; Hg A1C is stable, per her report. Other review of systems are negative. PAST MEDICAL HISTORY: Reviewed and updated as appropriate in the medical record. Patient Active Problem List Diagnosis Code ??? Obesity 278.00 ??? LBBB (left bundle branch block) 426.3 ??? Depression 311 ??? History of DVT (deep vein thrombosis) V12.51 ??? Hypertension 401.9 ??? Hypothyroidism 244.9 ??? Idiopathic cardiomyopathy 425.4 ??? LV (left ventricular) mural thrombus 410.90 ??? Obstructive sleep apnea 327.23 ??? Osteoarthritis 715.90 ??? Heart failure- chronic systolic dysfunction 428.9 Patient Active Problem List Diagnosis ??? Heart failure- chronic systolic dysfunction Well compensated and euvolemic NSR with LBBB, s/p TRACK OILER-D 04/11/11 AHA./ACC Stage C, NYHA FTC II Heart Failure Management: Yes/No No?/Discontinued/Why Beta tone Yes MILADYS/ARB Yes Spironolactone yes AFIB? no Anticoagulated n/a Device yes TRACK OILER-D 04/11/11 ??? Obesity BMI=43 ??? LBBB (left bundle branch block) Chronic Widened QRS S/p TRACK OILER-D ??? Depression ??? History of DVT (deep vein thrombosis) a. #1 peripartum 1979, short-term anticoagulation. b. #2 postop ORIF left ankle in 1997, long-term anticoagulation begun. c. Unknown if prior coagulopathy work-up. ??? Hypertension Well controlled ??? Hypothyroidism On synthroid replacement ??? Idiopathic cardiomyopathy severe LV systolic dysfunction Echo 07/03/04 ([facility]): LVEF 18%. Severe diffuse global HK, LV apex dyskinetic with sessile mural thrombus. 3-4+ MR. LAE. RV normal. Mildly elevated PAP (44mmHg). Echo EF= 20-25% 11/15/04 Echo EF= 25% 08/26/05 Echo EF= 40% 07/17/06 Echo EF= 30% 01/26/08 .br Echo EF= 30% 07/21/08 Echo EF= 30% 02/10 Echo EF=50-55% 02/02/13 (s/p TRACK OILER) ??? LV (left ventricular) mural thrombus ??? Obstructive sleep apnea uses CPAP ??? Osteoarthritis SOCIAL HISTORY: Reviewed and updated as appropriate in the medical record. The patient reports that she has never smoked. She has never used smokeless tobacco. 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 FAMILY HISTORY: Reviewed and updated as appropriate in the medical record. No family history on file. ALLERGIES: Reviewed and updated as appropriate in the medical record. No Known Allergies MEDICATIONS: Outpatient Prescriptions Marked as Taking for the 02/25/14 encounter (Follow-Up) with Felipe Ahumada APRN Medication Sig Dispense Refill ??? levothyroxine (SYNTHROID) 150 mcg tablet Take 150 mcg by mouth daily. ??? aspirin 81 mg chewable tablet Take 81 mg by mouth daily. ??? metFORMIN (GLUCOPHAGE) 500 mg tablet Take 1,000 mg by mouth 2 times daily (with meals). ??? CALCIUM CARBONATE/VITAMIN D3 (CALCIUM 600 + D,3, ORAL) Take 1 tablet by mouth 2 times daily. ??? losartan (COZAAR) 50 mg tablet Take 50 mg by mouth daily. ??? carvedilol (COREG) 25 mg tablet 25 MG = 1 Tablet(s), PO, Twice daily ??? spironolactone (ALDACTONE) 50 mg tablet 50MG, PO, Once daily ??? GLUCOSAMINE HCL/CHONDRO RODRIGUEZ A (GLUCOSAMINE-CHONDROITIN ORAL) PHYSICAL EXAMINATION: Vital Signs: Wt Readings from Last 3 Encounters: 02/25/14 118.616 kg (261 lb 8 oz) 02/25/14 118.616 kg (261 lb 8 oz) 08/26/13 118.616 kg (261 lb 8 oz) Temp Readings from Last 3 Encounters: 04/27/11 37.5 ??C (99.5 ??F) Oral 04/27/11 37.5 ??C (99.5 ??F) Oral 03/14/11 36.6 ??C (97.9 ??F) Oral BP Readings from Last 3 Encounters: 02/25/14 126/64 02/25/14 126/64 08/26/13 100/76 Pulse Readings from Last 3 Encounters: 02/25/14 67 02/25/14 67 08/26/13 63 SpO2: [97 %] General -Alert, oriented, NAD. Affect pleasant, good spirits, obese- here with her today HEENT -unremarkable, no xanthelasma, arcus, icterus. PERRLA, moist mucous membranes. Dentition fair-small oropharynx Neck -without lymphadenopathy, mass, thyromegaly Carotid brisk upstroke, no bruits Chest -no deformity, device site well healed, no induration or erythema Lungs -clear without rales or rhonchi Cardiac -Regular with normal S1, normally split S2, no systolic murmur, no S3/S4 gallop is noted. PMI not displaced. No RV lift. JVP~ 6-7 cm H20, No AJR. Abdomen -soft, non-tender, truncal obesity, with no obvious organomegaly, masses or bruits Extremities -no pretibial or ankle edema, warm to feet. Pulses 2+ Neuro -intact CN, motor Labs- see scanned report. proBNP has normalized CARDIAC STUDIES Echo - Estimated EF -55%, Significant improvement ASSESSMENT: Stable and doing quite well clinically with great improvement after her TRACK OILER-D device that resulted in an improved EF from 30-->50-55% on the most recent echocardiogram. I would still continue her cardioprotective therapies. We also discussed device issues, and functional status. I encouraged her tocontinue working towards more exercise and weight loss. I thoroughly reviewed the patient's current clinical status, the pertinent laboratory and recent cardiovascular or imaging studies, and the active management plan. The signs and symptoms to be aware offor more urgent evaluation were discussed and all questions addressed. The patient was counseled to c ontinue cardiovascular care management and self management principles and to notify providers of anychange in clinical status. RECOMMENDATIONS: 1. MEDICATIONS: The patient's medication list was updated and new Rxs given as needed. The medication list was reviewed with the patient, rationale for therapy and potential side effects to be aware ofdiscussed. - no changes in cardiac medications 2. The following labs, referrals or other testing advised: - labs as clinically indicated, CMP, proBNP, TSH, CBC next visit She prefers to get labs at her local hospital a week or so before the appt. 3. COUNSELING: Specific issues or questions addressed on this visit: - reviewed lab results, echocardiogram, and clinical status, rationale for medications - wt reduction program, exercise discussed and encouraged again! 4. Cardiology follow-up scheduled for: - 6 months, coordinate with EP cardiology - PCP and other subspecialists as previously arranged documented in this encounter Procedure Notes Provider, Francisca - 02/25/2014 3:23 PM EDTAssociated Order(s): SCAN DOC: ECHO documented in this encounter Plan of Treatment Upcoming Encounters Date Type Specialty Care Team Description 04/16/2022 Appointment Cardiology Vivi Lorenz APRN [facility] CARDIOLOGY DEPT. [place], [place] [address] (Wo rk) 04/16/2022 Laboratory Appointment Lab 04/16/2022 Office Visit Vivi Rush APRN [facility] CARDIOLOGY DEPT. [place], [place] [address] (Wo rk) documented as of this encounter Procedures Procedure Name Priority Date/Time Associated Diagnosis Comme nts ECHO SCAN (SCAN) 02/25/2014 3:23 PM Resul ts for this EDT procedure are i n the results section. documented in this encounter Results SCAN DOC: ECHO (02/25/2014 3:23 PM EDT) Narrative 02/25/2014 3:24 PM EDT Procedure Note Provider, Scanning - 02/25/2014 3:23 PM EDT Scanning Provider MEDIA MGR SCAN EXT ORDR/RSLT documented in this encounter Visit Diagnoses Diagnosis Cardiomyopathy - Primary Other primary cardiomyopathies documented in this encounter Care Teams Mixer Operator Raw Salt Relationship Specialty Start Date End Date Vivi Kim MD PCP - General 07/24/10 08/16/14 [address] [place] [address] documented as of this encounter
--- OUTSIDE RECORDS SUMMARY | 2022-03-18 02:37 | XMS_ITS | Encounter Summary ---
:1945 Author Organization [facility] [place] [address] Care Team Providers Name Role Phone Nicole Pickens MD Primary Care Provider Encounter Details Date Type Department Care Team Description 02/07/2015 Follow-Up Cardiology at [facility] Deja Ahumada, Nonobstructive cardiomyopath y; [facility] CASTING CARRIER Diabetes mellitus type 2, uncomplicated; [address]ON on CPAP; [place], [place] Obesity; [phone] PRIMARY CARE Elevated TSH [phone] [place], [place] [address] (Wo rk) Social History Tobacco Use Types Packs/Day Years Used Date Never Smoker Smokeless Tobacco: Never Used Alcohol Use Standard Drinks/Week Comments Not Asked 0 (1 standard drink = 0.6 oz pure alcoho l) Sex Assigned at Date Recorded Not on file documented as of this encounter Last Filed Vital Signs Vital Sign Reading Time Taken Comments Blood Pressure 108/64 02/07/2015 8:28 AM EDT Pulse 68 02/07/2015 8:28 AM regular EDT Temperature - - Respiratory Rate - - Oxygen Saturation 97% 02/07/2015 8:28 AM at rest, ro om air EDT Inhaled Oxygen Concentration - - Weight 116.1 kg (256 lb) 02/07/2015 8:28 AM EDT Height 165.1 cm (5' 5) 02/07/2015 8:28 AM EDT Body Mass Index 42.6 02/07/2015 8:28 AM EDT documented in this encounter Progress Notes Deja Ahumada, CASTING CARRIER - 02/07/2015 8:43 AM EDT Images from the original note were not included. [facility] [place] [address] [place] [address] CARDIOMYOPATHY/HEART FAILURE SERVICE OUTPATIENT CLINIC NOTE Ana Victoria 02/07/2015 Primary Care Provider: NICOLE PICKENS MD Referring Provider: Nicole Pickens CHIEF COMPLAINT: No chief complaint on file. HISTORY OF PRESENT ILLNESS: Ana Victoria is a 69 y.o. patient seen in scheduled follow up in the [facility] Heart Failure Clinic, and in the interim, Ana continues to do exceedingly well still working full-time, 10 hour days. She has no limitation in her exercise tolerance and denies any dyspnea or dyspnea on exertion, orthopnea,or lower extremity edema. She does not regularly exercise, but has started to measure her steps every day with a fitbit. Her weight still remained high and she admits to dietary indiscretion with calories but she is careful with a low sodium diet. She is able to do her ADLs and IADLs. She uses CPAP religiously and notes significant symptomatic improvement. She otherwise has not had any device issues.Recent laboratory performed locally, demonstrates normal blood counts, electrolytes, kidney function, and BNP. Her glucose is slightly elevated, as is her TSH. Her most recent echocardiogram 01/2014 demonstrates an EF of 60-65%. She is planning on retiring in 2015- year. PAST MEDICAL HISTORY: Reviewed and updated as [...] compensated and euvolemic NSR with LBBB, s/p TRAFFIC INCIDENT MANAGEMENT MANAGER-D 04/11/11 AHA./ACC Stage C, NYHA FTC II Heart Failure Management: Yes/No No?/Discontinued/Why Beta tone Yes MILADYS/ARB Yes Spironolactone yes AFIB? no Anticoagulated n/a Device yes TRAFFIC INCIDENT MANAGEMENT MANAGER-D 04/11/11 ??? Obesity BMI=43 ??? LBBB (left bundle branch block) Chronic Widened QRS S/p TRAFFIC INCIDENT MANAGEMENT MANAGER-D ??? Depression ??? History of DVT (deep vein thrombosis) a. #1 peripartum 1979, short-term anticoagulation. b. #2 postop ORIF left ankle in 1997, long-term anticoagulation begun. c. Unknown if prior coagulopathy work-up. ??? Hypertension Well controlled ??? Hypothyroidism On synthroid replacement ??? Idiopathic cardiomyopathy severe LV systolic dysfunction Echo 07/03/04 ([facility]): LVEF 18%. Severe diffuse global HK, LV apex dyskinetic with sessile mural thrombus. 3-4+ MR. LAE. RV normal. Mildly elevated PAP (44mmHg). Echo EF= 20-25% 11/15/04 Echo EF= 25% 08/26/05 Echo EF= 40% 07/17/06 Echo EF= 30% 01/26/08 .br Echo EF= 30% 07/21/08 Echo EF= 30% 02/10 Echo EF= 50-55% 02/02/13 (s/p TRAFFIC INCIDENT MANAGEMENT MANAGER) Echo EF= 60-65% 02/15/14 ??? LV (left ventricular) mural thrombus ??? Obstructive sleep apnea uses CPAP ??? Osteoarthritis SOCIAL HISTORY: Reviewed and updated as appropriate in the medical record. The patient reports that she has never smoked. She has never used smokeless tobacco. 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 FAMILY HISTORY: Reviewed and updated as appropriate in the medical record. No family history on file. ALLERGIES: Reviewed and updated as appropriate in the medical record. No Known Allergies MEDICATIONS: Outpatient Prescriptions Marked as Taking for the 02/07/15 encounter (Follow-Up) with Deja Ahumada APRN Medication Sig Dispense Refill ??? carvedilol (COREG) 25 mg Tablet Take 25 mg by mouth 2 times daily (with meals). ??? metFORMIN (GLUCOPHAGE) 1,000 mg Tablet Take 1,000 mg by mouth 2 times daily (with meals). ??? spironolactone (ALDACTONE) 50 mg Tablet Take [...] differently: 2 tablets daily) REVIEW OF SYSTEMS: Review of Systems Pertinent Negatives or Positives General Denies Fever, chills, night sweats. Weight about the same-fluctuates 3-4 pounds. Sleep habits usually good, tolerates CPAP, sleeps poorly when not on CPAP Eyes No visual loss, double vision, drainage, eye pain, dry eyes, or other sxs reported. ENT No sore throat, dry mouth, eptistaxis or other sxs reported. Cardiac Denies angina, palpitations, syncope Denies MCCOY, Orthopnea, PND, LE edema. Has generalized fatigue. Pulmonary No shortness of breath, cough, hemoptysis, or other sxs reported. Heme/Lymph No swollen glands, fever, bleeding, or other sxs reported. GI No abdominal pain, change in bowel habits, melena, nausea, vomiting, diarrhea or other sx reported. No urethral discharge, dysuria, frequency, nocturia, or other sxs reported. Endocrine No hot spells, cold spells, or other sxs reported. Musculoskeletal No limb pain, joint pain, joint swelling, or other symptoms reported. Neuro No TIAs, CVA, or dizziness, vertigo Skin No rashes, dry skin, or other sxs reported. PHYSICAL EXAMINATION: Vital Signs: Wt Readings from Last 3 Encounters: 02/07/15 116.121 kg (256 lb) 02/07/15 116.121 kg (256 lb) 08/17/14 117.482 kg (259 lb) Temp Readings from Last 3 Encounters: 04/27/11 37.5 ??C (99.5 ??F) Oral 03/14/11 36.6 ??C (97.9 ??F) Oral BP Readings from Last 3 Encounters: 02/07/15 108/64 02/07/15 108/64 08/17/14 112/84 Pulse Readings from Last 3 Encounters: 02/07/15 68 02/07/15 68 08/17/14 64 SpO2: [97 %] General -Alert, oriented, NAD. Affect pleasant, good spirits, accompanied by her . HEENT -unremarkable, no xanthelasma, arcus, icterus. PERRLA, moist mucous membranes. Small posteriororopharynx Neck -without lymphadenopathy, mass, thyromegaly Carotid brisk [...] -no pretibial or ankle edema, warm to feet.Wearing support stockings. Neuro -intact CN, motor CARDIAC STUDIES Echo - Estimated EF ~ 60-65%%, Significant improvement compared to pre-TRAFFIC INCIDENT MANAGEMENT MANAGER echocardiogram checked 01/2014 Local labs reviewed, please see scanned documents- normal CBC, electrolytes, liver function, slightly elevated glucose, Sl elevated TSH with normal T4 ASSESSMENT: Doing very well from a cardiovascular standpoint with normalized LVEF with medical and device therapy. She appears to be well compensated and euvolemic with no device issues. Device was checked today. Stable and doing quite well clinically with dramatic improvement after her TRAFFIC INCIDENT MANAGEMENT MANAGER-D device that resulted in an improved EF from 30-->50-55% on the most recent echocardiogram. I would still continue hercardioprotective therapies. We also discussed device issues, and functional status. I encouraged herto continue working towards getting some form of exercise, and we discussed risk modification and secondary prevention, weight reduction. I also challenged her to continue to loose weight and to increase her exercise program. I thoroughly reviewed the patient's current clinical [...] advised: - labs as clinically indicated,bmp,probnp next visit. - device interrogation-done - Echocardiogram- will sched for next January unless sx change 3. COUNSELING: Specific issues or questions addressed on this visit: - reviewed lab results, echocardiogram, and clinical status, rationale for medications - wt reduction program, exercise, portion control - again reviewed strategies for weight reduction, lifestyle changes, secondary prevention 4. Cardiology follow-up scheduled for: - 6 months, coordinate with EP cardiology documented in this encounter Plan of Treatment Upcoming Encounters Date Type Specialty Care Team Description 04/16/2022 Appointment Cardiology Vivi Lorenz APRN [facility] CARDIOLOGY DEPT. [place], [place] [address] (Luz pollard) 04/16/2022 Laboratory Appointment Lab 04/16/2022 Office Visit Cardiology Vivi Lorenz APRN [facility] CARDIOLOGY DEPT. [place], [place] [address] (Luz pollard) documented as of this encounter Visit Diagnoses Diagnosis Nonobstructive cardiomyopathy Other primary cardiomyopathies Diabetes mellitus type 2, uncomplicated Type II or unspecified type diabetes vince litus without mention of complication, not stated as uncontrolled JON on CPAP Obstructive sleep apnea (adult) (pediatr ic) Obesity Obesity, unspecified Elevated TSH Other abnormal blood chemistry documented in this encounter Care Teams Car Cleaner Relationship Specialty Start Date End Date Nicole Pickens MD PCP - General 08/17/[address] [place] [address] documented as of this encounter
--- OUTSIDE RECORDS SUMMARY | 2022-03-18 02:37 | XMS_ITS | Encounter Summary ---
:1945 Author Organization [facility] [place] [address] Care Team Providers Name Role Phone Vivi Juarez MD Primary Care Provider Reason for Visit Reason Onset Date Comments Other 01/17/2012 External Echo Order Encounter Details Date Type Department Care Team Description 01/17/2012 Telephone Cardiology at [facility] Errol Naqvi (External Echo [facility] MD Catherine Order) [place] [address] CARDIOLOGY DEPT. [place], [place] [address] (Wo rk) Social History Tobacco Use Types Packs/Day Years Used Date Never Smoker Alcohol Use Standard Drinks/Week Comments Not Asked 0 (1 standard drink = 0.6 oz pure alcoho l) Sex Assigned at Date Recorded Not on file documented as of this encounter Miscellaneous Notes Telephone Encounter - Arielle Iqbal - 01/17/2012 9:48 AM EDT Hi, Please sign the attached echo order. Pt is seeing you 02/13/12 and wants to have the echo done where she works at [employer]. Thanks, Sarah documented in this encounter Plan of Treatment Upcoming Encounters Date Type Specialty Care Team Description 04/16/2022 Appointment Cardiology DVivi Oglesby, [facility] CARDIOLOGY DEPT. [place], [place] [address] (Wo rk) 04/16/2022 Laboratory Appointment Lab 04/16/2022 Office Visit Cardiology Vivi Lorenz, [facility] CARDIOLOGY DEPT. [place], [place] [address] (Wo rk) documented as of this encounter Visit Diagnoses Diagnosis Cardiomyopathy - Primary Other primary cardiomyopathies documented in this encounter Care Teams Shoe Repairer Helper Relationship Specialty Start Date End Date Vivi Juarez MD PCP - General 07/24/10 08/16/14 [address] [place] [address] documented as of this encounter
--- OUTSIDE RECORDS SUMMARY | 2022-03-18 02:37 | XMS_ITS | Encounter Summary ---
:1945 Author Organization [facility] [address] Care Team Providers Name Role Phone Vivi Juarez MD Primary Care Provider Reason for Visit Reason Onset Date Comments Other 11/22/2011 Encounter Details Date Type Department Care Team Description 11/22/2011 Telephone ZLE[facility] Deja Rodarte APRN Other [facility] [address] [place] [address] PRIMARY CARE [phone] [place], [place] [address] (Wo rk) Social History Tobacco Use Types Packs/Day Years Used Date Never Smoker Alcohol Use Standard Drinks/Week Comments Not Asked 0 (1 standard drink = 0.6 oz pure alcoho l) Sex Assigned at Date Recorded Not on file documented as of this encounter Miscellaneous Notes Telephone Encounter - Sabrina Cummings - 11/22/2011 3:03 PM EDT Please sign attached for upcoming appointment. Thanks documented in this encounter Plan of Treatment Upcoming Encounters Date Type Specialty Care Team Description 04/16/2022 Appointment Cardiology Vivi Lorenz APRN [facility] CARDIOLOGY DEPT. [place], [place] [address] (Wo rk) 04/16/2022 Laboratory Appointment Lab 04/16/2022 Office Visit Cardiology Vivi Lorenz, WHEAT WASHER [facility] CARDIOLOGY DEPT. [place], [place] [address] (Wo rk) documented as of this encounter Visit Diagnoses Diagnosis Other primary cardiomyopathies - Primary documented in this encounter Care Teams Tierce Filler Relationship Specialty Start Date End Date Vivi Juarez MD PCP - General 07/24/10 08/16/14 [address] [place] [address] documented as of this encounter
--- OUTSIDE RECORDS SUMMARY | 2022-03-18 02:37 | XMS_ITS | Encounter Summary ---
:1945 Author Organization [facility] [place] [address] Care Team Providers Name Role Phone Vivi Juarez MD Primary Care Provider Encounter Details Date Type Department Care Team Description 06/14/2014 External Results Cardiology at [facility] Vivi Juarez MD [facility] st[facility]ley [address] [place] [phone] [place] [address] [phone] (Wo rk) Social History Tobacco Use Types [...] APRN [facility] CARDIOLOGY DEPT. [place], [place] [address] (Wo rk) 04/16/2022 Laboratory Appointment Lab 04/16/2022 Office Visit Cardiology Vivi Lorenz APRN [facility] CARDIOLOGY DEPT. [place], [place] [address] (Wo rk) documented as of this encounter Procedures Procedure Name Priority Date/Time Associated Diagnosis Comme nts EP DEVICE SCAN Routine 05/31/2014 documented in this encounter Results Scan Doc: EP Device (05/31/2014) Narrative This result has an attachment that is no t available. Vivi Juarez MD MEDIA MGR SCAN EXT ORDR/RSLT documented in this encounter Visit Diagnoses Not on filedocumented in this encounter Care Teams Vegetable Cutter Relationship Specialty Start Date End Date Vivi Juarez MD PCP - General 07/24/10 08/16/14 [address] [place] [address] documented as of this encounter
--- OUTSIDE RECORDS SUMMARY | 2022-03-18 02:37 | XMS_ITS | Encounter Summary ---
:1945 Author Organization [facility] Address [facility] [place] [address] Care Team Providers Name Role Phone Nicole Pickens MD Primary Care Provider Reason for Visit Reason Comments Cardiomyopathy Congestive Heart Failure Encounter Details Date Type Department Care Team Description 08/17/2014 Follow-Up Cardiology at [facility] Roly Aguilar MD LV (left ventricular) mural thrombus; [facility] LBB B (left bundle branch block); Drive Idiopathic cardiomyopathy; [place] [address] CARDIOLOGY DEPT. Hypertension; [phone] [place] [id number] 6 Heart failure, chronic, systolic; [phone] (Wo rk) Obstructive sleep apnea Social History Tobacco Use Types Packs/Day Years Used Date Never Smoker Smokeless Tobacco: Never Used Alcohol Use Standard Drinks/Week Comments Not Asked 0 (1 standard drink = 0.6 oz pure alcoho l) Sex Assigned at Date Recorded Not on file documented as of this encounter Last Filed Vital Signs Vital Sign Reading Time Taken Comments Blood Pressure 112/84 08/17/2014 8:47 AM EST Pulse 64 08/17/2014 8:47 AM EST Temperature - - Respiratory Rate - - Oxygen Saturation 97% 08/17/2014 8:47 AM EST Inhaled Oxygen Concentration - - Weight 117.5 kg (259 lb) 08/17/2014 8:47 AM EST Height 165.1 cm (5' 5) 08/17/2014 8:47 AM EST Body Mass Index 43.1 08/17/2014 8:47 AM EST documented in this encounter Patient Instructions Patient InstructionsRoly Aguilar MD - 08/17/2014 9:27 AM EST Images from the original note were not included. Overall, you were doing very well from a cardiac standpoint. Your blood pressure and heart rates arewell controlled. Your weight has remained stable at approximately 258-260 pounds. Laboratory tests performed locally demonstrates normal blood counts, electrolytes, and kidney function. A marker for heart failure is normal. Glucose was slightly elevated-hemoglobin A1c should be at your PCP. The echocardiogram performed in January demonstrated an ejection fraction of 60- 65%, improved from lastyear. You have not had any recent device issues except for the evaluation and June. You are 99% ventricular paced which is excellent. Your activity level has been good. You have not had any arrhythmias. There is no evidence of fluid overload. Medication changes: None [facility] Body Mass Index: After Your Visit Your Care Instructions Body mass index (BMI) can help you see if your weight is raising your risk for health problems. It uses a formula to compare how much you weigh with how tall you are. A BMI between 18.5 and 24.9 is considered healthy. A BMI between 25 and 29.9 is considered overweight. A BMI of 30 or higher is considered obese. If your BMI is in the normal range, it means that you have a lower risk for weight-related health problems. If your BMI is in the overweight or obese range, you may be at increased risk for weight-related health problems, such as high blood pressure, heart disease, stroke, arthritis or joint pain, anddiabetes. BMI is just one measure of your risk for weight-related health problems. You may be at higher risk for health problems if you are not active, you eat an unhealthy diet, or you drink too much alcohol oruse tobacco products. Follow-up care is a mckee part of your treatment and safety. Be sure to make and go to all appointments, and call your doctor if you are having problems. It???s also a good idea to know your test resultsand keep a list of the medicines you take. How can you care for yourself at home? ?? Practice healthy eating habits. This includes eating plenty of fruits, vegetables, whole grains, lean protein, and low-fat dairy. ?? Get at least 30 minutes of exercise 4 to 5 days a week or more. Brisk walking is a good choice. You also may want to do other activities, such as running, swimming, cycling, or playing tennis or team sports. ?? Do not smoke. Smoking can increase your risk for health problems. If you need help quitting, talkto your doctor about stop-smoking programs and medicines. These can increase your chances of quitting for good. ?? Limit alcohol to 2 drinks a day for men and 1 drink a day for women. Too much alcohol can cause health problems. If you have a BMI higher than 25 ?? Your doctor may do other tests to check your risk for weight-related health problems. This may include measuring the distance around your waist. A waist measurement of more than 40 inches in men or 35 inches in women can increase the risk of weight-related health problems. ?? Talk with your doctor about steps you can take to stay healthy or improve your health. You may need to make lifestyle changes to lose weight and stay healthy, such as changing your diet and getting regular exercise. Where can you learn more? Visit our health information library at [email or web address].eso You can also view health information on [employer], your personal patient account. Log in or sign up today. Enter S176 in the search box to learn more about Body Mass Index: After Your Visit. ?? [id number] [employer] [facility]. Care instructions adapted under license by [facility]. This care instruction is for use with your licensed healthcare professional. If you have questionsabout a medical condition or this instruction, always ask your healthcare professional. [employer] [facility] disclaims any warranty or liability for your use of this information. Content Version: 9.9.232278; Last Revised: June 19, 2011 documented in this encounter Progress Notes Roly Aguilar MD - 08/16/2014 2:17 PM EST Images from the original note were not included. [facility] [place] [address] CARDIOMYOPATHY/HEART FAILURE SERVICE OUTPATIENT CLINIC NOTE Ana Victoria 08/17/2014 Primary Care Provider: NICOLE PICKENS MD Referring Provider: Vivi Juarez CHIEF COMPLAINT: Chief Complaint Patient presents with ??? Cardiomyopathy ??? Congestive Heart Failure HISTORY OF PRESENT ILLNESS: Ana Victoria is a 68 y.o. patient seen in routine follow up in the [facility] Heart Failure Clinic, andin the interim, Ana continues to do exceedingly well still working full-time, 10 hour days. She has no limitation in her exercise tolerance and denies any dyspnea or dyspnea on exertion, orthopnea, or lower extremity edema. Her weight still remained high and she admits to dietary indiscretion with calories but she is careful with a low sodium diet. She is able to do her ADLs and IADLs. She uses CPAP religiously and notes significant symptomatic improvement. She had a Danna October was reset at that time. She otherwise has not had any device issues. Recent laboratory performed locally, demonstrates normal blood counts, electrolytes, kidney function, and BNP. Her glucose is slightly elevated. [facility] recent echocardiogram 01/2014 demonstrates an EF of 60-65%. 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 She can do her ADL's and IADL's with no problem. Stairs can make her SOB, but she recovers quickly.Her recent echocardiogram performed locally, history significant improvement of her LVEF to 55%. Herappetite has been good, she usually sleeps well and swears by her CPAP. She is on metformin; Hg A1C is stable, per her report. From her 02/04/13 visit with me: The patient has actually been stable from a cardiovascular standpoint. Specifically, she denies any recent emergency room visits or hospitalizations for cardiac related problems, and denies any dyspnea, dyspnea on exertion, PND, orthopnea, or lower extremity edema. She feels that her clinical status improved significantly within one to 2 weeks after her NETWORK MANAGER implant. However, her echocardiogram showed only minimal LVEF improvement after NETWORK MANAGER-D implant. Her continued improvement persisted to her current clinical status and feels that she is able to do her ADLs and IADLs with improved exercise tolerant although she does have some generalized fatigue at the end of the day. Her recent echocardiogram performed locally, history significant improvement of her LVEF to 50-55%.Her appetite has been good, she usually sleeps well and swears by her CPAP. Other review of systems are negative. PAST [...] compensated and euvolemic NSR with LBBB, s/p NETWORK MANAGER-D 04/11/11 AHA./ACC Stage C, NYHA FTC II Heart Failure Management: Yes/No No?/Discontinued/Why Beta tone Yes MILADYS/ARB Yes Spironolactone yes AFIB? no Anticoagulated n/a Device yes NETWORK MANAGER-D 04/11/11 ??? Obesity BMI=43 ??? LBBB (left bundle branch block) Chronic Widened QRS S/p NETWORK MANAGER-D ??? Depression ??? History of DVT [...] 30% 02/10 Echo EF= 50-55% 02/02/13 (s/p NETWORK MANAGER) Echo EF= 60-65% 02/15/14 ??? LV (left ventricular) mural thrombus ??? Obstructive sleep apnea uses CPAP ??? Osteoarthritis SOCIAL HISTORY: Reviewed and updated as appropriate in the medical record. The patient reports that she has never smoked. She has never used smokeless tobacco. 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 FAMILY HISTORY: Reviewed and updated as appropriate in the medical record. No family history on file. ALLERGIES: Reviewed and updated as appropriate in the medical record. No Known Allergies MEDICATIONS: Outpatient Prescriptions Marked as Taking for the 08/17/14 encounter (Follow-Up) with Roly Aguilar MD Medication Sig Dispense Refill ??? carvedilol (COREG) [...] ??? GLUCOSAMINE HCL/CHONDRO RODRIGUEZ A (GLUCOSAMINE-CHONDROITIN ORAL) No Facility-Administered Medications for the 08/17/14 encounter (Follow-Up) with Roly Aguilar MD. REVIEW OF SYSTEMS: Review of Systems Pertinent [...] Signs: Wt Readings from Last 3 Encounters: 08/17/14 117.482 kg (259 lb) 06/24/14 116.121 kg (256 lb) 02/25/14 118.616 kg (261 lb 8 oz) Temp Readings from Last 3 Encounters: 04/27/11 37.5 ??C (99.5 ??F) Oral 04/27/11 37.5 ??C (99.5 ??F) Oral 03/14/11 36.6 ??C (97.9 ??F) Oral BP Readings from Last 3 Encounters: 08/17/14 112/84 06/24/14 156/80 02/25/14 126/64 Pulse Readings from Last 3 Encounters: 08/17/14 64 06/24/14 73 02/25/14 67 SpO2: [97 %] General -Alert, oriented, NAD. Affect pleasant, good spirits, accompanied by her . HEENT -unremarkable, no xanthelasma, arcus, icterus. PERRLA, moist mucous membranes. Dentition fair Neck -without lymphadenopathy, mass, thyromegaly Carotid brisk [...] feet. Pulses 2+ Neuro -intact CN, motor LAB STUDIES: No results found for this or any previous visit (from the past 72 hour(s)). Labs- WBC 7.5 H/H= 12.5/37.1 plts 266 K CARDIAC STUDIES Echo - Estimated EF ~ 60-65%%, Significant improvement compared to pre-NETWORK MANAGER echocardiogram Local labs reviewed, please see scanned documents- normal CBC, electrolytes, liver function, slightly elevated glucose, normal BNP Device interrogation-reviewed personally. - No Optivol alerts. 3-4 hours activity, good heart rate variability, no arrhythmias. 99% atrial sensed- ventricular paced rhythm. No delivered therapies PROBLEMS: LV (left ventricular) mural thrombus stable LBBB (left bundle branch block) S/p NETWORK MANAGER, 99% CARDING DOUBLER rhythm Idiopathic cardiomyopathy Improved LVEF s/p Medical and Device NETWORK MANAGER Hypertension Stable Heart failure- chronic systolic dysfunction Appears well compensated and euvolemic on appropriate medical therapy No device issues, no Optivol alert, normal BNP and metabolic panel Obstructive sleep apnea Compliant with CPAP, symptomatic improvement ASSESSMENT: Doing very well from a cardiovascular standpoint with improved LVEF with medical and device therapy.She appears to be well compensated and euvolemic with no device issues. Stable and doing quite well clinically with dramatic improvement after her NETWORK MANAGER-D device that resulted in an improved EF from 30-->50-55% on the most recent echocardiogram. I would still continue hercardioprotective therapies. We also discussed device issues, and functional status. I encouraged herto continue working, and we discussed risk modification and secondary [...] addressed. The patient was counseled to [facility] and self management principles [...] clinically indicated, CMP, proBNP, TSH, CBC next visit. - device interrogation-done - Echocardiogram- reviewed inb scanned documents 3. COUNSELING: Specific issues or questions addressed on this visit: - reviewed lab results, echocardiogram, and clinical status, rationale for medications - wt reduction program, exercise, portion control - again reviewed strategies for weight reduction, lifestyle changes, secondary prevention 4. Cardiology follow-up scheduled for: - 6 months, coordinate with EP cardiology - PCP and other subspecialists as previously arranged Roly Aguilar MD, [facility] Socket Welder Helperpublic speaking teacher Cardiology Director, Cardiovascular Critical Care Coal Trimmer Machine Operator, Advanced Heart Failure and Cardiomyopathy Program [facility] documented in this encounter Miscellaneous Notes Assessment & Plan Note - Roly Aguilar MD - 08/17/2014 9:19 AM ESTAssociated Problem(s): Obstructive sleep apnea Compliant with CPAP, symptomatic improvement Assessment & Plan Note - Roly Aguilar MD - 08/17/2014 9:17 AM ESTAssociated Problem(s): Heart failure- chronic systolic dysfunction Appears well compensated and euvolemic on appropriate medical therapy No device issues, no Optivol alert, normal BNP and metabolic panel Assessment & Plan Note - Roly Aguilar MD - 08/17/2014 9:10 AM ESTAssociated Problem(s): Hypertension Stable Assessment & Plan Note - Roly Aguilar MD - 08/17/2014 9:10 AM ESTAssociated Problem(s): Idiopathic cardiomyopathy Improved LVEF s/p Medical and Device NETWORK MANAGER Assessment & Plan Note - Roly Aguilar MD - 08/17/2014 9:10 AM ESTAssociated Problem(s): LBBB (left bundle branch block) S/p NETWORK MANAGER, 99% CARDING DOUBLER rhythm Assessment & Plan Note - Roly Aguilar MD - 08/17/2014 9:10 AM ESTAssociated Problem(s): LV (left ventricular) mural thrombus stable documented in this encounter Plan of Treatment Upcoming Encounters Date Type Specialty Care Team Description 04/16/2022 Appointment Cardiology Vivi Lorenz, [facility] CARDIOLOGY DEPT. [place], [place] [address] (Wo rk) 04/16/2022 Laboratory Appointment Lab 04/16/2022 Office Visit Cardiology Vivi Lorenz APRN [facility] CARDIOLOGY DEPT. [place], [place] [address] (Wo rk) documented as of this encounter Visit Diagnoses Diagnosis LV (left ventricular) mural thrombus Acute myocardial infarction, unspecified site, episode of care unspecified LBBB (left bundle branch block) Other left bundle branch block Idiopathic cardiomyopathy Other primary cardiomyopathies Hypertension Unspecified essential hypertension Heart failure, chronic, systolic Obstructive sleep apnea Obstructive sleep apnea (adult) (pediatr ic) documented in this encounter Care Teams Paper Cleaner Relationship Specialty Start Date End Date Nicole Pickens MD PCP - General 08/17/[address] [place] [address] documented as of this encounter
--- OUTSIDE RECORDS SUMMARY | 2022-03-18 02:37 | XMS_ITS | Encounter Summary ---
:1945 Author Organization [facility] [place] [address] Care Team Providers Name Role Phone Vivi Kim MD Primary Care Provider Encounter Details Date Type Department Care Team Description 07/31/2011 Follow-Up Cardiology at [facility] Pooja Del Cid Cardiomyopathy (Primary Dx); [facility] JEREMÍAS Mcgraw CHF (congestive heart failure) [place] [address] CARDIOLOGY DEPT. [phone] [place], [place] [address] (Wo rk) Social History Tobacco Use Types Packs/Day Years Used Date Never Smoker Alcohol Use Standard Drinks/Week Comments Not Asked 0 (1 standard drink = 0.6 oz pure alcoho l) Sex Assigned at Date Recorded Not on file documented as of this encounter Last Filed Vital Signs Vital Sign Reading Time Taken Comments Blood Pressure 112/68 07/31/2011 10:07 AM EST Pulse 66 07/31/2011 10:07 AM EST Temperature - - Respiratory Rate - - Oxygen Saturation 97% 07/31/2011 10:07 AM EST Inhaled Oxygen Concentration - - Weight 119.7 kg (264 lb) 07/31/2011 10:13 AM EST Height 165.1 cm (5' 5) 07/31/2011 10:07 AM EST Body Mass Index 43.93 07/31/2011 10:07 AM EST documented in this encounter Progress Notes Pooja Del Cid APRN - 07/31/2011 1:43 PM EST HEART FAILURE CLINIC NOTE Ana Victoria 1945 65 y.o. PCP: VIVI KIM MD Date: 07/31/2011 Ms. Ana Victoria is here for follow-up with the Heart Failure Team for ongoing management of nonischemic dilated cardiomyopathy, s/p LIMB DRIVER upgrade, LBBB and hx of heart failure. She underwent an upgrade of her device to a LIMB DRIVER about 3 months ago and while she was not very symptomatic before the upgrade, she does think her energy level has improved, especially climbing stairs. Otherwise doing well and the remainder of ROS is negative. Past Medical History: Patient Active Problem List Diagnoses Code ??? Obesity 278.00M ??? LBBB (left bundle branch block) 426.3F ??? Depression 311L ??? HISTORY OF DVT (DEEP VEIN THROMBOSIS) V12.51BM ??? Hypertension 401.9AJ ??? Hypothyroidism 244.9AP ??? Idiopathic cardiomyopathy 425.4D ??? LV (left ventricular) mural thrombus 410.90EL ??? Obstructive sleep apnea 327.23D ??? Osteoarthritis 715.90AN ??? Other primary cardiomyopathies 425.4 1. 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 a. Echo 07/03/04 ([facility]): LVEF 18%. Severe diffuse global HK, LV apex dyskinetic with sessile mural thrombus. 3-4+ MR. LAE. RV normal. Mildly elevated PAP (~44mmHg). Echo EF= 20-25% 11/15/04 Echo EF= 25% 08/26/05 Echo EF= 40% 07/17/06 Echo EF= 30% 01/26/08 Echo EF=30% 07/21/08 b. Cath 07/13/04: normal coronary anatomy, no CAD. c. ICD implant 03/08/2005 - Medtronic Teo Model # 7232Cx, Serial # [id number]. d. LBBB QRS duration. E. Upgrade of ICD to LIMB DRIVER-D April 2011 2. Heart failure - as above. ACC/AHA Stage C NYHA class II, early IIIA 3. LV mural thrombus, noted 07/03/04, occurring on chronic anticoagulation. INRs in 1.8-3.8 range since 03/04. 4. History of DVTs x 2. a. #1 peripartum 1979, short-term anticoagulation. b. #2 postop ORIF left ankle in 1997, long-term anticoagulation begun. c. Unknown if prior coagulopathy work-up. 5. Chronic LBBB. a. evaluation 1996: echo, PMIBI wnl. cath ([facility]) wnl. 6. Hypertension - on Cozaar. 7. Hypothyroidism -on Levothyroxine. 8. History of depression. 9. Moderate obstructive sleep apnea - uses CPAP. 10. Obesity. 11. Osteoarthritis. Dry Weight - goal is 238 lbs, weight fluctuates Smoking - no ETOH - rare Medications: Outpatient prescriptions marked as taking for the 07/31/11 encounter (Follow-Up) with POOJA DEL CID Medication Sig Dispense Refill ??? aspirin (ASPIRIN LOW-STRENGTH) 81 mg EC tablet Take 1 tablet by mouth daily for 325 days. 30 tablet 12 ??? furosemide (LASIX) 20 mg tablet Take 20 mg by mouth daily. 1/2 tablet = 10mg ??? levothyroxine (SYNTHROID) 125 mcg tablet Take 125 mcg by mouth daily. ??? losartan (COZAAR) 50 mg tablet Take 50 mg by mouth daily. ??? CALCIUM ORAL ??? carvedilol (COREG) 25 mg tablet 25 MG = 1 Tablet(s), PO, Twice daily ??? spironolactone (ALDACTONE) 50 mg tablet 50MG, PO, Once daily ??? GLUCOSAMINE HCL/CHONDRO RODRIGUEZ A (GLUCOSAMINE-CHONDROITIN ORAL) Allergies: No Known Allergies Interim Social History: Changes in job, home situation, tobacco or alcohol use: NONE Changes in Relevant Family History: NONE Physical Exam: BP 112/68 Pulse 66 Ht 165.1 cm (5' 5) Wt 119.75 kg (264 lb) BMI 43.93 kg/m2 SpO2 97% General: Pleasant middle-aged, well-nourished overweight female, alert and oriented x3 in NAD . Verypleasant, and conversant, her is with her today. HEENT/Neck: Sclerae nonicteric, moist oral mucosa without lesions, no lymphadenopathy. Carotid upstroke brisk, no bruits. Cardiac: Regular rhythm S1 S2 normal, no M/G appreciated. JVP is ~ 6 cm Lungs: Clear bilaterally to auscultation Abdomen: soft, nontender, + bowel sounds all 4 quadrants. No organomegaly. - HJR Extremities: No clubbing, cyanosis. Edema: None Pulses present. Skin: No bruises, rashes, or petechiae. Surgical scars: left subclavian device healed. Neuro: No focal neurological deficits. Musculoskeletal: No spinal or chest wall tenderness. : No CVA tenderness Psych: Normal affect, in good spirits. Laboratory: From outside lab before appt: normal renal function, potassium, proBNP Cardiology/Imaging Studies Reviewed: None today; recent LIMB DRIVER upgrade Impression: Patient Active Problem List Diagnoses Code ??? Obesity 278.00M ??? LBBB (left bundle branch block) 426.3F ??? Depression 311L ??? HISTORY OF DVT (DEEP VEIN THROMBOSIS) V12.51BM ??? Hypertension 401.9AJ ??? Hypothyroidism 244.9AP ??? Idiopathic cardiomyopathy 425.4D ??? LV (left ventricular) mural thrombus 410.90EL ??? Obstructive sleep apnea 327.23D ??? Osteoarthritis 715.90AN ??? Other primary cardiomyopathies 425.4 1. Nonischemic cardiomyopathy with LBBB: on appropriate medical therapy. Euvolemic on exam. Device upgraded to LIMB DRIVER-D. Symptomatically has more energy, will update an echo next spring 2. Heart failure: euvolemic on exam and symptomatically. 3. JON: uses CPAP Plan: 1. Diagnoses, management, and plan of care reviewed with the patient/family. All questions were addressed. 2. Education/Counseling performed: --Review of heart failure signs and symptoms, importance of daily weight monitoring, parameters reviewed for when to call Heart Failure Clinic, dietary sodium intake, activity/exercise and limitations. --Rationale for current medications; potential side effects reviewed with patient. --Labs, test results reviewed with patient. --Immunizations, other recommendations: Up to date 3. Medication changes: None at this visit. 4. The following labs, referrals or other testing advised: --Prior to next visit: ECHO; also get bmp, proBNP 5. Cardiology follow-up scheduled for: --HF clinic in: 6 months, sooner prn --HFCCM: prn documented in this encounter Plan of Treatment Upcoming Encounters Date Type Specialty Care Team Description 04/16/2022 Appointment Cardiology Vivi Lorenz APRN [facility] CARDIOLOGY DEPT. [place], [place] [address] (Wo rk) 04/16/2022 Laboratory Appointment Lab 04/16/2022 Office Visit Cardiology Vivi Lorenz APRN [facility] CARDIOLOGY DEPT. [place], [place] [address] (Wo rk) documented as of this encounter Visit Diagnoses Diagnosis Cardiomyopathy - Primary Other primary cardiomyopathies CHF (congestive heart failure) Congestive heart failure, unspecified documented in this encounter Care Teams Mechanics Supervisor Relationship Specialty Start Date End Date Vivi Kim MD PCP - General 07/24/10 08/16/14 [address] [place] [address] documented as of this encounter
--- OUTSIDE RECORDS SUMMARY | 2022-03-18 02:37 | XMS_ITS | Encounter Summary ---
:1945 [place] [address] Care Team Providers Name Role Phone Vivi Juarez MD Primary Care Provider Reason for Visit Reason Comments Cardiomyopathy Encounter Details Date Type Department Care Team Description 02/13/2012 Follow-Up Cardiology at [facility] Mali Warren Idiopathic cardiomyopathy [facility] CHANCE Woodruff (Primary Dx) Drive [phone] [place] [address] (Fax) [phone] Social History Tobacco Use Types Packs/Day Years Used Date Never Smoker Alcohol Use Standard Drinks/Week Comments Not Asked 0 (1 standard drink = 0.6 oz pure alcoho l) Sex Assigned at Date Recorded Not on file documented as of this encounter Last Filed Vital Signs Vital Sign Reading Time Taken Comments Blood Pressure 102/64 02/13/2012 10:18 AM EDT Pulse 61 02/13/2012 10:18 AM EDT Temperature - - Respiratory Rate - - Oxygen Saturation - - Inhaled Oxygen Concentration - - Weight 121.3 kg (267 lb 8 oz) 02/13/2012 10:18 AM EDT Height 165.1 cm (5' 5) 02/13/2012 10:18 AM EDT Body Mass Index 44.51 02/13/2012 10:18 AM EDT documented in this encounter Progress Notes Mali Warren - 02/13/2012 10:15 AM EDT ICD Clinic Follow-up Ms. Victoria is a 66yo woman presents for routine MARKETING DIRECTOR-D interrogation, she was just seen on 07/19/11 because of device alert tone alarming now for a week or so (patient was unsure what she was hearing and had not yet enabled her wireless remote monitor. Once she enabled the monitor, Care Link transmission revealed LV Tip->Ring impedance of just over 1,500 ohms. 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 Ventricular lead subject to Vladimir Shaikh advisory from 2006. She is seeing Dr Naqvi today as well. Hone Operator: Roly Aguilar MD Primary Care: Vivi Juarze MD Blood pressure 102/64, pulse 61, height 165.1 cm (5' 5), weight 121.337 kg (267 lb 8 oz). DEVICE AND LEAD INFORMATION Final Parameters: Ventricular electrode: Medtronic SprintFidelis Model# 6949 58 cm Serial #[id number] (Implanted 03/08/2005) Bipolar, steroid-tipped, active-fixation IS-1, DF-1 lead Access: Axillary vein Location: Right ventricular apex R wave, ICD: 15.9 mV Pacing threshold, ICD: 1.25V at 0.8 ms Impedance, ICD: 646 ohms HVB Impedance 44 ohms SVC Impedance 52 ohms Pace the diaphragm at 10 V: No Atrial electrode: Medtronic, CaptureFix Model # 5076-52 cm Serial # [id number] Bipolar, steroid-tipped, active-fixation IS-1 lead Access: Axillary vein Location Right atrial appendage P wave, ICD: 3.0 mV Pacing threshold, ICD: 0.75 V at 0.4 ms Impedance, ICD: 437 ohms Pace the diaphragm at 10 V: No Coronary sinus electrode: Medtronic, Attain OTW Model# 4196-88cm, Serial# [id number] Bipolar passive fixation lead Access: Axillary vein Location: Coronary sinus, anterior R wave, ICD: 13.8 Pacing threshold, ICD: 0.75 0.4 ms (LV ring to RV coil) Impedance, device: 494s Pace the diaphragm/chest wall at 10 V: No Pulse generator: Medtronic Protcta XT MARKETING DIRECTOR Serial #[id number] MARKETING DIRECTOR ICD Location: Subcutaneous Parameters: VF detection rate: >188 bpm VF therapy: ATP during charging, 35j x 6 FVT detection rate: Via VF 250 bpm FVT therapy: Burst(2), 35j x 5 VT detection rate: OFF VT therapy: Enhancements: VT Monitor, AF/Afl, ST, Wavelet, Onset(monitor), TWave, Noise Victor Manuel pacing: Bi-V DDD 40/130, PAV 130 ms, DAVID 100 ms, mode switch 171 bpm, LV- >RV 20 ms Follow-up: Battery status: 3.17 V (CLAIMS CONSULTANT: 2.63 V) Charge time: 8.7 seconds 10/26/2011 Sensing Integrity Counter: 0 Pace/sensing leads: Right Ventricular R wave: >20 mV Threshold: 1.25 V at 0.4 ms (1.5V at 0.4ms per RVCM) Impedance: 779 Ohms stable EGM quality: clean Left Ventricular: Threshold: 0.75 V at 0.4 ms Ring->Coil (pt noted minimal CW stim when she lays on her L side- this is tolerable per the pt.)(0.625V at 0.4ms per LVCM) Impedance: 703 ohms Ring->Coil Atrial: P wave: 6.3 mV Threshold: 0.75 V at 0.4 ms Impedance: 456 ohms EGM: clean Shocking Leads RV: 55 Ohms stable SVC: 72 Ohms stable EGM quality: clean All lead impedances stable Xrays of lead system: ok day after upgrade Wound/generator site: well healed Therapy Administered: none Events: none Underlying rhythm: SR 65 bpm with intermittent T wave oversensing OptiVol: flat Histograms are well distributed. Pacing percentages: -ACCOUNT CONTACT ASSOCIATE 99.9% Bi V pacing: ACCOUNT CONTACT ASSOCIATE 96%; VS 4% Changes made this session: After discussion and testing with Hernandez from [employer] , information reviewed with Dr Naqvi. R wave sensitivity decreased from 0.3 to 0.45mV Plan: 1. RTC in 6 mos. 08/12. 2. Next Carelink 05/13. I have personally reviewed the device printout and the device is functioning normally Errol Naqvi MD documented in this encounter Plan of Treatment Upcoming Encounters Date Type Specialty Care Team Description 04/16/2022 Appointment Cardiology Vivi Lorenz, SHALE MINER [facility] CARDIOLOGY DEPT. [place], [place] [address] (Wo rk) 04/16/2022 Laboratory Appointment Lab 04/16/2022 Office Visit Cardiology Vivi Lorenz, [facility] CARDIOLOGY DEPT. [place], [place] [address] (Wo rk) documented as of this encounter Visit Diagnoses Diagnosis Idiopathic cardiomyopathy - Primary Other primary cardiomyopathies documented in this encounter Care Teams Deportation Officer Relationship Specialty Start Date End Date Vivi Juarez MD PCP - General 07/24/10 08/16/14 [address] [place] [address] documented as of this encounter
--- OUTSIDE RECORDS SUMMARY | 2022-03-18 02:37 | XMS_ITS | Encounter Summary ---
:1945 Author Organization [facility] [place] [address] Care Team Providers Name Role Phone Vivi Juarez MD Primary Care Provider Encounter Details Date Type Department Care Team Description 11/30/2012 External Results [place] [facility] [place] MD [facility] [address] [place] [address] [place] [address] [phone] (Wo rk) Social History Tobacco Use Types [...] 04/16/2022 Appointment Cardiology Vivi Lorenz APRN [facility] CARDIOLOGY DEPT. [place], [place] [address] (Wo rk) 04/16/2022 Laboratory Appointment Lab 04/16/2022 Office Visit Cardiology Vivi Lorenz APRN [facility] CARDIOLOGY DEPT. [place], [place] [address] (Wo rk) documented as of this encounter Procedures Procedure Name Priority Date/Time Associated Diagnosis Comme nts EP DEVICE SCAN Routine 11/24/2012 documented in this encounter Results Scan Doc: EP Device (11/24/2012) Narrative This result has an attachment that is no t available. Vivi Juarez MD MEDIA MGR SCAN EXT ORDR/RSLT documented in this encounter Visit Diagnoses Not on filedocumented in this encounter Care Teams Banding Machine Operator Relationship Specialty Start Date End Date Vivi Juarez MD PCP - General 07/24/10 08/16/14 [address] [place] [address] documented as of this encounter
--- OUTSIDE RECORDS SUMMARY | 2022-03-18 02:37 | XMS_ITS | Encounter Summary ---
:1945 Author Organization [facility] Address [facility] [address] [place] [address] Care Team Providers Name Role Phone Nicole Pickens MD Primary Care Provider Encounter Details Date Type Department Care Team Description 07/25/2015 Orders Only Cardiology at [facility] Deja Ahumada, Chronic left [facility] WEB SIZER ventricular systolic [address] [place] [address] PRIMARY CARE [phone] [place], [place] [address] (Wo rk) Social History Tobacco [...] Team Description 04/16/2022 Appointment Cardiology Vivi Lorenz, WEB SIZER [facility] CARDIOLOGY DEPT. [place], [place] [address] (Wo rk) 04/16/2022 Laboratory Appointment Lab 04/16/2022 Office Visit Cardiology Vivi Lorenz, WEB SIZER [facility] CARDIOLOGY DEPT. [place], [place] [address] (Wo rk) documented as of this encounter Visit Diagnoses Diagnosis Chronic left ventricular systolic dysfun ction Heart disease, unspecified documented in this encounter Care Teams Industrial Yard Brake Coupler Relationship Specialty Start Date End Date Nicole Pickens MD PCP - General 08/17/[address] [place] [address] documented as of this encounter
--- OUTSIDE RECORDS SUMMARY | 2022-03-18 02:37 | XMS_ITS | Encounter Summary ---
:1945 Author Organization [place] [address] Care Team Providers Name Role Phone Vivi Juarez MD Primary Care Provider Reason for Visit Reason Onset Date Comments Other 06/18/2011 Labs to be drawn Out side Encounter Details Date Type Department Care Team Description 06/18/2011 Telephone Cardiology at [facility] Pooja Del Cid Other (Labs to be [facility] M, GAS METER REPAIR SUPERVISOR drawn Outside) [place] [address] CARDIOLOGY DEPT. [place], [place] [address] (Wo rk) Social History Tobacco Use Types Packs/Day Years Used Date Never Smoker Alcohol Use Standard Drinks/Week Comments Not Asked 0 (1 standard drink = 0.6 oz pure alcoho l) Sex Assigned at Date Recorded Not on file documented as of this encounter Miscellaneous Notes Telephone Encounter - Aria Ponce - 06/18/2011 9:03 AM EDT Patient wishes to have the labs for her 07/31/11 appointment drawn at [facility], where she works. She hasasked that I mail the lab slip to her. Please sign attached order. documented in this encounter Plan of Treatment Upcoming Encounters Date Type Specialty Care Team Description 04/16/2022 Appointment Cardiology Vivi Lorenz, [facility] CARDIOLOGY DEPT. [place], [place] [address] (Wo rk) 04/16/2022 Laboratory Appointment Lab 04/16/2022 Office Visit Cardiology Vivi Lorenz APRN [facility] CARDIOLOGY DEPT. [place], [place] [address] (Wo rk) documented as of this encounter Visit Diagnoses Diagnosis Other primary cardiomyopathies Chronic systolic heart failure documented in this encounter Care Teams Furnace Hand Relationship Specialty Start Date End Date Vivi Juarez MD PCP - General 07/24/10 08/16/14 [address] [place] [address] documented as of this encounter
--- OUTSIDE RECORDS SUMMARY | 2022-03-18 02:37 | XMS_ITS | Encounter Summary ---
:1945 [place] [address] Care Team Providers Name Role Phone Vivi Juarez MD Primary Care Provider Encounter Details Date Type Department Care Team Description 07/17/2012 Orders Only Cardiology at [facility] Vivi Lorenz, Cardiomyopathy ([facility] OUTSIDE MAINTENANCE WORKER Dx) [place], [place] CENTER [address] CARDIOLOGY DEPT. [phone] [place], [place] [address] Social History Tobacco Use Types Packs/Day Years Used Date Never Smoker Alcohol Use Standard Drinks/Week Comments Not Asked 0 (1 standard drink = 0.6 oz pure alcoho l) Sex Assigned at Date Recorded Not on file documented as of this encounter Plan of Treatment Upcoming Encounters Date Type Specialty Care Team Description 04/16/2022 Appointment Cardiology Vivi Lorenz, OUTSIDE MAINTENANCE WORKER [facility] ER CARDIOLOGY DEPT. [place], [place] [address] (Wo rk) 04/16/2022 Laboratory Appointment Lab 04/16/2022 Office Visit Cardiology Vivi Lorenz, OUTSIDE MAINTENANCE WORKER [facility] ER CARDIOLOGY DEPT. [place], [place] [address] (Wo rk) documented as of this encounter Visit Diagnoses Diagnosis Cardiomyopathy - Primary Other primary cardiomyopathies documented in this encounter Care Teams Heat Treater Head Relationship Specialty Start Date End Date Vivi Juarez MD PCP - General 07/24/10 08/16/14 [address] [place] [address] documented as of this encounter
--- OUTSIDE RECORDS SUMMARY | 2022-03-18 02:37 | XMS_ITS | Encounter Summary ---
:1945 Author Organization [facility] [place] [address] Care Team Providers Name Role Phone Vivi Juarez MD Primary Care Provider Reason for Visit Reason Comments AICD Problem reset alert alarm Encounter Details Date Type Department Care Team Description 06/24/2014 Office Visit Cardiology at [facility] David Linares Idiopathic [facility] RN garima jason (Primary Drive Dx) [place] [address] Social History Tobacco Use Types Packs/Day Years Used Date Never Smoker Smokeless Tobacco: Never Used Alcohol Use Standard Drinks/Week Comments Not Asked 0 (1 standard drink = 0.6 oz pure alcoho l) Sex Assigned at Date Recorded Not on file documented as of this encounter Last Filed Vital Signs Vital Sign Reading Time Taken Comments Blood Pressure 156/80 06/24/2014 3:30 PM EDT Pulse 73 06/24/2014 3:30 PM EDT Temperature - - Respiratory Rate - - Oxygen Saturation 95% 06/24/2014 3:30 PM EDT Inhaled Oxygen Concentration - - Weight 116.1 kg (256 lb) 06/24/2014 3:30 PM EDT Height 165.1 cm (5' 5) 06/24/2014 3:30 PM EDT Body Mass Index 42.6 06/24/2014 3:30 PM EDT documented in this encounter Progress Notes David Linares, RN - 06/24/2014 3:26 PM EDT ICD Clinic Follow-up Ms. Victoria is a 68 yo woman presents for B2B SALES MANAGER-D interrogation due to Care Alert (and patient alert tone) received for high RV bipolar lead impedance on 06/21/2014. Of note, she was seen on 07/19/2011 related to LV Tip->Ring impedance of just over 1,500 ohms. LVvector was reprogrammed Ring->Coil at that encounter. No further issues that way. Device implanted 03/2005 for idiopathic CM, with upgrade to B2B SALES MANAGER-D on 04/26/2011. Ventricular lead subject to Vladimir Shaikh advisory from 2006. Inside Phone Sales: Roly Aguilar MD Primary Care: Vivi Juarez MD DEVICE AND LEAD INFORMATION Final Parameters: Ventricular electrode: [employer] SprintFidelis Model# 6949 58 cm Serial #[id number] (Implanted 03/08/2005) Bipolar, steroid-tipped, active-fixation IS-1, DF-1 lead Access: Axillary vein Location: Right ventricular apex R wave, ICD: 15.9 mV Pacing threshold, ICD: 1.25V at 0.8 ms Impedance, ICD: 646 ohms HVB Impedance 44 ohms SVC Impedance 52 ohms Pace the diaphragm at 10 V: No Atrial electrode: Medtronic, CaptureFix Model # 5076-52 cm Serial # [id number] Bipolar, steroid-tipped, active-fixation IS-1 lead Access: Axillary vein Location Right atrial appendage P wave, ICD: 3.0 mV Pacing threshold, ICD: 0.75 V at 0.4 ms Impedance, ICD: 437 ohms Pace the diaphragm at 10 V: No Coronary sinus electrode: Medtronic, Attain OTW Model# 4196-88cm, Serial# [id number] Bipolar passive fixation lead Access: Axillary vein Location: Coronary sinus, anterior R wave, ICD: 13.8 Pacing threshold, ICD: 0.75 0.4 ms (LV ring to RV coil) Impedance, device: 494s Pace the diaphragm/chest wall at 10 V: No Pulse generator: Medtronic Protecta XT B2B SALES MANAGER Serial #[id number] B2B SALES MANAGER ICD Location: Subcutaneous Parameters: VF detection [...] LV- >RV 20 ms Follow-up: Battery status: 3.02 V (PALLETISER OPERATOR: 2.63 V) Charge time: 10.7 seconds 04/27/2014 Sensing Integrity Counter: 0 Pace/sensing leads: Right Ventricular R wave: 17.1 mV Threshold: 1.75 V at 0.4 ms auto. Stable Impedance: 893-950 Ohms tested several times in clinic today EGM quality: clean Left Ventricular: Threshold: 0.875 V at 0.4 ms Ring->Coil. The auto trend is stable Impedance: 779 ohms Ring->Coil Atrial: P wave: 4.3 mV Threshold: 0.5 V at 0.4 ms auto. Stable trend Impedance: 437 ohms EGM: Clean Shocking Leads RV: 55 Ohms stable SVC: 65 Ohms stable EGM quality: clean Xrays of lead system: ok day after upgrade Wound/generator site: well healed Therapy Administered: none Events: none Underlying rhythm: SR 70 bpm OptiVol: never above threshold Histograms are well distributed. Pacing percentages: AP %; Bi-SEXTON HELPER 100% I have reviewed the programming printouts, and the device is functioning normally. Changes made this session: Care Alert and audible alert tone for RV pacing impedance increased from 1,000 ohms to 1,500 ohms after discussion with Hernandez Li from [employer]. With the exception of a single RV bipolar impedance measurement just over 1,000 ohms, the lead is otherwise completely benign and normal in terms of sensing, thresholds and shock impedance Plan: Automatic Care Link transmission in 21 days to observe lead impedance trending graph. Dar Bradford MD documented in this encounter Plan of Treatment Upcoming Encounters Date Type Specialty Care Team Description 04/16/2022 Appointment Cardiology Vivi Lorenz APRN [facility] CARDIOLOGY DEPT. [place], [place] [address] (Wo rk) 04/16/2022 Laboratory Appointment Lab 04/16/2022 Office Visit Cardiology Vivi Lorenz, [facility]EREM[facility]AS [facility] CARDIOLOGY DEPT. [place], [place] [address] (Wo rk) documented as of this encounter Visit Diagnoses Diagnosis Idiopathic cardiomyopathy - Primary Other primary cardiomyopathies documented in this encounter Care Teams Youth Career Specialist Relationship Specialty Start Date End Date Vivi Juarez MD PCP - General 07/24/10 08/16/14 [address] [place] [address] documented as of this encounter
--- OUTSIDE RECORDS SUMMARY | 2022-03-18 02:37 | XMS_ITS | Encounter Summary ---
:1945 Author Organization [facility] [place] [address] Care Team Providers Name Role Phone Vivi Kim MD Primary Care Provider Reason for Visit Reason Comments Follow-up Encounter Details Date Type Department Care Team Description 02/04/2013 Follow-Up Cardiology at [facility] Elana Henry RN Idiopathic cardiomyopathy (P rimary Dx); [facility] Roly Aguilar MD [facility] [place] [address] LBBB (left bundle branch block); [facility] Heart failure- chronic systo lic dysfunction; [place], [place] Obstructive sle ep apnea; [id number] Obesity; [phone] Hypertension; Hypothyroidism Social History Tobacco Use Types Packs/Day Years Used Date Never Smoker Smokeless Tobacco: Never Used Alcohol Use Standard Drinks/Week Comments Not Asked 0 (1 standard drink = 0.6 oz pure alcoho l) Sex Assigned at Date Recorded Not on file documented as of this encounter Last Filed Vital Signs Vital Sign Reading Time Taken Comments Blood Pressure 116/56 02/04/2013 10:10 AM EDT Pulse 58 02/04/2013 10:10 AM EDT Temperature - - Respiratory Rate - - Oxygen Saturation 95% 02/04/2013 10:10 AM EDT Inhaled Oxygen Concentration - - Weight 118.8 kg (261 lb 15.9 oz) 02/04/2013 10:10 AM EDT Height 165.1 cm (5' 5) 02/04/2013 10:10 AM EDT Body Mass Index 43.6 02/04/2013 10:10 AM EDT documented in this encounter Patient Instructions Patient InstructionsRoly Aguilar MD - 02/04/2013 11:06 AM EDT Overall, you stated that you have been feeling well and had been doing well from a cardiac standpoint. Your blood pressure and heart rate are well controlled. Your echocardiogram performed recently demonstrated significant improvement in your cardiac functionwith ejection fraction improving from 30% to 50-55% as a result of the cardiac synchronization therapy Laboratory tests demonstrates normal electrolytes, kidney function, but slightly elevated glucose. Medication changes: None You have recently started on metformin for the elevated glucose. We discussed the need for continued exercise and weight reduction. documented in this encounter Progress Notes Roly Aguilar MD - 02/04/2013 7:45 AM EDT Images from the original note were not included. [facility] [place] [address] [address] CARDIOMYOPATHY/HEART FAILURE SERVICE OUTPATIENT CLINIC NOTE Ana Victoria 02/04/2013 Primary Care Provider: VIVI KIM MD Referring Provider: Vivi Kim CHIEF COMPLAINT: Chief Complaint Patient presents with ??? Follow-up HISTORY OF PRESENT ILLNESS: Ana Victoria is a 67 y.o. patient seen in routine follow up in the [facility] Heart Failure Clinic, andin the interim, the patient has actually been stable from a cardiovascular standpoint. Specifically,she denies any recent emergency room visits or hospitalizations for cardiac related problems, and denies any dyspnea, dyspnea on exertion, PND, orthopnea, or lower extremity edema. She feels that her clinical status improved significantly within one to 2 weeks after her INSOLE TAPER implant. However, her echocardiogram showed only minimal LVEF improvement after INSOLE TAPER-D implant. Her continued improvement persisted to her current clinical status and feels that she is able to do her ADLs and IADLs with improved ex ercise tolerant although she does have some generalized fatigue at the end of the day. Her recent echocardiogram performed locally, history significant improvement of her LVEF to 50-55%. Her appetite has been good, she usually sleeps well and swears by her CPAP. Other review of systems are negative. PAST MEDICAL HISTORY: Reviewed and updated as appropriate in the medical record. Patient Active Problem List Diagnoses Code ??? Obesity 278.00 ??? LBBB (left bundle branch block) 426.3 ??? Depression 311 ??? History of DVT (deep vein thrombosis) V12.51 ??? Hypertension 401.9 ??? Hypothyroidism 244.9 ??? Idiopathic cardiomyopathy 425.4 ??? LV (left ventricular) mural thrombus 410.90 ??? Obstructive sleep apnea 327.23 ??? Osteoarthritis 715.90 ??? Heart failure- chronic systolic dysfunction 428.9 Patient Active Problem List Diagnoses ??? Heart failure- chronic systolic dysfunction Well compensated and euvolemic NSR with LBBB, s/p INSOLE TAPER-D 04/11/11 AHA./ACC Stage C, NYHA FTC II Heart Failure Management: Yes/No No?/Discontinued/Why Beta tone Yes MILADYS/ARB Yes Spironolactone yes AFIB? no Anticoagulated n/a Device yes INSOLE TAPER-D 04/11/11 ??? Obesity BMI=43 ??? LBBB (left bundle branch block) Chronic Widened QRS S/p INSOLE TAPER-D ??? Depression ??? History of DVT (deep [...] EF= 30% 02/10 Echo EF=50-55% 02/02/13 (s/p INSOLE TAPER) ??? LV (left ventricular) mural thrombus ??? Obstructive sleep apnea uses CPAP ??? Osteoarthritis SOCIAL HISTORY: Reviewed and updated as appropriate in the medical record. The patient reports that she has never smoked. She has never used smokeless tobacco. 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 FAMILY HISTORY: Reviewed and updated as appropriate in the medical record. No family history on file. ALLERGIES: Reviewed and updated as appropriate in the medical record. No Known Allergies MEDICATIONS: Outpatient Prescriptions Marked as Taking for the 02/04/13 encounter (Follow-Up) with Roly Aguilar MD Medication Sig Dispense Refill ??? metFORMIN (GLUCOPHAGE) 500 mg tablet Take 500 mg by mouth 2 times daily (with meals). ??? CALCIUM CARBONATE/VITAMIN D3 (CALCIUM 600 + D,3, ORAL) Take 1 tablet by mouth 2 times daily. ??? levothyroxine (SYNTHROID) 150 mcg tablet Take 150 mcg by mouth. fri- ??? levothyroxine (SYNTHROID) 125 mcg tablet Take 125 mcg by mouth. Fri, sat, sun ??? losartan (COZAAR) 50 mg tablet Take 50 mg by mouth daily. ??? carvedilol (COREG) 25 mg tablet 25 MG = 1 Tablet(s), PO, Twice daily ??? spironolactone (ALDACTONE) 50 mg tablet 50MG, PO, Once daily ??? GLUCOSAMINE HCL/CHONDRO RODRIGUEZ A (GLUCOSAMINE-CHONDROITIN ORAL) REVIEW OF SYSTEMS: Review of Systems Pertinent Negatives or Positives General Denies Fever, chills, night sweats. Weight down approximately 7-8 pounds. Sleep habits usually good, tolerate CPAP, sleeps poorly when not on CPAP [...] Signs: Wt Readings from Last 3 Encounters: 02/04/13 118.84 kg (261 lb 15.9 oz) 02/04/13 118.842 kg (262 lb) 08/07/12 122.471 kg (270 lb) Temp Readings from Last 3 Encounters: 04/27/11 37.5 ??C (99.5 ??F) Oral 04/27/11 37.5 ??C (99.5 ??F) Oral 03/14/11 36.6 ??C (97.9 ??F) Oral BP Readings from Last 3 Encounters: 02/04/13 116/56 02/04/13 116/56 08/07/12 106/62 Pulse Readings from Last 3 Encounters: 02/04/13 58 02/04/13 58 08/07/12 60 SpO2: [95 %] General -Alert, oriented, NAD. Affect pleasant, good spirits, HEENT -unremarkable, no xanthelasma, arcus, icterus. PERRLA, [...] CARDIAC STUDIES Echo - Estimated EF ~ 50-55%, Significant improvement compared to most recent Echo 2012 with EF ~ PROBLEMS: Idiopathic cardiomyopathy Clinical improvement associated with marked improvement of EF from 30%-->50-55% LBBB (left bundle branch block) S/p INSOLE TAPER-D, significant imrpovement Heart failure- chronic systolic dysfunction Well compensated and euvolemic, imprpoved exercise tolerance, clinical status, and LVEF=50-55% s/p INSOLE TAPER-D No changes in cardiac medications Obstructive sleep apnea Compliant with CPAP Obesity Counseled Hypertension stable Hypothyroidism TSH slightly high ASSESSMENT: Stable and doing quite well clinically with dramatic improvement after her INSOLE TAPER-D device that resulted in an improved EF [...] addressed. The patient was counseled [facility] and self management principles [...] indicated, CMP, proBNP, TSH, CBC next visit. 3. COUNSELING: Specific issues or questions addressed on this visit: - reviewed lab results, echocardiogram, and clinical status, rationale for medications - wt reduction program, exercise, portion control 4. Cardiology follow-up scheduled for: - 6 months, coordinate with EP cardiology - PCP and other subspecialists as previously arranged Roly Aguilar MD, [facility] [employer] Insulation Installeractuarial clerk Cardiology Director, Cardiovascular Critical Care Clinical Research Director, Advanced Heart Failure and Cardiomyopathy Program [facility] documented in this encounter Miscellaneous Notes Assessment & Plan Note - Roly Aguilar MD - 02/04/2013 9:36 PM EDTAssociated Problem(s): Hypothyroidism TSH slightly high Assessment & Plan Note - Roly Aguilar MD - 02/04/2013 9:35 PM EDTAssociated Problem(s): Hypertension stable Assessment & Plan Note - Roly Aguilar MD - 02/04/2013 11:06 AM EDTAssociated Problem(s): Obesity Counseled Assessment & Plan Note - Roly Aguilar MD - 02/04/2013 11:05 AM EDTAssociated Problem(s): Obstructive sleep apnea Compliant with CPAP Assessment & Plan Note - Roly Aguilar MD - 02/04/2013 11:04 AM EDTAssociated Problem(s): Heart failure- chronic systolic dysfunction Well compensated and euvolemic, imprpoved exercise tolerance, clinical status, and LVEF=50-55% s/p INSOLE TAPER-D No changes in cardiac medications Assessment & Plan Note - Roly Aguilar MD - 02/04/2013 11:01 AM EDTAssociated Problem(s): LBBB (left bundle branch block) S/p INSOLE TAPER-D, significant imrpovement Assessment & Plan Note - Roly Aguilar MD - 02/04/2013 11:00 AM EDTAssociated Problem(s): Idiopathic cardiomyopathy Clinical improvement associated with marked improvement of EF from 30%-->50-55% documented in this encounter Plan of Treatment Upcoming Encounters Date Type Specialty Care Team Description 04/16/2022 Appointment Cardiology Vivi Lorenz APRN [facility] CARDIOLOGY DEPT. [place], [place] [address] (Wo rk) 04/16/2022 Laboratory Appointment Lab 04/16/2022 Office Visit Cardiology Vivi Lorenz APRN [facility] CARDIOLOGY DEPT. [place], [place] [address] (Wo rk) documented as of this encounter Visit Diagnoses Diagnosis Idiopathic cardiomyopathy - Primary Other primary cardiomyopathies LBBB (left bundle branch block) Other left bundle branch block Heart failure- chronic systolic dysfunct ion Heart failure, unspecified Obstructive sleep apnea Obstructive sleep apnea (adult) (pediatr ic) Obesity Obesity, unspecified Hypertension Unspecified essential hypertension Hypothyroidism Unspecified hypothyroidism documented in this encounter Care Teams Cone Picker Relationship Specialty Start Date End Date Vivi Kim MD PCP - General 07/24/10 08/16/14 [address] [place] [address] documented as of this encounter
--- OUTSIDE RECORDS SUMMARY | 2022-03-18 02:37 | XMS_ITS | Encounter Summary ---
:1945 Author Organization [facility] [place] [address] Care Team Providers Name Role Phone Vivi Juarez MD Primary Care Provider Encounter Details Date Type Department Care Team Description 05/31/2013 External Results Cardiology at [facility] Vivi Juarez MD [facility] [address] [place] [id number] [place] [address] [phone] (Wo rk) Social History Tobacco Use Types [...] APRN [facility] CARDIOLOGY DEPT. [place], [place] [address] (Wo rk) 04/16/2022 Laboratory Appointment Lab 04/16/2022 Office Visit Cardiology Vivi Lorenz APRN [facility] CARDIOLOGY DEPT. [place], [place] [address] (Wo rk) documented as of this encounter Procedures Procedure Name Priority Date/Time Associated Diagnosis Comme nts EP DEVICE SCAN Routine 05/25/2013 documented in this encounter Results Scan Doc: EP Device (05/25/2013) Narrative This result has an attachment that is no t available. Vivi Juarez MD MEDIA MGR SCAN EXT ORDR/RSLT documented in this encounter Visit Diagnoses Not on filedocumented in this encounter Care Teams Shovel Oiler Relationship Specialty Start Date End Date Vivi Juarez MD PCP - General 07/24/10 08/16/14 [address] [place] [address] documented as of this encounter
--- OUTSIDE RECORDS SUMMARY | 2022-03-18 02:37 | XMS_ITS | Encounter Summary ---
:1945 Author Organization [facility] Address [facility] [place] [address] Care Team Providers Name Role Phone Vivi Juarez MD Primary Care Provider Reason for Visit Reason Onset Date Comments Other 06/15/2014 EXTERNAL LAB ORDERS Encounter Details Date Type Department Care Team Description 06/15/2014 Telephone Cardiology at [facility] Deja Ahumada, Other (EXTERNAL LAB [facility] GRAIN MILL PRODUCTS INSPECTOR ORDERS) [address] [place] [address] PRIMARY CARE [phone] [place], [place] [address] (Wo rk) Social History Tobacco Use Types Packs/Day Years Used Date Never Smoker Smokeless Tobacco: Never Used Alcohol Use Standard Drinks/Week Comments Not Asked 0 (1 standard drink = 0.6 oz pure alcoho l) Sex Assigned at Date Recorded Not on file documented as of this encounter Miscellaneous Notes Telephone Encounter - Radha Delvalle - 06/15/2014 9:35 AM EDT Please sign attached order for upcoming appointment. documented in this encounter Plan of Treatment Upcoming Encounters Date Type Specialty Care Team Description 04/16/2022 Appointment Cardiology Vivi Lorenz, GRAIN M[employer]ODU[employer] INSPECTOR [facility] ER CARDIOLOGY DEPT. [place], [place] [address] (Wo rk) 04/16/2022 Laboratory Appointment Lab 04/16/2022 Office Visit Cardiology Vivi Lorenz, [facility] [address] CARDIOLOGY DEPT. [place], [place] [address] (Wo rk) documented as of this encounter Visit Diagnoses Diagnosis Other primary cardiomyopathies Heart failure, unspecified documented in this encounter Care Teams Smocking Machine Operator Relationship Specialty Start Date End Date Vivi Juarez MD PCP - General 07/24/10 08/16/14 [address] [place] [address] documented as of this encounter
--- OUTSIDE RECORDS SUMMARY | 2022-03-18 02:37 | XMS_ITS | Encounter Summary ---
:1945 [place] [address] Care Team Providers Name Role Phone Vivi Juarez MD Primary Care Provider Encounter Details Date Type Department Care Team Description 11/29/2012 Notes Only Cardiology at [facility] Hernandez Cordoba MD [facility] [place] [address] CARDIOLOGY DEPT. [phone] [place], [place] [address] (Wo rk) Social History Tobacco Use Types Packs/Day Years Used Date Never Smoker Smokeless Tobacco: Never Used Alcohol Use Standard Drinks/Week Comments Not Asked 0 (1 standard drink = 0.6 oz pure alcoho l) Sex Assigned at Date Recorded Not on file documented as of this encounter Progress Notes Hernandez Cordoba MD - 11/29/2012 3:06 PM EDT Cardiac Electrophysiology Cardiac Rhythm Device Interval Assessment Interrogation Date: November 24, 2012 ([facility]) Device: Medtronic [id number] Comments: Primary prevention ICD (?) No anticoagulation Battery: 3.1168 V Charge Time: 9.549 seconds Atrial Lead: Impedance : Relatively stable, 399 ohms Signal : Relatively stable, 5.0 mV Capture : Relatively stable, 1.50 V @ 0.4 ms %Paced : <1% Atrial Dysrhythmias: None detected since August 07, 2012 Left Ventricular Lead: Impedance : Relatively stable, 722 ohms Capture : Relatively stable, 0.625 v @ 0.4 ms Right Ventricular Lead: Impedance : Relatively stable, 779 ohms Signal : Relatively stable, 19.4 mV Capture : Relatively stable, 1.375 V @ 0.4 ms Coil(s) : Relatively stable impedance; RV coil 55 ohms, SVC coil 64 ohms %Paced : >99.9% Ventricular Dysrhythmias: None detected since August 07, 2012 (low rate detection threshold >150/minute) Assessment: ICD functioning appropriately. No ICD therapies delivered. No dysrhythmias detected. There was one ventricular sensing episode in the past 3 months. Optivol fluid index remains low (good). Recommend: Next appointment: January 2013 Next upload: In 6 months, or sooner as needed documented in this encounter Plan of Treatment Upcoming Encounters Date Type Specialty Care Team Description 04/16/2022 Appointment Cardiology Vivi Lorenz APRN [facility] CARDIOLOGY DEPT. [place], [place] [address] (Wo rk) 04/16/2022 Laboratory Appointment Lab 04/16/2022 Office Visit Cardiology Vivi Lorenz APRN [facility] CARDIOLOGY DEPT. [place], [place] [address] (Wo rk) documented as of this encounter Visit Diagnoses Not on filedocumented in this encounter Care Teams Biodiesel Engineering Manager Relationship Specialty Start Date End Date Vivi Juarez MD PCP - General 07/24/10 08/16/14 [address] [place] [address] documented as of this encounter
--- OUTSIDE RECORDS SUMMARY | 2022-03-18 02:37 | XMS_ITS | Encounter Summary ---
:1945 Author Organization [facility] Address [facility] [place] [address] Care Team Providers Name Role Phone Vivi Kim MD Primary Care Provider Encounter Details Date Type Department Care Team Description 08/26/2013 Follow-Up Cardiology at [facility] Deja Ahumada, Obesity; [facility] OPERATIONS CONTROLLER Other primary cardiomyopathies; [address] Heart failure, [place] [address] PRIMARY CARE [phone] [place] [address] (Wo rk) Social History Tobacco Use Types Packs/Day Years Used Date Never Smoker Smokeless Tobacco: Never Used Alcohol Use Standard Drinks/Week Comments Not Asked 0 (1 standard drink = 0.6 oz pure alcoho l) Sex Assigned at Date Recorded Not on file documented as of this encounter Last Filed Vital Signs Vital Sign Reading Time Taken Comments Blood Pressure 100/76 08/26/2013 8:26 AM EST Pulse 63 08/26/2013 8:26 AM EST Temperature - - Respiratory Rate - - Oxygen Saturation 94% 08/26/2013 8:26 AM EST Inhaled Oxygen Concentration - - Weight 118.6 kg (261 lb 8 oz) 08/26/2013 8:26 AM EST Height 165.1 cm (5' 5) 08/26/2013 8:26 AM EST Body Mass Index 43.52 08/26/2013 8:26 AM EST documented in this encounter Progress Notes Deja Ahumada, OPERATIONS CONTROLLER - 08/26/2013 9:28 AM EST Images from the original note were not included. [facility] [place] [address] [address] CARDIOMYOPATHY/HEART FAILURE SERVICE OUTPATIENT CLINIC NOTE Ana Victoria 08/26/2013 Primary Care Provider: VIVI KIM MD Referring Provider: Vivi Kim HISTORY OF PRESENT ILLNESS: Ana Victoria is a 67 y.o. patient seen in 6 month follow up in the [facility] Heart Failure Clinic, andin the interim, the patient has been stable from a cardiovascular standpoint. Specifically, she denies any recent emergency room visits or hospitalizations for cardiac related problems, and denies any dyspnea, dyspnea on exertion, PND, orthopnea, or lower extremity edema. Her continued improvement persisted to her current clinical status and feels that she is able to do her ADLs and IADLs with improved exercise tolerant although she does have some generalized fatigue at the end of the day. She can do her ADL's and IADL's with no problem. Stairs can make her SOB, but she recovers quickly. Her recent echocardiogram performed locally, history significant improvement of her LVEF to 50-55%. Her appetite has been good, she usually sleeps well and swears by her CPAP. She is now on metformin; Hg A1C is coming down, per her report. Other review of systems [...] compensated and euvolemic NSR with LBBB, s/p GREEN BUILDING ARCHITECT-D 04/11/11 AHA./ACC Stage C, NYHA FTC II Heart Failure Management: Yes/No No?/Discontinued/Why Beta tone Yes MILADYS/ARB Yes Spironolactone yes AFIB? no Anticoagulated n/a Device yes GREEN BUILDING ARCHITECT-D 04/11/11 ??? Obesity BMI=43 ??? LBBB (left bundle branch block) Chronic Widened QRS S/p GREEN BUILDING ARCHITECT-D ??? Depression ??? History of DVT (deep vein thrombosis) a. #1 peripartum 1979, short-term anticoagulation. b. #2 postop ORIF left ankle in 1997, long-term anticoagulation begun. c. Unknown if prior coagulopathy work-up. ??? Hypertension Well controlled ??? Hypothyroidism On synthroid replacement ??? Idiopathic cardiomyopathy severe LV systolic dysfunction Echo 07/03/04 ([facility]): LVEF 18%. Severe diffuse global HK, LV apex dyskinetic with sessile mural thrombus. 3-4+ MR. LAE. RV normal. Mildly elevated PAP (44mmHg). Echo EF= 20-25% 11/15/04 Echo EF= 25% 08/26/05 Echo EF= 40% 07/17/06 Echo EF= 30% 01/26/08 .br Echo EF= 30% 07/21/08 Echo EF= 30% 02/10 Echo EF=50-55% 02/02/13 (s/p GREEN BUILDING ARCHITECT) ??? LV (left ventricular) mural thrombus ??? Obstructive sleep apnea uses CPAP ??? Osteoarthritis SOCIAL HISTORY: Reviewed and updated as appropriate in the medical record. The patient reports that she has never smoked. She has never used smokeless tobacco. 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 FAMILY HISTORY: Reviewed and updated as appropriate in the medical record. No family history on file. ALLERGIES: Reviewed and updated as appropriate in the medical record. No Known Allergies MEDICATIONS: Outpatient Prescriptions Marked as Taking for the 08/26/13 encounter (Follow-Up) with Deja Ahumada APRN Medication [...] tablet by mouth 2 times daily. ??? furosemide (LASIX) 20 mg tablet Take 0.5 tablets by mouth daily. 1/2 tablet = 10mg 30 tablet 3 ??? losartan (COZAAR) 50 mg tablet Take 50 mg by mouth daily. ??? carvedilol (COREG) 25 mg tablet 25 MG = 1 Tablet(s), PO, Twice daily ??? spironolactone (ALDACTONE) 50 mg tablet 50MG, PO, Once daily ??? GLUCOSAMINE HCL/CHONDRO RODRIGUEZ A (GLUCOSAMINE-CHONDROITIN ORAL) REVIEW OF SYSTEMS: Review of Systems Pertinent Negatives or Positives General Denies Fever, chills, night sweats. Weight Stable. Sleep habits usually good, tolerate CPAP. Eyes No visual loss, double vision, drainage, eye pain, dry eyes, or other sxs reported. ENT No sore throat, dry mouth, eptistaxis or other sxs reported. Cardiac Denies angina, palpitations, syncope Denies MCCOY, Orthopnea, PND, LE edema. Has generalized fatigue at the end of the day. Pulmonary No shortness of breath, cough, hemoptysis, [...] Signs: Wt Readings from Last 3 Encounters: 08/26/13 118.616 kg (261 lb 8 oz) 08/26/13 118.616 kg (261 lb 8 oz) 02/04/13 118.84 kg (261 lb 15.9 oz) Temp Readings from Last 3 Encounters: 04/27/11 37.5 ??C (99.5 ??F) Oral 04/27/11 37.5 ??C (99.5 ??F) Oral 03/14/11 36.6 ??C (97.9 ??F) Oral BP Readings from Last 3 Encounters: 08/26/13 100/76 08/26/13 100/76 02/04/13 116/56 Pulse Readings from Last 3 Encounters: 08/26/13 63 08/26/13 63 02/04/13 58 SpO2: [94 %] General -Alert, oriented, NAD. Affect pleasant, [...] visit (from the past 72 hour(s)). Labs- see scanned report. Creatinine 1.1- normal lytes- ieuSCY=756. Sugar is nonfasting and 222 CARDIAC STUDIES Echo - Estimated EF ~ 50-55%, Significant improvement compared to most recent Echo 2012 with EF ~ ASSESSMENT: Stable and doing quite well clinically with great improvement after her GREEN BUILDING ARCHITECT-D device that resulted in an improved EF [...] indicated, CMP, proBNP, TSH, CBC next visit along with yearly echo She prefers to get labs at her local hospital a week or so before the appt. 3. COUNSELING: Specific issues or questions addressed on this visit: - reviewed lab results, echocardiogram, and clinical status, rationale for medications - wt reduction program, exercise discussed and encouraged 4. Cardiology follow-up scheduled for: - 6 months, coordinate with EP cardiology - PCP and other subspecialists as previously arranged documented in this encounter Plan of Treatment Upcoming Encounters Date Type Specialty Care Team Description 04/16/2022 Appointment Cardiology Vivi Lorenz APRN [facility] CARDIOLOGY DEPT. [place], [place] [address] (Wo latrice) 04/16/2022 Laboratory Appointment Lab 04/16/2022 Office Visit Cardiology Vivi Lorenz APRN [facility] CARDIOLOGY DEPT. [place], [place] [address] (Wo rk) documented as of this encounter Visit Diagnoses Diagnosis Obesity Obesity, unspecified Other primary cardiomyopathies Heart failure, unspecified documented in this encounter Care Teams Waiter/Waitress Formal Relationship Specialty Start Date End Date Vivi Kim MD PCP - General 07/24/10 08/16/14 [address] [place] [address] documented as of this encounter
--- OUTSIDE RECORDS SUMMARY | 2022-03-18 02:37 | XMS_ITS | Encounter Summary ---
:1945 Author Organization [facility] [place] [address] Care Team Providers Name Role Phone Vivi Juarez MD Primary Care Provider Encounter Details Date Type Department Care Team Description 11/25/2013 External Results Cardiology at [facility] Vivi Juarez MD [facility] [address] [place] [address] [place] [address] [phone] (Wo rk) Social History Tobacco Use Types [...] APRN [facility] CARDIOLOGY DEPT. [place], [place] [address] (Wo rk) 04/16/2022 Laboratory Appointment Lab 04/16/2022 Office Visit Cardiology Vivi Lorenz APRN [facility] CARDIOLOGY DEPT. [place], [place] [address] (Wo rk) documented as of this encounter Procedures Procedure Name Priority Date/Time Associated Diagnosis Comme nts EP DEVICE SCAN Routine 11/23/2013 documented in this encounter Results Scan Doc: EP Device (11/23/2013) Narrative This result has an attachment that is no t available. Vivi Juarez MD MEDIA MGR SCAN EXT ORDR/RSLT documented in this encounter Visit Diagnoses Not on filedocumented in this encounter Care Teams Linting Machine Operator Relationship Specialty Start Date End Date Vivi Juarez MD PCP - General 07/24/10 08/16/14 [address] [place] [address] documented as of this encounter
--- OUTSIDE RECORDS SUMMARY | 2022-03-18 02:37 | XMS_ITS | Encounter Summary ---
:1945 Author Organization [facility] Address [facility] [place] [address] Care Team Providers Name Role Phone Vivi Juarez MD Primary Care Provider Encounter Details Date Type Department Care Team Description 02/11/2014 Orders Only Cardiology at [facility] Deja Ahumada, Other primary cardiomyopathi es; [facility] LIQUOR COMMISSIONER Heart failure, unspecified [address] [place] [address] PRIMARY CARE [phone] [place], [place] [address] (Wo rk) Social History Tobacco [...] Appointment Cardiology Vivi Lorenz APRN [facility] CARDIOLOGY DEPT. [place], [place] [address] (Wo rk) 04/16/2022 Laboratory Appointment Lab 04/16/2022 Office Visit Cardiology Vivi Lorenz APRN [facility] CARDIOLOGY DEPT. [place], [place] [address] (Wo rk) documented as of this encounter Visit Diagnoses Diagnosis Other primary cardiomyopathies Heart failure, unspecified documented in this encounter Care Teams Fitness Studies Teacher Relationship Specialty Start Date End Date Vivi Juarez MD PCP - General 07/24/10 08/16/14 [address] [place] [address] documented as of this encounter
--- OUTSIDE RECORDS SUMMARY | 2022-03-18 02:37 | XMS_ITS | Encounter Summary ---
:1945 [place] [address] Care Team Providers Name Role Phone Vivi Kim MD Primary Care Provider Encounter Details Date Type Department Care Team Description 02/13/2012 Follow-Up Cardiology at [facility] Deja Keita, Cardiomyopathy ([facility] ASPARAGUS BUNCHER Dx) [address] [place] [address] PRIMARY CARE [phone] [place] [id number] (Wo rk) Social History Tobacco Use Types Packs/Day Years Used Date Never Smoker Alcohol Use Standard Drinks/Week Comments Not Asked 0 (1 standard drink = 0.6 oz pure alcoho l) Sex Assigned at Date Recorded Not on file documented as of this encounter Last Filed Vital Signs Vital Sign Reading Time Taken Comments Blood Pressure 102/64 02/13/2012 10:23 AM EDT Pulse 61 02/13/2012 10:23 AM EDT Temperature - - Respiratory Rate - - Oxygen Saturation - - Inhaled Oxygen Concentration - - Weight 121.1 kg (267 lb) 02/13/2012 10:23 AM EDT Height 165.1 cm (5' 5) 02/13/2012 10:23 AM EDT Body Mass Index 44.43 02/13/2012 10:23 AM EDT documented in this encounter Progress Notes Deja Keita, ASPARAGUS BUNCHER - 02/13/2012 11:14 AM EDT HEART FAILURE CLINIC NOTE Ana Victoria 1945 66 y.o. PCP: VIVI KIM MD Date: 02/13/2012 Ms. Ana Victoria is here for follow-up with the Heart Failure Team for ongoing management of nonischemic dilated cardiomyopathy, s/p HOTEL BREAKFAST ATTENDANT upgrade, with her hx of heart failure. She feels quite well with no ED visits or acute hospitalizations for heart failure. 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 She denies lightheadedness or dizzyness; no PND or orthopnea. No MCCOY or SOB with usual activities such as showering, shopping. No chest pain, tightness or palpitations. Good appetite. No abdominal bloating. No LE edema. No regular exercise. Weight is stable. Otherwise doing well and the remainder of ROS is negative. Past Medical History: Patient Active Problem List Diagnoses ??? Other primary cardiomyopathies ??? Obesity ??? LBBB (left bundle branch block) Overview Note: Chronic ??? Depression ??? HISTORY OF DVT (DEEP VEIN THROMBOSIS) Overview Note: a. #1 peripartum 1979, short-term anticoagulation. b. #2 postop ORIF left ankle in 1997, long-term anticoagulation begun. c. Unknown if prior coagulopathy work-up. ??? Hypertension ??? Hypothyroidism ??? Idiopathic cardiomyopathy Overview Note: severe LV systolic dysfunction Echo 07/03/04 ([facility]): LVEF 18%. Severe diffuse global HK, LV apex dyskinetic with sessile mural thrombus. 3-4+ MR. LAE. RV normal. Mildly elevated PAP (44mmHg). Echo EF= 20-25% 11/15/04 Echo EF= 25% 08/26/05 Echo EF= 40% 07/17/06 Echo EF= 30% 01/26/08 .br Echo EF=30% 07/21/08 ??? LV (left ventricular) mural thrombus ??? Obstructive sleep apnea Overview Note: uses CPAP ??? 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 INRs in 1.8-3.8 range since 03/04. Now off anticoagulation 02/11/12 4. History of DVTs x 2. a. #1 peripartum 1979, short-term anticoagulation. b. #2 postop ORIF left ankle in 1997, long-term anticoagulation begun. prior coagulopathy work-up. Now off anticoagulation -. Hypertension - on Cozaar. 7. Hypothyroidism -on Levothyroxine. 8. History of depression. Dry Weight - goal is 238 lbs, weight fluctuates Smoking - no ETOH - rare Heart failure management: On beta tone On ARB On Spironolactone No atrial fib Has HOTEL BREAKFAST ATTENDANT-D placed in 2010 with symptom improvement Medications: Outpatient prescriptions marked as taking for the 02/13/12 encounter (Follow-Up) with SARAH KEITA Medication Sig Dispense Refill ??? levothyroxine (SYNTHROID) 150 mcg tablet Take 150 mcg by mouth. Sat and sun ??? aspirin (ASPIRIN LOW-STRENGTH) 81 mg EC tablet Take 1 tablet by mouth daily for 325 days. 30 tablet 12 ??? furosemide (LASIX) 20 mg tablet Take 20 mg by mouth daily. 1/2 tablet = 10mg ??? levothyroxine (SYNTHROID) 125 mcg tablet Take 125 mcg by mouth. mon-fri ??? losartan (COZAAR) 50 mg tablet Take [...] Relevant Family History: NONE Physical Exam: BP 102/64 Pulse 61 Ht 165.1 cm (5' 5) Wt 121.11 kg (267 lb) BMI 44.43 kg/m2 General: well-nourished female in NAD . Conversant, her is with her today. HEENT/Neck: Sclerae nonicteric, moist oral mucosa without lesions, no lymphadenopathy. Carotid upstroke brisk, no bruits. Cardiac: Regular rhythm S1 S2 normal, no murmer appreciated. JVP is ~ 6 cm Lungs: Clear bilaterally to auscultation Abdomen: soft, nontender, No organomegaly. - HJR Extremities: No clubbing, cyanosis. Edema:tr bilat She is wearing support hose Skin: No bruises, rashes, or petechiae. Surgical scars: left subclavian device healed. Neuro: No focal neurological deficits. Musculoskeletal: No spinal or chest wall tenderness. : No CVA tenderness Psych: Normal affect, in good spirits. Laboratory: From outside lab before appt: normal potassium, proBNP Her creatinine is mildly elevated per OS lab results She brought a CD we have given to echo dept to put into ED-h- will ask for outside formal report-report suggests EF remains at 20%, but not certain it has been formally read. Cardiology/Imaging Studies Reviewed:Downloaded today 02/13/12 All lead impedances stable Xrays of lead system: ok day after upgrade Wound/generator site: well healed Therapy Administered: none Events: none Underlying rhythm: SR 65 bpm with intermittent T wave oversensing OptiVol: flat Histograms are well distributed. Pacing percentages: -FAMILY ASSISTANT 99.9% Bi V pacing: FAMILY ASSISTANT 96%; VS 4% Changes made this session: After discussion and testing with Hernandez from [facility] , information reviewed with Dr Naqvi. R wave sensitivity decreased from 0.3 to 0.45mV Impression: Patient Active Problem List Diagnoses Code [...] therapy. Euvolemic on exam. Device upgraded to HOTEL BREAKFAST ATTENDANT-D about 9 months ago. AHA/ACC Stage C- D/ NYHA CL II 2. Heart failure: euvolemic by exam and lab eval 3. JON: uses CPAP 4. Obesity; sedentary lifestyle Plan: 1. Diagnoses, management, and plan of care reviewed with the patient/family. All questions were addressed. 2. Education/Counseling performed: --Review of heart failure signs and symptoms, importance of daily weight monitoring, parameters reviewed for when to call Heart Failure Clinic, dietary sodium intake, activity/exercise encouraged --Rationale for current medications; potential side effects reviewed with patient. --Labs, test results reviewed with patient. --Immunizations, other recommendations: Up to date 3. Medication changes: None at this visit. 4. The following labs, referrals or other testing advised: --Prior to next visit: bmp, proBNP; lipid profile- she prefers to get locally 5. Cardiology follow-up scheduled for: --HF clinic in: 6 months, please coordinate with EP --HFCCM: prn documented in this encounter Plan of Treatment Upcoming Encounters Date Type Specialty Care Team Description 04/16/2022 Appointment Cardiology Vivi Lorenz APRN [facility] CARDIOLOGY DEPT. [place], [place] [address] (Wo rk) 04/16/2022 Laboratory Appointment Lab 04/16/2022 Office Visit Cardiology Vivi Lorenz APRN [facility] CARDIOLOGY DEPT. [place], [place] [address] (Wo rk) documented as of this encounter Visit Diagnoses Diagnosis Cardiomyopathy - Primary Other primary cardiomyopathies documented in this encounter Care Teams Communications Station Manager Relationship Specialty Start Date End Date Vivi Kim MD PCP - General 07/24/10 08/16/14 [address] [place] [address] documented as of this encounter
--- OUTSIDE RECORDS SUMMARY | 2022-03-18 02:37 | XMS_ITS | Encounter Summary ---
:1945 Author Organization [facility] [place] [address] Care Team Providers Name Role Phone Nicole Pickens MD Primary Care Provider Encounter Details Date Type Department Care Team Description 05/16/2015 [place] [address] Social History Tobacco Use Types Packs/Day [...] APRN [facility] CARDIOLOGY DEPT. [place], [place] [address] (Luz pollard) 04/16/2022 Laboratory Appointment Lab 04/16/2022 Office Visit Cardiology Vivi Lorenz APRN [facility] CARDIOLOGY DEPT. [place], [place] [address] (Luz pollard) documented as of this encounter Procedures Procedure Name Priority Date/Time Associated Diagnosis Comme nts CARDIAC DEVICE Routine 05/16/2015 10:34 PM Result s for this CHECK - REMOTE EDT procedure are in the results section. documented in this encounter Results (ABNORMAL) Cardiac device check - Remote (05/16/2015 10:34 PM EDT) Component Value Ref Test Analysis Performed Pathologis t Range Method Time At Signature Date Time [id number] IDCO Interrogation Session Implantable Medtronic IDCO Pulse Generator Casing Runner Implantable Protecta XT PROBATE LAWYER-D IDCO Pulse Generator [id number] Model Implantable [id number] IDCO Pulse Generator Serial Number Type Remote IDCO Interrogation Session Implantable Cardiac IDCO Pulse Generator Resynchronization Type Therapy - Defibrillator Implantable [id number] IDCO Pulse Generator Implant Date Victor Manuel [...] Sensitivity Ventricular BiV IDCO chambers paced during PROBATE LAWYER pacing. PROBATE LAWYER LV-RV Delay 20 ms IDCO Lead Channel [...] IDCO Setting Pacing Pulse Width Lead Channel 3.5 V IDCO Setting Pacing Amplitude Lead Channel [...] 400 ms IDCO Detection Interval Battery Date [id number] IDCO Time of Measurements Battery Status OK IDCO Battery DEVELOPMENTAL ELECTRONICS ASSEMBLER 2.6251 IDCO Trigger Battery Voltage 2.92 V IDCO Capacitor Charge Reformation IDCO Type Capacitor Last [id number] IDCO Charge Date Time Capacitor Charge 11.27 s IDCO Time Capacitor Charge 35 J IDCO Energy Victor Manuel Statistic [id number] IDCO Date Time Start Victor Manuel Statistic [id number] IDCO Date Time End Victor Manuel Statistic 0.03 % IDCO RA Percent Paced Victor Manuel Statistic 99.97 % IDCO RV Percent Paced Victor Manuel Statistic 0.02 % IDCO AP STOPPER MAKER Percent Victor Manuel Statistic 99.95 % IDCO STOPPER MAKER Percent Victor Manuel Statistic 0.01 % IDCO AP VS Percent Victor Manuel Statistic 0.02 % IDCO VS Percent Atrial Tachy [id number] IDCO Statistic Date Time Start Atrial Tachy [id number] IDCO Statistic Date Time End Atrial Tachy 0 % IDCO Statistic AT/AF [place] Percent Therapy 0 IDCO Statistic Recent Shocks Delivered Therapy 0 IDCO Statistic Recent Shocks Aborted Therapy 0 IDCO Statistic Recent ATP Delivered Therapy [id number] IDCO Statistic Recent Date Time Start Therapy [id number] IDCO Statistic Recent Date Time End Therapy 0 IDCO Statistic Total Shocks Delivered Therapy 0 IDCO Statistic Total Shocks Aborted Therapy 0 IDCO Statistic Total ATP Delivered Therapy [id number] IDCO Statistic Total Date Time Start Therapy [id number] IDCO Statistic Total Date Time End Episode [...] Episode SVT IDCO Statistic Type Category Episode [id number] IDCO Statistic Recent Date Time Start Episode [id number] IDCO Statistic Recent Date Time End Episode [id number] IDCO Statistic Recent Date Time Start Episode [id number] IDCO Statistic Recent Date Time End Episode [id number] IDCO Statistic Recent Date Time Start Episode [id number] IDCO Statistic Recent Date Time End Episode [id number] IDCO Statistic Recent Date Time Start Episode [id number] IDCO Statistic Recent Date Time End Episode [id number] IDCO Statistic Recent Date Time Start Episode [id number] IDCO Statistic Recent Date Time End Episode [id number] IDCO Statistic Recent Date Time Start Episode [id number] IDCO Statistic Recent Date Time End Episode [id number] IDCO Statistic Recent Date Time Start Episode [id number] IDCO Statistic Recent Date Time End Episode [...] Episode SVT IDCO Statistic Type Category Episode [id number] IDCO Statistic Total Date Time Start Episode [id number] IDCO Statistic Total Date Time End Episode [id number] IDCO Statistic Total Date Time Start Episode [id number] IDCO Statistic Total Date Time End Episode [id number] IDCO Statistic Total Date Time Start Episode [id number] IDCO Statistic Total Date Time End Episode [id number] IDCO Statistic Total Date Time Start Episode [id number] IDCO Statistic Total Date Time End Episode [id number] IDCO Statistic Total Date Time Start Episode [id number] IDCO Statistic Total Date Time End Episode [id number] IDCO Statistic Total Date Time Start Episode [id number] IDCO Statistic Total Date Time End Episode [id number] IDCO Statistic Total Date Time Start Episode [id number] IDCO Statistic Total Date Time End Specimen (Source) Anatomical Collection Method Collection Time Re ceived Time Location / / Volume Laterality 05/16/2015 10:34 PM EDT Physician Cardiology MD IMPLANTABLE CARDIAC DEVICE Performing Organization Address City/State/ZIP Code Phon e Number IDCO documented in this encounter Visit Diagnoses Not on filedocumented in this encounter Care Teams Casing In Line Setter Relationship Specialty Start Date End Date Nicole Pickens MD PCP - General 08/17/[address] [place] [address] documented as of this encounter
--- OUTSIDE RECORDS SUMMARY | 2022-03-18 02:37 | XMS_ITS | Encounter Summary ---
:1945 Author Organization [facility] [place] [address] Care Team Providers Name Role Phone Nicole Pickens MD Primary Care Provider Encounter Details Date Type Department Care Team Description 11/29/2014 [place] [address] Social History Tobacco Use Types Packs/Day Years Used Date Never Smoker Smokeless Tobacco: Never Used Alcohol Use Standard Drinks/Week Comments Not Asked 0 (1 standard drink = 0.6 oz pure alcoho l) Sex Assigned at Date Recorded Not on file documented as of this encounter Plan of Treatment Upcoming Encounters Date Type Specialty Care Team Description 04/16/2022 Appointment Cardiology Vivi Lorenz APRN [facility] CARDIOLOGY DEPT. [place], [place] [address] (Luz pollard) 04/16/2022 Laboratory Appointment Lab 04/16/2022 Office Visit Cardiology Vivi Lorenz APRN [facility] CARDIOLOGY DEPT. [place], [place] [address] (Luz pollard) documented as of this encounter Procedures Procedure Name Priority Date/Time Associated Diagnosis Comme nts CARDIAC DEVICE Routine 11/29/2014 5:24 AM Results for this CHECK - REMOTE EDT procedure are in the results section. documented in this encounter Results (ABNORMAL) Cardiac device check - Remote (11/29/2014 5:24 AM EDT) Component Value Ref Test Analysis Performed Pathologis t Range Method Time At Signature Date Time [id number] IDCO Interrogation Session Implantable Medtronic IDCO Pulse Generator Orchestra Conductor Implantable Protecta XT HEALTH MANAGEMENT CONSULTANT-D IDCO Pulse Generator [id number] Model Implantable [id number] IDCO Pulse Generator Serial Number Type Remote IDCO Interrogation Session Implantable Cardiac IDCO Pulse Generator Resynchronization Type Therapy - Defibrillator Implantable [id number] IDCO Pulse Generator Implant Date Victor Manuel Setting DDD IDCO Mode (NBG Code) Victor Manuel Setting 40 {beats} IDCO Lower Rate Limit /min Victor Manuel Setting 130 {beats} IDCO Maximum Tracking /min Rate Victor Manuel Setting 120 {beats} IDCO Maximum Sensor /min Rate Victor Manuel Setting 100 ms IDCO DAVID Delay High Victo Rmanuel Setting 130 ms IDCO PAV Delay High [...] Sensitivity Ventricular BiV IDCO chambers paced during HEALTH MANAGEMENT CONSULTANT pacing. HEALTH MANAGEMENT CONSULTANT LV-RV Delay 20 ms IDCO Lead Channel [...] of Measurements Battery Status OK IDCO Battery CAMP HOUSEKEEPER 2.6251 IDCO Trigger Battery Voltage 2.99 V IDCO Capacitor Charge Reformation IDCO Type Capacitor Last [id number] IDCO Charge Date Time Capacitor Charge 10.89 s IDCO Time Capacitor Charge 35 J IDCO Energy Episode 11 IDCO Identifier Episode Type VSE IDCO Category Episode Date IDCO Time Episode Duration 5 s IDCO Episode 11 IDCO Identifier Episode Type LongestVSE IDCO Category Episode Date IDCO Time Episode Duration 5 s IDCO Victor Manuel Statistic [id number] IDCO Date Time Start Victor Manuel Statistic [id number] IDCO Date Time End Victor Manuel Statistic 0.03 % IDCO RA Percent Paced Victor Manuel Statistic 99.96 % IDCO RV Percent Paced Victor Manuel Statistic 0.02 % IDCO AP HYPERION ANALYST Percent Victor Manuel Statistic 99.94 % IDCO HYPERION ANALYST Percent Victor Manuel Statistic 0.01 % IDCO AP VS Percent Victor Manuel Statistic 0.03 % IDCO VS Percent Atrial Tachy [id number] IDCO Statistic Date Time Start Atrial Tachy [id number] IDCO Statistic Date Time End Atrial Tachy 0 % IDCO Statistic AT/AF [place] Percent Therapy 0 IDCO Statistic Recent Shocks Delivered Therapy 0 IDCO Statistic Recent Shocks Aborted Therapy 0 IDCO Statistic Recent ATP Delivered Therapy [id number] IDCO Statistic Recent Date Time Start Therapy [id number] IDCO Statistic Recent Date Time End Therapy 0 IDCO Statistic Total Shocks Delivered Therapy 0 IDCO Statistic Total Shocks Aborted Therapy 0 IDCO Statistic Total ATP Delivered Therapy [id number] IDCO Statistic Total Date Time Start Therapy [id number] IDCO Statistic Total Date Time End Episode [...] Episode SVT IDCO Statistic Type Category Episode [id number] IDCO Statistic Recent Date Time Start Episode [id number] IDCO Statistic Recent Date Time End Episode [id number] IDCO Statistic Recent Date Time Start Episode [id number] IDCO Statistic Recent Date Time End Episode [id number] IDCO Statistic Recent Date Time Start Episode [id number] IDCO Statistic Recent Date Time End Episode [id number] IDCO Statistic Recent Date Time Start Episode [id number] IDCO Statistic Recent Date Time End Episode [id number] IDCO Statistic Recent Date Time Start Episode [id number] IDCO Statistic Recent Date Time End Episode [id number] IDCO Statistic Recent Date Time Start Episode [id number] IDCO Statistic Recent Date Time End Episode [id number] IDCO Statistic Recent Date Time Start Episode [id number] IDCO Statistic Recent Date Time End Episode [...] Episode SVT IDCO Statistic Type Category Episode [id number] IDCO Statistic Total Date Time Start Episode [id number] IDCO Statistic Total Date Time End Episode [id number] IDCO Statistic Total Date Time Start Episode [id number] IDCO Statistic Total Date Time End Episode [id number] IDCO Statistic Total Date Time Start Episode [id number] IDCO Statistic Total Date Time End Episode [id number] IDCO Statistic Total Date Time Start Episode [id number] IDCO Statistic Total Date Time End Episode [id number] IDCO Statistic Total Date Time Start Episode [id number] IDCO Statistic Total Date Time End Episode [id number] IDCO Statistic Total Date Time Start Episode [id number] IDCO Statistic Total Date Time End Episode [id number] IDCO Statistic Total Date Time Start Episode [id number] IDCO Statistic Total Date Time End Specimen (Source) Anatomical Collection Method Collection Time Re ceived Time Location / / Volume Laterality 11/29/2014 5:24 AM EDT Physician Cardiology MD IMPLANTABLE CARDIAC DEVICE Performing Organization Address City/State/[facility] Phon e Number IDCO documented in this encounter Visit Diagnoses Not on filedocumented in this encounter Care Teams Production Underwriter Relationship Specialty Start Date End Date Nicole Pickens MD PCP - General 08/17/[address] [place] [address] documented as of this encounter
--- OUTSIDE RECORDS SUMMARY | 2022-03-18 02:37 | XMS_ITS | Encounter Summary ---
:1945 Author Organization [facility] [place] [address] Care Team Providers Name Role Phone Vivi Juarez MD Primary Care Provider Reason for Visit Reason Comments Cardiomyopathy BRAND COORDINATOR-D interrogation Encounter Details Date Type Department Care Team Description 02/04/2013 Follow-Up Cardiology at [facility] Elana Henry Idiopathic cardiomyopathy [facility] CHANCE Cisneros (Primary Dx) [place] [address] Social History Tobacco Use Types Packs/Day Years Used Date Never Smoker Smokeless Tobacco: Never Used Alcohol Use Standard Drinks/Week Comments Not Asked 0 (1 standard drink = 0.6 oz pure alcoho l) Sex Assigned at Date Recorded Not on file documented as of this encounter Last Filed Vital Signs Vital Sign Reading Time Taken Comments Blood Pressure 116/56 02/04/2013 10:03 AM EDT Pulse 58 02/04/2013 10:03 AM EDT Temperature - - Respiratory Rate - - Oxygen Saturation 95% 02/04/2013 10:03 AM at rest ro om air EDT Inhaled Oxygen Concentration - - Weight 118.8 kg (262 lb) 02/04/2013 10:03 AM EDT Height 165.1 cm (5' 5) 02/04/2013 10:03 AM EDT Body Mass Index 43.6 02/04/2013 10:03 AM EDT documented in this encounter Progress Notes Elana Henry RN - 02/04/2013 9:58 AM EDT ICD Clinic Follow-up Ms. Victoria is a 67 yo woman presents for BRAND COORDINATOR-D interrogation. She was seen on 07/19/11 related to LV Tip->Ring impedance of just over 1,500 ohms. LV vector was reprogrammed Ring->Coil. Device implanted 03/2005 for idiopathic CM, with upgrade to BRAND COORDINATOR-D on 04/26/2011. Ventricular lead subject to Vladimir Shaikh advisory from 2006. She is seeing Dr. Aguilar today as well. Multiple Punch Press Operator: Roly Aguilar MD Primary Care: Vivi Juarez MD DEVICE AND LEAD INFORMATION Final Parameters: Ventricular electrode: Medtronic SprintFidelis Model# 6949 58 cm Serial #[id number] (Implanted 03/08/2005) Bipolar, steroid-tipped, active-fixation IS-1, DF-1 lead Access: Axillary vein Location: Right ventricular apex R wave, ICD: 15.9 mV Pacing threshold, ICD: 1.25V at 0.8 ms Impedance, ICD: 646 ohms HVB Impedance 44 ohms SVC Impedance 52 ohms Pace the diaphragm at 10 V: No Atrial electrode: Medtronic, CaptureFix Model # 5076-52 cm Serial # [id number] Bipolar, steroid-tipped, active-fixation IS-1 lead Access: Axillary vein Location Right atrial appendage P wave, ICD: 3.0 mV Pacing threshold, ICD: 0.75 V at 0.4 ms Impedance, ICD: 437 ohms Pace the diaphragm at 10 V: No Coronary sinus electrode: Medtronic, Attain OTW Model# 4196-88cm, Serial# [id number] Bipolar passive fixation lead Access: Axillary vein Location: Coronary sinus, anterior R wave, ICD: 13.8 Pacing threshold, ICD: 0.75 0.4 ms (LV ring to RV coil) Impedance, device: 494s Pace the diaphragm/chest wall at 10 V: No Pulse generator: Medtronic Protecta XT BRAND COORDINATOR Serial #[id number] BRAND COORDINATOR ICD Location: Subcutaneous Parameters: VF detection rate: [...] LV- >RV 20 ms Follow-up: Battery status: 3.12 V (SALES SUPPORT ADVISOR: 2.63 V) Charge time: 9.5 seconds 10/25/2012 Sensing Integrity Counter: 0 Pace/sensing leads: Right Ventricular R wave: >20 mV Threshold: 1.25 V at 0.4 ms (1.375 V at 0.4 ms per RVCM) Impedance: 893 Ohms stable EGM quality: clean Left Ventricular: Threshold: 0.75 V at 0.4 ms Ring->Coil (0.75V at 0.4ms per LVCM) Impedance: 779 ohms Ring->Coil Atrial: P wave: 5.6 mV Threshold: 0.5 V at 0.4 ms (0.5 V at 0.4 ms by ACM) Impedance: 456 ohms EGM: clean Shocking Leads RV: 54 Ohms stable SVC: 66 Ohms stable EGM quality: clean All lead impedances stable Xrays of lead system: ok day after upgrade Wound/generator site: well healed Therapy Administered: none Events: none Underlying rhythm: SR 65 bpm OptiVol: never above threshold Histograms are well distributed. Pacing percentages: -VENEER SAMPLE MAKER 99.9% Bi V pacing: VENEER SAMPLE MAKER 99.9%; VSR pace < 0.1%; VS <0.1% Changes made this session: none Plan: Carelink 3 months. Device clinic 6 months, coordinate with HF clinic as necessary. Addendum I have personally reviewed the device interrogation as performed by Stephanie Henry RN BRAND COORDINATOR-D 99% V paced Reasonable rate histograms Normal device function Summary 1) Normal device function 2) Routine follow up as planned MASSIMO PONCE MD documented in this encounter Plan of Treatment Upcoming Encounters Date Type Specialty Care Team Description 04/16/2022 Appointment Cardiology Vivi Lorenz, SENIOR ANALYSIS SPECIALIST [facility] CARDIOLOGY DEPT. [place], [place] [address] (Wo rk) 04/16/2022 Laboratory Appointment Lab 04/16/2022 Office Visit Cardiology Vivi Lorenz, SENIOR ANALYSIS SPECIALIST [facility] CARDIOLOG[facility] DEPT. [place], [place] [address] (Wo rk) documented as of this encounter Visit Diagnoses Diagnosis Idiopathic cardiomyopathy - Primary Other primary cardiomyopathies documented in this encounter Care Teams Painter Airbrush Relationship Specialty Start Date End Date Vivi Juarez MD PCP - General 07/24/10 08/16/14 [address] [place] [address] documented as of this encounter
--- OUTSIDE RECORDS SUMMARY | 2022-03-18 02:37 | XMS_ITS | Encounter Summary ---
:1945 Author Organization [facility] [place] [address] Care Team Providers Name Role Phone Vivi Kim MD Primary Care Provider Encounter Details Date Type Department Care Team Description 08/07/2012 Follow-Up Cardiology at [facility] Deja Ahumada, Nonischemic cardiomyopathy ( Primary Dx); [facility] [address] [place] [address] PRIMARY CARE [phone] [place], [place] [address] (Wo rk) Social History Tobacco Use Types Packs/Day Years Used Date Never Smoker Smokeless Tobacco: Never Used Alcohol Use Standard Drinks/Week Comments Not Asked 0 (1 standard drink = 0.6 oz pure alcoho l) Sex Assigned at Date Recorded Not on file documented as of this encounter Last Filed Vital Signs Vital Sign Reading Time Taken Comments Blood Pressure 106/62 08/07/2012 9:00 AM EST Pulse 60 08/07/2012 9:00 AM EST regular Temperature - - Respiratory Rate - - Oxygen Saturation 94% 08/07/2012 9:00 AM EST RA @ re st Inhaled Oxygen Concentration - - Weight 122.5 kg (270 lb) 08/07/2012 9:00 AM EST Height 166.4 cm (5' 5.51) 08/07/2012 9:00 AM EST Body Mass Index 44.23 08/07/2012 9:00 AM EST documented in this encounter Progress Notes Deja Ahumada, STRAWHAT SIZER - 08/07/2012 9:57 AM EST HEART FAILURE CLINIC NOTE Ana Victoria 1945 66 y.o. PCP: VIVI KIM MD Date: 08/07/2012 Ms. Ana Victoria is here for follow-up with the Heart Failure Team for ongoing management of nonischemic dilated cardiomyopathy, s/p LIFE SKILLS COORDINATOR VOLUNTEER upgrade, with her hx of heart failure. She feels well with noED visits or acute hospitalizations for heart failure. 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 She denies lightheadedness or dizzyness; no PND or orthopnea. No MCCOY or SOB with usual activities such as showering, shopping. She occ notes some SOB with stairs at work. Uses her CPAP and sleeps well with it. No chest pain, tightness or palpitations. Good appetite. No abdominal bloating. No LE edema. No regular exercise. Weight is stable to sl up. Her outside labs show an elevated blood sugar, sl elevated creatinine, minimally elevated TSH; she says her PCP is following those issues. Otherwise doing well (except for a stuffy nose) and the remainder of ROS is negative. Past Medical History: Patient Active Problem List Diagnoses ??? Other primary cardiomyopathies ??? Obesity ??? LBBB (left bundle branch block) Overview Note: Chronic ??? Depression ??? History of DVT (deep vein thrombosis) Overview Note: a. #1 peripartum 1979, short-term anticoagulation. b. #2 postop ORIF left ankle in 1997, long-term anticoagulation begun. c. Unknown if prior coagulopathy work-up. ??? Hypertension Overview Note: ??? Hypothyroidism ??? Idiopathic cardiomyopathy Overview Note: severe LV systolic dysfunction Echo 07/03/04 ([facility]): LVEF 18%. Severe diffuse global HK, LV apex dyskinetic with sessile mural thrombus. 3-4+ MR. LAE. RV normal. Mildly elevated PAP (44mmHg). Echo EF= 20-25% 11/15/04 Echo EF= 25% 08/26/05 Echo EF= 40% 07/17/06 Echo EF= 30% 01/26/08 .br Echo EF=30% 07/21/08 ??? LV (left ventricular) mural thrombus Overview Note: ??? Obstructive sleep apnea Overview Note: uses CPAP ??? Osteoarthritis Overview Note: - LV mural thrombus, noted 07/03/04, occurring [...] ARB On Spironolactone No atrial fib Has LIFE SKILLS COORDINATOR VOLUNTEER-D placed in 2010 with symptom improvement Medications: Outpatient Prescriptions Marked as Taking for the 08/07/12 encounter (Follow-Up) with Deja Ahumada APRN Medication Sig Dispense Refill ??? levothyroxine (SYNTHROID) 150 mcg tablet Take 150 mcg by mouth. Fri, Sat, Sun ??? levothyroxine (SYNTHROID) 125 mcg tablet Take 125 mcg by mouth. fri- ??? losartan (COZAAR) 50 mg tablet Take [...] Relevant Family History: NONE Physical Exam: BP 106/62 Pulse 60 Ht 166.4 cm (5' 5.51) Wt 122.471 kg (270 lb) BMI 44.23 kg/m2 SpO2 94% General: well-nourished female in NAD . Conversant HEENT/Neck: Sclerae nonicteric, moist oral mucosa without lesions, no lymphadenopathy. Carotid upstroke brisk, no bruits. Cardiac: Regular rhythm S1 S2 normal, no murmer appreciated. JVP is ~ 6 cm Lungs: Clear bilaterally to auscultation Abdomen: soft, nontender, No organomegaly. - HJR Extremities: No clubbing, cyanosis. Edema: none She is wearing support hose Skin: No bruises, rashes, or petechiae. Surgical scars: left subclavian device healed. Neuro: No focal neurological deficits. Musculoskeletal: No spinal or chest wall tenderness. : No CVA tenderness Psych: Normal affect, in good spirits. Laboratory: From outside lab before appt: normal potassium, proBNP Her creatinine is mildly elevated per OS lab results at 1.2 Her sugar (water ingested prior) is 196 Cardiology/Imaging Studies Reviewed:Downloaded today 08/07/12 Formal report is pending, but report is All lead impedances stable Wound/generator site: well healed Therapy Administered: none Events: none Underlying rhythm: SR OptiVol: flat Impression: Patient Active Problem List Diagnoses Code ??? Obesity 278.00 ??? LBBB (left bundle branch block) 426.3 ??? Depression 311 ??? History of DVT (deep vein thrombosis) V12.51 ??? Hypertension 401.9 ??? Hypothyroidism 244.9 ??? Idiopathic cardiomyopathy 425.4 ??? LV (left ventricular) mural thrombus 410.90 ??? Obstructive sleep apnea 327.23 ??? Osteoarthritis 715.90 ??? Other primary cardiomyopathies 425.4 1. Nonischemic cardiomyopathy with LBBB: on appropriate medical therapy. Euvolemic on exam. Device upgraded to LIFE SKILLS COORDINATOR VOLUNTEER-D > 1 year ago. AHA/ACC Stage C-D/ NYHA CL II 2. Heart failure: euvolemic by exam and lab eval 3. JON: uses CPAP 4. Obesity; sedentary lifestyle 5. Seems to be developing NIDDM Plan: 1. Diagnoses, management, and plan of care reviewed with the patient/family. All questions were addressed. 2. Education/Counseling performed: --Review of heart failure signs and symptoms, importance of daily weight monitoring, parameters reviewed for when to call Heart Failure Clinic, dietary sodium intake, activity/exercise again encouraged --Rationale for current medications; potential side effects reviewed with patient. --Labs, test results reviewed with patient. --Immunizations, other recommendations: Up to date 3. Medication changes: None at this visit. 4. The following labs, referrals or other testing advised: --Prior to next visit: bmp, proBNP;echocardiogram- she prefers to get locally 5. Cardiology follow-up scheduled for: --HF clinic in: 6 months, please coordinate with EP --HFCCM: prn documented in this encounter Plan of Treatment Upcoming Encounters Date Type Specialty Care Team Description 04/16/2022 Appointment Cardiology Vivi Lorenz APRN [facility] CARDIOLOGY DEPT. [place], [place] [address] (Wo rk) 04/16/2022 Laboratory Appointment Lab 04/16/2022 Office Visit Cardiology Vivi Lorenz APRN [facility] CARDIOLOGY DEPT. [place], [place] [address] (Wo rk) documented as of this encounter Visit Diagnoses Diagnosis Nonischemic cardiomyopathy - Primary Other primary cardiomyopathies Obesity Obesity, unspecified documented in this encounter Care Teams Batterboard Setter Relationship Specialty Start Date End Date Vivi Kim MD PCP - General 07/24/10 08/16/14 [address] [place] [address] documented as of this encounter
--- OUTSIDE RECORDS SUMMARY | 2022-03-18 02:37 | XMS_ITS | Encounter Summary ---
:1945 Author Organization [facility] [place] [address] Care Team Providers Name Role Phone Vivi Juarez MD Primary Care Provider Encounter Details Date Type Department Care Team Description 07/15/2014 Orders [place] [address] Social History Tobacco Use Types Packs/Day [...] Lorenz APRN [facility] CARDIOLOGY DEPT. [place], [place] [address] (Luz pollard) 04/16/2022 Laboratory Appointment Lab 04/16/2022 Office Visit Cardiology Vivi Lorenz APRN [facility] CARDIOLOGY DEPT. [place], [place] [address] (Luz pollard) documented as of this encounter Procedures Procedure Name Priority Date/Time Associated Diagnosis Comme nts CARDIAC DEVICE Routine 07/15/2014 7:26 AM Results for this CHECK - REMOTE EST procedure are in the results section. documented in this encounter Results Cardiac device check - Remote (07/15/2014 7:26 AM EST) Component Value Ref Test Analysis Performed Pathologis t Range Method Time At Signature Date Time [id number]+0000 IDCO Interrogation Session Implantable Medtronic IDCO Pulse Generator Manager Tax Implantable Protecta XT AUTO BODY REPAIRER-D IDCO Pulse Generator [id number] Model Implantable [id number] IDCO Pulse Generator Serial Number Type Remote IDCO Interrogation Session Implantable Cardiac IDCO Pulse Generator Resynchronization Type Therapy - Defibrillator Implantable [id number]+0000 IDCO Pulse Generator Implant Date Victor Manuel [...] Sensitivity Ventricular BiV IDCO chambers paced during AUTO BODY REPAIRER pacing. AUTO BODY REPAIRER LV-RV Delay 20 ms IDCO Lead Channel [...] 400 ms IDCO Detection Interval Battery Date +0000 IDCO Time of Measurements Battery Status OK IDCO Battery WORKING SUPERVISOR 2.6251 IDCO Trigger Battery Voltage 3.02 V IDCO Capacitor Charge Reformation IDCO Type Capacitor Last [id number] IDCO Charge Date Time Capacitor Charge 10.69 s IDCO Time Capacitor Charge 35 J IDCO Energy Victor Manuel Statistic [id number] IDCO Date Time Start Victor Manuel Statistic [id number]+0000 IDCO Date Time End Victor Manuel Statistic 0.03 % IDCO RA Percent Paced Victor Manuel Statistic 99.97 % IDCO RV Percent Paced Victor Manuel Statistic 0.02 % IDCO AP PHOTOGRAPHIC EQUIPMENT MECHANIC Percent Victor Manuel Statistic 99.94 % IDCO PHOTOGRAPHIC EQUIPMENT MECHANIC Percent Victor Manuel Statistic 0.01 % IDCO AP VS Percent Victor Manuel Statistic 0.02 % IDCO VS Percent Atrial Tachy [id number]+0000 IDCO Statistic Date Time Start Atrial Tachy [id number]+0000 IDCO Statistic Date Time End Atrial Tachy 0 % IDCO Statistic AT/AF [place] Percent Therapy 0 IDCO Statistic Recent Shocks Delivered Therapy 0 IDCO Statistic Recent Shocks Aborted Therapy 0 IDCO Statistic Recent ATP Delivered Therapy [id number]+0000 IDCO Statistic Recent Date Time Start Therapy [id number]+0000 IDCO Statistic Recent Date Time End Therapy 0 IDCO Statistic Total Shocks Delivered Therapy 0 IDCO Statistic Total Shocks Aborted Therapy 0 IDCO Statistic Total ATP Delivered Therapy [id number]+0000 IDCO Statistic Total Date Time Start Therapy [id number]+0000 IDCO Statistic Total Date Time End Episode [...] Episode SVT IDCO Statistic Type Category Episode [id number]+0000 IDCO Statistic Recent Date Time Start Episode [id number]+0000 IDCO Statistic Recent Date Time End Episode [id number]+0000 IDCO Statistic Recent Date Time Start Episode [id number]+0000 IDCO Statistic Recent Date Time End Episode [id number]+0000 IDCO Statistic Recent Date Time Start Episode [id number]+0000 IDCO Statistic Recent Date Time End Episode [id number]+0000 IDCO Statistic Recent Date Time Start Episode [id number]+0000 IDCO Statistic Recent Date Time End Episode [id number]+0000 IDCO Statistic Recent Date Time Start Episode [id number]+0000 IDCO Statistic Recent Date Time End Episode [id number]+0000 IDCO Statistic Recent Date Time Start Episode [id number]+0000 IDCO Statistic Recent Date Time End Episode [id number]+0000 IDCO Statistic Recent Date Time Start Episode [id number]+0000 IDCO Statistic Recent Date Time End Episode [...] Episode SVT IDCO Statistic Type Category Episode [id number]+0000 IDCO Statistic Total Date Time Start Episode [id number]+0000 IDCO Statistic Total Date Time End Episode [id number]+0000 IDCO Statistic Total Date Time Start Episode [id number]+0000 IDCO Statistic Total Date Time End Episode [id number]+0000 IDCO Statistic Total Date Time Start Episode [id number]+0000 IDCO Statistic Total Date Time End Episode [id number]+0000 IDCO Statistic Total Date Time Start Episode [id number]+0000 IDCO Statistic Total Date Time End Episode [id number]+0000 IDCO Statistic Total Date Time Start Episode [id number]+0000 IDCO Statistic Total Date Time End Episode [id number]+0000 IDCO Statistic Total Date Time Start Episode [id number]+0000 IDCO Statistic Total Date Time End Episode [id number]+0000 IDCO Statistic Total Date Time Start Episode 47398817449696+0000 IDCO Statistic Total Date Time End Specimen (Source) Anatomical Collection Method Collection Time Re ceived Time Location / / Volume Laterality 07/15/2014 7:26 AM EST Physician Cardiology IMPLANTABLE CARDIAC DEVICE Performing Organization Address City/State/[facility] Code Phon e Number IDCO documented in this encounter Visit Diagnoses Not on filedocumented in this encounter Care Teams Radio Commentator Relationship Specialty Start Date End Date Vivi Juarez MD PCP - General 07/24/10 08/16/14 [address] [place] [address] documented as of this encounter
--- OUTSIDE RECORDS SUMMARY | 2022-03-18 02:37 | XMS_ITS | Encounter Summary ---
:1945 Author Organization [facility] [address] Care Team Providers Name Role Phone Vivi Juarez MD Primary Care Provider Reason for Visit Reason Comments Cardiomyopathy PHARMACY MESSENGER-D interrogation Encounter Details Date Type Department Care Team Description 08/07/2012 Follow-Up Cardiology at [facility] Elana Henry Idiopathic cardiomyopathy [facility] CHANCE Cisneros (Primary Dx) [place] [address] Social History Tobacco Use Types Packs/Day Years Used Date Never Smoker Smokeless Tobacco: Never Used Alcohol Use Standard Drinks/Week Comments Not Asked 0 (1 standard drink = 0.6 oz pure alcoho l) Sex Assigned at Date Recorded Not on file documented as of this encounter Last Filed Vital Signs Vital Sign Reading Time Taken Comments Blood Pressure 106/62 08/07/2012 8:59 AM left arm with large EST BP cuff Pulse 60 08/07/2012 8:59 AM regular EST Temperature - - Respiratory Rate - - Oxygen Saturation 94% 08/07/2012 8:59 AM RA @ rest EST Inhaled Oxygen - - Concentration Weight 122.5 kg (270 lb) 08/07/2012 8:59 AM EST Height 166.4 cm (5' 5.5) 08/07/2012 8:59 AM EST Body Mass Index 44.25 08/07/2012 8:59 AM EST documented in this encounter Progress Notes Elana Henry RN - 08/07/2012 9:23 AM EST ICD Clinic Follow-up Ms. Victoria is a 66yo woman presents for routine PHARMACY MESSENGER-D interrogation. She was seen on 07/19/11 related to LV Tip->Ring impedance of just over 1,500 ohms. LV vector was reprogrammed Ring->Coil. Device implanted 03/2005 for idiopathic CM, with upgrade to PHARMACY MESSENGER-D on 04/26/2011. Ventricular lead subjectto Vladimir Shaikh advisory from 2006. She is seeing QUINN Sood today as well. Multiple Spindle Screw Machine Operator: Roly Aguilar MD Primary Care: Vivi Juarez MD DEVICE AND LEAD INFORMATION Final Parameters: Ventricular electrode: Medtronic SprintFidelis Model# 6949 58 cm Serial #[id number] (Implanted 03/08/2005) Bipolar, steroid-tipped, active-fixation IS-1, DF-1 lead Access: Axillary vein Location: Right ventricular apex R wave, ICD: 15.9 mV Pacing threshold, ICD: 1.25V at 0.8 ms Impedance, ICD: 646 ohms HVB Impedance 44 ohms SVC Impedance 52 ohms Pace the diaphragm at 10 V: No Atrial electrode: Medtronic, CaptureFix Model # 5076-52 cm Serial # [id number] Bipolar, steroid-tipped, active-fixation IS-1 lead Access: Axillary vein Location Right atrial appendage P wave, ICD: 3.0 mV Pacing threshold, ICD: 0.75 V at 0.4 ms Impedance, ICD: 437 ohms Pace the diaphragm at 10 V: No Coronary sinus electrode: Medtronic, Attain OTW Model# 4196-88cm, Serial# [id number] Bipolar passive fixation lead Access: Axillary vein Location: Coronary sinus, anterior R wave, ICD: 13.8 Pacing threshold, ICD: 0.75 0.4 ms (LV ring to RV coil) Impedance, device: 494s Pace the diaphragm/chest wall at 10 V: No Pulse generator: Medtronic Protecta XT PHARMACY MESSENGER Serial #[id number] PHARMACY MESSENGER ICD Location: Subcutaneous Parameters: VF detection rate: [...] LV- >RV 20 ms Follow-up: Battery status: 3.14 V (YARD LABORER: 2.63 V) Charge time: 9.1 seconds 04/26/2012 Sensing Integrity Counter: 0 Pace/sensing leads: Right Ventricular R wave: >20 mV Threshold: 1.25 V at 0.4 ms (1.125 V at 0.4 ms per RVCM) Impedance: 817 Ohms stable EGM quality: clean Left Ventricular: Threshold: 0.75 V at 0.4 ms Ring->Coil (0.75V at 0.4ms per LVCM) Impedance: 722 ohms Ring->Coil Atrial: P wave: 6.3 mV Threshold: 0.75 V at 0.4 ms (0.625 V at 0.4 ms by ACM) Impedance: 437 ohms EGM: clean Shocking Leads RV: 51 Ohms stable SVC: 67 Ohms stable EGM quality: clean All lead impedances stable Xrays of lead system: ok day after upgrade Wound/generator site: well healed Therapy Administered: none Events: none Underlying rhythm: SR 65 bpm OptiVol: never above threshold Histograms are well distributed. Pacing percentages: -MARKETING AGENT 99.9% Bi V pacing: MARKETING AGENT 99.9%; VSR pace < 0.1%; VS <0.1% Changes made this session: none Plan: Carelink 3 months. Device clinic 6 months, coordinate with HF clinic as necessary. documented in this encounter Plan of Treatment Upcoming Encounters Date Type Specialty Care Team Description 04/16/2022 Appointment Cardiology Vivi Lorenz APRN [facility] CARDIOLOGY DEPT. [place], [place] [address] (Luz pollard) 04/16/2022 Laboratory Appointment Lab 04/16/2022 Office Visit Cardiology Vivi Lorenz APRN [facility] CARDIOLOGY DEPT. [place], [place] [address] (Luz pollard) documented as of this encounter Visit Diagnoses Diagnosis Idiopathic cardiomyopathy - Primary Other primary cardiomyopathies documented in this encounter Care Teams Target Network Analyst Relationship Specialty Start Date End Date Vivi Juarez MD PCP - General 07/24/10 08/16/14 [address] [place] [address] documented as of this encounter
--- OUTSIDE RECORDS SUMMARY | 2022-03-18 02:37 | XMS_ITS | Encounter Summary ---
:1945 Author Organization [facility] Address [address] [place] [address] Care Team Providers Name Role Phone Vivi Juarez MD Primary Care Provider Reason for Visit Reason Onset Date Comments Other 11/22/2013 EXTERNAL ECHO ORDER & LABS 01/2014 Encounter Details Date Type Department Care Team Description 11/22/2013 Telephone Cardiology at [facility] Deja Ahumada, Other (EXTERNAL [facility] FURNITURE MOVER HELPER ORDER & LABS 01/2014) [address] [place] [address] PRIMARY CARE [phone] [place] [id number] (Wo rk) Social History Tobacco Use Types Packs/Day Years Used Date Never Smoker Smokeless Tobacco: Never Used Alcohol Use Standard Drinks/Week Comments Not Asked 0 (1 standard drink = 0.6 oz pure alcoho l) Sex Assigned at Date Recorded Not on file documented as of this encounter Miscellaneous Notes Telephone Encounter - Radha Devlalle - 11/22/2013 3:11 PM EDT Please sign attached order for upcoming appointment. documented in this encounter Plan of Treatment Upcoming Encounters Date Type Specialty Care Team Description 04/16/2022 Appointment Cardiology Vivi Lorenz, FURNITURE MOVER HELPER [facility] CARDIOLOGY DEPT. [place], [place] [address] (Wo rk) 04/16/2022 Laboratory Appointment Lab 04/16/2022 Office Visit Cardiology Vivi Lorenz, FURNITURE MOVER HELPER [facility] CARDIOLOGY DEPT. [place], [place] [address] (Wo rk) documented as of this encounter Visit Diagnoses Diagnosis Other primary cardiomyopathies Heart failure, unspecified documented in this encounter Care Teams Fabrication Lead Relationship Specialty Start Date End Date Vivi Juarez MD PCP - General 07/24/10 08/16/14 [address] [place] [address] documented as of this encounter
--- OUTSIDE RECORDS SUMMARY | 2022-03-18 02:37 | XMS_ITS | Encounter Summary ---
:1945 Author Organization [facility] [place] [address] Care Team Providers Name Role Phone Vivi Juarez MD Primary Care Provider Reason for Visit Reason Comments Cardiomyopathy BEREAVEMENT COUNSELOR-D check Encounter Details Date Type Department Care Team Description 02/25/2014 Office Visit Cardiology at [facility] David Linares, Hypertension (Primary Dx); [facility] RN LBBB (lef t bundle branch block); [place] [phone] Social History Tobacco Use Types Packs/Day Years Used Date Never Smoker Smokeless Tobacco: Never Used Alcohol Use Standard Drinks/Week Comments Not Asked 0 (1 standard drink = 0.6 oz pure alcoho l) Sex Assigned at Date Recorded Not on file documented as of this encounter Last Filed Vital Signs Vital Sign Reading Time Taken Comments Blood Pressure 126/64 02/25/2014 1:57 PM EDT Pulse 67 02/25/2014 1:57 PM EDT Temperature - - Respiratory Rate - - Oxygen Saturation 97% 02/25/2014 1:57 PM EDT Inhaled Oxygen Concentration - - Weight 118.6 kg (261 lb 8 oz) 02/25/2014 1:57 PM EDT Height 165.1 cm (5' 5) 02/25/2014 1:57 PM EDT Body Mass Index 43.52 02/25/2014 1:57 PM EDT documented in this encounter Progress Notes David Linares RN - 02/25/2014 1:46 PM EDT ICD Clinic Follow-up Ms. Victoria is a 68 yo woman presents for BEREAVEMENT COUNSELOR-D interrogation. She was seen on 07/19/2011 related toLV Tip->Ring impedance of just over 1,500 ohms. LV vector was reprogrammed Ring->Coil. 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 Ventricular lead subject to AshwinHappy Inspector Neel advisory from 2006. Real Estate Salesperson: Roly Aguilar MD Primary Care: Vivi Juarez MD DEVICE AND LEAD INFORMATION Final Parameters: Ventricular electrode: Medtronic SprintFidelis Model# 6949 58 cm Serial #[id number] (Implanted 03/08/2005) Bipolar, steroid-tipped, active-fixation IS-1, DF-1 lead Access: Axillary vein Location: Right ventricular apex R wave, ICD: 15.9 mV Pacing threshold, ICD: 1.25V at 0.8 ms Impedance, ICD: 646 ohms HVB Impedance 44 ohms SVC Impedance 52 ohms Pace the diaphragm at 10 V: No Atrial electrode: Medtronic, CaptureFix Model # 5076-52 cm Serial # [id number] Bipolar, steroid-tipped, active-fixation IS-1 lead Access: Axillary vein Location Right atrial appendage P wave, ICD: 3.0 mV Pacing threshold, ICD: 0.75 V at 0.4 ms Impedance, ICD: 437 ohms Pace the diaphragm at 10 V: No Coronary sinus electrode: Medtronic, Attain OTW Model# 4196-88cm, Serial# [id number] Bipolar passive fixation lead Access: Axillary vein Location: Coronary sinus, anterior R wave, ICD: 13.8 Pacing threshold, ICD: 0.75 0.4 ms (LV ring to RV coil) Impedance, device: 494s Pace the diaphragm/chest wall at 10 V: No Pulse generator: Medtronic Protecta XT BEREAVEMENT COUNSELOR Serial #[id number] BEREAVEMENT COUNSELOR ICD Location: Subcutaneous Parameters: VF detection rate: [...] LV- >RV 20 ms Follow-up: Battery status: 3.06 V (TUFTER: 2.63 V) Charge time: 10.4 seconds 10/26/2013 Sensing Integrity Counter: 0 Pace/sensing leads: Right Ventricular R wave: >20 mV Threshold: 1.25 V at 0.4 ms Impedance: 950 Ohms stable EGM quality: clean Left Ventricular: Threshold: < or = to 1 V at 0.4 ms Ring->Coil Impedance: 836 ohms Ring->Coil Atrial: P wave: 5.3 mV Threshold: 0.5 V at 0.4 ms Impedance: 437 ohms EGM: Clean Auto thresholds all similar to that mentioned above Shocking Leads RV: 59 Ohms stable SVC: 75 Ohms stable EGM quality: clean All lead impedances stable Xrays of lead system: ok day after upgrade Wound/generator site: well healed Therapy Administered: none Events: none Underlying rhythm: SR 70 bpm OptiVol: never above threshold Histograms are well distributed. Pacing percentages: AP 0%; Bi-PCT 100% I have reviewed the programming printouts, and the device is functioning normally. Changes made this session: none Plan: Carelink 3 months. Device clinic 6 months, coordinate with HF clinic as necessary. Dar Bradford MD documented in this encounter Plan of Treatment Upcoming Encounters Date Type Specialty Care Team Description 04/16/2022 Appointment Cardiology Vivi Lorenz APRN [facility] CARDIOLOGY DEPT. [place], [place] [address] (Wo latrice) 04/16/2022 Laboratory Appointment Lab 04/16/2022 Office Visit Cardiology Vivi Lorenz APRN [facility] CARDIOLOGY DEPT. [place], [place] [address] (Wo latrice) Scheduled Orders Name Type Priority Associated Diagnoses Order S chedule EKG 12 Lead ECG Routine Hypertension Ordered: 2013 documented as of this encounter Visit Diagnoses Diagnosis Hypertension - Primary Unspecified essential hypertension LBBB (left bundle branch block) Other left bundle branch block Idiopathic cardiomyopathy Other primary cardiomyopathies documented in this encounter Care Teams Potato Seed Cutter Relationship Specialty Start Date End Date Vivi Juarez MD PCP - General 07/24/10 08/16/14 [address] [place] [address] documented as of this encounter
--- OUTSIDE RECORDS SUMMARY | 2022-03-18 02:37 | XMS_ITS | Encounter Summary ---
:1945 Author Organization [facility] Address [facility] [place] [address] Care Team Providers Name Role Phone Vivi Juarez MD Primary Care Provider Reason for Visit Reason Onset Date Comments Other 01/15/2013 echo order, external Encounter Details Date Type Department Care Team Description 01/15/2013 Telephone Cardiology Auxiliary Deja Ahumada, Other (echo order, [facility] COSMETIC CHEMIST external) [address] [place] [address] PRIMARY CARE [phone] [place], [place] [address] (Wo rk) Social History Tobacco Use Types Packs/Day Years Used Date Never Smoker Smokeless Tobacco: Never Used Alcohol Use Standard Drinks/Week Comments Not Asked 0 (1 standard drink = 0.6 oz pure alcoho l) Sex Assigned at Date Recorded Not on file documented as of this encounter Miscellaneous Notes Telephone Encounter - Radha Delvalle - 01/15/2013 3:27 PM EDT Please sign attached order for upcoming appointment. documented in this encounter Plan of Treatment Upcoming Encounters Date Type Specialty Care Team Description 04/16/2022 Appointment Cardiology Vivi Lorenz, COSMETIC CHEMIST [facility] CARDIOLOGY DEPT. [place], [place] [address] (Wo rk) 04/16/2022 Laboratory Appointment Lab 04/16/2022 Office Visit Cardiology Vivi Lorenz APRN [facility] CARDIOLOGY DEPT. [place], [place] [address] (Wo rk) documented as of this encounter Visit Diagnoses Diagnosis Heart failure, unspecified - Primary Other primary cardiomyopathies documented in this encounter Care Teams Blending Technician Relationship Specialty Start Date End Date Vivi Juarez MD PCP - General 07/24/10 08/16/14 [address] [place] [address] documented as of this encounter
--- OUTSIDE RECORDS SUMMARY | 2022-03-18 02:37 | XMS_ITS | Encounter Summary ---
:1945 Author Organization [place] [address] Care Team Providers Name Role Phone Nicole Pickens MD Primary Care Provider Reason for Visit Reason Comments Cardiomyopathy Encounter Details Date Type Department Care Team Description 02/07/2015 Office Visit Cardiology at [facility] David Linares, BRIDGETTBB (left bundle branch blo ck); [facility] [address] Social History Tobacco Use Types Packs/Day Years Used Date Never Smoker Smokeless Tobacco: Never Used Alcohol Use Standard Drinks/Week Comments Not Asked 0 (1 standard drink = 0.6 oz pure alcoho l) Sex Assigned at Date Recorded Not on file documented as of this encounter Last Filed Vital Signs Vital Sign Reading Time Taken Comments Blood Pressure 108/64 02/07/2015 8:19 AM EDT Pulse 68 02/07/2015 8:19 AM regular EDT Temperature - - Respiratory Rate - - Oxygen Saturation 97% 02/07/2015 8:19 AM at rest, ro om air EDT Inhaled Oxygen Concentration - - Weight 116.1 kg (256 lb) 02/07/2015 8:19 AM EDT Height 165.1 cm (5' 5) 02/07/2015 8:19 AM EDT Body Mass Index 42.6 02/07/2015 8:19 AM EDT documented in this encounter Progress Notes David Linares, RN - 02/07/2015 8:19 AM EDT ICD Clinic Follow-up Ms. Victoria is a 68 yo woman presents for FISH SALTER-D interrogation. Of note, she was seen on 07/19/2011 related to LV Tip->Ring impedance of just over 1,500 ohms. LVvector was reprogrammed Ring->Coil at that encounter. 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 Ventricular lead subject to Vladimir Shaikh advisory from 2006. Air Bag Stripper: Roly Aguilar MD Primary Care: NICOLE PICKENS MD DEVICE AND LEAD INFORMATION Final Parameters: Ventricular electrode: Medtronic SprintFidelis Model# 6949 58 cm Serial #[id number] (Implanted 03/08/2005) Bipolar, steroid-tipped, active-fixation IS-1, DF-1 lead Access: Axillary vein Location: Right ventricular apex R wave, ICD: 15.9 mV Pacing threshold, ICD: 1.25V at 0.8 ms Impedance, ICD: 646 ohms HVB Impedance 44 ohms SVC Impedance 52 ohms Pace the diaphragm at 10 V: No Atrial electrode: Medtronic, CaptureFix Model # 5076-52 cm Serial # [id number] Bipolar, steroid-tipped, active-fixation IS-1 lead Access: Axillary vein Location Right atrial appendage P wave, ICD: 3.0 mV Pacing threshold, ICD: 0.75 V at 0.4 ms Impedance, ICD: 437 ohms Pace the diaphragm at 10 V: No Coronary sinus electrode: Medtronic, Attain OTW Model# 4196-88cm, Serial# [id number] Bipolar passive fixation lead Access: Axillary vein Location: Coronary sinus, anterior R wave, ICD: 13.8 Pacing threshold, ICD: 0.75 0.4 ms (LV ring to RV coil) Impedance, device: 494s Pace the diaphragm/chest wall at 10 V: No Pulse generator: Medtronic Protecta XT FISH SALTER Serial #[id number] FISH SALTER ICD Location: Subcutaneous Parameters: VF detection rate: [...] LV- >RV 20 ms Follow-up: Battery status: 2.98 V (CHEMICAL LAB SUPERVISOR: 2.63 V) Charge time: 10.9 seconds 10/27/2014 Sensing Integrity Counter: 0 Pace/sensing leads: Right Ventricular R wave: 19.4 mV Threshold: 1.75 V at 0.4 ms auto. Stable Impedance: 893 Ohms tested several times in clinic today EGM quality: clean Left Ventricular: Threshold: 1 V at 0.4 ms Ring->Coil. The auto trend is stable Impedance: 760 ohms Ring->Coil Atrial: P wave: 4 mV Threshold: 0.5 V at 0.4 ms auto. Stable trend Impedance: 437 ohms EGM: Clean Shocking Leads RV: 54 Ohms stable SVC: 64 Ohms stable EGM quality: clean Xrays of lead system: ok day after upgrade Wound/generator site: well healed Therapy Administered: none Events: none Underlying rhythm: SR 70 bpm OptiVol: never above threshold Histograms are well distributed. Pacing percentages: AP 0%; Bi-UNDERWATER HUNTER TRAPPER 100% Changes made this session: None Plan: Care Link 3 mos. RTC 6 mos Electrophysiology Attending Note I have personally reviewed and analyzed the device evaluation. Impression/Plan: ?? Normal device function. ?? Follow up: 3 months remote, 6 months office. Eva Asencio MD documented in this encounter Plan of Treatment Upcoming Encounters Date Type Specialty Care Team Description 04/16/2022 Appointment Cardiology Vivi Lorenz APRN [facility] CARDIOLOGY DEPT. [place], [place] [address] (Wo rk) 04/16/2022 Laboratory Appointment Lab 04/16/2022 Office Visit Cardiology Vivi Lorenz APRN [facility] CARDIOLOGY DEPT. [place], [place] [address] (Wo rk) documented as of this encounter Visit Diagnoses Diagnosis LBBB (left bundle branch block) Other left bundle branch block Idiopathic cardiomyopathy Other primary cardiomyopathies documented in this encounter Care Teams Computer Laboratory Technician Relationship Specialty Start Date End Date Nicole Pickens MD PCP - General 08/17/[address] [place] [address] [address] [place] [address] documented as of this encounter
--- OUTSIDE RECORDS SUMMARY | 2022-03-18 02:37 | XMS_ITS | Encounter Summary ---
:1945 Author Organization [facility] Address [facility] [place] [address] Care Team Providers Name Role Phone Vivi Juarez MD Primary Care Provider Reason for Visit Reason Onset Date Comments Other 12/03/2012 external echo order Encounter Details Date Type Department Care Team Description 12/03/2012 Telephone Cardiology at [facility] Roly Aguilar MD Other (external echo [facility] ord er) [place] [address] CARDIOLOGY DEPT. [phone] [place], [place] [address] (Wo rk) Social History Tobacco Use Types Packs/Day Years Used Date Never Smoker Smokeless Tobacco: Never Used Alcohol Use Standard Drinks/Week Comments Not Asked 0 (1 standard drink = 0.6 oz pure alcoho l) Sex Assigned at Date Recorded Not on file documented as of this encounter Miscellaneous Notes Telephone Encounter - Radha Delvalle - 12/03/2012 10:05 AM EDT Please sign attached order for upcoming appointment. documented in this encounter Plan of Treatment Upcoming Encounters Date Type Specialty Care Team Description 04/16/2022 Appointment Cardiology Vivi Lorenz APRN [facility] CARDIOLOGY DEPT. [place], [place] [address] (Wo rk) 04/16/2022 Laboratory Appointment Lab 04/16/2022 Office Visit Cardiology Vivi Lorenz, [facility] CARDIOLOGY DEPT. [place], [place] [address] (Wo rk) documented as of this encounter Visit Diagnoses Diagnosis Other primary cardiomyopathies - Primary Heart failure, unspecified documented in this encounter Care Teams Salesperson Men'S Furnishings Relationship Specialty Start Date End Date Vivi Juarez MD PCP - General 07/24/10 08/16/14 [address] [place] [address] documented as of this encounter
--- OUTSIDE RECORDS SUMMARY | 2022-03-18 02:37 | XMS_ITS | Encounter Summary ---
:1945 [address] [facility] [place] [address] Care Team Providers Name Role Phone Vivi Juarez MD Primary Care Provider Encounter Details Date Type Department Care Team Description 05/28/2012 External Results Cardiology Auxiliary Vivi Juarez MD [id number] [place] [phone] (Wo rk) Social History Tobacco Use Types [...] Lorenz APRN [facility] CARDIOLOGY DEPT. [place], [place] [address] (Wo rk) 04/16/2022 Laboratory Appointment Lab 04/16/2022 Office Visit Cardiology Vivi Lorenz APRN [facility] CARDIOLOGY DEPT. [place], [place] [address] (Wo rk) documented as of this encounter Procedures Procedure Name Priority Date/Time Associated Diagnosis Comme nts EP DEVICE SCAN Routine 05/26/2012 documented in this encounter Results Scan Doc: EP Device (05/26/2012) Narrative This result has an attachment that is no t available. Vivi Juarez MD MEDIA MGR SCAN EXT ORDR/RSLT documented in this encounter Visit Diagnoses Not on filedocumented in this encounter Care Teams Aoc Plans Intelligence Officer Relationship Specialty Start Date End Date Vivi Juarez MD PCP - General 07/24/10 08/16/14 [address] [place] [address] documented as of this encounter
--- OUTSIDE RECORDS SUMMARY | 2022-03-18 02:37 | XMS_ITS | Encounter Summary ---
:1945 Author Organization [facility] Address [address] [facility] [address] Care Team Providers Name Role Phone Nicole Pickens MD Primary Care Provider Reason for Visit Reason Onset Date Comments Other 11/08/2014 EXTERNAL LAB REQUEST ; ? PT NEED ECHO? Encounter Details Date Type Department Care Team Description 11/08/2014 Telephone Cardiology at [facility] Deja Ahumada, Other (EXTERNAL LAB [facility] BOILER RIVETER REQUEST; ? PT NEED Drive [address] ECHO?) [place] [address] PRIMARY CARE [phone] [place] [id number] (Wo rk) Social History Tobacco Use Types Packs/Day Years Used Date Never Smoker Smokeless Tobacco: Never Used Alcohol Use Standard Drinks/Week Comments Not Asked 0 (1 standard drink = 0.6 oz pure alcoho l) Sex Assigned at Date Recorded Not on file documented as of this encounter Miscellaneous Notes Telephone Encounter - Radha Delvalle - 11/08/2014 9:54 AM EDT Please sign attached order for upcoming appointment. PATIENT WANTED TO KNOW IF SHE NEEDED AN ECHO; SHE HAD AN ECHO LAST January,. documented in this encounter Plan of Treatment Upcoming Encounters Date Type Specialty Care Team Description 04/16/2022 Appointment Cardiology Vivi Lorenz, [facility] CARDIOLOGY DEPT. [place], [place] [address] (Wo rk) 04/16/2022 Laboratory Appointment Lab 04/16/2022 Office Visit Cardiology Vivi Lorenz, [facility] CARDIOLOGY DEPT. [place], [place] [address] (Wo rk) documented as of this encounter Visit Diagnoses Diagnosis Obesity Obesity, unspecified Other primary cardiomyopathies Heart failure, unspecified documented in this encounter Care Teams Direct Sales Representative Relationship Specialty Start Date End Date Nicole Pickens MD PCP - General 08/17/[address] [place] [address] [address] [place] [address] documented as of this encounter
--- OUTSIDE RECORDS SUMMARY | 2022-03-18 02:37 | XMS_ITS | Encounter Summary ---
:1945 Author Organization [facility] [place] [address] Care Team Providers Name Role Phone Nicole Pickens MD Primary Care Provider Encounter Details Date Type Department Care Team Description 11/30/2014 External Results [place]iology [place] [facility] Nicole Pickens MD [address] [address] [place], [place] [id number] (Wo rk) Social History Tobacco Use Types [...] Description 04/16/2022 Appointment Cardiology Vivi Lorenz APRN [facility] CARDIOLOGY DEPT. [place], [place] [address] (Wo rk) 04/16/2022 Laboratory Appointment Lab 04/16/2022 Office Visit Cardiology Vivi Lorenz APRN [facility] CARDIOLOGY DEPT. [place], [place] [address] (Wo rk) documented as of this encounter Procedures Procedure Name Priority Date/Time Associated Diagnosis Comme nts EP DEVICE SCAN Routine 11/29/2014 documented in this encounter Results Scan Doc: EP Device (11/29/2014) Narrative This result has an attachment that is no t available. Nicole Pickens MD MEDIA MGR SCAN EXT ORDR/RSLT documented in this encounter Visit Diagnoses Not on filedocumented in this encounter Care Teams Heavy Forger Helper Relationship Specialty Start Date End Date Nicole Pickens MD PCP - General 08/17/[address] [facility] [place] [address] documented as of this encounter
--- OUTSIDE RECORDS SUMMARY | 2022-03-18 02:37 | XMS_ITS | Encounter Summary ---
:1945 Author Organization [facility] [place] [address] Care Team Providers Name Role Phone Vivi Juarez MD Primary Care Provider Reason for Visit Reason Comments AICD Problem device alarming Encounter Details Date Type Department Care Team Description 07/19/2011 Follow-Up Cardiology at [facility] David Linares RN Idiopathic cardiomyopathy [facility] (Primary Dx) [place] [address] Social History Tobacco Use Types Packs/Day Years Used Date Never Smoker Alcohol Use Standard Drinks/Week Comments Not Asked 0 (1 standard drink = 0.6 oz pure alcoho l) Sex Assigned at Date Recorded Not on file documented as of this encounter Last Filed Vital Signs Vital Sign Reading Time Taken Comments Blood Pressure 140/70 07/19/2011 9:03 AM EST Pulse 66 07/19/2011 9:03 AM EST Temperature - - Respiratory Rate - - Oxygen Saturation 95% 07/19/2011 9:03 AM EST Inhaled Oxygen Concentration - - Weight 122 kg (269 lb) 07/19/2011 9:03 AM EST Height 165.1 cm (5' 5) 07/19/2011 9:03 AM EST Body Mass Index 44.76 07/19/2011 9:03 AM EST documented in this encounter Progress Notes David Linares, RN - 07/19/2011 9:08 AM EST ICD Clinic Follow-up Ms. Victoria is a 65 yo woman presents for INDUSTRIAL HIRE SALES ASSISTANT-D interrogation because of device alert tone alarming now for a week or so (patient was unsure what she was hearing and had not yet enabled her wireless remote monitor. Once she enabled the monitor, Care Link transmission revealed LV Tip->Ring impedanceof just over 1,500 ohms. Device implanted 03/2005 for idiopathic CM, with upgrade to INDUSTRIAL HIRE SALES ASSISTANT-D on 04/26/2011. Ventricular lead subject to Vladimir Shaikh advisory from 2006. Gin Feeder: Roly Aguilar MD Primary Care: Vivi Juarez MD DEVICE AND LEAD INFORMATION Final Parameters: Ventricular electrode: Medtronic SprintFidelis Model# 6949 58 cm Serial #[id number] (Implanted 03/08/2005) Bipolar, steroid-tipped, active-fixation IS-1, DF-1 lead Access: Axillary vein Location: Right ventricular apex R wave, ICD: 15.9 mV Pacing threshold, ICD: 1.25V at 0.8 ms Impedance, ICD: 646 ohms HVB Impedance 44 ohms SVC Impedance 52 ohms Pace the diaphragm at 10 V: No Atrial electrode: Medtronic, CaptureFix Model # 5076-52 cm Serial # [id number] Bipolar, steroid-tipped, active-fixation IS-1 lead Access: Axillary vein Location Right atrial appendage P wave, ICD: 3.0 mV Pacing threshold, ICD: 0.75 V at 0.4 ms Impedance, ICD: 437 ohms Pace the diaphragm at 10 V: No Coronary sinus electrode: Medtronic, Attain OTW Model# 4196-88cm, Serial# [id number] Bipolar passive ixation lead Access: Axillary vein Location: Coronary sinus, anterior R wave, ICD: 13.8 Pacing threshold, ICD: 0.75 0.4 ms (LV ring to RV coil) Impedance, device: 494s Pace the diaphragm/chest wall at 10 V: No Pulse generator: Medtronic Protcta XT INDUSTRIAL HIRE SALES ASSISTANT Serial #[id number] INDUSTRIAL HIRE SALES ASSISTANT ICD Location: Subcutaneous Parameters: VF detection rate: >188 bpm VF therapy: ATP during charging, 35j x 6 FVT detection rate: Via VF 250 bpm FVT therapy: Burst(2), 35j x 5 VT detection rate: OFF VT therapy: Enhancements: VT Monitor, AF/Afl, ST, Wavelet, Onset(monitor), TWave, Noise Bradycardia pacing: Bi-V DDD 40/130, PAV 130 ms, DAVID 100 ms, mode switch 171 bpm, LV->RV 20 ms Follow-up: Battery status: 3.21 V (DITTO MACHINE OPERATOR: 2.63 V) Charge time: 8.7 seconds 04/26/2011 Sensing Integrity Counter: 0 Pace/sensing leads: Right Ventricular R wave: >20 mV Threshold: 1.25 V at 0.6 ms Impedance: 722 Ohms stable EGM quality: clean Left Ventricular: Threshold: 2.5 V at 0.4 ms Tip->Ring 1.5 V at 0.4 ms Tip->Coil < or = to 0.5 V at 0.4 ms Ring->Coil Impedance: 1,444 ohms Tip->Ring 874 ohms Tip->Coil 722 ohms Ring->Coil Atrial: P wave: 4.1 mV Threshold: 0.75 V at 0.4 ms Impedance: 456 ohms EGM: clean Shocking Leads RV: 52 Ohms stable SVC: 67 Ohms stable EGM quality: clean All lead impedances stable (LV Tip->Ring elevated) Xrays of lead system: ok day after upgrade Wound/generator site: well healed Therapy Administered: none; 100% sensed Events: none Observations: None other than high LV lead impedance Tip->Ring Underlying rhythm: SR 65 bpm OptiVol: flat Changes made this session: LV vector reprogrammed Ring->Coil. 1.5 V at 0.4 ms. +0.5 V adaptive margin. Max. 6 volts. No extracardiac stim noted at 6 V. Max. LV lead impedance increased from 1,500 ohms to 2,000 ohms for alert Plan: Returning 07/31/2011 to see CHF Service. Interrogate device then. documented in this encounter Plan of Treatment Upcoming Encounters Date Type Specialty Care Team Description 04/16/2022 Appointment Cardiology Vivi Lorenz APRN [facility] CARDIOLOGY DEPT. [place], [place] [address] (Wo rk) 04/16/2022 Laboratory Appointment Lab 04/16/2022 Office Visit Cardiology Vivi Lorenz APRN [facility] CARDIOLOGY DEPT. [place], [place] [address] (Wo rk) documented as of this encounter Visit Diagnoses Diagnosis Idiopathic cardiomyopathy - Primary Other primary cardiomyopathies documented in this encounter Care Teams Social Services Counselor Relationship Specialty Start Date End Date Vivi Juarez MD PCP - General 07/24/10 08/16/14 [address] [place] [address] documented as of this encounter
--- OUTSIDE RECORDS SUMMARY | 2022-03-18 02:37 | XMS_ITS | Encounter Summary ---
:1945 Author Organization [facility] [address] Care Team Providers Name Role Phone Nicole Pickens MD Primary Care Provider Encounter Details Date Type Department Care Team Description 08/17/2014 [place] [address] Social History Tobacco Use Types Packs/Day Years Used Date Never Smoker Smokeless Tobacco: Never Used Alcohol Use Standard Drinks/Week Comments Not Asked 0 (1 standard drink = 0.6 oz pure alcoho l) Sex Assigned at Date Recorded Not on file documented as of this encounter Plan of Treatment Upcoming Encounters Date Type Specialty Care Team Description 04/16/2022 Appointment Cardiology Vivi Lorenz APRN [facility] CARDIOLOGY DEPT. [place], [place] [address] (Luz pollard) 04/16/2022 Laboratory Appointment Lab 04/16/2022 Office Visit Cardiology Vivi Lorenz APRN [facility] CARDIOLOGY DEPT. [place], [place] [address] (Luz pollard) documented as of this encounter Procedures Procedure Name Priority Date/Time Associated Diagnosis Comme nts CARDIAC DEVICE Routine 08/17/2014 6:24 AM Results for this CHECK - REMOTE EST procedure are in the results section. documented in this encounter Results (ABNORMAL) Cardiac device check - Remote (08/17/2014 6:24 AM EST) Component Value Ref Test Analysis Performed Pathologis t Range Method Time At Signature Date Time [id number]+0000 IDCO Interrogation Session Implantable Medtronic IDCO Pulse Generator Tobacco Primer Machine Operator Implantable Protecta XT INTELLECTUAL PROPERTY COUNSEL-D IDCO Pulse Generator [id number] Model Implantable [id number] IDCO Pulse Generator Serial Number Type Remote IDCO Interrogation Session Implantable Cardiac IDCO Pulse Generator Resynchronization Type Therapy - Defibrillator Implantable [id number] IDCO Pulse Generator Implant Date Victor Manuel [...] Sensitivity Ventricular BiV IDCO chambers paced during INTELLECTUAL PROPERTY COUNSEL pacing. INTELLECTUAL PROPERTY COUNSEL LV-RV Delay 20 ms IDCO Lead Channel [...] 400 ms IDCO Detection Interval Battery Date [id number]+0000 IDCO Time of Measurements Battery Status OK IDCO Battery NUT BLANKER OPERATOR 2.6251 IDCO Trigger Battery Voltage 3.02 V IDCO Capacitor Charge Reformation IDCO Type Capacitor Last [id number]+0000 IDCO Charge Date Time Capacitor Charge 10.69 s IDCO Time Capacitor Charge 35 J IDCO Energy Victor Manuel Statistic [id number]+0000 IDCO Date Time Start Victor Manuel Statistic [id number]+0000 IDCO Date Time End Victor Manuel Statistic 0.03 % IDCO RA Percent Paced Victor Manuel Statistic 99.97 % IDCO RV Percent Paced Victor Manuel Statistic 0.02 % IDCO AP PROBATION COUNSELOR Percent Victor Manuel Statistic 99.95 % IDCO PROBATION COUNSELOR Percent Victor Manuel Statistic 0.01 % IDCO AP VS Percent Victor Manuel Statistic 0.02 % IDCO VS Percent Atrial Tachy [id number]+0000 IDCO Statistic Date Time Start Atrial Tachy [id number]+0000 IDCO Statistic Date Time End Atrial Tachy 0 % IDCO Statistic AT/AF [place] Percent Therapy 0 IDCO Statistic Recent Shocks Delivered Therapy 0 IDCO Statistic Recent Shocks Aborted Therapy 0 IDCO Statistic Recent ATP Delivered Therapy [id number]+0000 IDCO Statistic Recent Date Time Start Therapy [id number]+0000 IDCO Statistic Recent Date Time End Therapy 0 IDCO Statistic Total Shocks Delivered Therapy 0 IDCO Statistic Total Shocks Aborted Therapy 0 IDCO Statistic Total ATP Delivered Therapy [id number]+0000 IDCO Statistic Total Date Time Start Therapy [id number]+0000 IDCO Statistic Total Date Time End Episode [...] Episode SVT IDCO Statistic Type Category Episode [id number]+0000 IDCO Statistic Recent Date Time Start Episode [id number]+0000 IDCO Statistic Recent Date Time End Episode [id number]+0000 IDCO Statistic Recent Date Time Start Episode [id number]+0000 IDCO Statistic Recent Date Time End Episode [id number]+0000 IDCO Statistic Recent Date Time Start Episode [id number]+0000 IDCO Statistic Recent Date Time End Episode [id number]+0000 IDCO Statistic Recent Date Time Start Episode [id number]+0000 IDCO Statistic Recent Date Time End Episode [id number]+0000 IDCO Statistic Recent Date Time Start Episode [id number]+0000 IDCO Statistic Recent Date Time End Episode [id number]+0000 IDCO Statistic Recent Date Time Start Episode [id number]+0000 IDCO Statistic Recent Date Time End Episode [id number]+0000 IDCO Statistic Recent Date Time Start Episode 23275391104355+0000 IDCO Statistic Recent Date Time End Episode [...] Episode SVT IDCO Statistic Type Category Episode 16267082475399+0000 IDCO Statistic Total Date Time Start Episode [id number]+0000 IDCO Statistic Total Date Time End Episode [id number]+0000 IDCO Statistic Total Date Time Start Episode [id number]+0000 IDCO Statistic Total Date Time End Episode [id number]+0000 IDCO Statistic Total Date Time Start Episode [id number]+0000 IDCO Statistic Total Date Time End Episode [id number]+0000 IDCO Statistic Total Date Time Start Episode [id number]+0000 IDCO Statistic Total Date Time End Episode [id number]+0000 IDCO Statistic Total Date Time Start Episode 40387465983485+0000 IDCO Statistic Total Date Time End Episode [id number]+0000 IDCO Statistic Total Date Time Start Episode 11817409144715+0000 IDCO Statistic Total Date Time End Episode [id number]+0000 IDCO Statistic Total Date Time Start Episode [id number]+0000 IDCO Statistic Total Date Time End Specimen (Source) Anatomical Collection Method Collection Time Re ceived Time Location / / Volume Laterality 08/17/2014 6:24 AM EST Physician Cardiology MD IMPLANTABLE CARDIAC DEVICE Performing Organization Address City/State/[facility] Code Phon e Number IDCO documented in this encounter Visit Diagnoses Not on filedocumented in this encounter Care Teams Inkjet Operator Relationship Specialty Start Date End Date Nicole Pickens MD PCP - General 08/17/[address] [place] [address] documented as of this encounter
--- OUTSIDE RECORDS SUMMARY | 2022-03-18 02:37 | XMS_ITS | Encounter Summary ---
:1945 Author Organization [facility] Address [facility] [place] [address] Care Team Providers Name Role Phone Vivi Juarez MD Primary Care Provider Reason for Visit Reason Comments Cardiomyopathy ICD implanted for Encounter Details Date Type Department Care Team Description 07/31/2011 Follow-Up Cardiology [place] [facility] [place] Warren Idiopathic cardiomyopathy [facility] CHANCE Woodruff (Primary Dx) Drive [phone] [place] [address] (Fax) [phone] Social History Tobacco Use Types Packs/Day Years Used Date Never Smoker Alcohol Use Standard Drinks/Week Comments Not Asked 0 (1 standard drink = 0.6 oz pure alcoho l) Sex Assigned at Date Recorded Not on file documented as of this encounter Progress Notes Mali Warren - 07/31/2011 10:07 AM EST ICD Clinic Follow-up Ms. Victoria is a 65 yo woman presents for routine 91 day PEARL TECHNICIAN-D interrogation, she was just seen on 07/19/11 because of device alert tone alarming now for a week or so (patient was unsure what she was hearing and had not yet enabled her wireless remote monitor. Once she enabled the monitor, Care Link transmission revealed LV Tip->Ring impedance of just over 1,500 ohms. Device implanted 03/2005 for idiopathic CM, with upgrade to PEARL TECHNICIAN-D on 04/26/2011. Ventricular lead subject to Vladimir Shaikh [facility] 2006. She is seeing QUINN Liriano today as well. Audio Visual Equipment Rental Clerk: Roly Aguilar MD Primary Care: Vivi Juarez MD DEVICE AND LEAD INFORMATION Final Parameters: Ventricular electrode: Medtronic SprintFidelis Model# 6949 58 cm Serial #[id number] (Implanted 03/08/2005) Bipolar, steroid-tipped, active-fixation IS-1, DF-1 lead Access: Axillary vein Location: Right ventricular apex R wave, ICD: 15.9 mV Pacing threshold, ICD: 1.25V at 0.8 ms Impedance, ICD: 646 ohms HVB Impedance 44 ohms SVC Impedance 52 ohms Pace the diaphragm at 10 V: No Atrial electrode: Medtronic, CaptureFix Model # 5076-52 cm Serial # [id number] Bipolar, steroid-tipped, active-fixation IS-1 lead Access: Axillary vein Location Right atrial appendage P wave, ICD: 3.0 mV Pacing threshold, ICD: 0.75 V at 0.4 ms Impedance, ICD: 437 ohms Pace the diaphragm at 10 V: No Coronary sinus electrode: Medtronic, Attain OTW Model# 4196-88cm, Serial# [id number] Bipolar passive fixation lead Access: Axillary vein Location: Coronary sinus, anterior R wave, ICD: 13.8 Pacing threshold, ICD: 0.75 0.4 ms (LV ring to RV coil) Impedance, device: 494s Pace the diaphragm/chest wall at 10 V: No Pulse generator: Medtronic Protcta XT PEARL TECHNICIAN Serial #[id number] PEARL TECHNICIAN ICD Location: Subcutaneous Parameters: VF detection rate: [...] LV- >RV 20 ms Follow-up: Battery status: 3.20 V (DISTRICT MANAGER MAJOR ACCOUNTS SALES: 2.63 V) Charge time: 8.7 seconds 04/26/2011 Sensing Integrity Counter: 0 Pace/sensing leads: Right Ventricular R wave: >20 mV Threshold: 1.5 V at 0.4 ms (1.75V at 0.4ms per RVCM) Impedance: 760 Ohms stable EGM quality: clean Left Ventricular: Threshold: >2 V at 0.4 ms Tip->Ring 1.5 V at 0.4 ms Tip->Coil 0.75 V at 0.4 ms Ring->Coil (pt noted minimal CW stim when she lays on her L side- this is tolerable per the pt.) Impedance: 1,387 ohms Tip->Ring 817 ohms Tip->Coil 779 ohms Ring->Coil Atrial: P wave: 6.0 mV Threshold: 0.75 V at 0.4 ms Impedance: 456 ohms EGM: clean Shocking Leads RV: 59 Ohms stable SVC: 73 Ohms stable EGM quality: clean All lead impedances stable Xrays of lead system: ok day after upgrade Wound/generator site: well healed Therapy Administered: none Events: none Underlying rhythm: SR 70 bpm OptiVol: flat Histograms are well distributed. Pacing percentages: -LAUNDERER HAND 99.9% Bi V pacing: LAUNDERER HAND 97%; VS 3% Changes made this session: Atrial output decreased from 3.5V to 2.5V Plan: 1. RTC in 6 mos. 01/10. 2. Next Carelink 10/13. documented in this encounter Plan of Treatment Upcoming Encounters Date Type Specialty Care Team Description 04/16/2022 Appointment Cardiology Vivi Lorenz APRN [facility] CARDIOLOGY DEPT. [place], [place] [address] (Luz pollard) 04/16/2022 Laboratory Appointment Lab 04/16/2022 Office Visit Cardiology Vivi Lorenz APRN [facility] CARDIOLOGY DEPT. [place], [place] [address] (Luz pollard) documented as of this encounter Visit Diagnoses Diagnosis Idiopathic cardiomyopathy - Primary Other primary cardiomyopathies documented in this encounter Care Teams Territory Sales Manager Relationship Specialty Start Date End Date Vivi Juarez MD PCP - General 07/24/10 08/16/14 [address] [place] [address] documented as of this encounter
--- OUTSIDE RECORDS SUMMARY | 2022-03-18 02:37 | XMS_ITS | Encounter Summary ---
:1945 Author Organization [facility] [address] Care Team Providers Name Role Phone Vivi Juarez MD Primary Care Provider Encounter Details Date Type Department Care Team Description 02/13/2012 Follow-Up Cardiology at [facility] Mali Warren RN Cardiomyopathy ([facility] Errol Naqvi MD [facility] [place] [address] Dx) [place] [id number] Social History Tobacco Use Types Packs/Day Years Used Date Never Smoker Alcohol Use Standard Drinks/Week Comments Not Asked 0 (1 standard drink = 0.6 oz pure alcoho l) Sex Assigned at Date Recorded Not on file documented as of this encounter Last Filed Vital Signs Vital Sign Reading Time Taken Comments Blood Pressure 102/64 02/13/2012 10:24 AM EDT Pulse 61 02/13/2012 10:24 AM EDT Temperature - - Respiratory Rate - - Oxygen Saturation - - Inhaled Oxygen Concentration - - Weight 121.1 kg (267 lb) 02/13/2012 10:24 AM EDT Height 165.1 cm (5' 5) 02/13/2012 10:24 AM EDT Body Mass Index 44.43 02/13/2012 10:24 AM EDT documented in this encounter Progress Notes Errol Naqvi MD - 02/17/2012 4:31 PM EDT ELECTROPHYSIOLOGY OFFICE NOTE DATE OF SERVICE: February 13, 2012 NAME: Ana Victoria DATE OF : 1945 Problem List: 1. 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 a. Echo 07/03/04 ([facility]): LVEF 18%. Severe diffuse global HK, LV apex dyskinetic with sessile mural thrombus. 3-4+ MR. LAE. RV normal. Mildly elevated PAP (~44 mm Hg). Echo EF= 20-25% 11/15/04 Echo EF= 25% 08/26/05 Echo EF= 40% 07/17/06 Echo EF= 30% 01/26/08 Echo EF= 30% 07/21/08 b. Cath 07/13/04: Normal coronary anatomy, no CAD. c. ICD implanted 03/08/05: Medtronic Teo Model # 7232Cx, Serial #[id number]. d. Left bundle branch block QRS duration. e. Biventricular implant 04/26/11 with a Medtronic Protecta XT MILLER HEAD ASSISTANT WET PROCESS, serial #[id number] implanted in the left pectoral area with the left ventricular lead in the anterior position. 2. Heart failure; as above. ACC/AHA Stage C NYHA class II, early IIIA. 3. LV mural thrombus, noted 07/03/04, occurring on chronic anticoagulation. INRs in 1.8-3.8 range since 03/04. 4. History of DVTs x2. a. #1 peripartum 1979, short-term anticoagulation. b. #2 postop ORIF left ankle in 1997, long-term anticoagulation begun. c. Unknown if prior coagulopathy workup. 5. Chronic left bundle branch block. a. Evaluation 1996: echo, PMIBI within normal limits. Cath ([facility]) within normal limits. 6. Hypertension, on Cozaar. 7. Hypothyroidism diagnosed 1 year ago, on Levothyroxine. 8. History of depression. 9. Moderate obstructive sleep apnea, uses CPAP. 10. Obesity. 11. Osteoarthritis. Subjective: Mrs. Victoria returns to clinic today for follow up. She states she feels markedly improved since her biventricular upgrade. She brings with her an echocardiogram on CD that was performed recently. The patient specifically denies any significant chest discomfort suggestive of angina, any worseningshortness of breath, orthopnea, PND or syncope. Vital Signs: Blood pressure 102/64 Heart rate 61 Weight 121.11 kg Height 165.1 cm Physical Examination: Patient is alert and oriented. Skin: Warm and dry. Lungs: Clear to auscultation bilaterally. Heart: Regular rate and rhythm. Normal S1 and S2. No murmur, gallop, or rub. Neck: No evidence of elevated central venous pressure. No carotid bruits noted. Extremities: No evidence of peripheral edema. Strong distal pulses. Allergies: None known. Smoking History: Never smoked. Medications: Current Outpatient Rx Name Route Sig Dispense Refill ??? LEVOTHYROXINE 150 MCG ORAL TAB Oral Take 150 mcg by mouth. Sat and sun ??? ASPIRIN 81 MG ORAL TBEC Oral Take 1 tablet by mouth daily for 325 days. 30 tablet 12 ??? LEVOTHYROXINE 125 MCG ORAL TAB Oral Take 125 mcg by mouth. mon-fri ??? LOSARTAN 50 MG ORAL TAB Oral Take 50 mg by mouth daily. ??? CALCIUM ORAL Oral ??? COREG 25 MG ORAL TAB Oral 25 MG = 1 Tablet(s), PO, Twice daily ??? SPIRONOLACTONE 50 MG ORAL TAB Oral 50MG, PO, Once daily ??? GLUCOSAMINE-CHONDROITIN ORAL Oral ??? FUROSEMIDE 20 MG ORAL TAB Oral Take 0.5 tablets by mouth daily. 1/2 tablet = 10mg 30 tablet 3 Her ICD interrogation today was fine although she was noted to have intermittent T-wave oversensing at 0.3 mV so she was reprogrammed at 0.45 mV. With her original DFT set at 1.2 mV, she had no troubledetecting ventricular fibrillation at implant. I reviewed the echo on CD with the patient and it shows she has good synchrony and EF is between 35 and 40%. This is, by report, a shabazz contrast to the 20% prior to the BiV upgrade. Assessment & Plan: Mrs. Victoria is also seeing Deja Ahumada APRN and will be following up in the Heart Failure Clinic. She will also follow up in the ICD Clinic. No follow up with me is planned unless there are any issues regarding her device. 25 minutes of this 30-minute office visit was spent discussing the above. [place] [address] - tel [phone] - fax PTH/pbh Copy: Vivi Juarez MD documented in this encounter Procedure Notes Provider, Scanning - 02/26/2012 12:42 PM EDTAssociated Order(s): SCAN DOC: LAB documented in this encounter Plan of Treatment Upcoming Encounters Date Type Specialty Care Team Description 04/16/2022 Appointment Cardiology Vivi Lorenz APRN [facility] CARDIOLOGY DEPT. [place], [place] [address] (Wo rk) 04/16/2022 Laboratory Appointment Lab 04/16/2022 Office Visit Cardiology Vivi Lorenz APRN [facility] CARDIOLOGY DEPT. [place], [place] [address] (Wo rk) documented as of this encounter Procedures Procedure Name Priority Date/Time Associated Diagnosis Comme nts LAB SCAN 02/26/2012 12:42 PM Results for this EDT procedure are i n the results section . documented in this encounter Results SCAN DOC: LAB (02/26/2012 12:42 PM EDT) Narrative 02/26/2012 12:42 PM EDT Procedure Note Provider, Scanning - 02/26/2012 12:42 PM EDT Scanning Provider MEDIA MGR SCAN EXT ORDR/RSLT documented in this encounter Visit Diagnoses Diagnosis Cardiomyopathy - Primary Other primary cardiomyopathies documented in this encounter Care Teams Position Clerk Relationship Specialty Start Date End Date Vivi Juarez MD PCP - General 07/24/10 08/16/14 [address] [place] [address] documented as of this encounter
--- OUTSIDE RECORDS SUMMARY | 2022-03-18 02:37 | XMS_ITS | Encounter Summary ---
:1945 Author Organization [facility] [place] [address] Care Team Providers Name Role Phone Vivi Juarez MD Primary Care Provider Reason for Visit Reason Comments Cardiomyopathy CAN SOLDERER-D interrogation Encounter Details Date Type Department Care Team Description 08/26/2013 Follow-Up Cardiology at [facility] David Linares RN LBBB (left bundle branch blo ck); [facility] Idiopathi c cardiomyopathy; Yohannes Heart failure- [place] [phone] Social History Tobacco Use Types Packs/Day Years Used Date Never Smoker Smokeless Tobacco: Never Used Alcohol Use Standard Drinks/Week Comments Not Asked 0 (1 standard drink = 0.6 oz pure alcoho l) Sex Assigned at Date Recorded Not on file documented as of this encounter Last Filed Vital Signs Vital Sign Reading Time Taken Comments Blood Pressure 100/76 08/26/2013 8:20 AM EST Pulse 63 08/26/2013 8:20 AM EST Temperature - - Respiratory Rate - - Oxygen Saturation 94% 08/26/2013 8:20 AM EST Inhaled Oxygen Concentration - - Weight 118.6 kg (261 lb 8 oz) 08/26/2013 8:20 AM EST Height 165.1 cm (5' 5) 08/26/2013 8:20 AM EST Body Mass Index 43.52 08/26/2013 8:20 AM EST documented in this encounter Progress Notes David Linares RN - 08/26/2013 8:26 AM EST ICD Clinic Follow-up Ms. Victoria is a 67 yo woman presents for CAN SOLDERER-D interrogation. She was seen on 07/19/2011 related toLV Tip->Ring impedance of just over 1,500 ohms. LV vector was reprogrammed Ring->Coil. Device implanted 03/2005 for idiopathic CM, with upgrade to CAN SOLDERER-D on 04/26/2011. Ventricular lead subject to Vladimir Shaikh advisory from 2006. Esl Tutor: Roly Aguilar MD Primary Care: Vivi Juarez MD DEVICE AND LEAD INFORMATION Final Parameters: Ventricular electrode: Medtronic SprintFidelis Model# 6949 58 cm Serial #[id number] (Implanted 03/08/2005) Bipolar, steroid-tipped, active-fixation IS-1, DF-1 lead Access: Axillary vein Location: Right ventricular apex R wave, ICD: 15.9 mV Pacing threshold, ICD: 1.25V at 0.8 ms Impedance, ICD: 646 ohms HVB Impedance 44 ohms SVC Impedance 52 ohms Pace the diaphragm at 10 V: No Atrial electrode: Medtronic, CaptureFix Model # 5076-52 cm Serial # [id number] Bipolar, steroid-tipped, active-fixation IS-1 lead Access: Axillary vein Location Right atrial appendage P wave, ICD: 3.0 mV Pacing threshold, ICD: 0.75 V at 0.4 ms Impedance, ICD: 437 ohms Pace the diaphragm at 10 V: No Coronary sinus electrode: Medtronic, Attain OTW Model# 4196-88cm, Serial# [id number] Bipolar passive fixation lead Access: Axillary vein Location: Coronary sinus, anterior R wave, ICD: 13.8 Pacing threshold, ICD: 0.75 0.4 ms (LV ring to RV coil) Impedance, device: 494s Pace the diaphragm/chest wall at 10 V: No Pulse generator: Medtronic Protecta XT CAN SOLDERER Serial #[id number] CAN SOLDERER ICD Location: Subcutaneous Parameters: VF detection rate: [...] LV- >RV 20 ms Follow-up: Battery status: 3.09 V (DUMPER BULK SYSTEM: 2.63 V) Charge time: 10 seconds 04/26/2013 Sensing Integrity Counter: 0 Pace/sensing leads: Right Ventricular R wave: >20 mV Threshold: 1.25 V at 0.4 ms Impedance: 836 Ohms stable EGM quality: clean Left Ventricular: Threshold: 0.75 V at 0.4 ms Ring->Coil Impedance: 760 ohms Ring->Coil Atrial: P wave: 5.3 mV Threshold: 0.75 V at 0.4 ms Impedance: 437 ohms EGM: Clean Auto thresholds all similar to that mentioned above Shocking Leads RV: 54 Ohms stable SVC: 67 Ohms stable EGM quality: clean All lead impedances stable Xrays of lead system: ok day after upgrade Wound/generator site: well healed Therapy Administered: none Events: none Underlying rhythm: SR 65 bpm OptiVol: never above threshold Histograms are well distributed. Pacing percentages: AP 0%; Bi-MARKET NEWS REPORTER 100% Changes made this session: none Plan: Carelink 3 months. Device clinic 6 months, coordinate with HF clinic as necessary. Addendum I have personally reviewed the device interrogation as performed by David Linares RN CAN SOLDERER-D 99.9 % V paced Reasonable rate histograms Normal device function Brief atrial high rate episodes Summary 1) Normal device function 2) Routine follow up as planned MASSIMO PONCE MD documented in this encounter Plan of Treatment Upcoming Encounters Date Type Specialty Care Team Description 04/16/2022 Appointment Cardiology Vivi Lorenz APRN [facility] CARDIOLOGY DEPT. [place], [place] [address] (Wo latrice) 04/16/2022 Laboratory Appointment Lab 04/16/2022 Office Visit Cardiology Vivi Lorenz APRN [facility] CARDIOLOGY DEPT. [place], [place] [address] (Luz pollard) documented as of this encounter Visit Diagnoses Diagnosis LBBB (left bundle branch block) Other left bundle branch block Idiopathic cardiomyopathy Other primary cardiomyopathies Heart failure- chronic systolic dysfunct ion Heart failure, unspecified documented in this encounter Care Teams Drone Software Development Engineer Relationship Specialty Start Date End Date Vivi Juarez MD PCP - General 07/24/10 08/16/14 [address] [place] [address] documented as of this encounter
--- OUTSIDE RECORDS SUMMARY | 2022-03-18 02:37 | XMS_ITS | Encounter Summary ---
:1945 Author Organization [facility] [place] [address] Care Team Providers Name Role Phone Vivi Juarez MD Primary Care Provider Encounter Details Date Type Department Care Team Description 05/28/2013 Hospital Encounter Electrophysiology Lab at [facility] [place] [address] CENTER [phone] [place] [address] Social History Tobacco Use Types Packs/Day Years Used Date Never Smoker Smokeless Tobacco: Never Used Alcohol Use Standard Drinks/Week Comments Not Asked 0 (1 standard drink = 0.6 oz pure alcoho l) Sex Assigned at Date Recorded Not on file documented as of this encounter Medications at Time of Discharge Medication Sig Dispensed Refills Start Date End Date CALCIUM CARBONATE/VITAMIN Take 2 tablets by 0 D3 (CALCIUM 600 + D,3, mouth daily. ORAL) losartan (COZAAR) 50 mg Take 50 mg by mouth 0 tablet daily. levothyroxine (SYNTHROID) Take 150 mcg by 0 08/26/2013 150 mcg tablet mouth. fri- furosemide (LASIX) 20 mg Take 0.5 tablets by 30 tablet 3 02/25/2014 tablet mouth daily. 1/2 tablet = 10mg levothyroxine (SYNTHROID) Take 125 mcg by 0 08/26/2013 125 mcg tablet mouth. Fri, sat, freedom GLUCOSAMINE HCL/CHONDRO RODRIGUEZ 0 1 11/21/2016 A (GLUCOSAMINE-CHONDROITIN ORAL) documented as of this encounter Plan of Treatment Upcoming Encounters Date Type Specialty Care Team Description 04/16/2022 Appointment Cardiology Vivi Lorenz, SOCIOLOGY INSTRUCTOR [facility] CARDIOLOGY DEPT. [place], [place] [address] (Wo rk) 04/16/2022 Laboratory Appointment Lab 04/16/2022 Office Visit Cardiology Vivi Lorenz, SOCIOLOGY INSTRUCTOR [facility] CARDIOLOGY DEPT. [place], [place] [address] (Wo rk) documented as of this encounter Visit Diagnoses Not on filedocumented in this encounter Care Teams Half Backer Relationship Specialty Start Date End Date Vivi Juarez MD PCP - General 07/24/10 08/16/14 [address] [place] [address] documented as of this encounter
--- OUTSIDE RECORDS SUMMARY | 2022-03-18 02:37 | XMS_ITS | Encounter Summary ---
:1945 Author Organization [facility] Address [facility] [place] [address] Care Team Providers Name Role Phone Vivi Juarez MD Primary Care Provider Reason for Visit Reason Onset Date Comments Other 01/15/2013 echo order, external Encounter Details Date Type Department Care Team Description 01/15/2013 Telephone Cardiology Auxiliary Deja Ahumada, Other (echo order, [facility] TREE MARKER external) [address] [place] [address] PRIMARY CARE [phone] [place], [place] [address] (Wo rk) Social History Tobacco Use Types Packs/Day Years Used Date Never Smoker Smokeless Tobacco: Never Used Alcohol Use Standard Drinks/Week Comments Not Asked 0 (1 standard drink = 0.6 oz pure alcoho l) Sex Assigned at Date Recorded Not on file documented as of this encounter Miscellaneous Notes Telephone Encounter - Radha Delvalle - 01/15/2013 12:38 PM EDT Please sign attached order for upcoming appointment. documented in this encounter Plan of Treatment Upcoming Encounters Date Type Specialty Care Team Description 04/16/2022 Appointment Cardiology Vivi Lorenz, TREE MARKER [facility] CARDIOLOGY DEPT. [place], [place] [address] (Wo rk) 04/16/2022 Laboratory Appointment Lab 04/16/2022 Office Visit Cardiology Vivi Lorenz APRN [facility] CARDIOLOGY DEPT. [place], [place] [address] (Wo rk) documented as of this encounter Visit Diagnoses Diagnosis Other primary cardiomyopathies - Primary Heart failure, unspecified documented in this encounter Care Teams Engineering Operator Relationship Specialty Start Date End Date Vivi Juarez MD PCP - General 07/24/10 08/16/14 [address] [place] [address] documented as of this encounter
--- OUTSIDE RECORDS SUMMARY | 2022-03-18 02:37 | XMS_ITS | Encounter Summary ---
:1945 Author Organization [facility] [place] [address] Care Team Providers Name Role Phone Vivi Juarez MD Primary Care Provider Encounter Details Date Type Department Care Team Description 11/08/2011 External Results Cardiology Auxiliary Vivi Juarez MD [id number] [phone] (Wo rk) Social History Tobacco Use Types Packs/Day Years Used Date Never Smoker Alcohol Use Standard Drinks/Week Comments Not Asked 0 (1 standard drink = 0.6 oz pure alcoho l) Sex Assigned at Date Recorded Not on file documented as of this encounter Plan of Treatment Upcoming Encounters Date Type Specialty Care Team Description 04/16/2022 Appointment Cardiology Vivi Lorenz APRN [facility] CARDIOLOGY DEPT. [place], [place] [address] (Wo rk) 04/16/2022 Laboratory Appointment Lab 04/16/2022 Office Visit Cardiology Vivi Lorenz APRN [facility] CARDIOLOGY DEPT. [place], [place] [address] (Wo rk) documented as of this encounter Procedures Procedure Name Priority Date/Time Associated Diagnosis Comme nts EP DEVICE SCAN Routine 10/29/2011 documented in this encounter Results Scan Doc: EP Device (10/29/2011) Narrative This result has an attachment that is no t available. Vivi Juarez MD MEDIA MGR SCAN EXT ORDR/RSLT documented in this encounter Visit Diagnoses Not on filedocumented in this encounter Care Teams Global Transportation Manager Relationship Specialty Start Date End Date Vivi Juarez MD PCP - General 07/24/10 08/16/14 [address] [place] [address] documented as of this encounter
--- OUTSIDE RECORDS SUMMARY | 2022-03-18 02:37 | XMS_ITS | Encounter Summary ---
:1945 Author Organization [place] [address] Care Team Providers Name Role Phone Vivi Juarez MD Primary Care Provider Reason for Visit Reason Comments Follow Up Surgery s/p icd placement Encounter Details Date Type Department Care Team Description 06/10/2011 Follow-Up Cardiology at [facility] [place] Errol Naqvi Cardiomyopathy (Primary [facility] MD Catherine Dx) [place] [address] CARDIOLOGY DEPT. [phone] [place], [place] [address] Social History Tobacco Use Types Packs/Day Years Used Date Never Smoker Alcohol Use Standard Drinks/Week Comments Not Asked 0 (1 standard drink = 0.6 oz pure alcoho l) Sex Assigned at Date Recorded Not on file documented as of this encounter Last Filed Vital Signs Vital Sign Reading Time Taken Comments Blood Pressure 110/64 06/10/2011 8:45 AM EDT Pulse 64 06/10/2011 8:45 AM regular, radi al EDT Temperature - - Respiratory Rate - - Oxygen Saturation - - Inhaled Oxygen Concentration - - Weight 119.7 kg (264 lb) 06/10/2011 8:45 AM EDT Height 166.4 cm (5' 5.5) 06/10/2011 8:45 AM EDT Body Mass Index 43.26 06/10/2011 8:45 AM EDT documented in this encounter Progress Notes Errol Naqvi MD - 06/12/2011 4:06 PM EDT ELECTROPHYSIOLOGY OFFICE NOTE DATE OF SERVICE: June 10, 2011 NAME: Ana Victoria DATE OF : 1945 Problem List: 1. 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 a. Echo 07/03/04 ([facility]): LVEF 18%. Severe diffuse global HK, LV apex dyskinetic with sessile mural thrombus. 3-4+ MR. LAE. RV normal. Mildly elevated PAP (~44 mm Hg). Echo EF= 20-25% 11/15/04 Echo EF= 25% 08/26/05 Echo EF= 40% 07/17/06 Echo EF= 30% 01/26/08 Echo EF= 30% 07/21/08 b. Cath 07/13/04: Normal coronary anatomy, no CAD. c. ICD implanted 03/08/05: Medtronic Teo Model # [id number], Serial #[id number]. d. Left bundle branch block QRS duration. e. Biventricular implant 04/26/11 with a Medtronic Protecta XT [employer], serial #[id number] implanted in the left pectoral area with [...] 1996: echo, PMIBI within normal limits. Cath ([facility] [place]) within normal limits. 6. Hypertension, on Cozaar. 7. Hypothyroidism diagnosed 1 year ago, on Levothyroxine. 8. History of depression. 9. Moderate obstructive sleep apnea, uses CPAP. 10. Obesity. 11. Osteoarthritis. Subjective: Mrs. Victoria returns to clinic for routine follow up. She has noticed marked improvementin her symptomatology, even though her symptoms were minimal (Class II) prior to surgery. She is quite happy she has the device and reports no complaints. The only issue was that the day after discharge she was seen in the emergency room with a fever and was found to have a UTI that was treated with acourse of Ciprofloxacin. She specifically denies any subsequent fever or chills, any significant shortness of breath, chest discomfort, syncope or palpitations. She states the site is somewhat tender but is improving daily. Vital Signs: Blood pressure 110/64 Heart rate 64 Weight 119.75 kg Height 166.4 Allergies: None known. Smoking History: Never smoked. Medications: Current Outpatient Rx Name Route Sig Dispense Refill ??? ASPIRIN 81 MG ORAL TBEC Oral Take 1 tablet by mouth daily for 325 days. 30 tablet 12 ??? FUROSEMIDE 20 MG ORAL TAB Oral Take 20 mg by mouth daily. 1/2 tablet = 10mg ??? LEVOTHYROXINE 125 MCG ORAL TAB Oral Take 125 mcg by mouth daily. ??? LOSARTAN 50 MG ORAL TAB Oral Take 50 mg by mouth daily. ??? CALCIUM ORAL Oral ??? COREG 25 MG ORAL TAB Oral 25 MG = 1 Tablet(s), PO, Twice daily ??? SPIRONOLACTONE 50 MG ORAL TAB Oral 50MG, PO, Once daily ??? GLUCOSAMINE-CHONDROITIN ORAL Oral Physical Examination: Patient is alert and oriented. Skin: Warm and dry. Lungs: Clear to auscultation bilaterally. Heart: Regular rate and rhythm. Normal S1 and S2. No murmur, gallop, or rub. There is a nicely healed scar over the implant site. Neck: No evidence of elevated central venous pressure. Nocarotid bruits noted. Extremities: No evidence of peripheral edema. Strong distal pulses. Interrogation of her ICD demonstrates excellent function with 100% pacing. She is noted to have an atrial impedance of 494 ohms and a ventricular impedance of 722 ohms. She has an LV impedance of 1368 ohms with a capture threshold of .625 volts in the atrium, 1.75 volts in the ventricle, and 2.25 volts in the left ventricle; all at 0.4 msec. The measured P wave is 5.5 mV and the measured R wave is greater than 20 mV. No therapies were delivered and no atrial arrhythmias were detected. Assessment & Plan: Mrs. Victoria is doing very well. She is to follow up in the clinic with David Linares RN or Mali Warren RN in July 2011 for device programming and chest x-ray. We will try to coordinate this with Pooja Del Cid APRN in Heart Failure. She should probably have another echocardiogram in 6 months. I will see her at her December 2010 with one of the Device nurses. 25 minutes of this 30-minute office visit was spent discussing the above. [place] [address] - tel [phone] - fax [facility]/pb Copy: Vivi Juarez MD documented in this encounter Plan of Treatment Upcoming Encounters Date Type Specialty Care Team Description 04/16/2022 Appointment Cardiology Vivi Lorenz APRN [facility] CARDIOLOGY DEPT. [place], [place] [address] (Wo latrice) 04/16/2022 Laboratory Appointment Lab 04/16/2022 Office Visit Cardiology Vivi Lorenz APRN [facility] CARDIOLOGY DEPT. [place], [place] [address] (Wo rk) documented as of this encounter Visit Diagnoses Diagnosis Cardiomyopathy - Primary Other primary cardiomyopathies documented in this encounter Care Teams Cage Fighter Relationship Specialty Start Date End Date Vivi Juarez MD PCP - General 07/24/10 08/16/14 [address] [place] [address] documented as of this encounter
--- OUTSIDE RECORDS SUMMARY | 2022-03-18 02:38 | XMS_ITS | Encounter Summary ---
:1945 Author Organization [facility] [place] [address] Care Team Providers Name Role Phone Vivi Juarez MD Primary Care Provider Encounter Details Date Type Department Care Team Description 04/26/2011 - Hospital Intermediate Cardiac Aubree Naqvi; 04/27/2011 Encounter Care Unit Mali Alexander MD Other primary cardiomyopathies; [facility] [address] [place] [id number] [phone] Social History Tobacco Use Types Packs/Day Years Used Date Never Smoker Alcohol Use Standard Drinks/Week Comments Not Asked 0 (1 standard drink = 0.6 oz pure alcoho l) Sex Assigned at Date Recorded Not on file documented as of this encounter Last Filed Vital Signs Vital Sign Reading Time Taken Comments Blood Pressure 110/60 04/27/2011 7:43 AM EDT Pulse 61 04/27/2011 7:43 AM EDT Temperature 37.5 ??C (99.5 ??F) 04/27/2011 7:43 AM EDT Respiratory Rate 18 04/27/2011 7:43 AM EDT Oxygen Saturation 96% 04/27/2011 7:43 AM EDT Inhaled Oxygen Concentration - - Weight 119.8 kg (264 lb 1.8 oz) 04/27/2011 3:00 AM EDT Height - - Body Mass Index 44.27 03/14/2011 1:05 PM EDT documented in this encounter Discharge Instructions Discharge InstructionsSoSiri allen RN - 04/26/2011 7:45 PM EDT Report to Yasemin Patient InstructionsGini Phillips PA - 04/27/2011 10:30 AM EDT Final recommendations: 1. Standard post implant discharge instructions (see below): 2. Resume medications as listed. 3. You will be called to schedule a 91 day new device check at [facility]. FOLLOW UP: Call your clinician if you develop chest pain, shortness of breath, bleeding, leg pain/leg swelling or fever/temperature >100 degrees F WOUND CARE FOR PATIENTS WITH PACEMAKERS AND ICD DEVICES Your wound will usually heal in 7-10 days. Your wound may be tender, it may appear slightly red and bumpy and there may be dry, crusty scabbing. These are all normal. Follow the instructions that follow to care for your wound. Either you or someone with you needs to look at the wound everyday. Inspect the wound for signs of infection which can be drainage, swelling, warmth or increased pain or redness. Notify your doctor if your temperature is 100 degrees F or higher. If you are concerned about an infection in your wound or if the edges of the wound separate, call your doctor. A needle should not be put into the wound area because this can damage the pacemaker lead. You may need to remind your health-care provider of this concern. The sutures will dissolve on their own. Do not scratch or rub the wound. Do not apply any creams, lotions or ointments on the wound until it is completely healed. You may cover the wound with gauze if it rubs on clothing and causes you discomfort. Do not shower for 48 hours after implant. While in the shower, turn your back to the water nozzle so you avoid direct water pressure on the wound. You should continue this for 7 - 10 days. You may take a tub bath, but keep the wound above the water level in the tub until the scab is gone. This usually takes 7 - 10 days. Avoid swimming until the same occurs. After 48 hours, you may wash the wound gently with soap and water. ARM MOVEMENT RESTRICTIONS FOR PATIENTS WITH PACEMAKERS AND ICD DEVICES Do not raise your elbow on the operated side above the shoulder for 6 weeks. You may use your arm on the operated side, but do not make extreme movements (such as stretching orreaching for a heavy object) for 6 weeks. Do not lift greater than 7 pounds with the arm on the operated side for 6 weeks. 7 pounds is equal to a gallon of milk. These discharge instructions have been reviewed and given to the patient. The patient verbalized understanding of this information. documented in this encounter Medications at Time of Discharge Medication Sig Dispensed Refills Start Date End Date losartan (COZAAR) 50 mg Take 50 mg by mouth 0 tablet daily. aspirin (ASPIRIN Take 1 tablet by 30 tablet 12 04/27/2011 LOW-STRENGTH) 81 mg EC mouth daily for 325 tablet days. furosemide (LASIX) 20 mg Take 20 mg by mouth 0 02/13/2012 tablet daily. 1/2 tablet = 10mg levothyroxine (SYNTHROID) Take 125 mcg by 0 08/26/2013 125 mcg tablet mouth. Diane, sat, sun GLUCOSAMINE HCL/CHONDRO RODRIGUEZ 0 1 11/21/2016 A (GLUCOSAMINE-CHONDROITIN ORAL) documented as of this encounter Progress Notes Gini Phillips PA - 04/27/2011 10:34 AM EDT Inpatient Cardiology Discharge Day Note Patient Name: Ana Victoria Service: EP Responsible Attending: Hernandez Cordoba MD Lieutenant General: Roly Aguilar MD Primary Care: Vivi Juarez MD Reason for continued hospitalization: ICD upgrade to CLINICAL LABORATORY AIDE-D Active Problems: Patient Active Problem List Diagnoses ??? Other primary cardiomyopathies ??? Obesity ??? LBBB (left bundle branch block) Chronic ??? Depression ??? HISTORY OF DVT (DEEP VEIN THROMBOSIS) a. #1 peripartum 1979, short-term anticoagulation. b. #2 postop ORIF left ankle in 1997, long-term anticoagulation begun. c. Unknown if prior coagulopathy work-up. ??? Hypertension ??? Hypothyroidism ??? Idiopathic cardiomyopathy severe LV systolic dysfunction. Echo 07/03/04 ([facility]): LVEF 18%. Severe diffuse global HK, LV apex dyskinetic with sessile mural thrombus. 3-4+ MR. LAE. RV normal. Mildly elevated PAP (44mmHg). Echo EF= 20-25% 11/15/04 Echo EF= 25% 08/26/05 Echo EF= 40% 07/17/06 Echo EF= 30% 01/26/08 Echo EF=30% 07/21/08 ICD implanted 2004 with upgrade to CLINICAL LABORATORY AIDE-D 04/26/2011 ??? LV (left ventricular) mural thrombus ??? Obstructive sleep apnea uses CPAP ??? Osteoarthritis Interval History: Patient did well overnight. She states she feel like she has a hangover. Complainsof headache but has good relief with Tylenol. Her CLINICAL LABORATORY AIDE-D pocket is slightly tender but she denies chest pain, unusual shortness of breath or profound dizziness. She had mild diaphragmatic or intercostalpacing while lying on her left side overnight. Review of Systems: Review of Systems Constitutional: Negative for fever and malaise/fatigue. Eyes: Negative. Respiratory: Negative. Cardiovascular: Negative. Gastrointestinal: Negative. Musculoskeletal: Negative. Skin: Negative. Neurological: Positive for headaches (likely GA from procedure. Relieved with Tylenol.). Negative for weakness. Telemetry: HR: 72-100 no events V paced Meds: Medication Dose Route Frequency ??? sodium chloride 0.9 % flush 5 mL 5 mL Intravenous Q12H ??? ceFAZolin (ANCEF) 1g in dextrose 5% 50mL 1 g Intravenous Q8H ??? acetaminophen (TYLENOL) tablet 650 mg 650 mg Oral Q4H PRN ??? OXYcodone-acetaminophen (PERCOCET) 5-325 mg per tablet 1 tablet 1 tablet Oral Q4H PRN ??? ondansetron (ZOFRAN) injection 4 mg 4 mg Intravenous Q8H PRN ??? levothyroxine (SYNTHROID) tablet 125 mcg 125 mcg Oral Daily ??? losartan (COZAAR) tablet 50 mg 50 mg Oral Daily ??? spironolactone (ALDACTONE) tablet 50 mg 50 mg Oral Daily ??? furosemide (LASIX) tablet 20 mg 20 mg Oral Daily No current [facility]-ordered outpatient prescriptions on file. Physical Exam: Vital Signs: Last value Range last 12 hrs Temperature Temp: 37.5 ??C (99.5 ??F) Temp: [37.5 ??C (99.5 ??F)] Heart Rate Heart Rate: 61 Heart Rate: [61-73] Blood Pressure BP: 110/60 mmHg BP: (104-110)/(55-60) Respiratory Rate Resp: 18 Resp: [18] SpO2 SpO2: 96 % SpO2: [95 %-96 %] Physical Exam Constitutional: She is oriented to person, place, and time. She appears well- developed and well-nourished. HENT: Head: Normocephalic and atraumatic. Eyes: Conjunctivae are normal. Pupils are equal, round, and reactive to light. Cardiovascular: Normal rate, regular rhythm and normal heart sounds. Exam reveals no gallop and no friction rub. No murmur heard. Pulmonary/Chest: Effort normal and breath sounds normal. No respiratory distress. She has no wheezes. Abdominal: Soft. Bowel sounds are normal. Musculoskeletal: She exhibits no edema. Neurological: She is alert and oriented to person, place, and time. No cranial nerve deficit. Skin: Skin is warm and dry. Psychiatric: She has a normal mood and affect. Her behavior is normal. Lab Comments: Lab Results Component Value Date WBC 7.1 04/26/2011 RBC 4.07 04/26/2011 HGB 12.3 04/26/2011 HCT 37.2 04/26/2011 MCV 91.4 04/26/2011 MCH 30.2 04/26/2011 MCHC 33.1 04/26/2011 PLATELET 179 04/26/2011 RDWCV 14.6* 04/26/2011 Lab Results Component Value Date NA 140 04/26/2011 K 4.5 04/26/2011 CL 105 04/26/2011 CO2 30 04/26/2011 BUN 22* 04/26/2011 CREATININE 1.04 04/26/2011 Pertinent Radiographic/Diagnostic Results: CLINICAL LABORATORY AIDE-D upgrade: Cardiac Resynchronization Therapy ICD Upgrade, Venography, Cinefluoroscopy Indication: Cardiomopathy with congestive heart failure and ventricular dyssynchrony Operators: Errol Naqvi MD Final Parameters: Ventricular electrode: Medtronic YouFoliolis Model# 694 9 58 cm Serial # [id number] (Implanted 03/08/2005) Bipolar, steroid-tipped, active-fixation IS-1, DF-1 lead Access: Axillary vein Location: Right ventricular apex R wave, ICD: 15.9 mV Pacing threshold, ICD: 1.25 V at 0. 8 ms Impedance, ICD: 646 ohms HVB Impedance 44 ohms SVC Impedance 52 ohms Pace the diaphragm at 10 V: No Atrial electrode: Medtronic, CaptureFix Model # 5076-52 cm Serial # [id number] Bipolar, steroid-tipped, active-fixation IS-1 lead Access: Axillary vein Location Right atrial appendage P wave, ICD: 3.0 mV Pacing threshold, ICD: 0.75 V at 0.4 ms Impedance, ICD: 437 ohms Pace the diaphragm at 10 V: No Coronary sinus electrode: Medtronic, Attain OTW Model# 41 96 - 8 8cm, Serial# [id number] Bipolar passive ixation lead Access: Axillary vein Location: Coronary sinus, anterior R wave, ICD: 13.8 Pacing threshold, ICD: 0.75 0.4 ms (LV ring to RV coil) Impedance, device: 494 s Pace the diaphragm/chest wall at 10 V: No Pulse generator: Medtronic Protcta XT CLINICAL LABORATORY AIDE Serial #[id number] CLINICAL LABORATORY AIDE ICD Location: Subcutaneous 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 Ventricular lead subject to YouFoliolis advisory. Parameters: VF detection rate: 188 bpm VF therapy: 20j/35j x5 FVT detection rate: via VF 250 bpm FVT therapy: burst(4)/10j/35j 4 VT detection rate: 150 bpm VT therapy: monitor Bradycardia pacing: DDD 40/130/130 PAV 130ms DAVID 100ms Follow-up: Battery status: 3.12 V (SKYLAR: 2.63 V) Charge time: 8.7 seconds last cap formation 04/26/2011 Pace/sensing leads: RV Lead R wave: >20mV Threshold: 1.75V @ 0.4ms Impedance: 608 Ohms stable EGM quality: clean LV Lead: Threshold: 1.75V @ 0.4ms (LVR to RVC), 2.50V @ 0.4ms (LVT to RVC), Impedence: 551 ohms (LV Ring to RV coil) Atrial Lead: P wave: 5.0mV Threshold: 0.5V @ 0.4ms Impedance: 456 ohms EGM quality: clean Shocking Leads Impedance: 46 Ohms stable SVC(HVX): 56 Ohms stable EGM quality: clean Xrays of lead system: ok 07/02/2005 Wound/generator site: moderate ecchymosis. No oozing. Pressure dressing removed. Therapy Administered: none. Comments: Atrial and RV Lead Trends stable. Slightly elevated but stable pacing threshold Underlying SR 57 bpm No events Pacing percentages: 99.8% biV pacing. Changes made this session: none Discharge Medication Checklist: Aspirin Yes Clopidogrel/prasugrel No: Not Indicated Nadeem inhibitor/or ARB Yes Beta Delilah No: Not Indicated Lipid Lowering No: Not Indicated Nitroglycerin No: Not Indicated Assessment: Ana Victoria is a 65 y.o. female who underwent ICD upgrade to CLINICAL LABORATORY AIDE-D. She tolerated the procedure well although she has a headache from General anesthesia. Her device function was normal,there were no events seen on interrogation and she is hemodynamically stable. She is ready to be discharged home. 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 Reviewed arm precautions and wound instructions. Plan: 1. Discharge home this morning. 2. New device check in 91 days at [facility] for reprogramming to optimize threshold outputs. 3. Recommend daily low-dose aspirin. 4. Patient to return to work on Friday. Ebony Harkins RN - 04/27/2011 10:04 AM EDT Patient seen by EP doctor and pacemaker check done And dressing removed and incision open to air. Went to X-Ray via wheelchair for Chest PA-Lat. Tolerated well awaiting discharge instructions to be written documented in this encounter H&P Notes Errol Naqvi MD - 04/26/2011 9:39 AM EDT Patient Name: Ana Victoria Patient Age: 65 y.o. Birthdate: 1945 Admit date: 04/26/2011 Attending Physician: Errol Naqvi MD ELECTROPHYSIOLOGY OFFICE NOTE DATE OF SERVICE: February 14, 2011 NAME: Ana Victoria DATE OF : 1945 Problem List: 1. 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 a. Echo 07/03/04 ([facility]): LVEF 18%. Severe diffuse global HK, LV apex dyskinetic with sessile mural thrombus. 3-4+ MR. LAE. RV normal. Mildly elevated PAP (~44 mm Hg). Echo EF= 20-25% 11/15/04 Echo EF= 25% 08/26/05 Echo EF= 40% 07/17/06 Echo EF= 30% 01/26/08 Echo EF= 30% 07/21/08 b. Cath 07/13/04: Normal coronary anatomy, no CAD. c. ICD implant 03/08/05: Medtronic Teo Model # [id number], Serial #[id number]. d. Left bundle branch block QRS duration. 2. Heart failure. As above. ACC/AHA Stage C NYHA class II, [...] 1996: echo, PMIBI within normal limits. Cath ([facility]) within normal limits. 6. Hypertension, on Cozaar. 7. Hypothyroidism diagnosed 1 year ago, on Levothyroxine. 8. History of depression. 9. Moderate obstructive sleep apnea, uses CPAP. 10. Obesity. 11. Osteoarthritis. Subjective: Mrs. Victoria returns to clinic today with her to discuss going ahead with biventricular ICD upgrade. Mrs. Victoria has overall been doing very well since I last saw her and really has no new issues. Shespecifically denies any chest discomfort suggestive of angina, significant shortness of breath, palpitations, or syncope. She also denies ICD discharge. Vital Signs: Blood pressure 106/64 Heart rate 76 Weight 117.482 kg Current outpatient prescriptions Medication Sig Dispense Refill ??? furosemide (LASIX) 20 mg tablet Take 20 mg by mouth daily. 1/2 tablet = 10mg ??? levothyroxine (SYNTHROID) 125 mcg tablet Take 125 mcg by mouth daily. ??? losartan (COZAAR) 50 mg tablet Take 50 mg by mouth daily. ??? warfarin (COUMADIN) 5 mg tablet ??? CALCIUM ORAL ??? carvedilol (COREG) 25 mg tablet 25 MG = 1 Tablet(s), PO, Twice daily ??? spironolactone (ALDACTONE) 50 mg tablet 50MG, PO, Once daily ??? GLUCOSAMINE HCL/CHONDRO RODRIGUEZ A (GLUCOSAMINE-CHONDROITIN ORAL) Physical Examination: Patient is alert and oriented. Skin: Warm and dry. Lungs: Clear to auscultation bilaterally. Heart: Regular rate and rhythm. Normal S1 and S2. No murmur, gallop, or rub. Neck: Noevidence of elevated central venous pressure. No carotid bruits noted. Extremities: No evidence of peripheral edema. Strong distal pulses. Assessment & Plan: I had a long discussion with the patient and her going over the rationale for therapy. The patient states she would very much like to proceed; documented in this encounter Procedure Notes Provider, Scanning - 04/29/2011 11:46 AM EDTAssociated Order(s): SCAN DOC: VESSEL ORDINARY SEAMAN; SCAN DOC: VESSEL ORDINARY SEAMAN documented in this encounter Miscellaneous Notes Miscellaneous - Provider, Scanning - 04/29/2011 1:44 PM EDT Miscellaneous - Provider, Scanning - 04/29/2011 10:30 AM EDT Miscellaneous - Provider, Scanning - 04/29/2011 10:11 AM EDT Miscellaneous - Provider, Scanning - 04/29/2011 10:07 AM EDT Discharge Summary - Hernandez Cordoba MD - 04/27/2011 10:55 AM EDT Inpatient Hospital Medicine - Discharge Summary Patient Name: Ana Victoria Patient Age: 65 y.o. Birthdate: 1945 Admit date: 04/26/2011 Discharge date and time: No discharge date for patient encounter. Attending Physician: Errol Naqvi MD Discharge Diagnoses (Hospital Problems) and Secondary Diagnoses (Chronic Problems): There are no hospital problems to display for this patient. Active Non-Hospital Problems Diagnoses ??? Other primary cardiomyopathies ??? Obesity ??? LBBB (left bundle branch block) Chronic ??? Depression ??? HISTORY OF DVT (DEEP VEIN THROMBOSIS) a. #1 peripartum 1979, short-term anticoagulation. b. #2 postop ORIF left ankle in 1997, long-term anticoagulation begun. c. Unknown if prior coagulopathy work-up. ??? Hypertension ??? Hypothyroidism ??? Idiopathic cardiomyopathy severe LV systolic dysfunction Echo 07/03/04 ([facility]): LVEF 18%. Severe diffuse global HK, LV apex dyskinetic with sessile mural thrombus. 3-4+ MR. LAE. RV normal. Mildly elevated PAP (44mmHg). Echo EF= 20-25% 11/15/04 Echo EF= 25% 08/26/05 Echo EF= 40% 07/17/06 Echo EF= 30% 01/26/08 .br Echo EF=30% 07/21/08 ??? LV (left ventricular) mural thrombus ??? Obstructive sleep apnea uses CPAP ??? Osteoarthritis Operations/Major Procedures: Pertinent Radiographic/Diagnostic Results: CLINICAL LABORATORY AIDE-D upgrade: Cardiac Resynchronization Therapy ICD Upgrade, Venography, Cinefluoroscopy Indication: Cardiomopathy with congestive heart failure and ventricular dyssynchrony Operators: Errol Naqvi MD Final Parameters: Ventricular electrode: Medtronic YouFoliolis Model# 694 9 58 cm Serial # [id number] (Implanted 03/08/2005) Bipolar, steroid-tipped, active-fixation IS-1, DF-1 lead Access: Axillary vein Location: Right ventricular apex R wave, ICD: 15.9 mV Pacing threshold, ICD: 1.25 V at 0. 8 ms Impedance, ICD: 646 ohms HVB Impedance 44 ohms SVC Impedance 52 ohms Pace the diaphragm at 10 V: No Atrial electrode: Medtronic, CaptureFix Model # 5076-52 cm Serial # [id number] Bipolar, steroid-tipped, active-fixation IS-1 lead Access: Axillary vein Location Right atrial appendage P wave, ICD: 3.0 mV Pacing threshold, ICD: 0.75 V at 0.4 ms Impedance, ICD: 437 ohms Pace the diaphragm at 10 V: No Coronary sinus electrode: Lil Monkey Butttronic, Attain OTW Model# 41 96 - 8 8cm, Serial# [id number] Bipolar passive ixation lead Access: Axillary vein Location: Coronary sinus, anterior R wave, ICD: 13.8 Pacing threshold, ICD: 0.75 0.4 ms (LV ring to RV coil) Impedance, device: 494 s Pace the diaphragm/chest wall at 10 V: No Pulse generator: Medtronic Protcta XT CLINICAL LABORATORY AIDE Serial #[id number] CLINICAL LABORATORY AIDE ICD Location: Subcutaneous 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 Ventricular lead subject to [place] advisory. Parameters: VF detection rate: 188 bpm VF therapy: 20j/35j x5 FVT detection rate: via VF 250 bpm FVT therapy: burst(4)/10j/35j 4 VT detection rate: 150 bpm VT therapy: monitor Bradycardia pacing: DDD 40/130/130 PAV 130ms DAVID 100ms Follow-up: Battery status: 3.12 V (SKYLAR: 2.63 V) Charge time: 8.7 seconds last cap formation 04/26/2011 Pace/sensing leads: RV Lead R wave: >20mV Threshold: 1.75V @ 0.4ms Impedance: 608 Ohms stable EGM quality: clean L V Lead : Threshold: 1.75V @ 0.4ms (LVR to RVC), 2.50V @ 0.4ms (LVT to RVC), Impedence: 551 ohms (LV Ring to RV coil) Atrial Lead: P wave: 5.0mV Threshold: 0.5V @ 0.4ms Impedance: 456 ohms EGM quality: clean Shocking Leads Impedance: 46 Ohms stable SVC(HVX): 56 Ohms stable EGM quality: clean Xrays of lead system: ok 07/02/2005 Wound/generator site: moderate ecchymosis. No oozing. Pressure dressing removed. Therapy Administered: none. Comments: Atrial and RV Lead Trends stable. Slightly elevated but stable pacing threshold Underlying SR 57 bpm No events Pacing percentages: 99.8% biV pacing. Changes made this session: none History of Presentation: Ms. Ana Victoria was recently seen by Errol Naqvi MD to discuss ICD upgrade to CLINICAL LABORATORY AIDE-D. She is managed by the Heart Failure Team for her nonischemic CM with LBBB. When she saw Dr Aguilar in July 2010, he discussed with her upgrade of her prophylactic ICD to CLINICAL LABORATORY AIDE. 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 She denies orthopnea/PND or significant edema. No cardiac sx and her device has never fired. After discussion her questions were answered and she is ready to proceed. Hospital Course: Patient was admitted through the Same Day Program for ICD upgrade to CLINICAL LABORATORY AIDE-D. She tolerated the procedure well although had a headache from the general anesthesia. She denies chest pain, nausea or vomiting. Hemodynamically, she is stable and ready to be discharged home. Device interrogation was done which showed normal device function and her chest xray did not show evidence of pneumothorax with leads in good position. Important Studies and Lab Data: Labs: Lab Results Component Value Date WBC 7.1 04/26/2011 RBC 4.07 04/26/2011 HGB 12.3 04/26/2011 HCT 37.2 04/26/2011 MCV 91.4 04/26/2011 MCH 30.2 04/26/2011 MCHC 33.1 04/26/2011 PLATELET 179 04/26/2011 RDWCV 14.6* 04/26/2011 No results found for this basename: inr, pt, ptt Lab Results Component Value Date NA 140 04/26/2011 K 4.5 04/26/2011 CL 105 04/26/2011 CO2 30 04/26/2011 BUN 22* 04/26/2011 CREATININE 1.04 04/26/2011 Discharge Conditions/Prognosis: Stable Discharge to: Home Discharge Medications: Current Discharge Medication List New Meds Details aspirin 81 mg Take 81 mg by mouth daily. Qty: 30 tablet Refills: 12 Continued medications, unchanged Details cyclobenzaprine (FLEXERIL) 10 mg Take 10 mg by mouth nightly as needed. Qty: Refills: furosemide (LASIX) 20 mg Take 20 mg by mouth daily. 1/2 tablet = 10mg Qty: Refills: levothyroxine (SYNTHROID) 125 mcg Take 125 mcg by mouth daily. Qty: Refills: losartan (COZAAR) 50 mg Take 50 mg by mouth daily. Qty: Refills: carvedilol (COREG) 25 mg tablet 25 MG = 1 Tablet(s), PO, Twice daily Qty: Refills: spironolactone (ALDACTONE) 50 mg tablet 50MG, PO, Once daily Qty: Refills: GLUCOSAMINE HCL/CHONDRO RODRIGUEZ A (GLUCOSAMINE-CHONDROITIN ORAL) Qty: Refills: CALCIUM ORAL Qty: Refills: Medications STOPPED predniSONE (DELTASONE) 20 mg warfarin (COUMADIN) 5 mg tablet Updated Allergies/ADRs: No Known Allergies Instructions Given to Patient at Discharge: Provider Instructions Final recommendations: 1. Standard post implant discharge instructions (see below): 2. Resume medications as listed. 3. You will be called to schedule a 91 day new device check at [facility]. FOLLOW UP: Call your clinician if you develop chest pain, shortness of breath, bleeding, leg pain/leg swelling or fever/temperature >100 degrees F WOUND CARE FOR PATIENTS WITH PACEMAKERS AND ICD DEVICES Your wound will usually heal in 7-10 days. Your wound may be tender, it may appear slightly red and bumpy and there may be dry, crusty scabbing. These are all normal. Follow the instructions that follow to care for your wound. Either you or someone with you needs to look at the wound everyday. Inspect the wound for signs of infection which can be drainage, swelling, warmth or increased pain or redness. Notify your doctor if your temperature is 100 degrees F or higher. If you are concerned about an infection in your wound or if the edges of the wound separate, call your doctor. A needle should not be put into the wound area because this can damage the pacemaker lead. You may need to remind your health-care provider of this concern. The sutures will dissolve on their own. Do not scratch or rub the wound. Do not apply any creams, lotions or ointments on the wound until it is completely healed. You may cover the wound with gauze if it rubs on clothing and causes you discomfort. Do not shower for 48 hours after implant. While in the shower, turn your back to the water nozzle so you avoid direct water pressure on the wound. You should continue this for 7 - 10 days. You may take a tub bath, but keep the wound above the water level in the tub until the scab is gone. This usually takes 7 - 10 days. Avoid swimming until the same occurs. After 48 hours, you may wash the wound gently with soap and water. ARM MOVEMENT RESTRICTIONS FOR PATIENTS WITH PACEMAKERS AND ICD DEVICES Do not raise your elbow on the operated side above the shoulder for 6 weeks. You may use your arm on the operated side, but do not make extreme movements (such as stretching orreaching for a heavy object) for 6 weeks. Do not lift greater than 7 pounds with the arm on the operated side for 6 weeks. 7 pounds is equal to a gallon of milk. These discharge instructions have been reviewed and given to the patient. The patient verbalized understanding of this information. General Instructions Report to Yasemin Future Appointments and Orders Future Orders Please Complete By Expires Full code (post discharge) [COD2 Custom] Process Instructions: 1) Ordering MD or MANAGER ED must provide Order Justification documentation for a: Partial Code Order Do Not Attempt Resuscitation (DNR) Revision of Code Status order (Rescind DNR Order) 2) If the Attending of Record, as the Responsible decision maker selects a Partial Code or DNR order, a 2nd physician must document in a note, their agreement that resuscitation would be a non-beneficial treatment. 3) If the ordering provider is not the Attending of Record, the ordering MD or MANAGER ED must obtain (verbal) approval of the Attending of Record. Completing this documentation indicates that you have obtained verbal approval from the Attending of Record Scheduling Instructions: Comments: Questions: Responses: Responsible decision maker(s), other than patient Does patient have decision making capacity? Yes, Order is based on Patients wishes. Content of discussion: For questions regarding this document or issues relating to this hospitalization on the Medical Service, please contact your inpatient physician through the [facility] [place] [employer] . Issues after hours and on weekends will be handled by the Hospitalist staff on-call. Signed: LESTER NOLASCO 04/27/2011 Cardiac Electrophysiology Attending Addendum: In addition to the assessment and plan documented in Ms. Mohanmilajoaquim's note above, arrangements should be made for the patient to be evaluated in 4 weeks for a follow up assessment to evaluate her status (including skin surveillance) in light of the procedural duration and total fluoroscopic exposure. This proved to be a challenging case to accomplish, but the result was an apparent good and effective CLINICAL LABORATORY AIDE-D system deployment. Miscellaneous - Provider, Scanning - 04/26/2011 7:47 AM EDT documented in this encounter Plan of Treatment Upcoming Encounters Date Type Specialty Care Team Description 04/16/2022 Appointment Cardiology Vivi Lorenz APRN [facility] C[facility] DEPT. [place], [place] [address] (Luz pollard) 04/16/2022 Laboratory Appointment Lab 04/16/2022 Office Visit Cardiology Vivi Lorenz APRN [facility] [place], [place] [address] (Luz rk) documented as of this encounter Procedures Procedure Name Priority Date/Time Associated Diagnosis Comme nts VESSEL ORDINARY SEAMAN SCAN 04/29/2011 Results for 11:46 AM EDT this procedure are in the results section. XR CHEST PA AND LATERAL Routine 04/27/2011 8:56 R esults for AM EDT this procedure are in the results section. XR CHEST ONE VIEW Routine 04/26/2011 6:37 Other primary Result s for PM EDT cardiomyopathies this proced ure are in the results section. ELECTROPHYSIOLOGY 04/26/2011 Cardiomyopathy PROCEDURE 10:40 AM EDT DIFFERENTIAL, AUTOMATED STAT 04/26/2011 7:31 R esults for AM EDT this procedure are in the results section. CREATININE STAT 04/26/2011 7:31 Cardiomyopathy Results fo r AM EDT this procedure are in the results section. ABO/RH TYPING STAT 04/26/2011 7:31 Results for AM EDT this procedure are in the results section. PROTHROMBIN TIME STAT 04/26/2011 7:31 Cardiomyopathy Result s for AM EDT this procedure are in the results section. CBC (WITH DIFF) STAT 04/26/2011 7:31 Cardiomyopathy Results for AM EDT this procedure are in the results section. ANTIBODY SCREEN STAT 04/26/2011 7:31 Results f or AM EDT this procedure are in the results section. BUN STAT 04/26/2011 7:31 Cardiomyopathy Results fo r AM EDT this procedure are in the results section. ELECTROLYTES PANEL STAT 04/26/2011 7:31 Cardiomyopathy Resu lts for AM EDT this procedure are in the results section. TYPE AND SCREEN, SDP STAT 04/26/2011 7:18 Cardiomyopathy (FUTURE SURGERY, [facility] [place] SAME DAY PROGRAM ONLY) documented in this encounter Results SCAN DOC: VESSEL ORDINARY SEAMAN (04/29/2011 11:46 AM EDT) Narrative 04/29/2011 1:43 PM EDT Procedure Note Provider, Scanning - 04/29/2011 11:46 AM EDT Scanning Provider MEDIA MGR SCAN EXT ORDR/RSLT XR chest routine PA & lateral (04/27/2011 8:56 AM EDT) Anatomical Region Laterality Modality Chest N/A Radiographic Imaging Specimen (Source) Anatomical Collection Method Collection Time Re ceived Time Location / / Volume Laterality 04/27/2011 8:56 AM EDT Impressions 04/27/2011 4:08 PM EDT IMPRESSION: ?? Stable chest. ?? Narrative 04/27/2011 4:08 PM EDT PA AND LATERAL CHEST, APRIL 27, 2011: HISTORY: ??Status post ICD. ?? COMPARISON: ??April 26. ?? FINDINGS: ??There is no interval change allowing for the PA and lateral positioning. Specifically, no pneumothor ax is seen. Again noted is the left-sided ICD device with leads termina ting in the right atrium, right ventricle, and passing through the coron denae sinus. ?? Procedure Note Rosalino Herndon MD - 04/27/2011Formatt ing of this note might be different from the original. PA AND LATERAL CHEST, APRIL 27, 2011: HISTORY: Status post ICD. COMPARISON: April 26. FINDINGS: There is no interval change al lowing for the PA and lateral positioning. Specifically, no pneumothor ax is seen. Again noted is the left-sided ICD device with leads termina ting in the right atrium, right ventricle, and passing through the coron denae sinus. IMPRESSION IMPRESSION: Stable chest. Errol Naqvi MD IMG DX ORDERABLES XR CHEST PA OR AP- 1 VIEW (04/26/2011 6:37 PM EDT) Anatomical Region Laterality Modality Chest N/A Radiographic Imaging Specimen (Source) Anatomical Collection Method Collection Time Re ceived Time Location / / Volume Laterality 04/26/2011 6:37 PM EDT Narrative 04/27/2011 12:17 PM EDT PORTABLE AP SEMIUPRIGHT CHEST, April, 1830 HOURS: CLINICAL INDICATION: ??Status post ICD. COMPARISON: ??July 02, 2005. FINDINGS: ??There is a new left-sided ge nerator device with two new leads. The tip of one lead is superimposed over the right atrium and the tip of the other is superimposed over the coronary sinus. No pneumothorax or other complication is seen. The lungs are clear. Procedure Note Rosalino Herndon MD - 04/27/2011Formatt ing of this note might be different from the original. PORTABLE AP SEMIUPRIGHT CHEST, April, 1830 HOURS: CLINICAL INDICATION: Status post ICD. COMPARISON: July 02, 2005. FINDINGS: There is a new left-sided gene rator device with two new leads. The tip of one lead is superimposed over the right atrium and the tip of the other is superimposed over the coronary sinus. No pneumothorax or other complication is seen. The lungs are clear. Errol Naqvi MD IMG DX ORDERABLES REFLEX LAB-ANTIBODY SCREEN (04/26/2011 7:31 AM EDT) Analysis Performed At [employer] Time Signature Ab Screen Negative CERNER Inter MILLENNIUM Expires at [id number] [facility] [id number] on: MILLENNIUM Specimen Anatomical Collection Method Collection Time Receive d Time (Source) Location / / Volume Laterality Blood specimen 04/26/2011 7:31 AM 011 7:36 (specimen) EDT AM EDT Errol Naqvi MD BLOOD BANK ORDERABLES Performing Organization Address City/[facility]/ZIP Code Phon e Number [address] CERNER MILLENNIUM REFLEX LAB-ABO/RH TYPING (04/26/2011 7:31 AM EDT) athologist Signature ABORh Type B Pos [facility] Specimen Anatomical Collection Method Collection Time Receive d Time (Source) Location / / Volume Laterality Blood specimen 04/26/2011 7:31 AM 011 7:36 (specimen) EDT AM EDT Errol Naqvi MD BLOOD BANK ORDERABLES Performing Organization Address City/[facility] Code Phon e Number [address] [facility] MILLENNIUM REFLEX LAB-A-DIFF (04/26/2011 7:31 AM EDT) athologist Signature Neutrophils % 61.8 34.0 - CERNER 71.0 % MILLENNIUM Neutr Abs (ANC) 4.39 1.50 - CERNER 6.30 MILLENNIUM x10(3)/mcL Lymphocytes % 27.7 19.0 - CERNER 53.0 % MILLENNIUM Lymphocytes Abs 2.0 1.0 - 3.6 CERNER x10(3)/mcL MILLENNIUM Monocytes % 7.6 4.0 - 13.0 CERNER % MILLENNIUM Monocyte Abs 0.5 0.2 - 1.0 CERNER x10(3)/mcL MILLENNIUM Eosinophils % 2.4 0.0 - 7.0 CERNER % MILLENNIUM Eosinophils Abs 0.2 0.0 - 0.5 CERNER x10(3)/mcL MILLENNIUM Basophils % 0.4 0.0 - 2.0 CERNER % MILLENNIUM Basophils Abs 0.0 0.0 - 0.2 CERNER x10(3)/mcL MILLENNIUM Immature Gran % 0.10 0.00 - CERNER 0.66 % MILLENNIUM Comment: Immature granulocytes(IG's)percentage an d absolute count will include metamyelocytes, myelocytes, and promyelo cytes. Blood smears from CBCs yielding IG's will be scanned manually for concor dance. If this scan disagrees with the automated IG or if promyelocytes are not ed, a manual differential will be performed. Zainab Gran Abs 0.01 0.00 - 0.05 x10(3)/mcL CER NER MILLENNIUM Specimen Anatomical Collection Method Collection Time Receive d Time (Source) Location / / Volume Laterality Blood specimen 04/26/2011 7:31 AM 011 7:36 (specimen) EDT AM EDT Errol Naqvi MD HEMATOLOGY ORDERABLES Performing Organization Address City/[facility] [place] [address] CERNER MILLENNIUM (ABNORMAL) Prothrombin Time (04/26/2011 7:31 AM EDT) P athologist Signature PT 15.5 (H) 12.3 - 14.7 CERNER sec MILLENNIUM Comment: [facility] Transfusion Committee Guidelines: I NR less than 2.0, PTT less than OR equal to 43.5 seconds, or Fibrinogen gre ater than or equal to 100 mg/dl indicate adequate procoagulant activity for hemostasis in patients without underlying bleeding disorders. INR 1.3 (H) 0.9 - 1.1 [facility] Specimen Anatomical Collection Method Collection Time Receive d Time (Source) Location / / Volume Laterality Blood specimen 04/26/2011 7:31 AM 011 7:36 (specimen) EDT AM EDT Errol Naqvi MD HEMATOLOGY ORDERABLES Performing Organization Address City/[facility] [place] [address] CERNER MILLENNIUM (ABNORMAL) Creatinine, serum (04/26/2011 7:31 AM EDT) P athologist Signature Creatinine 1.04 0.70 - CERNER 1.20 mg/dL MILLENNIUM Estimated GFR 53 (L) >=60 CERNER MILLENNIUM Comment: The National Kidney Disease Education Pr ogram (NKDEP) has recommended all laboratories report estimated GFR (eGFR) along with plasma creatinine measurements to assist you with recognit ion of early kidney disease. Caveats: ??Plasma creatinine should be a t steady-state (unchanged within the past week). For patient s multiply eGFR by 1.2.MDRD equation has not been validated for pediatric pat ients and is only valid for patients with age >= 18 years. At present, NKDEP does NOT recommend usi ng the MDRD equation for drug dosing purposes and pharmacists should continue to use their current dosing methods. In addition, numerical eGFR values great er than 60 ml/min/1.73 square meters should be treated as > 60, and not an ex act number due to greater inaccuracies at these higher values. Per NKDEP, they classify normal renal function as any GFR >60ml/min/1.73 square meters; chronic kidney disease wh en GFR <60, and renal failure when GFR <15. ??This calculation may not be valid for patients with atypical muscle mass (very lean or obese), acute renal failur e, and in patients with diabetic kidney disease. References: http://nkdep.nih.gov/resources/NKDEP_Sug gestn4Labs_0606_508.pdf http://www.kidney.org/professionals/kls/ pdf/faq_gfr.pdf Specimen Anatomical Collection Method Collection Time Receive d Time (Source) Location / / Volume Laterality Blood specimen 04/26/2011 7:31 AM 011 7:36 (specimen) EDT AM EDT Errol Naqvi MD CHEMISTRY ORDERABLES Performing Organization Address City/State/[place] [address] [facility] ([facility]NORMAL) BUN (04/26/2011 7:31 AM EDT) P athologist Signature BUN 22 (H) 8 - 18 CERNER mg/dL [facility] Specimen Anatomical Collection Method Collection Time Receive d Time (Source) Location / / Volume Laterality Blood specimen 04/26/2011 7:31 AM 011 7:36 (specimen) EDT AM EDT Errol Naqvi MD CHEMISTRY ORDERABLES Performing Organization Address City/[facility]/[place] [address] CERNER MILLENNIUM Electrolytes panel (04/26/2011 7:31 AM EDT) P athologist Signature Sodium 140 135 - 145 CERNER mmol/L MILLENNIUM Potassium 4.5 3.5 - 5.0 CERNER mmol/L MILLENNIUM Comment: Please note: ??Patients with WBC >100,00 0 may have falsely elevated Potassium levels. ??For accurate Potassium quantif ication in these patients send serum separator tube (gold top) for subsequent determinations. ??Contact the Clinical Chemistry Laboratory if there are any qu estions. Chloride 105 98 - 107 mmol/L CERNER MILLENN IUM CO2 30 22 - 31 mmol/L CERNER MILLENNI UM Anion Gap 5 5 - 15 mmol/L CERNER MILLENNIU M Specimen Anatomical Collection Method Collection Time Receive d Time (Source) Location / / Volume Laterality Blood specimen 04/26/2011 7:31 AM 011 7:36 (specimen) EDT AM EDT Errol Naqvi MD CHEMISTRY ORDERABLES Performing Organization Address City/[facility]/[place] [address] CERNER MILLENNIUM (ABNORMAL) CBC (with Diff) (04/26/2011 7:31 AM EDT) athologist Signature WBC 7.1 4.0 - 10.0 CERNER x10(3)/mcL MILLENNIUM RBC 4.07 3.93 - CERNER 5.22 MILLENNIUM x10(6)/mcL Hemoglobin 12.3 11.2 - CERNER 15.7 gm/dL MILLENNIUM Hematocrit 37.2 34.0 - CERNER 45.0 % MILLENNIUM MCV 91.4 79.0 - CERNER 94.0 fL MILLENNIUM MCH 30.2 26.6 - CERNER 32.2 pg MILLENNIUM MCHC 33.1 32.0 - CERNER 36.5 gm/dL MILLENNIUM Platelets 179 145 - 370 CERNER x10(3)/mcL MILLENNIUM RDWSD 48.6 (H) 35.0 - CERNER 46.0 fL [facility] RDWCV 14.6 (H) 10.9 - CERNER 14.4 % [facility] MPV 10.2 9.0 - 12.0 CERNER [facility] Specimen Anatomical Collection Method Collection Time Receive d Time (Source) Location / / Volume Laterality Blood specimen 04/26/2011 7:31 AM 011 7:36 (specimen) EDT AM EDT Errol Naqvi MD HEMATOLOGY ORDERABLES Performing Organization Address City/State/[place] [address] [facility] documented in this encounter Visit Diagnoses Diagnosis Cardiomyopathy Other primary cardiomyopathies Other primary cardiomyopathies Idiopathic cardiomyopathy Other primary cardiomyopathies documented in this encounter Administered Medications Inactive Administered Medications - up to 3 most recent administrations Medication Order MAR Action Action Date Dose Rate Site acetaminophen (TYLENOL) tablet Given 04/27/2011 10:42 AM EDT 650 mg 650 mg 650 mg, Oral, EVERY 4 HOURS PRN, Starting on Fri04/26/11 at 1832, Until Fri04/27/11 at 1853, Pain, Fever, Mild to moderate pain, Administer for mild to moderate pain. (maximum daily dose 4 gm), Cath (Recovery-Hospital Unit), Routine Given 04/26/2011 7:04 PM EDT 650 mg ceFAZolin (ANCEF) 1g in dextrose 5% Given 04/27/2011 7:00 AM EDT 1,000 mg 100 mL/hr 50mL 1,000 mg (1 g), Intravenous, EVERY 8 HOURS, 2 doses, First dose on Fri04/26/11 at 2300, Last dose on Fri04/27/11 at 0700, Administer over 30 Minutes Given 04/26/2011 11:00 PM EDT 1,000 mg 100 mL/hr fentaNYL 50mcg/mL injection Given 04/26/2011 6:41 PM EDT 30 mcg 25-50 mcg, Intravenous, EVERY 5 MIN PRN, Starting on Fri04/26/11 at 1717, Until Fri04/26/11 at 1955, Pain, for breakthrough pain, Hold for respiratory rate less than 10 per minute. Maximum dose: 250 mcg over one hour., PACU Recovery, Routine furosemide (LASIX) tablet 20 mg Given 04/27/2011 9:00 AM EDT 20 mg 20 mg, Oral, DAILY, First dose on 04/27/11 at 0900, Until Discontinued, Routine levothyroxine (SYNTHROID) tablet 125 mcg Given 04/27/2011 6:00 AM EDT 125 mcg 125 mcg, Oral, DAILY, First dose on 04/27/11 at 0600, Until Discontinued, Routine losartan (COZAAR) tablet 50 mg Given 04/27/2011 9:00 AM EDT 50 mg 50 mg, Oral, DAILY, First dose on 04/27/11 at 0900, Until Discontinued, Routine sodium chloride 0.9 % flush 5 mL Given 04/27/2011 9:30 AM EDT 5 mLs 5 mL, Intravenous, EVERY 12 HOURS, First dose on Fri04/26/11 at 0930, Until Discontinued Given 04/26/2011 9:30 PM EDT 5 mLs spironolactone (ALDACTONE) tablet 50 mg Given 04/27/2011 9:00 AM EDT 50 mg 50 mg, Oral, DAILY, First dose on 04/27/11 at 0900, Until Discontinued, Routine documented in this encounter Active and Recently Administered Medications Times are shown in EDT. Scheduled Medication Order 04/25/2011 04/26/2011 04/27/2011 ceFAZolin (ANCEF) 1g in dextrose 5% 50mL (COMPLETED) 2300 (Given - Provider: Eva Palm, RN) 0700 (Given - Provider: Eva Palm , RN) 1 g = 1,000 mg, Intravenous, EVERY 8 GAUTAM RS, 2 doses, First dose on Fri04/26/11 at 2300, Last dose on Fri04/27/11 at 0700, for 30 Minutes furosemide (LASIX) tablet 20 mg (CANCELED) 0900 (Given - Provider: Ebony Harkins, RN) 20 mg, Oral, DAILY, First dose on Sat 28/07 at 0900, Until Discontinued, Routine levothyroxine (SYNTHROID) tablet 125 mcg (CANCELED) 0600 (Given - Provider: Ebony Harkins, RN) 125 mcg, Oral, DAILY, First dose on 04/27/11 at 0600, Until Discontinued, Routine losartan (COZAAR) tablet 50 mg (CANCELED) 0900 (Given - Provider: Ebony Harkins RN) 50 mg, Oral, DAILY, First dose on 28/07 at 0900, Until Discontinued, Routine sodium chloride 0.9 % flush 5 mL (CANCELED) 0930 (Due)2130 (Given - Provider: Eva Palm RN) 0930 (Given - Provider: Ebony Harkins RN) 5 mL, Intravenous, EVERY 12 HOURS, First dose on Fri04/26/11 at 0930, Until Discontinued, Routine spironolactone (ALDACTONE) tablet 50 mg (CANCELED) 0900 (Given - Provider: Ebony Harkins RN) 50 mg, Oral, DAILY, First dose on 28/07 at 0900, Until Discontinued, Routine PRN Medication Order 04/25/2011 04/26/2011 04/27/2011 acetaminophen (TYLENOL) tablet 650 mg (CANCELED) 1904 (Given - Provider: Siri Dunne RN) 1042 (Given - Provider: Ebony Harkins RN) 650 mg, Oral, EVERY 4 HOURS PRN, Startin g Fri04/26/11 at 1832, Until Fri04/27/11 at 1853, Pain, Fever, Mild to moderate pain, Administer for mild to moderate pain. (maximum daily dose 4 gm), Cath (Post-Procedure), Routine fentaNYL 50mcg/mL injection (CANCELED) 1 841 (Given - Provider: Siri Dunne RN) 25-50 mcg, Intravenous, EVERY 5 MIN PRN, Starting Fri04/26/11 at 1717, Until Fri04/26/11 at 1955, Pain, for breakthrough pain, Hold for respiratory rate less than 10 per minute. Maximum dose: 250 mcg ov er one hour., Recovery (Post-Anesthesia), Routine documented in this encounter Care Teams Business Data Analyst Relationship Specialty Start Date End Date Vivi Juarez MD PCP - General 07/24/10 08/16/14 [address] [place] [address] documented as of this encounter
--- OUTSIDE RECORDS SUMMARY | 2022-03-18 02:38 | XMS_ITS | Encounter Summary ---
:1945 Author Organization [facility] [place] [place] [address] Care Team Providers Name Role Phone Vivi Juarez MD Primary Care Provider Encounter Details Date Type Department Care Team Description 04/19/2011 Orders Only ZLEB 4A Errol Naqvi Cardiomyopathy ([facility] T, Dx) [place] [address] [place] [phone] CARDIOLOGY DEPT. [place], [place] [address] Social History Tobacco Use Types Packs/Day Years Used Date Never Smoker Alcohol Use Standard Drinks/Week Comments Not Asked 0 (1 standard drink = 0.6 oz pure alcoho l) Sex Assigned at Date Recorded Not on file documented as of this encounter Plan of Treatment Upcoming Encounters Date Type Specialty Care Team Description 04/16/2022 Appointment Cardiology Vivi Lorenz APRN [facility] CARDIOLOGY DEPT. [place], [place] [address] (Wo rk) 04/16/2022 Laboratory Appointment Lab 04/16/2022 Office Visit Cardiology Vivi Lorenz APRN [facility] CARDIOLOGY DEPT. [place], [place] [address] (Wo rk) documented as of this encounter Procedures Procedure Name Priority Date/Time Associated Diagnosis Comme [facility] ELECTROPHYSIOLOGY Routine 04/26/2011 2:46 Cardiomyopathy Resul ts for PROCEDURE PM EDT this procedure are in the results section. documented in this encounter Results ELECTROPHYSIOLOGY PROCEDURE (04/26/2011 2:46 PM EDT) Specimen (Source) Anatomical Location Collection Method / Collectio n Time Received Time / Laterality Volume Narrative Errol Naqvi MD - 04/26/2011 6:0 7 PM EDT Cardiac Resynchronization Therapy ICD Upgrade, Venography, Cinefluoroscopy Indication: Cardiomopathy with congestiv e heart failure and ventricular dyssynchrony Operators: ??Errol Naqvi MD Procedure: The patient was brought to [facility] Electrophysiology Lab in the fasting state and continuous electrocard iographic monitoring was instituted. General anesthesia was admin istered by the anesthesia team. ?? The left subclavicular fossa was prepped and draped in the usual sterile fashion and 2% lidocaine with 0.5% bupiv icaine in a 2:3 mixture was instilled for local anesthesia and post operative analgesia. An incision was made over the old scar, and the diss ection was carried down to the level of the old pocket using sharp and blunt dissection carefully avoiding the old leads that were identif ied fluoroscopically. The old pulse generator was removed, and the luis felipe ctrodes disconnected. ??The previously implanted electrodes were phy sically intact (where visible). The axillary vein was entered with an 18 gauge thin walled needle without difficulty, guided by ultrasonography an d guide wires were advanced into the central venous circulation. ?? Using the retained guide wires and an in troducer sheath, a new electrode was advanced to the Anterolateral branch of the CS, and right atrium under fluoroscopic guidance. The electrodes we re anchored to the underlying fascia with a single stitch of 0 silk ov er the collar. A 9 [place] Citizen peel away sheath was placed i n the central venous circulation utilizing the retained guide wire in the axillary vein. The coronary sinus was cannulated with a 7 [place] Citizen Daig lume n CS catheter via a Znodetronic Model 6250-57 Attain Left Heart Delivery System sheath, and was placed deep in the CS using this catheter as a guide. Coronary sinus venograms were obtained i n 3 projections [40?? TELUGU, 40?? DAI, and AP) with 45 cc of Visipaque (iodixan ol) contrast total utilizing a LeMaitre Embolectomy balloon catheter. A n anterior coronary sinus branch was cannulated with the coronary sinus e lectrode over a 0.014 Choice PT floppy angioplasty guidewire to the bran ch guided by the previous coronary sinus venograms after attempts at a post erolateral; branch were unsuccessful. A stylette was advanced into the coronar y sinus lead for stability during sheath removal. The 9 [place] Citizen sheath was removed. ??The Znodetronic Attain coronary sinus sheath was slit and remov ed utilizing the supplied slitting device under fluoroscopic guidance. ?? The coronary sinus electrode was anchore d to the underlying pectoralis major fascia with a single stitch of 0 s ilk over the collar. The leads were attached to a DDDR biventricular IC D pulse generator, which was placed in the previously formed pocket w ith electrodes situated beneath it after it had been flushed with neosporin antibiotic solution. ?? Final Parameters: Ventricular electrode: ?? Medtronic SprintFidelis ??Model# 6949 58 cm Serial #[id number] (Implanted 03/08/2005) ??Bipolar, steroid-tipped, active-fixat ion IS-1, DF-1 lead ??Access: ?Axillary ??vein ??Location: ?? Right ventricular apex ??R wave, ICD: ?15.9 mV ??Pacing threshold, ICD: 1.25V at 0.8 m s ??Impedance, ICD: ??646 ohms ??HVB Impedance ?? 44 ohms ??SVC Impedance ?? 52 ohms ??Pace the diaphragm at 10 V: No Atrial electrode: ?? Medtronic, CaptureFix Model # 5076-52 cm Serial # [id number] ??Bipolar, steroid-tipped, active-fixat ion IS-1 lead ??Access: ?Axillary ??vein ??Location ?Right atrial appendage ??P wave, ICD: ?? 3.0 mV ??Pacing threshold, ICD: 0.75 V at 0.4 ms ??Impedance, ICD: ??437 ohms ??Pace the diaphragm at 10 V: No Coronary sinus electrode: Sape, Attain OTW Model# 4196-88cm, Serial# [id number] ??Bipolar passive ixation lead ??Access: ?Axillary ??vein ??Location: ?? Coronary sinus, anterior ??R wave, ICD: ?? 13.8 ??Pacing threshold, ICD: 0.75 ??0.4 ms (LV ring to RV coil) ??Impedance, device: ??494s ??Pace the diaphragm/chest wall at 10 V : No Pulse generator: ?? Medtronic Protcta XT CONTINUITY COORDINATOR Serial #[id number] ??CONTINUITY COORDINATOR ICD Location: ?? Subcutaneous The wound was closed with a running stit ch of 2-O Vicryl Plus and the skin was closed with a subcuticular stitch of 4-0 Vicryl Plus 4-0 Monocryl Plus. Cinefluoroscopy documented the fin al implant positions. Medical adhesive ( Indermil ) was applied to the incision. The patient tolerated the procedure well. Procedure Note Errol Naqvi MD - 04/26/2011Form atting of this note might be different from the original. Cardiac Resynchronization Therapy ICD Up grade, Venography, Cinefluoroscopy Indication: Cardiomopathy with congestiv e heart failure and ventricular dyssynchrony Operators: Errol Naqvi MD Procedure: The patient was brought to [facility] Electrophysiology Lab in the fasting state and continuous electrocardiographic monitoring was instituted. General anesthesia was administered by the anesthesia team. The left subclavicular fossa was prepped and draped in the usual sterile fashion and 2% lidocaine with 0.5% bupivicaine in a 2:3 mixture was instilled for local anesthesia and post operative analgesia. An incision was made over the old scar, and the diss ection was carried down to the level of the old pocket using sharp and blunt dissection carefully avoiding the old leads that were identified fluoroscopically. The old pulse generator was removed, and the luis felipe ctrodes disconnected. The previously implanted electrodes were physically intact (where visible). The axillary vein was entered with an 18 gauge thin walled needle without difficulty, guided by ultrasonography and guide wires were advanced into the central venous circulation. Using the retained guide wires and an in troducer sheath, a new electrode was advanced to the Anterolateral branch of the CS, and right atrium under fluoroscopic guidance. The electrodes were anchored to the underlying fascia with a single stitch of 0 silk ov er the collar. A 9 [place] Citizen peel away sheath was placed i n the central venous circulation utilizing the retained guide wire in the axillary vein. The coronary sinus was cannulated with a 7 [place] Citizen Daig lumen CS catheter via a Medtronic Model 6250-57 Attain Left Heart Delivery System sheath, and was placed deep in the CS using this catheter as a guide. Coronary sinus venograms were obtained i n 3 projections [40?? TELUGU, 40?? DAI, and AP) with 45 cc of Visipaque (iodixanol) contrast total utilizing a LeMaitre Embolectomy balloon catheter. An anterior coronary sinus branch was cannulated with the coronary sinus e lectrode over a 0.014 Choice PT floppy angioplasty guidewire to the branch guided by the previous coronary sinus venograms after attempts at a posterolateral; branch were unsuccessful. A stylette was advanced into the coronar y sinus lead for stability during sheath removal. The 9 [place] Citizen sheath was removed. The Znodetronic Attain coronary sinus sheath was slit and removed utilizing the supplied slitting device under fluoroscopic guidance. The coronary sinus electrode was anchore d to the underlying pectoralis major fascia with a single stitch of 0 silk over the collar. The leads were attached to a DDDR biventricular ICD pulse generator, which was placed in the previously formed pocket w ith electrodes situated beneath it after it had been flushed with neosporin antibiotic solution. Final Parameters: Ventricular electrode: Medtronic SprintFidelis Model# 6949 58 c m Serial #[id number] (Implanted 03/08/2005) Bipolar, steroid-tipped, active-fixatio n IS-1, DF-1 lead Access: Axillary vein Location: Right ventricular apex R wave, ICD: 15.9 mV Pacing threshold, ICD: 1.25V at 0.8 ms Impedance, ICD: 646 ohms HVB Impedance 44 ohms SVC Impedance 52 ohms Pace the diaphragm at 10 V: No Atrial electrode: Medtronic, CaptureFix Model # 5076-52 cm Serial # [id number] Bipolar, steroid-tipped, active-fixatio n IS-1 lead Access: Axillary vein Location Right atrial appendage P wave, ICD: 3.0 mV Pacing threshold, ICD: 0.75 V at 0.4 ms Impedance, ICD: 437 ohms Pace the diaphragm at 10 V: No Coronary sinus electrode: Medtronic, Attain OTW Model# 4196-88cm, Serial# [id number] Bipolar passive ixation lead Access: Axillary vein Location: Coronary sinus, anterior R wave, ICD: 13.8 Pacing threshold, ICD: 0.75 0.4 ms (LV ring to RV coil) Impedance, device: 494s Pace the diaphragm/chest wall at 10 V: No Pulse generator: Medtronic Protcta XT CONTINUITY COORDINATOR Serial #[id number] CONTINUITY COORDINATOR ICD Location: Subcutaneous The wound was closed with a running stit ch of 2-O Vicryl Plus and the skin was closed with a subcuticular stitch of 4-0 Vicryl Plus 4-0 Monocryl Plus. Cinefluoroscopy documented the final implant positions. Medical adhesive ( Indermil ) was applied to the incision. The patient tolerated the procedure well. Errol Naqvi MD EP PROCEDURE ORDERABLES (ABNORMAL) Prothrombin Time (04/26/2011 7:31 AM EDT) athologist Signature PT 15.5 (H) 12.3 - 14.7 CERNER sec MILLENNIUM Comment: [facility] Transfusion Committee Guidelines: I NR less than 2.0, PTT less than OR equal to 43.5 seconds, or Fibrinogen gre ater than or equal to 100 mg/dl indicate adequate procoagulant activity for hemostasis in patients without underlying bleeding disorders. INR 1.3 (H) 0.9 - 1.1 CERNER MILLENNIUM Specimen Anatomical Collection Method Collection Time Receive d Time (Source) Location / / Volume Laterality Blood specimen 04/26/2011 7:31 AM 011 7:36 (specimen) EDT AM EDT Errol Naqvi MD HEMATOLOGY ORDERABLES Performing Organization Address City/State/[place] [address] CERNER MILLENNIUM (ABNORMAL) Creatinine, [...] Naqvi MD CHEMISTRY ORDERABLES Performing Organization Address City/[facility]/[place] [address] [facility]ER [facility] (ABNORMAL) BUN (04/26/2011 7:31 AM EDT) P athologist Signature BUN 22 (H) 8 - 18 CERNER mg/dL MILLENNIUM Specimen Anatomical Collection Method Collection Time Receive d Time (Source) Location / / Volume Laterality Blood specimen 04/26/2011 7:31 AM 011 7:36 (specimen) EDT AM EDT Errol Naqvi MD CHEMISTRY ORDERABLES Performing Organization Address City/[facility] [place] [address] CERNER MILLENNIUM Electrolytes panel (04/26/2011 7:31 AM EDT) athologist Signature Sodium 140 135 - 145 [...] Organization Address City/State/[place] [address] CERNER MILLENNIUM (ABNORMAL) CBC [...] 48.6 (H) 35.0 - CERNER 46.0 fL MILLENNIUM RDWCV 14.6 (H) 10.9 - CERNER 14.4 % MILLENNIUM MPV 10.2 9.0 - 12.[address] [facility] Specimen Anatomical Collection Method Collection Time Receive d Time (Source) Location / / Volume Laterality Blood specimen 04/26/2011 7:31 AM 011 7:36 (specimen) EDT AM EDT Errol Naqvi MD HEMATOLOGY ORDERABLES Performing Organization Address City/State/[place] [address] [facility] documented in this encounter Visit Diagnoses Diagnosis Cardiomyopathy - Primary Other primary cardiomyopathies Cardiomyopathy Other primary cardiomyopathies documented in this encounter Care Teams Engineering Surveyor Relationship Specialty Start Date End Date Vivi Juarez MD PCP - General 07/24/10 08/16/14 [address] [place] [address] documented as of this encounter
--- OUTSIDE RECORDS SUMMARY | 2022-03-18 02:38 | XMS_ITS | Encounter Summary ---
:1945 [place] [address] Care Team Providers Name Role Phone Vivi Juarez MD Primary Care Provider Reason for Visit Reason Comments Cardiomyopathy Encounter Details Date Type Department Care Team Description 02/14/2011 Follow[place]Up Cardiology at [facility] Errol Naqvi Cardiomyopathy (Primary [facility] MD Catherine Dx) [place] [address] CARDIOLOGY DEPT. [phone] [place], [place] [address] Social History Tobacco Use Types Packs/Day Years Used Date Never Smoker Alcohol Use Standard Drinks/Week Comments Not Asked 0 (1 standard drink = 0.6 oz pure alcoho l) Sex Assigned at Date Recorded Not on file documented as of this encounter Last Filed Vital Signs Vital Sign Reading Time Taken Comments Blood Pressure 106/64 02/14/2011 1:18 PM EDT Pulse 76 02/14/2011 1:18 PM EDT Temperature - - Respiratory Rate - - Oxygen Saturation - - Inhaled Oxygen Concentration - - Weight 117.5 kg (259 lb) 02/14/2011 1:18 PM EDT Height 165.1 cm (5' 5) 02/14/2011 1:18 PM EDT Body Mass Index 43.1 02/14/2011 1:18 PM EDT documented in this encounter Progress Notes Errol Naqvi MD - 02/15/2011 5:34 PM EDT ELECTROPHYSIOLOGY OFFICE NOTE DATE OF SERVICE: February 14, 2011 NAME: [place] Victoria DATE OF : 1945 Problem List: 1. 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 a. Echo 07/03/04 ([facility]): LVEF 18%. Severe diffuse global [...] 03/08/05: Medtronic Teo Model # 7232Cx, Serial #[id number]. d. Left bundle branch block QRS duration. [...] 1996: echo, PMIBI within normal limits. Cath ([facility]) within normal limits. 6. Hypertension, on Cozaar. [...] she would very much like to proceed; however, she will need a venogram prior to the procedure so that we can decide whether or not epicardial access is necessary. Socrates discussed at length whether she should be bridged with her Coumadin. 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 I will arrange for such and once we have all the data will proceed with the biventricular upgrade. I have answered all of their questions and went over the details of the procedure. 55 minutes of this 60-minute office visit was spent discussing the above. [place] [address] - tel [phone] - fax PTH/pbh Copy: JEREMÍAS Chowdhury MD documented in this encounter Miscellaneous Notes Miscellaneous - Jerrod Automation Driver - 04/23/2011 9:53 AM EDT documented in this encounter Plan of Treatment Upcoming Encounters Date Type Specialty Care Team Description 04/16/2022 Appointment Cardiology Vivi Lorenz, JEREMÍAS [facility] CARDIOLOGY DEPT. [place], [place] [address] (Wo rk) 04/16/2022 Laboratory Appointment Lab 04/16/2022 Office Visit Cardiology Vivi Lorenz APRN [facility] CARDIOLOGY DEPT. [place], [place] [address] (Wo rk) documented as of this encounter Results IR venogram (02/22/2011 10:09 AM EDT) Anatomical Region Laterality Modality Vascular X-Ray Angiography Specimen (Source) Anatomical Collection Method Collection Time Re ceived Time Location / / Volume Laterality 02/22/2011 10:09 AM EDT Narrative 02/25/2011 10:58 AM EDT ? ; ? IR ?? Proc edure Note ?A ?? [id number] ?Procedure: ? US ?? guided left basilic vein catheter placement ?Left ?? axillo-subclavian venogram ?History/indication: ?65 ?? yr cloud F with idiopathic cardiomyopathy s/p ICD implant 03/08/05. S he may be ?? having ICD upgrade in future, venogram requested. ?T echnique: ?The ?? left upper arm was prepped and draped in a sterile fashion. 1% lidocaine was ?? used as local anesthesia. Using US guidance, the left basilic vein was ?? identified and accessed with a 21 gauge needle. A 0.018 wire was advanced ?? centrally. A short 4 Fr dilator was placed. A left axillo-s ubclavian ?? venogram was then performed. ?The ?? dilator was th en removed and a sterile dressing applied. The patient ?? tolerated the procedure w ell. ?Complications: ?? None immediate ?Medications: ?? None ?Contrast: ?? 5 cc non-ionic/visipaque ?Fluorosco py ?? time: 0.5 minutes ?Findings: ? 1. ?? Left-sided AICD lead. ?2. ? ? Widely patent left axillary, subclavian and brachiocephalic veins. There is ?? n o collateral formation. ?3. ?? The SVC is also widely patent. ?Attend ing: ?? Giovana Larsen MD ? ; ?? {CR} ? ; ?? {CR} ? ; ?? {CR} ? ; ?? {CR} ? ; ?? {CR} ?? Procedure Note Robinson Larsen MD - 02/25/2011Format ting of this note might be different from the original. ; IR Procedure Note A [id number] Procedure : US guided left basilic vein catheter kanu cement Left axillo-subclavian venogram History/indication: 65 yr cloud F with idiopathic cardiomyopathy s/p ICD implant 03/08/05. S he may be having ICD upgrade in future, venogram requested. Technique: T he left upper arm was prepped and draped in a sterile fashion. 1% lidocaine was used as local anesthesia. Using US guidance, the left basilic vein was identified and accessed with a 21 gauge needle. A 0.018 wire was advanced centrally. A short 4 Fr dilator was placed. A left axillo-s ubclavian venogram was then performed. The dilator was then removed and a sterile dressing applied. The patient tolerated the procedure well . Complications: None immediate Medications: None Contrast: 5 cc non-ionic/visipaque Fluoroscopy time: 0. 5 minutes Findings: 1. Left-sided AICD lead. 2. Widely paten t left axillary, subclavian and brachiocephalic veins. There is no c ollateral formation. 3. The SVC is also widely patent. Attending: Giovana Larsen MD ; {CR} ; {CR} ; {CR} ; {CR} ; {CR} Errol Naqvi MD IMG IR ORDERABLES documented in this encounter Visit Diagnoses Diagnosis Cardiomyopathy - Primary Other primary cardiomyopathies Cardiomyopathy Other primary cardiomyopathies documented in this encounter Care Teams Head Of English Relationship Specialty Start Date End Date Vivi Juarez MD PCP - General 07/24/10 08/16/14 [address] [place] [address] documented as of this encounter
--- OUTSIDE RECORDS SUMMARY | 2022-03-18 02:38 | XMS_ITS | Encounter Summary ---
:1945 Author Organization [facility] [place] [address] Care Team Providers Name Role Phone Vivi Juarez MD Primary Care Provider Encounter Details Date Type Department Care Team Description 02/22/2011 Hospital Encounter Radiology at [facility] [place] [address] Social History Tobacco Use Types Packs/Day [...] 50 mg by mouth 0 tablet daily. furosemide (LASIX) 20 mg Take 20 mg by mouth 0 02/13/2012 tablet daily. 1/2 tablet = 10mg levothyroxine (SYNTHROID) Take 125 mcg by 0 08/26/2013 125 mcg tablet mouth. Fri, sat, sun warfarin (COUMADIN) 5 mg 0 09/07/2010 04/26/2011 tablet GLUCOSAMINE HCL/CHONDRO RODRIGUEZ 0 1 11/21/2016 A (GLUCOSAMINE-CHONDROITIN ORAL) documented as of this encounter Plan of Treatment Upcoming Encounters Date Type Specialty Care Team Description 04/16/2022 Appointment Cardiology Vivi Lorenz, [facility] CARDIOLOGY DEPT. [place], [place] [address] (Wo rk) 04/16/2022 Laboratory Appointment Lab 04/16/2022 Office Visit Cardiology Vivi Lorenz, JEREMÍAS [facility] CARDIOLOGY DEPT. [place], [place] [address] (Wo rk) documented as of this encounter Visit Diagnoses Not on filedocumented in this encounter Care Teams Mold Burner Relationship Specialty Start Date End Date Vivi Juarez MD PCP - General 07/24/10 08/16/14 [address] [place] [address] documented as of this encounter
--- OUTSIDE RECORDS SUMMARY | 2022-03-18 02:38 | XMS_ITS | Encounter Summary ---
:1945 Author Organization [facility] [address] Care Team Providers Name Role Phone Vivi Juarez MD Primary Care Provider Encounter Details Date Type Department Care Team Description 09/07/2010 Office Visit [place] [facility] Errol Naqvi MD [facility] [place] [address] CARDIOLOGY DEPT. [phone] [place], [place] [address] (Wo rk) Social History Tobacco Use Types Packs/Day Years Used Date Never Assessed Sex Assigned at Date Recorded Not on file documented as of this encounter Plan of Treatment Upcoming Encounters Date Type Specialty Care Team Description 04/16/2022 Appointment Cardiology Vivi Lorenz APRN [facility] CARDIOLOGY DEPT. [place], [place] [address] (Wo rk) 04/16/2022 Laboratory Appointment Lab 04/16/2022 Office Visit Cardiology Vivi Lorenz APRN [facility] CARDIOLOGY DEPT. [place], [place] [address] (Wo rk) documented as of this encounter Visit Diagnoses Not on filedocumented in this encounter Care Teams Research Scientist Relationship Specialty Start Date End Date Vivi Juarez MD PCP - General 07/24/10 08/16/14 [address] [place] [address] documented as of this encounter
--- OUTSIDE RECORDS SUMMARY | 2022-03-18 02:38 | XMS_ITS | Encounter Summary ---
:1945 [place] [address] Care Team Providers Name Role Phone Unavailable Primary Care Provider Unavailable Encounter Details Date Type Department Care Team Description 07/10/2010 Follow-Up Cardiology at [facility] Roly Aguilar MD [facility] [place] [address] CARDIOLOGY DEPT. [phone] [place], [place] [address] (Wo rk) Social History Tobacco Use Types Packs/Day Years Used Date Never Assessed Sex Assigned at Date Recorded Not on file documented as of this encounter Plan of Treatment Upcoming Encounters Date Type Specialty Care Team Description 04/16/2022 Appointment Cardiology Vivi Lorenz APRN [facility] CARDIOLOGY DEPT. [place], [place] [address] (Wo rk) 04/16/2022 Laboratory Appointment Lab 04/16/2022 Office Visit Cardiology Vivi Lorenz APRN [facility] CARDIOLOGY DEPT. [place], [place] [address] (Wo rk) documented as of this encounter Visit Diagnoses Not on filedocumented in this encounter
--- OUTSIDE RECORDS SUMMARY | 2022-03-18 02:38 | XMS_ITS | Encounter Summary ---
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 [phone] [place], [place] [address] (Wo rk) Social History Tobacco Use Types Packs/Day Years Used Date Never Smoker Alcohol Use Standard Drinks/Week Comments Not Asked 0 (1 standard drink = 0.6 oz pure alcoho l) Sex Assigned at Date Recorded Not on file documented as of this encounter Last Filed Vital Signs Vital Sign Reading Time Taken Comments Blood Pressure 100/60 01/16/2011 10:22 AM EDT Pulse 60 01/16/2011 10:22 AM reg EDT Temperature - - Respiratory Rate - - Oxygen Saturation 94% 01/16/2011 10:22 AM at rest ro om air EDT Inhaled Oxygen Concentration - - Weight 118.1 kg (260 lb 6.4 01/16/2011 10:22 AM oz) EDT Height - - Body Mass Index - - documented in this encounter Progress Notes Pooja Del Cid, MUSIC PROFESSOR - 01/16/2011 4:05 PM EDT HEART FAILURE CLINIC NOTE Ana Victoria 1945 65 y.o. PCP: VIVI KIM MD Date: 01/16/2011 Ms. Ana Victoria is here, accompanied by her , for follow-up with the Heart Failure Team for ongoing management of nonischemic CM with LBBB. When she saw Dr Aguilar 6 months ago, he discussed with her upgrade of her prophylactic ICD to DYE RANGE OPERATOR CLOTH. She then met with Dr. Naqvi (EP) earlier this year to discuss further, and has read over the literature he provided her. Today, Ana tells me she is leaning towards proceeding but wanted to discuss here today a bit more, which we did. 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 She denies orthopnea/PND or significant edema. No cardiac sx and her device has never fired (interrogated today). The remainder of ROS is negative. We discussed upgrade to DYE RANGE OPERATOR CLOTH-D, questions answered and she is ready to proceed. Past Medical History: 1. 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 a. Echo 07/03/04 ([facility]): LVEF 18%. Severe diffuse global HK, LV apex dyskinetic with sessile mural thrombus. 3-4+ MR. LAE. RV normal. Mildly elevated PAP (~44mmHg). Echo EF= 20-25% 11/15/04 Echo EF= 25% 08/26/05 Echo EF= 40% 07/17/06 Echo EF= 30% 01/26/08 Echo EF=30% 07/21/08 b. Cath 07/13/04: normal coronary anatomy, no CAD. c. ICD implant 03/08/2005 - Medtronic Teo Model # 7232Cx, Serial # [id number]. d. LBBB QRS duration. 2. Heart failure - as above. ACC/AHA [...] a. evaluation 1996: echo, PMIBI wnl. [place] wnl. 6. Hypertension - on Cozaar. 7. Hypothyroidism -on Levothyroxine. 8. History of depression. 9. Moderate obstructive sleep apnea - uses CPAP. 10. Obesity. 11. Osteoarthritis. Dry Weight - goal is 238 lbs, weight fluctuates Smoking - no ETOH - rare Medications: Outpatient prescriptions marked as taking for the 01/16/11 encounter (Follow-Up) with POOJA DEL CID Medication Sig Dispense Refill ??? furosemide (LASIX) [...] Relevant Family History: NONE Physical Exam: BP 100/60 Pulse 60 Wt 118.117 kg (260 lb 6.4 oz) SpO2 94% General: Pleasant middle-aged, well-nourished overweight female, alert and oriented x3 in NAD. Very pleasant, and conversant, her is with her today. HEENT/Neck: Sclerae nonicteric, moist oral mucosa without lesions, no lymphadenopathy. Carotid upstroke brisk, no bruits. Cardiac: Regular rhythm S1 S2 normal, no M/G appreciated. JVP is ~ 6 cm Lungs: Clear bilaterally to auscultation Abdomen: soft, nontender, + bowel sounds all 4 quadrants. No organomegaly.- HJR Extremities: No clubbing, cyanosis. Edema: None Pulses present. Skin: No bruises, rashes, or petechiae. Surgical scars: left subclavian device. Neuro: No focal neurological deficits. Musculoskeletal: No spinal or chest wall tenderness. : No CVA tenderness Psych: Normal affect, in good spirits. Asking good questions. Laboratory: Please see labs done at outside hospital under Media section: reviewed at this visit. Cardiology Studies Reviewed: Please see echo scanned in old [facility] under outside cardiology reports. Last echo 08/2009 with LVEF 20% Impression: Patient Active Problem List Diagnoses Code [...] on appropriate medical therapy. Euvolemic on exam. NYHA class II. She is ready to proceed with upgrade of device to DYE RANGE OPERATOR CLOTH-D with Dr. Naqvi. 2. Heart failure: euvolemic on exam and [...] results reviewed with patient. --Immunizations, other recommendations: up to date 3. Medication changes: None at this visit. 4. The following labs, referrals or other testing advised: Echocardiogram scheduled, per pt request,at [facility] in [facility], where she works (per her request). She will bring a disk of her echo with her to f/u appt. Set up to see EP to for preop. 5. Cardiology follow-up scheduled for: --HF clinic in: 6 months, to coordinate w/EP, sooner prn --HFCCM: prn documented in this encounter Plan of Treatment Upcoming Encounters Date Type Specialty Care Team Description 04/16/2022 Appointment Cardiology Vivi Lorenz APRN [facility] CARDIOLOGY DEPT. [place], [place] [address] (Wo rk) 04/16/2022 Laboratory Appointment Lab 04/16/2022 Office Visit Cardiology Vivi Lorenz APRN [facility] CARDIOLOGY DEPT. [place], [place] [address] (Wo rk) documented as of this encounter Visit Diagnoses Diagnosis Cardiomyopathy - Primary Other primary cardiomyopathies documented in this encounter Care Teams Assistant Construction Superintendent Relationship Specialty Start Date End Date Vivi Kim MD PCP - General 07/24/10 08/16/14 [address] [place] [address] documented as of this encounter
--- OUTSIDE RECORDS SUMMARY | 2022-03-18 02:38 | XMS_ITS | Encounter Summary ---
:1945 Author Organization [facility] [place] [address] Care Team Providers Name Role Phone Vivi Juarez MD Primary Care Provider Encounter Details Date Type Department Care Team Description 04/26/2011 Anesthesia Event Electrophysiology Lab at Carlo Cheng MD [facility] [place] [address] [facility] Melissa Shrestha CRNA [facility] [place] [address] [facility] [place] [address] Anesthesia Record Procedure Summary Procedure Name Responsible Anesthesia Start Anesthesia Stop Anesthesiologist Time Time ELECTROPHYSIOLOGY Carlo Da Silva MD 04/26/11 1025 04/26/11 1 735 PROCEDURE (N/A ) Events Date Time Event Comment 04/26/2011 1025 Start 1735 Stop No medications on file. Agents No agents on file. Blood No blood administrations on file. Lines, Drains, and Airways Type Details Placement Removal (RETIRED) Incision Chest; Anterior, Left 04/26/11 1041 by Hudson Murray RN Urethral Catheter 04/26/11; 1100; 04/26/11 1100 by indwelling double lumen Siri Guo RN PIV 04/26/11; 0915; 11/04/16 04/26/11 0915 by 0000 by Marisela Chawla RN [place], Ji ll L RN documented in this encounter Social History Tobacco Use Types Packs/Day Years Used Date Never Smoker Alcohol Use Standard Drinks/Week Comments Not Asked 0 (1 standard drink = 0.6 oz pure alcoho l) Sex Assigned at Date Recorded Not on file documented as of this encounter OR Notes Anesthesia Postprocedure Evaluation - Denis Reyes MD - 04/26/2011 12:09 PM EDT Patient: Ana Victoria Procedure(s) Performed: ELECTROPHYSIOLOGY PROCEDURE - Procedure and Procedure Specific Questions: The patient met discharge criteria prior to my evaluation. There were no apparent anesthetic complications. Anesthesia Preprocedure Evaluation - Denis Reyes MD - 04/26/2011 8:08 AM EDT Anesthesia Evaluation Patient summary reviewed and Nursing notes reviewed No hx of anesthetic complications Airway Dental Pulmonary (+) sleep apnea CPAP, Cardiovascular (+) valvular problems/murmurs MR, ROS comment: Idiopathic cardiomyopathy Severe LV dysfunction, LVEF ~30% 07/09 Normal coronary artery anatomy by cath 07/05 ICD implanted 03/05 Neuro/Psych (+) psychiatric history (depression) GI/Hepatic/Renal Endo/Other (+) hypothyroidism, Abdominal Anesthesia Plan ASA 3 General with intravenous induction GETA, a-line Anesthetic plan and risks discussed with patient. Plan discussed with SINGLE END SEWER. documented in this encounter Plan of Treatment Upcoming Encounters Date Type Specialty Care Team Description 04/16/2022 Appointment Cardiology Vivi Lorenz APRN [facility] CARDIOLOGY DEPT. [place], [place] [address] (Wo rk) 04/16/2022 Laboratory Appointment Lab 04/16/2022 Office Visit Cardiology Vivi Lorenz APRN [facility] CARDIOLOGY DEPT. [place], [place] [address] (Wo rk) documented as of this encounter Visit Diagnoses Not on filedocumented in this encounter Care Teams Partition Assembly Machine Operator Relationship Specialty Start Date End Date Vivi Juarez MD PCP - General 07/24/10 08/16/14 [address] [place] [address] documented as of this encounter
--- OUTSIDE RECORDS SUMMARY | 2022-03-18 02:38 | XMS_ITS | Encounter Summary ---
:1945 Author Organization [facility] [place] [place] [address] Care Team Providers Name Role Phone Vivi Kim MD Primary Care Provider Encounter Details Date Type Department Care Team Description 02/22/2011 Hospital Encounter Radiology at [facility], DR CONV Cardiomyopathy [facility] Errol Naqvi MD [facility] [place] [address] [place] [address] Social History Tobacco Use Types Packs/Day [...] documented as of this encounter Progress Notes Lesly Cabrera PA - 02/21/2011 4:36 PM EDT PRE-PROCEDURE VIR NOTE Date of : 1945 Age: 65 y.o. PCP: VIVI KIM MD Referring Physician (if different): Driss Indication: possible future ICD upgrade Planned Procedure: LUE venogram Chief Complaint/Diagnosis: 65 yo female with idiopathic cardiomyopathy s/p ICD implant 03/08/05. She may be having ICD upgrade in future, venogram requested. Pertinent Past Medical/Surgical History: Problem List: 1. 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 a. Echo 07/03/04 ([facility]): LVEF 18%. Severe diffuse global HK, LV apex dyskinetic with sessile mural thrombus. 3-4+ MR. LAE. RV normal. Mildly elevated PAP (~44 mm Hg). Echo EF= 20-25% 11/15/04 Echo EF= 25% 08/26/05 Echo EF= 40% 07/17/06 Echo EF= 30% 01/26/08 Echo EF= 30% 07/21/08 b. Cath 07/13/04: Normal coronary anatomy, no CAD. c. ICD implant 03/08/05: Medtronic Teo Model # 7232Cx, Serial #[id number]. d. Left bundle branch block QRS duration. [...] 1996: echo, PMIBI within normal limits. Cath ([facility]) within normal limits. 6. Hypertension, on Cozaar. 7. Hypothyroidism diagnosed 1 year ago, on Levothyroxine. 8. History of depression. 9. Moderate obstructive sleep apnea, uses CPAP. 10. Obesity. 11. Osteoarthritis. No Known Allergies Current outpatient prescriptions ordered prior to encounter Medication Sig Dispense Refill ??? furosemide (LASIX) [...] ??? GLUCOSAMINE HCL/CHONDRO RODRIGUEZ A (GLUCOSAMINE-CHONDROITIN ORAL) Pertinent ROS: as per HPI Pertinent Family History: non contributory Social History: n/a Labs: No results found for this basename: wbc, anc, hct, platelet, inr, bun, cr, gfr No results found for this basename: alkphos, ast, albumin, bilidir, bilitot, alt, Imaging: CXR in [facility] from 2004 Assessment / Plan: 65 yo female with idiopathic cardiomyopathy s/p ICD implant 03/08/05. She may be having ICD upgrade in future, venogram requested. Patient on coumadin. Medications to discontinue: none Prophylactic antibiotic: none Planned access site / position: 18 ga IV in LUE antecubital fossa documented in this encounter Procedure Notes Robinson Larsen MD - 02/22/2011 10:12 AM EDTProcedure(s): IR VENOGRAM UPPER EXTREMITY; IR VENOGRAM UPPER EXTREMITY Pre-Procedure Diagnose(s): Cardiomyopathy; Cardiomyopathy Post-Procedure Diagnose(s): Cardiomyopathy; Cardiomyopathy IR Procedure Note A [id number] Procedure: US guided left basilic vein catheter placement Left axillo-subclavian venogram History/indication: 65 yr cloud F with idiopathic cardiomyopathy s/p ICD implant 03/08/05. She may be having ICD upgrade in future, venogram requested. Technique: The left upper arm was prepped and draped in a sterile fashion. 1% lidocaine was used as local anesthesia. Using US guidance, the left basilic vein was identified and accessed with a 21 gauge needle. A 0.018 wire was advanced centrally. A short 4 Fr dilator was placed. A left axillo-subclavian venogram was then performed. The dilator was then removed and a sterile dressing applied. The patient tolerated the procedure well. Complications: None immediate Medications: None Contrast: 5 cc non-ionic/visipaque Fluoroscopy time: 0.5 minutes Findings: 1. Left-sided AICD lead. 2. Widely patent left axillary, subclavian and brachiocephalic veins. There is no collateral formation. 3. The SVC is also widely patent. Attending: Giovana Larsen MD documented in this encounter Plan of Treatment Upcoming Encounters Date Type Specialty Care Team Description 04/16/2022 Appointment Cardiology Vivi Lorenz APRN [facility] CARDIOLOGY DEPT. [place], [place] [address] (Wo rk) 04/16/2022 Laboratory Appointment Lab 04/16/2022 Office Visit Cardiology Vivi Lorenz APRN [facility] CARDIOLOGY DEPT. [place], [place] [address] (Wo rk) documented as of this encounter Procedures Procedure Name Priority Date/Time Associated Diagnosis Comme nts IR VENOGRAM UPPER Routine 02/22/2011 10:09 Cardiomyopathy Resu lts for this EXTREMITY AM EDT procedure are i n the results section. documented in this encounter Results IR venogram (02/22/2011 10:09 AM EDT) Anatomical Region Laterality Modality Vascular X-Ray Angiography Specimen (Source) Anatomical Collection Method Collection Time Re ceived Time Location / / Volume Laterality 02/22/2011 10:09 AM EDT Narrative 02/25/2011 10:58 AM EDT ? ; ? IR ?? Proc edure Note ?A ?? [id number] ?Procedure: ? US ?? guided left basilic [...] the original. ; IR Procedure Note A [id number] Procedure : US guided left basilic vein [...] Visit Diagnoses Diagnosis Cardiomyopathy Other primary cardiomyopathies documented in this encounter Care Teams Trap Operator Relationship Specialty Start Date End Date Vivi Kim MD PCP - General 07/24/10 08/16/14 [address] [place] [address] documented as of this encounter
--- OUTSIDE RECORDS SUMMARY | 2022-03-18 02:38 | XMS_ITS | Encounter Summary ---
:1945 Author Organization [facility] [place] [address] Care Team Providers Name Role Phone Vivi Juarez MD Primary Care Provider Encounter Details Date Type Department Care Team Description 04/26/2011 Surgery Electrophysiology Lab at [facility], [facility] CTROPHYSIOLOGY [facility] Errol Alexander MD PROCEDURE [facility] [place] [address] CENTER [phone] [place] [address] Social History Tobacco Use Types Packs/Day Years [...] documented in this encounter Discharge Instructions Discharge InstructionsSiri Guo RN - 04/26/2011 7:45 PM EDT Report to Yasemin Patient InstructionsGini Phillips PA - 04/27/2011 10:30 AM EDT Final recommendations: 1. Standard post implant discharge instructions (see below): 2. Resume medications as listed. 3. You will be called to schedule a 91 day new device check at [facility] EP Device Clinic. FOLLOW UP: Call your [...] 0 08/26/2013 125 mcg tablet mouth. Diane, radha, freedom GLUCOSAMINE HCL/CHONDRO RODRIGUEZ 0 1 11/21/2016 A (GLUCOSAMINE-CHONDROITIN ORAL) documented as of this encounter Progress Notes Gini Phillips PA - 04/27/2011 10:34 AM EDT Inpatient Cardiology Discharge Day Note Patient Name: Ana Victoria Service: EP Responsible Attending: Hernandez Cordoba MD Subscription Agent: Roly Aguilar MD Primary Care: Vivi Juarez MD Reason for continued hospitalization: ICD upgrade to SWAGE TOOLSETTER-D Active Problems: Patient Active Problem List Diagnoses [...] cardiomyopathy severe LV systolic dysfunction. Echo 07/03/04 ([facility]): LVEF 18%. Severe diffuse global HK, LV apex dyskinetic with sessile mural thrombus. 3-4+ MR. LAE. RV normal. Mildly elevated PAP (44mmHg). Echo EF= 20-25% 11/15/04 Echo EF= 25% 08/26/05 Echo EF= 40% 07/17/06 Echo EF= 30% 01/26/08 Echo EF=30% 07/21/08 ICD implanted 2004 with upgrade to SWAGE TOOLSETTER-D 04/26/2011 ??? LV (left ventricular) mural thrombus ??? Obstructive sleep apnea uses CPAP ??? Osteoarthritis Interval History: Patient did well overnight. She states she feel like she has a hangover. Complainsof headache but has good relief with Tylenol. Her SWAGE TOOLSETTER-D pocket is slightly tender but she denies [...] mg 20 mg Oral Daily No current Epic-ordered outpatient prescriptions on file. Physical Exam: Vital [...] 04/26/2011 CREATININE 1.04 04/26/2011 Pertinent Radiographic/Diagnostic Results: SWAGE TOOLSETTER-D upgrade: Cardiac Resynchronization Therapy ICD Upgrade, Venography, Cinefluoroscopy Indication: Cardiomopathy with congestive heart failure and ventricular dyssynchrony Operators: Errol Naqvi MD Final Parameters: Ventricular electrode: [employer] Sprint Neel Model# 694 9 58 cm Serial # [id number] (Implanted 03/08/2005) Bipolar, steroid-tipped, active-fixation IS-1, DF-1 lead Access: Axillary vein Location: Right ventricular apex R wave, ICD: 15.9 mV Pacing threshold, ICD: 1.25 V at 0. 8 ms Impedance, ICD: 646 ohms HVB Impedance 44 ohms SVC Impedance 52 ohms Pace the diaphragm at 10 V: No Atrial electrode: [employer], CaptureFix Model # 5076-52 cm Serial # [id number] Bipolar, steroid-tipped, active-fixation IS-1 lead Access: Axillary vein Location Right atrial appendage P wave, ICD: 3.0 mV Pacing threshold, ICD: 0.75 V at 0.4 ms Impedance, ICD: 437 ohms Pace the diaphragm at 10 V: No Coronary sinus electrode: [employer], Attain OTW Model# 41 96 - 8 8cm, Serial# [id number] Bipolar passive ixation lead Access: Axillary vein Location: Coronary sinus, anterior R wave, ICD: 13.8 Pacing threshold, ICD: 0.75 0.4 ms (LV ring to RV coil) Impedance, device: 494 s Pace the diaphragm/chest wall at 10 V: No Pulse generator: Medtronic Protcta XT SWAGE TOOLSETTER Serial #[id number] SWAGE TOOLSETTER ICD Location: Subcutaneous 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 Ventricular lead subject to Vladimir Shaikh advisory. Parameters: VF detection rate: 188 bpm [...] y.o. female who underwent ICD upgrade to SWAGE TOOLSETTER-D. She tolerated the procedure well although she has a headache from General anesthesia. Her device function was normal,there were no events seen on interrogation and she is hemodynamically stable. She is ready to be discharged home. 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 Reviewed arm precautions and wound instructions. Plan: 1. Discharge home this morning. 2. New device check in 91 days at [facility] clinic for reprogramming to optimize threshold outputs. [...] systolic dysfunction, as above. a. Echo 07/03/04 ([facility]): LVEF 18%. Severe diffuse global HK, LV apex dyskinetic with sessile mural thrombus. 3-4+ MR. LAE. RV normal. Mildly elevated PAP (~44 mm Hg). Echo EF= 20-25% 11/15/04 Echo EF= 25% 08/26/05 Echo EF= 40% 07/17/06 Echo EF= 30% 01/26/08 Echo EF= 30% 07/21/08 b. Cath 07/13/04: Normal coronary anatomy, no CAD. c. ICD implant 03/08/05: Medtronic Teo Model # 7232Cx, Serial #[id number]. d. Left bundle branch block QRS duration. [...] 1996: echo, PMIBI within normal limits. Cath ([facility]) within normal limits. 6. Hypertension, on Cozaar. [...] 04/29/2011 11:46 AM EDTAssociated Order(s): SCAN DOC: FIELD CROPS HARVEST MACHINE OPERATOR; SCAN DOC: FIELD CROPS HARVEST MACHINE OPERATOR documented in this encounter Miscellaneous Notes Miscellaneous [...] cardiomyopathy severe LV systolic dysfunction Echo 07/03/04 ([facility]): LVEF 18%. Severe diffuse global HK, LV apex dyskinetic with sessile mural thrombus. 3-4+ MR. LAE. RV normal. Mildly elevated PAP (44mmHg). Echo EF= 20-25% 11/15/04 Echo EF= 25% 08/26/05 Echo EF= 40% 07/17/06 Echo EF= 30% 01/26/08 .br Echo EF=30% 07/21/08 ??? LV (left ventricular) mural thrombus ??? Obstructive sleep apnea uses CPAP ??? Osteoarthritis Operations/Major Procedures: Pertinent Radiographic/Diagnostic Results: SWAGE TOOLSETTER-D upgrade: Cardiac Resynchronization Therapy ICD Upgrade, Venography, Cinefluoroscopy Indication: Cardiomopathy with congestive heart failure and ventricular dyssynchrony Operators: Errol Naqvi MD Final Parameters: Ventricular electrode: [employer] Sprint Violet Model# 694 9 58 cm Serial # [id number] (Implanted 03/08/2005) Bipolar, steroid-tipped, active-fixation IS-1, DF-1 lead Access: Axillary vein Location: Right ventricular apex R wave, ICD: 15.9 mV Pacing threshold, ICD: 1.25 V at 0. 8 ms Impedance, ICD: 646 ohms HVB Impedance 44 ohms SVC Impedance 52 ohms Pace the diaphragm at 10 V: No Atrial electrode: [employer], CaptureFix Model # 5076-52 cm Serial # [id number] Bipolar, steroid-tipped, active-fixation IS-1 lead Access: Axillary vein Location Right atrial appendage P wave, ICD: 3.0 mV Pacing threshold, ICD: 0.75 V at 0.4 ms Impedance, ICD: 437 ohms Pace the diaphragm at 10 V: No Coronary sinus electrode: [employer], Attain OTW Model# 41 96 - 8 8cm, Serial# [id number] Bipolar passive ixation lead Access: Axillary vein Location: Coronary sinus, anterior R wave, ICD: 13.8 Pacing threshold, ICD: 0.75 0.4 ms (LV ring to RV coil) Impedance, device: 494 s Pace the diaphragm/chest wall at 10 V: No Pulse generator: Medtronic Protcta XT SWAGE TOOLSETTER Serial #[id number] SWAGE TOOLSETTER ICD Location: Subcutaneous 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 Ventricular lead subject to Vladimir Shaikh advisory. Parameters: VF detection rate: 188 bpm [...] Naqvi MD to discuss ICD upgrade to SWAGE TOOLSETTER-D. She is managed by the Heart Failure Team for her nonischemic CM with LBBB. When she saw Dr Aguilar in July 2010, he discussed with her upgrade of her prophylactic ICD to SWAGE TOOLSETTER. From a symptom standpoint, she remains a [...] Same Day Program for ICD upgrade to SWAGE TOOLSETTER-D. She tolerated the procedure well although had [...] a 91 day new device check at [facility] EP Device Clinic. FOLLOW UP: Call your [...] Custom] Process Instructions: 1) Ordering MD or MACHINE ZIPPER TRIMMER must provide Order Justification documentation for a: [...] Attending of Record, the ordering MD or MACHINE ZIPPER TRIMMER must obtain (verbal) approval of the Attending [...] please contact your inpatient physician through the [facility] Php Consultant . Issues after hours and on weekends will be handled by the Hospitalist staff on-call. Signed: LESTER NOLASCO 04/27/2011 Cardiac Electrophysiology Attending Addendum: In addition to the assessment and plan documented in Ms. Phillips's note above, arrangements should be made for the patient to be evaluated in 4 weeks for a follow up assessment to evaluate her status (including skin surveillance) in light of the procedural duration and total fluoroscopic exposure. This proved to be a challenging case to accomplish, but the result was an apparent good and effective SWAGE TOOLSETTER-D system deployment. Miscellaneous - Provider, Scanning - 04/26/2011 7:47 AM EDT documented in this encounter Plan of Treatment Upcoming Encounters Date Type Specialty Care Team Description 04/16/2022 Appointment Cardiology Vivi Lorenz APRN [facility] CARDIOLOGY DEPT. [place], [place] [address] (Luz pollard) 04/16/2022 Laboratory Appointment Lab 04/16/2022 Office Visit Cardiology Vivi Lorenz APRN [facility] CARDIOLOGY DEPT. [place], [place] [address] (Luz pollard) documented as of this encounter Procedures Procedure Name Priority Date/Time Associated Diagnosis Comme nts FIELD CROPS HARVEST MACHINE OPERATOR SCAN 04/29/2011 Results for 11:46 AM EDT [...] SDP STAT 04/26/2011 7:18 Cardiomyopathy (FUTURE SURGERY, [facility] AM EDT SAME DAY PROGRAM ONLY) documented in this encounter Results SCAN DOC: FIELD CROPS HARVEST MACHINE OPERATOR (04/29/2011 11:46 AM EDT) Narrative 04/29/2011 1:43 [...] (04/26/2011 7:31 AM EDT) Analysis Performed At [facility] Time Signature Ab Screen Negative [facility] Expires at [id number] [facility] [id number] on: [facility] Specimen Anatomical Collection Method Collection Time Receive d Time (Source) Location / / Volume Laterality Blood specimen 04/26/2011 7:31 AM 011 7:36 (specimen) EDT AM EDT Errol Naqvi MD BLOOD BANK ORDERABLES Performing Organization Address City/[facility]/[place] [address] CERNER MILLENNIUM REFLEX LAB-ABO/RH TYPING (04/26/2011 7:31 AM EDT) athologist Signature ABORh Type B Pos CERNER MILLENNIUM Specimen Anatomical Collection Method Collection Time Receive d Time (Source) Location / / Volume Laterality Blood specimen 04/26/2011 7:31 AM 011 7:36 (specimen) EDT AM EDT Errol Naqvi MD BLOOD BANK ORDERABLES Performing Organization Address City/[facility] [place] [address] CERNER [facility]ILLENNIUM REFLEX LAB-A-DIFF (04/26/2011 7:31 AM EDT) [...] Naqvi MD HEMATOLOGY ORDERABLES Performing Organization Address City/[facility]/[place] [address] CERNER MILLENNIUM (ABNORMAL) Prothrombin Time (04/26/2011 7:31 AM EDT) P athologist Signature PT 15.5 (H) 12.3 - 14.7 CERNER sec MILLENNIUM Comment: [facility] Transfusion Committee Guidelines: I NR less [...] Naqvi MD HEMATOLOGY ORDERABLES Performing Organization Address City/[facility]/ZIP [facility] [place] [address] CERNER MILLENNIUM (ABNORMAL) Creatinine, [...] Naqvi MD CHEMISTRY ORDERABLES Performing Organization Address City/State/[facility] [place] [address] CERNER MILLENNIUM (ABNORMAL) BUN (04/26/2011 7:31 AM EDT) P athologist Signature BUN 22 (H) 8 - 18 CERNER mg/dL MILLENNIUM Specimen Anatomical Collection Method Collection Time Receive d Time (Source) Location / / Volume Laterality Blood specimen 04/26/2011 7:31 AM 011 7:36 (specimen) EDT AM EDT Errol Naqvi MD CHEMISTRY ORDERABLES Performing Organization Address City/[facility] Code Phon e Number [place] [phone] [facility] [address] CERNER MILLENNIUM Electrolytes panel [...] Organization Address City/State/[place] [address] CERNER MILLENNIUM (ABNORMAL) CBC [...] % MILLENNIUM MPV 10.2 9.0 - 12.0 [facility] Specimen Anatomical Collection Method Collection Time Receive d Time (Source) Location / / Volume Laterality Blood specimen 04/26/2011 7:31 AM 011 7:36 (specimen) EDT AM EDT Errol Naqvi MD HEMATOLOGY ORDERABLES Performing Organization Address City/State/ZIP Code Phon e Number [place] [phone] [facility] documented in this encounter Visit Diagnoses Diagnosis Cardiomyopathy Other primary cardiomyopathies Other primary cardiomyopathies Idiopathic cardiomyopathy Other primary cardiomyopathies Cardiomyopathy Other primary cardiomyopathies documented in this encounter Active and Recently Administered Medications Times are shown in EDT. Scheduled Medication Order 04/25/2011 04/26/2011 04/27/2011 ceFAZolin (ANCEF) 1g in dextrose 5% 50mL (COMPLETED) 2300 (Given - Provider: Eva Palm RN) 0700 (Given - Provider: Eva Palm RN) 1 g = 1,000 mg, Intravenous, EVERY 8 GAUTAM RS, 2 doses, First dose on Fri04/26/11 at 2300, Last dose on 04/27/11 at 0700, for 30 Minutes furosemide (LASIX) tablet 20 mg (CANCELED) 0900 (Given - Provider: Ebony Harkins RN) 20 mg, Oral, DAILY, First dose on Sat 28/07 at 0900, Until Discontinued, Routine levothyroxine (SYNTHROID) tablet 125 mcg (CANCELED) 0600 (Given - Provider: Ebony Harkins RN) 125 mcg, Oral, DAILY, First dose on 04/27/11 at 0600, Until Discontinued, Routine losartan (COZAAR) tablet 50 mg (CANCELED) 0900 (Given - Provider: Ebony Harkins RN) 50 mg, Oral, DAILY, First dose on Sat 28/07 at 0900, Until Discontinued, Routine sodium chloride 0.9 % flush 5 mL (CANCELED) 0930 (Due)2130 (Given - Provider: Eva Palm RN) 0930 (Given - Provider: Ebony J Shahana, RN) 5 mL, Intravenous, EVERY 12 HOURS, First dose on Fri04/26/11 at 0930, Until Discontinued, Routine spironolactone (ALDACTONE) tablet 50 mg (CANCELED) 0900 (Given - Provider: Ebony Harkins RN) 50 mg, Oral, DAILY, First dose on Sat 28/07 at 0900, Until Discontinued, Routine PRN Medication Order 04/25/2011 04/26/2011 04/27/2011 acetaminophen (TYLENOL) tablet 650 mg (CANCELED) 1904 (Given - Provider: Siri Dunne RN) 1042 (Given - Provider: Ebony Harkins RN) 650 mg, Oral, EVERY 4 HOURS PRN, Startin g Fri04/26/11 at 1832, Until 04/27/11 at 1853, Pain, Fever, Mild to moderate [...] Routine documented in this encounter Care Teams Stick Inserter Relationship Specialty Start Date End Date Vivi Juarez MD PCP - General 07/24/10 08/16/14 [address] [place] [address] documented as of this encounter
--- OUTSIDE RECORDS SUMMARY | 2022-03-18 02:38 | XMS_ITS | Encounter Summary ---
:1945 Author Organization [facility] [place] [address] Care Team Providers Name Role Phone Vivi Kim MD Primary Care Provider Reason for Visit Reason Comments Deep Vein Thrombosis NPW Encounter Details Date Type Department Care Team Description 03/14/2011 Hospital Encounter Hematology and [place], DVT (de ep venous Oncology at [facility] Hannah Robles MD thrombosis) [facility] [address] [place] HEMATOLOGY/ONCOL [id number] OGY DEPT. [phone] [place] [address] Social History Tobacco Use Types Packs/Day Years Used Date Never Smoker Alcohol Use Standard Drinks/Week Comments Not Asked 0 (1 standard drink = 0.6 oz pure alcoho l) Sex Assigned at Date Recorded Not on file documented as of this encounter Last Filed Vital Signs Vital Sign Reading Time Taken Comments Blood Pressure 158/78 03/14/2011 1:05 PM EDT Pulse 63 03/14/2011 1:05 PM EDT Temperature 36.6 ??C (97.9 ??F) 03/14/2011 1:05 PM EDT Respiratory Rate - - Oxygen Saturation 95% 03/14/2011 1:05 PM EDT Inhaled Oxygen Concentration - - Weight 116.5 kg (256 lb 13.4 oz) 03/14/2011 1:05 PM EDT Height 164.5 cm (5' 4.76) 03/14/2011 1:05 PM EDT Body Mass Index 43.05 03/14/2011 1:05 PM EDT documented in this encounter Medications at Time of Discharge Medication Sig Dispensed Refills Start Date End Date losartan (COZAAR) 50 mg Take 50 mg by mouth 0 tablet daily. predniSONE (DELTASONE) 20 Take 20 mg by mouth 0 04/26/2011 mg tablet daily. furosemide (LASIX) 20 mg Take 20 mg by mouth 0 02/13/2012 tablet daily. 1/2 tablet = 10mg levothyroxine (SYNTHROID) Take 125 mcg by 0 08/26/2013 125 mcg tablet mouth. Fri, sat, sun warfarin (COUMADIN) 5 mg 0 09/07/2010 04/26/2011 tablet GLUCOSAMINE HCL/CHONDRO RODRIGUEZ 0 1 11/21/2016 A (GLUCOSAMINE-CHONDROITIN ORAL) documented as of this encounter Miscellaneous Notes Consult Note - Hannah Allen MD - 03/14/2011 2:49 PM EDT [facility] Department of Medicine [place] [address] [facility] THROMBOSIS CONSULTATION DATE OF VISIT 03/14/2011 Patient Ana Victoria 1945 REFERRING PHYSICIAN STANISLAV PEÑA MD PRIMARY CARE PHYSICIAN VIVI KIM MD REASON FOR CONSULTATION Recommendations for perioperative anticoagulation management HISTORY OF THE PRESENT ILLNESS Ana Victoria is a 65 y.o. year-old woman with a history of two provoked episodes of DVT, who is seen in consultation at the request of Dr. Stanislav Peña for recommendations for management of anticoagulation around upcoming surgery to implant a biventricular ICD to improve cardiac function. Helenhad a left leg DVT in 1979 about 6 months into an otherwise uneventful first . She was treated with heparin until delivery then with warfarin for about 3 to 4 more months and did well. She didnot receive prophylactic anticoagulation with her second and had no VTE. In 1997 she brokeher left ankle and underwent surgical repair and developed a recurrent DVT in that leg when the castcame off about 8 weeks later. By her description, the DVT extended from the proximal thigh through the calf. She was treated with heparin as a bridge to warfarin and has remained on warfarin ever since. Helen has never had an episode of idiopathic VTE and there is no family history of VTE. 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 Of note, there is notation of the presence of a LV mural thrombus seen on an echocardiogram performed on 07/03/04 at [facility], but a study performed at [facility] on 07/11/04 specifically notes that no LV thrombus is identified, nor have any subsequent echocardiograms or catheterizations noted the presence of LV thrombus. She has an ICD in place but has been evaluated for an upgrade to a biventricular model to improve heart failure, but this is yet to be scheduled. Her major ongoing risk factor for VTE is obesity. Herother thrombosis risk factors are noted below: THROMBOSIS RISK FACTORS Risk Factor Comment Obesity (BMI >30 kg/m2) V/A X Body mass index is 43.05 kg/(m^2). Diabetes V/A Current smoker V/A Estrogen or estrogen/progestin V/A V/A X Associated with DVT #1 Inflammatory disease V/A Recent surgery (<3 months) V X Associated with DVT #2 Recent hospitalization (<3 mo) V Recent travel (<3 mo) V Period of immobility V X Associated with DVT #2 (cast) Documented thrombophilia V Accident/Trauma V/A Cancer or treatment for cancer V/A Blood transfusion V/A Central venous catheter V Family history (1st degree) V/A Varicose veins/venous insuff. V Hypertension A X Hyperlipidemia A Vascular disease A V: Risk factor for venous thrombosis; A: Risk factor for arterial thrombosis In the office today Helen reports feeling well. She has mild swelling in both legs for which she wears bilateral [id number] compression stockings with good effect. She has no leg pain, limb fatigue, ulcers or other symptoms of post-thrombotic syndrome. She has exertional dyspnea but no chest pain.She is interested in understanding the indications/risks/benefits of long-term anticoagulation in view of the circumstances of her DVT episodes. While Helen hasn't had problems with major bleeding withwarfarin and doesn't have particularly strong feelings about stopping or continuing for the long-term, she is inclined to prefer discontinuing. PAST MEDICAL HISTORY 1. Venous thromboembolism, as above LLE proximal DVT, 1979 Rx Heparin --> warfarin x ~6 months Associated with LLE proximal DVT, 1997 Rx Heparin --> warfarin to current day Associated with ankle fracture, ORIF, immobilizing cast ???LV thrombus 2. Idiopathic cardiomyopathy Severe LV dysfunction, LVEF ~30% 07/09 Normal coronary artery anatomy by cath 07/05 ICD implanted 03/05 3. Hypertension 4. Hypothyroidism 5. Hx depression 6. Osteoarthritis 7. Obstructive sleep apnea, uses CPAP OPERATIVE PROCEDURES 1. Tonsillectomy 2. Appendectomy 3. Left ankle, ORIF 1997 4. ICD implantation, 2004 OBSTETRIC HISTORY MEDICATIONS Current outpatient prescriptions ordered prior to encounter [...] ??? GLUCOSAMINE HCL/CHONDRO RODRIGUEZ A (GLUCOSAMINE-CHONDROITIN ORAL) ADVERSE DRUG REACTIONS Allergies as of 03/14/2011 ??? 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 Lifelong nonsmoker Rare alcohol use REVIEW OF SYSTEMS Fevers/chills/sweats No Recent infections No Unexplained weight loss No Headache/lightheadedness/syncope No Sinus pain/pressure No Oral sores/lesions/bleeding No Sore throat/dysphagia No Nosebleeds No Cough/SOB/chest pain/heart racing No Nausea/vomiting/dyspepsia No Abdominal pain No Diarrhea/constipation No Urinary pain, burning, incontinence No Hematuria No Vaginal discharge/bleeding No Skin rashes/ulcers No Back/joint pain/swelling Joint pain - hands Leg swelling/pain/redness Mild leg swelling Bruising/petechiae/bleeding/melena No Sensory/motor No Polydipsia/polyuria/heat/cold intol No Lumps/bumps/swollen glands No Other Negative except as above PHYSICAL EXAMINATION Filed Vitals: 03/14/11 1305 BP: 158/78 Pulse: 63 Temp: 36.6 ??C (97.9 ??F) Body mass index is 43.05 kg/(m^2). GENERAL: Well-appearing, articulate white female. HEENT: Oropharynx clear; no mucosal lesions, petechiae, bleeding, thrush or ulcers. NECK: Supple; no cervical, supraclavicular or submental adenopathy. BREASTS: Exam deferred. CHEST: Clear to auscultation/percussion. No rales, rhonchi, wheezes. HEART: Regular rate and rhythm; no murmur, rub, gallop ABDOMEN: Obese GENITOURINARY: Exam deferred. EXTREMITIES: Trace bipedal edema. Left calf slightly larger than right. No erythema, tenderness or palpable cords. No venous varicosities. No skin discoloration or hemosiderin deposits. Peripheral pulses palpable. MUSCULOSKELETAL: Spine nontender. Full ROM all joints. No acutely inflamed joints. SKIN: No ecchymoses, petechiae, ulcers or rashes. LYMPH: No palpable lymph nodes. NEUROLOGIC: Alert, oriented. Speech clear, coherent. No focal deficits noted. PSYCHIATRIC: Appropriate affect, no apparent distress. LABORATORY STUDIES Reviewed from [facility]: Creatinine 1.1 mg/dL. RADIOGRAPHIC STUDIES Reviewed above. IMPRESSION Ana Victoria is a 65 y.o. year-old woman with two episodes of left leg DVT, each associated with a well-recognized provocative event ( and surgery/cast immobilization). Although she has obesity as an ongoing risk factor, the circumstances of her VTE (provoked) do not constitute an indication for long-term chronic anticoagulation. That being said, the presence of a cardiomyopathy with a low EF is sometimes considered a risk factor for thrombosis but is a controversial one and is not typically an indication for anticoagulation, especially with an EF of 30%. The presence of LV thrombus noted on the [facility] echocardiogram gives me pause, however, but an echocardiogram performed at [facility] about 1 week after the [facility] exam did not show a thrombus and there was no specific intervention performed (e.g., thrombolytic therapy) so it makes me wonder about the veracity of the finding on the [facility] study. There has been no notation of the presence of LV thrombus on any echocardiogram performed at [facility] subsequently. Accordingly, I do not feel strongly that Helen has an indication for ongoing anticoagulation on the basis of her two episodes of provoked DVT and would advocate discontinuing warfarin in favor of low dose daily aspirin for arterial thromboprophylaxis and aggressive venous thromboprophylaxis around periods of temporarily increased risk (e.g., surgery, hospitalization, immobilization). The presence or absence of hereditary thrombophilia would have little bearing on this recommendation, thus testing for these entities is optional and likely to be of low yield in the absence of a compellingfamily history. PLAN/RECOMMENDATIONS I discussed my impression with Helen and her , who accompanied her to the visit today. I reviewed the difference between an idiopathic VTE event and one that may have been precipitated bytemporary risk factors (e.g., surgery, trauma, travel, hospitalization, immobilization) and discussed the additive nature of factors such as hereditary or acquired thrombophilia (e.g., factor V Leiden,PT [id number]), ABO blood type (non-O > O), dehydration, obesity, smoking varicose veins, diabetes, cancer, hormone use. I explained that the risk for developing a recurrent VTE is higher when the original event was idiopathic than when it was associated with identifiable risk factors that have subsequently been eliminated. I explained that current ACCP recommendations (2008) for individuals with a provoked VTE such as hers are for 3 months of anticoagulation, as long as the triggering factor has been removed or has abated. Indefinite anticoagulation would only be considered in the event of a recurrent VTE episode, and then, generally only for an idiopathic one. In her case, both events were provoked by well-recognized risk factors that have been mitigated, thus I do not view her second episode as an indication for ongoing anticoagulation. I reviewed with Helen and her that our thinking on this matter has evolved over the last decade, so while long-term anticoagulation after a second event may have been an appropriate management decision in 1997, at the present time it is not so clear cut, especially since there is a risk/benefit calculation to be considered with respect to risk of clotting off anticoagulation versus risk of major bleeding on anticoagulation. In Helen's case the riskof recurrent VTE, especially unprovoked, is low enough to make the risk/benefit calculation favorable for discontinuing. Although my recommendation would be for discontinuing chronic warfarin anticoagulation in favor of episodic thromboprophylaxis around temporary periods of high risk, Helen would like to braulio this over and discuss with her other physicians. In addition, although there is not an indication from a VTE sta ndpoint to continue the warfarin for the long-term, her cardiologists may feel differently and prefer that she remain anticoagulated for a cardiac indication. I am skeptical about the presence of the LV thrombus, however, and would defer to the expertise of Drs. Peña and Lauren on this point. We discussed the fact that although she appears to have no absolute indication for chronic ongoing anticoagulation, it would nevertheless be prudent to administer thromboprophylaxis around periods of high risk such as major surgery, trauma, immobilization or hospitalization. In the absence of a contraindication to anticoagulation, pharmacologic thromboprophylaxis is generally recommended (i.e., with heparin, low molecular weight heparin, or vitamin K antagonists) rather than insertion of a prophylactic IVC filter, which itself is prone to clotting and other complications. I let her know that I would be happy to help out with specific recommendations should the need arise and that, in particular, she should call our office in advance of any elective surgery so that we may provide a thromboprophylaxis plan. I discussed with her that her biggest ongoing risk factor for VTE is her obesity and reviewed preventive strategies for DVT and PE including weight loss, maintaining a good activity level and avoiding dehydration. I reminded her that although her risk for a recurrent event off anticoagulation in her every day life is low it is not zero, and I reviewed the signs and symptoms of DVT and PE and remindedher to seek medical attention expeditiously should they occur. She should continue to wear her compression stockings during waking hours and especially during travel. We reviewed the role of aspirin for venous thromboprophylaxis. While there is little evidence that aspirin is helpful for venous thromboprophylaxis, it is unequivocally beneficial for preventing arterial thrombosis. Given her age and other risk factors, she may benefit from low dose daily aspirin for coronary thromboprophylaxis should the warfarin be discontinued. I would not recommend concurrent aspirin and warfarin use as the risk for bleeding is increased with the combination without a significant increased in efficacy for thromboprophylaxis. With respect to perioperative management of anticoagulation for the upcoming ICD upgrade, I recommend the following: ?? Stop warfarin 4 to 5 days before the procedure to allow the INR to normalize by the day of surgery ?? No preoperative heparin or low molecular weight heparin bridge ?? Post-operatively: IF warfarin is to be restarted and continued for the long-term, then simply restart at the previousoutpatient dose and continue as usual with a target INR of 2.5 (range, 2.0 to 3.0) IF, however, warfarin is to be discontinued, use enoxaparin, 60 mg once daily during the hospitalization and for 7 days as an outpatient after discharge. This is a prophylactic dose of enoxaparin (neither a full treatment dose of enoxaparin nor full dose heparin by continuous IV infusion is required in the absence of active thrombosis) and would not be expected to be associated with an increased risk for bleeding, including a pocket hematoma. Finally, since the presence or absence of hereditary thrombophilia has little bearing on anticoagulation recommendations in Helen's situation, I recommended deferring testing at this time and reviewed with her the rationale. In summary: ?? Continue warfarin at a target INR of 2.5 (range, 2.0 - 3.0) for now, with consideration for discontinuing. ?? Aggressive thromboprophylaxis around temporary periods of high risk ?? Seek medical attention in the event of new VTE symptoms ?? Low dose daily aspirin if warfarin is discontinued ?? Stop warfarin at least 5 days before ICD surgery without bridging anticoagulation ?? Restart warfarin if it is to be continued for the snf ?? Enoxaparin, 60 mg once daily, for 1 week post-operatively if warfarin is to be discontinued ?? No thrombophilia testing at this time. Ana Jose Catekta had the opportunity to ask questions and indicated that all her questions were answered to her satisfaction. While I won't plan to see her back routinely, I will be happy to see her back at any time as appropriate and would especially welcome the opportunity to help with thromboprophylaxis recommendations during temporary periods of high risk should the need arise. Hannah Allen MD Accounting Lecturer, [facility] documented in this encounter Plan of Treatment Upcoming Encounters Date Type Specialty Care Team Description 04/16/2022 Appointment Cardiology Vivi Lorenz, [facility] CARDIOLOGY DEPT. [place], [place] [address] (Wo rk) 04/16/2022 Laboratory Appointment Lab 04/16/2022 Office Visit Cardiology Vivi Lorenz APRN [facility] CARDIOLOGY DEPT. [place], [place] [address] (Wo rk) documented as of this encounter Visit Diagnoses Diagnosis DVT (deep venous thrombosis) Acute venous embolism and thrombosis of unspecified deep vessels of lower extremity documented in this encounter Care Teams Floor Coverings Salesperson Relationship Specialty Start Date End Date Vivi Kim MD PCP - General 07/24/10 08/16/14 [address] [place] [address] documented as of this encounter
--- OUTSIDE RECORDS SUMMARY | 2022-03-18 02:38 | XMS_ITS | Encounter Summary ---
:1945 [place] [address] Care Team Providers Name Role Phone Vivi Juarez MD Primary Care Provider Reason for Visit Reason Comments Cardiomyopathy ICD rotary check Encounter Details Date Type Department Care Team Description 01/16/2011 Follow-Up Cardiology at [facility] Mali Warren [facility] cardiomyopathies ([address] [phone] Dx) [place] [address] (Fax) [phone] Social History Tobacco Use Types Packs/Day Years Used Date Never Smoker Alcohol Use Standard Drinks/Week Comments Not Asked 0 (1 standard drink = 0.6 oz pure alcoho l) Sex Assigned at Date Recorded Not on file documented as of this encounter Progress Notes Mali Warren - 01/16/2011 10:46 AM EDT ICD Clinic Follow-up Ms. Victoria is a 65 yo woman presents for single chamber ICD follow up and Heart Failure clinic visit. Device implanted 03/2005 for idiopathic CM. Ventricular lead subject to Vladimir Shaikh advisory. She is seeing QUINN Porter today as well. Colors Custodian: Roly Aguilar MD Primary Care: Vivi Juarez MD DEVICE AND LEAD INFORMATION Ventricular electrode: Medtronic Sprint Model # 6949-58 cm, Serial # [id number] Bipolar, steroid-tipped, active-fixation lead Access: Axillary vein Location: Right ventricular apex This lead is affected by the Medtronic Sprint Neel Lead Recall on 06/15/07. Programming changes made on 07/08/07. Pulse generator: [employer] Model # 7232Cx, Serial # [id number] VVIR ICD Location: Subcutaneous Parameters: VF detection rate: 188 bpm VF therapy: 20j/35j x5 FVT detection rate: via VF 250 bpm FVT therapy: burst(4)/10j/35j 4 VT detection rate: 150 bpm VT therapy: monitor Bradycardia pacing: VVI @ 40 Follow-up: Battery status: 3.06 V (SKYLAR: 2.62 V) Charge time: 8.10 seconds last cap formation 08/28/2010 Sensing Integrity Counter: 10 since 07/19/2010 Pace/sensing leads: Ventricular R wave: 18.7 mV (17mV measured) Threshold: 0.2 ms at 3 V Impedance: 760 Ohms stable EGM quality: clean Shocking Leads Impedance: 53 Ohms stable SVC(HVX): 69 Ohms stable EGM quality: clean Xrays of lead system: ok 07/02/2005 Wound/generator site: well healed Therapy Administered: none; 100% sensed Comments: Lead Trends stable. Slightly elevated but stable pacing threshold Underlying SR 63 bpm No events Changes made this session: none Plan: 1. RTC in 6 mos. 07/12 2. Next [facility] 04/11. Provider: Mali Warren RN Provider#: [id number] Consult attending physician: Dar Bradford MD documented in this encounter Plan of Treatment Upcoming Encounters Date Type Specialty Care Team Description 04/16/2022 Appointment Cardiology Vivi Lorenz APRN [facility] CARDIOLOGY DEPT. [place], [place] [address] (Luz pollard) 04/16/2022 Laboratory Appointment Lab 04/16/2022 Office Visit Cardiology Vivi Lorenz APRN [facility] CARDIOLOGY DEPT. [place], [place] [address] (Luz pollard) documented as of this encounter Visit Diagnoses Diagnosis Other primary cardiomyopathies - Primary documented in this encounter Care Teams Leguillon Debeader Relationship Specialty Start Date End Date Vivi Juarez MD PCP - General 07/24/10 08/16/14 [address] [place] [address] documented as of this encounter
--- OUTSIDE RECORDS SUMMARY | 2022-03-18 02:38 | XMS_ITS | Encounter Summary ---
:1945 Author Organization [facility] [place] [address] Care Team Providers Name Role Phone Vivi Juarez MD Primary Care Provider Encounter Details Date Type Department Care Team Description 02/22/2011 Hospital Encounter Radiology at [facility] [place] [address] Social History Tobacco Use Types Packs/Day [...] Team Description 04/16/2022 Appointment Cardiology Vivi Lorenz, [facility] CARDIOLOGY DEPT. [place], [place] [address] (Wo rk) 04/16/2022 Laboratory Appointment Lab 04/16/2022 Office Visit Cardiology Vivi Lorenz, [facility] CARDIOLOGY DEPT. [place], [place] [address] (Wo rk) documented as of this encounter Visit Diagnoses Not on filedocumented in this encounter Care Teams Supervisor Looping Relationship Specialty Start Date End Date Vivi Juarez MD PCP - General 07/24/10 08/16/14 [address] [place] [address] documented as of this encounter
--- OUTSIDE RECORDS SUMMARY | 2022-03-18 02:40 | XMS_ITS | Encounter Summary ---
:1945 Demographics Home Phone Preferred Language Unknown Marital Status Single Cheondoism Affiliation Unknown Race Unknown Ethnic Group Unknown Author Organization [facility] Address [address] [place] [address] Care Team Providers Name Role Phone Unavailable Primary Care Provider Unavailable Encounter Details Date Type Department Care Team Description 07/10/2009 Orders Only [facility] Chris Juarez MD Laboratory Services - [facility] [address] [place] [address] [place] [address] [place] [address] [phone] Social History Tobacco Use Types Packs/Day Years Used Date Never Assessed Sex Assigned at Date Recorded Not on file documented as of this encounter Plan of Treatment Not on filedocumented as of this encounter Procedures Procedure Name Priority Date/Time Associated Comments Diagnosis HPV DETECTION, HIGH Routine 07/10/2009 12:09 Resu lts for this RISK TYPES EST procedure are i n the results section. CYTOPATHOLOGY Routine 07/10/2009 0:00 Results for this EST procedure are i n the results section. documented in this encounter Results HUMAN PAPILLOMA VIRUS DNA TEST (07/10/2009 12:09 EST) Specimen Description Cervix, ThinPrep [facility] vial Result Negative for HPV [facility] types 16, 18, 31, 33, 35, 39, 45, 51, 52, 56, 58, 59, and 68. Report Status Final [facility] 07/26/2009 Specimen Performing Organization Address City/State/ZIP Code Phon e Number [facility] [address] [place] [address] SERVICES [facility] [address] [place] [address] CYTOPATHOLOGY (07/10/2009 0:00 EST) Pathology Report: CYTOPATHOLOGY REPORT ? [facility] ? [facility] Reports generated via electr onic interface contain original data; ? however they are lacking the format of the original report. ? Caution should be taken when reading/interpreting unformatted reports. ? Name: ? TAQUERIA APPIAH ? Accession #: ? [id number] ? : ? 1945 (Age: 63) ??F ?Collect Date: ? 07/10/2009 ? Location: ? [facility] ? Receive Date: ? 07/12/2009 ? Provider: ?VIPUL GRES SER MD ? Copy to: ? Specimen/Source: ? Pap Test, Cervix/Endocervix, ThinPrep Imaging System ? with manual evaluation ? Last Menstrual Period: ? Menstrual/ Status: ? Post Menopausal ? Other: ? HPVDX - HPV testing requeste d regardless of diagnosis on current ThinPrep Pap ?? test. ? SPECIMEN ADEQUACY ? Satisfactory for Eval uation ? - transformation zone compon ent present ? GENERAL CATEGORIZATION ? Negative for Intraepi thelial Lesion or Malignancy ? INTERPRETATION ? Reactive cellular sidney nges associated with inflammation present (includes ?? repair). ? Document reviewed and electr onically signed by: ? Amy Mcbride, P hD ? Report Date: ??11/19/ 2009 13:49 ? End of Report ? Specimen Performing Organization Address City/State/ZIP Code Phon e Number [facility] [address] [place] [address] SERVICES [facility] [address] [place] [address] documented in this encounter Visit Diagnoses Not on filedocumented in this encounter
--- OUTSIDE RECORDS SUMMARY | 2022-03-18 02:40 | XMS_ITS | Encounter Summary ---
:1945 Demographics Home Phone Preferred Language Unknown Marital Status Single Zoroastrian Affiliation Unknown Race Unknown Ethnic Group Unknown Author Organization [facility] Address [address] [place] [address] Care Team Providers Name Role Phone Unavailable Primary Care Provider Unavailable Encounter Details Date Type Department Care Team Description 02/15/2008 Results Only [facility] - Charline fleming, Vivi Robles MD conversion [address] [place] [address] [place], [place] [address] [phone] Social History Tobacco Use Types Packs/Day Years Used Date Never Assessed Sex Assigned at Date Recorded Not on file documented as of this encounter Plan of Treatment Not on filedocumented as of this encounter Procedures Procedure Name Priority Date/Time Associated Diagnosis Comme nts CYTOPATHOLOGY Routine 02/15/2008 0:00 EDT Results for this procedure are i n the results section . documented in this encounter Results CYTOPATHOLOGY (02/15/2008 0:00 EDT) Pathology Report: CYTOPATHOLOGY REPORT [facility] Reports generated via electronic interface contain ayla ginal data; however they are lacking the format of the original re port. Caution should be taken when reading/interpreting unfo rmatted reports. Name: ? TAQUERIA APPIAH ? Accession #: ? [id number] : ? 1945 (Age: 62) ??F ?Collect Date: ? 01/30 Location: ? [facility] ? Receive Date : ? 02/17/2008 Provider: ?VIVI KIM MD Copy to: ? Specimen/Source: ? ThinPrep Pap Test, Cervix/Endocervix, processed on [employer] ThinPrep Imaging System, with manual evaluation Last Menstrual Period: ? Menstrual/ Status: ? Post Menopausal Other: ? HPVA - HPV testing requested if ASC-US on the current ThinPrep Pap test. ? SPECIMEN ADEQUACY ? Satisfactory for Evaluation - transformation zone component present GENERAL CATEGORIZATION ? Negative for Intraepithelial Lesion or Malignan cy ? Document reviewed and electronically signed by: ? АЛЕКСАНДР Babcock(ASCP) ? Report Date: ??02/18/2008 09:14 End of Report Specimen Performing Organization Address City/State/ZIP Code Phon e Number [facility] [address] [place] [address] SERVICES [facility] [address] [place] [address] documented in this encounter Visit Diagnoses Not on filedocumented in this encounter
--- OUTSIDE RECORDS SUMMARY | 2022-03-18 02:40 | XMS_ITS ---
:1945 Author Care Team Providers Name Role Phone DR. DEBRA GARNICA Primary Care Provider Unavailable DR. DEBRA GARNICA Referring Provider Unavailable Allergies Code Code System Name Reaction Severity Status Onset NKDA ? Medications Name Status Start Date Stop Date ? ? Adult Aspirin Regimen 81 mg tablet,delayed release Active ? Not available Take 1 tablet every day by oral route. carvedilol 25 mg tablet Active ? Not avai lable Take 1 tablet twice a day by oral route. Glucos Chond Cplx Advanced Active ? Not a vailable 2 TABS DAILY Levemir FlexTouch U-100 Insulin 100 unit/mL (3 mL) subcutaneous pen Active ? Not available Inject 45 units every day by subcutaneous route. levothyroxine 150 mcg tablet Active ? Not available Take 1 tablet every day by oral route. losartan 50 mg tablet Active ? Not availa ble Take 1 tablet every day by oral route. metformin 1,000 mg tablet Active ? Not av ailable 1 Tab in AM, 1.5 in PM Novolog Flexpen U-100 Insulin Active ? No t available 10 UNITS BEFORE MEALS ProAir HFA 90 mcg/actuation aerosol inhaler Active ? Not available Inhale 2 puffs every 4 hours by inhalation route as needed. spironolactone 50 mg tablet Active ? Not available Take 1 tablet every day by oral route. Victoza 2-Alcides 0.6 mg/0.1 mL (18 mg/3 mL) subcutaneous pen inject or Active ? Not available Inject 1.2 mg every day by subcutaneous route. Problems Name Status Onset Date Source ? Hypothyroidism Active 04/22/2018 ? Type 2 Diabetes Mellitus Active 04/22/2018 ? Obesity Active 04/22/2018 ? Obstructive Sleep Apnea Syndrome Active 04/22/2018 ? Cardiomyopathy Active 04/22/2018 ? Renal Impairment Active 04/22/2018 ? Osteoarthritis Active 04/22/2018 ? Inflammation of Rotator Cuff Tendon Active 04/22/2018 ? Dizziness Active 04/22/2018 ? Colonoscopy Abnormal Active 04/22/2018 ? Cardiac Defibrillator in Situ Active 04/22/2018 ? Procedures Date Name Performed by ? ? Ankle Surgery Information not avai lable ? Tonsillectomy Information not avai lable ? Appendectomy Information not avai lable ? Tubal Ligation Information not avai lable Results Lab Results None recorded. Past Encounters None recorded. Social History Tobacco Smoking Status Never Smoker Notes: 06/22/20 18 Vaccine List Vaccine Type pneumococcal polysaccharide PPV23 05/17/2014 Tdap 05/17/2014 Plan of Care Reminders Provider Appointments None recorded. ? ? Lab None recorded. ? ? Referral None recorded. ? ? Procedures None recorded. ? ? Surgeries None recorded. ? ? Imaging None recorded. ? ? Vitals Height Weight BMI Blood Pressure 165.1 cm 112.94 kg 41.4 kg/m2 118/64 mm[Hg]
--- OUTSIDE RECORDS SUMMARY | 2022-03-18 02:40 | XMS_ITS | Encounter Summary ---
:1945 Demographics Home Phone Preferred Language Unknown Marital Status Single Christianity Affiliation Unknown Race Unknown Ethnic Group Unknown Author Organization [facility] Address [address] [place] [address] Care Team Providers Name Role Phone Unavailable Primary Care Provider Unavailable Encounter Details Date Type Department Care Team Description 09/22/2013 Results Only [facility] Chris Kim MD Laboratory Services - [facility] [address] [place] [address] [address] [facility] [place] [address] [phone] Social History Tobacco Use Types Packs/Day Years Used Date Never Assessed Sex Assigned at Date Recorded Not on file documented as of this encounter Plan of Treatment Not on filedocumented as of this encounter Procedures Procedure Name Priority Date/Time Associated Diagnosis Comme nts PAP TEST- RESULT Routine 09/22/2013 0:00 EST Resu lts for this ONLY procedure are i n the results section. documented in this encounter Results PAP TEST- RESULT ONLY (09/22/2013 0:00 EST) Pathology Report: CYTOPATHOLOGY REPORT [facility] Reports generated via electronic interface contain ayla ginal data; however they are lacking the format of the original re port. Caution should be taken when reading/interpreting unfo rmatted reports. Name: ? TAQUERIA APPIAH ? Accession #: ? [id number] ? : ? 1945 (Age: 67) ??F ?Collect Da te: ? 09/22/2013 ? Location: ? [facility] ? Receive Date: ? 014 ? Provider: VIPUL KIM MD Copy to: ? Final Report SPECIMEN ADEQUACY ? Satisfactory for Evaluation - transformation zone component present GENERAL CATEGORIZATION ? Negative for Intraepithelial Lesion or Malignan cy ?? Menstrual/ Status: ??Post Menopausal Specimen/Source: ??Pap Test, Cervix/Endocervix, ThinPr ep Imaging System with manual evaluation Document reviewed and electronically signed by: ? АЛЕКСАНДР Gaffney(ASCP) ? Report ??Date: 09/27/2013 16:07 HPV with Pap Test ? Date Ordered: ? 09/27/2013 ? Status: ?? Signed Out ?Date Complete: ? 09/29/2013 ? By: ??S ystem Interface ? Date Reported: ? 09/29/2013 ? Interpretation RESULT: Negative for HPV. No E6 or E7 mRNA is detected from HPV types 16,18,31,3 3,35, 39,45,51,52,56,58,59,66, and 68 by fruit bar maker media allyson amplification. Comments Document reviewed and electronically signed by: ? System Interface ? Report date: 09/29/2013 By the signature above, the attending physician certif ies that he/she has personally conducted a gross and/or microscopic examin ation of the described specimens and rendered or confirmed the above diagnosi s. End of Report Specimen Performing Organization Address City/State/ZIP Code Phon e Number [facility] [address] [place] [address] SERVICES [facility] [address] [place] [address] documented in this encounter Visit Diagnoses Not on filedocumented in this encounter
--- OUTSIDE RECORDS SUMMARY | 2022-03-18 02:40 | XMS_ITS | Clinical Summary ---
:1945 Demographics Home Phone Preferred Language Unknown Marital Status Single Rastafari Affiliation Unknown Race Unknown Ethnic Group Unknown Author Organization [facility] Address [address] [place] [address] Care Team Providers Name Role Phone Unknown, Provider Primary Care Provider Social History Tobacco Use Types Packs/Day Years Used Date Never Assessed Sex Assigned at Date Recorded Not on file Plan of Treatment Health Maintenance Due Date Last Done Comments Fall Risk Screening 11/08/[address] [employer] Relationship Specialty Start Date End Date Unknown, Provider, PCP - General 07/14/15
[2022-03-18 11:56] LABS: ALT 23 U/L (14-59); AST 16 U/L (15-37); Albumin 3.6 g/dL (3.4-5.0); Alkaline Phosphatase 98 U/L (46-116); Anion Gap 9.8 mmol/L (3-11); BUN 21 mg/dL (7-18); Bilirubin, Total 0.3 mg/dL (0.2-1.0); CO2 26.2 mmol/L (21.0-32.0); CREATININE 1.1 mg/dL (0.55-1.02); Calcium 8.9 mg/dL (8.5-10.1); Chloride 105 mmol/L (98-107); Estimated GFR 48.42 (mL/min/1.73m2); Glucose 120 mg/dL (74-106); Potassium 4.6 mmol/L (3.5-5.1); Sodium 141 mmol/L (136-145); TSH (W/Ref FT4) 5.47 uIU/mL (0.36-3.74); Total Protein 7.6 g/dL (6.4-8.2)
[2022-03-18 12:03] LABS: Hemoglobin A1C 7.4 % (<5.7)
[2022-03-18 12:12] LABS: FREE T4 1.09 ng/dL (0.76-1.46)
[2022-03-18 14:39] LABS: COMMENT (LAB VIEW ONLY) 113.32 mg/dL; Microalb ug/mg Crea 4.8 ug/mg Cr
[2022-03-18 14:58] LABS: Calculated LDL 50 mg/dL (<100); Cholesterol 111 mg/dL (<200); HDL Cholesterol 41 mg/dL (40-60); Triglyceride 104 mg/dL (<150)
== END 2022-03-18 02:33 | disposition home or self-care (01) ==
LOC: LBO 02:33
PROVIDERS: PCP Family Medicine; Visit Provider Family Medicine
DX: I10 Essential (primary) hypertension (principal); E03.9 Hypothyroidism, unspecified; E11.65 Type 2 diabetes mellitus with hyperglycemia; N18.9 Chronic kidney disease, unspecified
CPT/HCPCS: 36415; 80053; 80061; 82043; 82570; 83036; 84439; 84443

== ENCOUNTER 2022-04-30 03:38 | Outpatient (CLI) | payer MEDICARE, BC, SELFPAY ==
[2022-04-30 12:49] LABS: Anion Gap 6.4 mmol/L (3-11); BUN 21 mg/dL (7-18); CO2 31.6 mmol/L (21.0-32.0); CREATININE 1.3 mg/dL (0.55-1.02); Calcium 9.3 mg/dL (8.5-10.1); Chloride 104 mmol/L (98-107); Estimated GFR 42.88 (mL/min/1.73m2); Glucose 129 mg/dL (74-106); Potassium 5.2 mmol/L (3.5-5.1); Sodium 142 mmol/L (136-145)
== END 2022-04-30 03:39 | disposition home or self-care (01) ==
LOC: LOS 03:39
PROVIDERS: PCP Family Medicine; Visit Provider Nurse Practitioner Adult Health
DX: I50.22 Chronic systolic (congestive) heart failure (principal)
CPT/HCPCS: 36415; 80048

== ENCOUNTER 2023-09-22 19:20 | Outpatient (REF) | payer MEDICARE, BC, SELFPAY ==
[2023-09-22 18:10] LABS: COMMENT (LAB VIEW ONLY) 70.87 mg/dL; Microalb ug/mg Crea 11.6 ug/mg Cr
== END 2023-09-22 19:21 | disposition home or self-care (01) ==
LOC: LBN 19:20
PROVIDERS: PCP Family Medicine; Visit Provider Family Medicine
DX: E11.9 Type 2 diabetes mellitus without complications (principal)
CPT/HCPCS: 82043; 82570

== ENCOUNTER → 2023-10-08 01:35 | Outpatient (CLI) | payer MEDICARE, BC, SELFPAY ==
--- NOTE | 2023-10-08 08:30 | DI.US_ITS ---
APPROVED REPORT EXAM: Comprehensive 2D, Doppler, and color-flow Echocardiogram Patient Location: Out-Patient Engineering Mathematician: Kyle Hernandes RDCS (AE) Indications: Chronic systolic heart failure Other Information Technically limited study due to body habitus. Conclusion Normal chamber sizes Borderline LV systolic function,EF 50-55%. Normal RV function.Device lead in right heart.. Anatomically normal valves.Mild MR,AI,TR. No phtn No intracaediac shunt No pericardial effusion. Wall motion Left Ventricle Left ventricle is mildly dilated. The left ventricular systolic function is normal. The left ventricu lar ejection fraction is within the normal range. There is normal left ventricular wall thickness. Th ere is normal LV segmental wall motion. There is no ventricular septal defect visualized. LVEF is 57- 60%. Right Ventricle The right ventricle is normal size. Right ventricular systolic function is grossly normal. Device jai d is present in the right ventricle. Atria The left atrium size is normal. The right atrium size is normal. The interatrial septum is intact wit h no evidence for an atrial septal defect. Aortic Valve The aortic valve is grossly normal in structure. There is no aortic valvular stenosis. Trace aortic r egurgitation. Mitral Valve The mitral valve is normal in structure. No evidence of mitral valve stenosis. Mild mitral regurgitat ion. Tricuspid Valve The tricuspid valve is normal in structure. There is no tricuspid valve stenosis. Trace tricuspid reg urgitation. Unable to assess PA pressure. Pulmonic Valve Pulmonic valve is not well visualized. There is no pulmonic valvular stenosis. There is no pulmonic v alvular regurgitation. Great Vessels Aortic root is mildly dilated. Ascending aorta is not well visualized. IVC is normal in size and col lapses >50% with inspiration. Pericardium There is no pericardial effusion. 2D Dimensions IVSD d PLAX 0.67 cm F: 0.6-1.0 Ao Root d 3.41 cm F: 2.7 - 3.3 LVPW d PLAX 0.70 cm F: 0.6 - 1.0 LVID d PLAX 5.39 cm F: 3.8 - 5.2 LVDs 3.65 cm F: 2.2 - 3.5 LV EF Teichholz 59.9 % FS 32.20 % LV EDV (Teich) 140.6 mL LV ESV (Teich) 56.4 mL Stroke Vol Index (Teich) 39.35 Auto EF LV EDV A4C 151.5 mL LV EDV A2C 127.0 mL LV EDV BP 139.3 mL LV ESV A4C 64.4 mL LV ESV A2C 52.2 mL LV ESV BP 57.4 mL LVEF(%) A4C 57.5 % LVEF(%) A2C 58.9 % LVEF(%) BP 58.8 % LV SV A4C 87.1 ml LV SV A2C 74.8 ml LV SV BP 81.8 ml LV CO A4C 6.4 L/min LV CO A2C 5.4 L/min LV CO BP 5.9 L/min HR A4C 73.47 BPM HR A2C 71.86 BPM LV EDV Index (BP) LA Volume LA Length A4C 4.9 cm LA Length A2C LA Area A4C s 13.48 cm2 LA Area A2C s LA Vol A4C A-L 31.30 mL LA Vol A2C A-L LA Vol Biplane A-L LA Vol A4C MOD 30.4 mL LA Vol A2C MOD LA Vol BP MOD RA Volume RA Area A4C 9.1 cm2 RA ESV A4C (A-L) 16.2mL RA Vol/BSA A4C A-L RA Length A4C 4.3 cm RA ESV A4C (MOD) 15.2mL LV Diastology MV E' medial 0.096 (>0.07 m/s) MV E Vmax 0.81 (0.4-1.3 m/s) MV E/E' MED 8.45 (<14) MV A Vmax 1.05 (0.4-1.3 m/s) MV E' lateral 0.128 (>0.1 m/s) E/A Ratio 0.8 MV E/E' LAT 6.33 (<14) MV E' Average 0.112 m/s MV E/E'(average) 7.24 Aortic Valve AoV Vmax 1.45 m/s LVOT Vmax 0.78 m/s AoV Peak Grad 8.5 mmHg LVOT Peak Grad 2.5 mmHg AoV Area (Vmax) 1.76 cm2 LVOT VTI 0.178 m AoV VTI 0.286 m LVOT Mean Grad 1.5 mmHg AoV Mean Efren. 1.08 m/s LVOT SV 58.06 mL AoV Mean Grad 5.0 mmHg LVOT Diam s 2.00 cm AoV Area (VTI) 2.03 cm2 Velocity Ratio 0.54 Mitral Valve MV DT 297 (160-240 msec) MV Vmax TIPS 1.04 m/s MV Mean Grad 1.7 (<2mmHg) MV VTI 0.291 m Pulmonary Valve PV Vmax 0.92 (0.5-1.5 m/s) RVOT Vmax 0.54 m/s PV Peak Grad 3.4 mmHg RVOT Peak Gr. 1.1 mmHg PV Mean Efren 0.61 m/s RVOT VTI 0.095 m PV Mean Grad 1.8 mmHg RVOT Mean Gr. 0.5 mmHg
== END ==
PROVIDERS: PCP Family Medicine; Visit Provider Physician Assistant
DX: I50.22 Chronic systolic (congestive) heart failure (principal)
CPT/HCPCS: 93306

== ENCOUNTER 2024-04-06 08:27 | Outpatient (CLI) | payer MEDICARE, BC, SELFPAY ==
[2024-04-06 13:05] LABS: ALT 26 U/L (14-59); AST 16 U/L (15-37); Albumin 3.7 g/dL (3.4-5.0); Alkaline Phosphatase 85 U/L (46-116); Anion Gap 7.9 mmol/L (3-11); BUN 28 mg/dL (7-18); Bilirubin, Total 0.42 mg/dL (0.2-1.0); CO2 30.1 mmol/L (21.0-32.0); CREATININE 1.5 mg/dL (0.55-1.02); Calcium 9.9 mg/dL (8.5-10.1); Calculated LDL 52 mg/dL (<100); Chloride 104 mmol/L (98-107); Cholesterol 118 mg/dL (<200); Estimated GFR 35.67 (mL/min/1.73m2); Glucose 93 mg/dL (74-106); HDL Cholesterol 43 mg/dL (40-60); Potassium 4.9 mmol/L (3.5-5.1); Sodium 142 mmol/L (136-145); TSH (W/Ref FT4) 2.14 uIU/mL (0.36-3.74); Total Protein 7.4 g/dL (6.4-8.2); Triglyceride 119 mg/dL (<150)
== END 2024-04-06 08:28 | disposition home or self-care (01) ==
LOC: LOS 08:27
PROVIDERS: PCP Family Medicine; Referring Provider Family Medicine; Visit Provider Family Medicine
DX: I10 Essential (primary) hypertension (principal); S29.011A Strain of muscle and tendon of front wall of thorax, initial encounter; E03.9 Hypothyroidism, unspecified; E11.9 Type 2 diabetes mellitus without complications; E11.65 Type 2 diabetes mellitus with hyperglycemia
CPT/HCPCS: 36415; 80053; 80061; 84443

== ENCOUNTER 2024-10-11 20:07 | Outpatient (REF) | payer MEDICARE, BC, SELFPAY ==
[2024-10-11 21:49] LABS: Microalb ug/mg Crea 8.6 ug/mg Cr
== END 2024-10-11 20:08 | disposition home or self-care (01) ==
LOC: LBN 20:07
PROVIDERS: PCP Family Medicine; Visit Provider Family Medicine
DX: E11.9 Type 2 diabetes mellitus without complications (principal)
CPT/HCPCS: 82043; 82570

== ENCOUNTER 2024-12-14 03:56 | Outpatient (CLI) | payer MEDICARE, BC, SELFPAY ==
[2024-12-14 13:13] LABS: Hemoglobin A1C 6.7 % (<5.7)
[2024-12-14 13:17] LABS: ALT 27 U/L (14-59); AST 20 U/L (15-37); Albumin 3.7 g/dL (3.4-5.0); Alkaline Phosphatase 96 U/L (46-116); Anion Gap 7.9 mmol/L (3-11); BUN 27 mg/dL (7-18); Bilirubin, Total 0.4 mg/dL (0.2-1.0); CO2 29.1 mmol/L (21.0-32.0); CREATININE 1.5 mg/dL (0.55-1.02); Calcium 9.4 mg/dL (8.5-10.1); Calculated LDL 26 mg/dL (<100); Chloride 104 mmol/L (98-107); Cholesterol 120 mg/dL (<200); Estimated GFR 35.45 (mL/min/1.73m2); Glucose 140 mg/dL (74-106); HDL Cholesterol 46 mg/dL (>or=50); Potassium 5.1 mmol/L (3.5-5.1); Sodium 141 mmol/L (136-145); TSH (W/Ref FT4) 3.34 uIU/mL (0.36-3.74); Total Protein 7.5 g/dL (6.4-8.2); Triglyceride 240 mg/dL (<150)
[2024-12-14 19:39] LABS: Hepatitis C Ab w Rflx HCV PCR Negative (Negative)
== END 2024-12-14 03:57 | disposition home or self-care (01) ==
LOC: LOS 04:00
PROVIDERS: PCP Family Medicine; Visit Provider Family Medicine
DX: E11.9 Type 2 diabetes mellitus without complications (principal); E03.9 Hypothyroidism, unspecified; Z11.59 Encounter for screening for other viral diseases; I10 Essential (primary) hypertension
CPT/HCPCS: 36415; 80053; 80061; 86803; 83036; 84443

== ENCOUNTER 2025-04-11 04:36 | Outpatient (CLI) | payer MEDICARE, BC, SELFPAY ==
[2025-04-11 12:52] LABS: ALT 19 U/L (14-59); AST 19 U/L (15-37); Albumin 3.3 g/dL (3.4-5.0); Alkaline Phosphatase 89 U/L (46-116); Anion Gap 8.9 mmol/L (3-11); BUN 19 mg/dL (7-18); Bilirubin, Total 0.4 mg/dL (0.2-1.0); CO2 27.1 mmol/L (21.0-32.0); Calcium 9.0 mg/dL (8.5-10.1); Chloride 105 mmol/L (98-107); Estimated GFR 46.33 (mL/min/1.73m2); Glucose 95 mg/dL (74-106); Potassium 4.6 mmol/L (3.5-5.1); Sodium 141 mmol/L (136-145); Total Protein 6.9 g/dL (6.4-8.2)
[2025-04-11 13:01] LABS: Hemoglobin A1C 6.6 % (<5.7)
== END 2025-04-11 04:37 | disposition home or self-care (01) ==
LOC: LOS 04:37
PROVIDERS: PCP Family Medicine; Visit Provider Family Medicine
DX: E11.9 Type 2 diabetes mellitus without complications (principal); I10 Essential (primary) hypertension
CPT/HCPCS: 36415; 80053; 83036

== ENCOUNTER → 2025-08-10 11:30 | Outpatient (CLI) | payer MEDICARE, BC, SELFPAY ==
--- NOTE | 2025-08-10 11:15 | DI.RAD_ITS ---
Exam(s) XR CHEST 2V PA LATERAL EXAM: XR CHEST 2V PA LATERAL CLINICAL HISTORY: eval pna, cough, R05.9. TECHNIQUE: 2D digital imaging was performed. COMPARISON: CR XR RIBS LT W PA LAT CHEST from 02/28/2021 FINDINGS: 2 views: Left subclavian pacemaker again noted with lead tips in are in RV. Mild cardiomegaly again noted. Mediastinum is not widened. There are no confluent infiltrates nor pleural effusions nor evidence of pulmonary edema. IMPRESSION: No obvious acute pulmonary findings.Cardiomegaly and pacemaker again noted. DATA REPOSITORY: RADIATION DOSE DELIVERED:
== END ==
LOC: DI 11:30
PROVIDERS: PCP Family Medicine; Visit Provider Nurse Practitioner Family
DX: R05.9 Cough, unspecified (principal); Z95.0 Presence of cardiac pacemaker
CPT/HCPCS: 71046